=== PATIENT | female | born 1985 | race African-American/Black ===

== ENCOUNTER 2017-07-14 07:16 | Emergency (ER) | payer MEDICAID ==
--- NOTE | 2017-07-14 08:46 | ER ---
Nurse's Notes [facility] Name: Mary Drake Age: 31 yrs Sex: Female : 1985 Arrival Date: 07/14/2017 Time: 07:21 Bed 15 Private MD: Aubrey Bolton E Diagnosis: Acute pharyngitis Presentation: 07/14 07:27 Presenting complaint: Patient states: sore throat that began yesterday. Transition of ss care: patient was not received from another setting of care. Onset of symptoms was July 13, 2017. Care prior to arrival: None. 07:27 Method Of Arrival: Ambulatory ss 07:27 Acuity: CED 4 ss Historical: - Allergies: : NKA; ss - PMHx: : Anxiety; Arthritis; Asthma; COPD; Schizophrenia; seasonal allergies; ss - PSHx: :28 Appendectomy; Tubal ligation; ss - Immunization history:: Adult Immunizations up to date. - Social history:: Smoking status: Patient/guardian denies using tobacco. Screenin:40 Abuse screen: Denies threats or abuse. Denies injuries from another. Nutritional ph screening: No deficits noted. Tuberculosis screening: No symptoms or risk factors identified. Fall Risk None identified. Assessment: 07:38 General: Appears in no apparent distress. comfortable, slender, Behavior is calm, ph cooperative, appropriate for age, Reports fever for 12-24 hours. Pain: Complains of pain in throat. Neuro: Level of Consciousness is awake, alert, obeys commands, Oriented to person, place, time, situation. Cardiovascular: Capillary refill < 3 seconds Patient's skin is warm and dry. Respiratory: Reports cough that is productive, Airway is patent Respiratory effort is even, unlabored, Respiratory pattern is regular, symmetrical, Breath sounds are clear bilaterally. GI: No signs and/or symptoms were reported involving the gastrointestinal system. EENT: Throat is reddened Reports nasal congestion nasal discharge pain when swallowing " itching in ears". Derm: Skin is intact, is healthy with good turgor, Skin is pink, warm \\T\\ dry. Musculoskeletal: Circulation, motion, and sensation intact. Range of motion: intact in all extremities. 08:31 Reassessment: Patient appears in no apparent distress at this time. Patient and/or ph family updated on plan of care and expected duration. Pain level reassessed. Patient is alert, oriented x 3, equal unlabored respirations, skin warm/dry/pink. Pt resting quietly, awaiting strep results, SO at bedside. 09:15 Reassessment: Patient appears in no apparent distress at this time. Patient and/or hb family updated on plan of care and expected duration. Pain level reassessed. Patient is alert, oriented x 3, equal unlabored respirations, skin warm/dry/pink. Vital Signs: 07:28 BP 98 / 73; Pulse 70; Resp 15; Temp 97.9(O); Pulse Ox 100% on R/A; Weight 57.15 kg; Height 5 ft. 4 in. (162.56 cm); Pain 8/10; 07:28 Body Mass Index 21.63 (57.15 kg, 162.56 cm) ED Course: 07:21 Patient arrived in ED. as 07:21 Aubrey Bolton MD is Private Physician. as 07:27 Triage completed. 07:28 Arm band placed on right wrist. 07:29 Teddy Nye PA is PHCP. 8 07:29 Adria Lala MD is Attending Physician. jr8 07:38 Valerie Gomez, RN is Primary Nurse. ph 07:41 Patient has correct armband on for positive identification. Bed in low position. Call ph light in reach. 07:41 No provider procedures requiring assistance completed. Patient did not have IV access ph during this emergency room visit. 08:46 Aubrey Bolton MD is Referral Physician. jr8 Administered Medications: No medications were administered Outcome: 08:46 Discharge ordered by . jr8 09:28 Discharged to home ambulatory, with significant other. hb 09:28 Condition: stable 09:28 Discharge instructions given to patient, Instructed on discharge instructions, follow up and referral plans. medication usage, Demonstrated understanding of instructions, follow-up care, medications, Prescriptions given X 2. 09:29 Patient left the ED. hb Signatures: Nakita Penn Shelby, RN RN Teddy Nye PA PA jr8 Valerie Gomez RN RN Malini Goddard RN RN
--- NOTE | 2017-07-14 08:47 | EDPHYS ---
Physician Documentation [facility] Name: Mary Drake Age: 31 yrs Sex: Female : 1985 Arrival Date: 07/14/2017 Time: 07:21 Bed 15 Private MD: Aubrey Bolton E ED Physician Adria Lala HPI: 07/14 07:36 This 31 yrs old Black Female presents to ER via Ambulatory with complaints of Sore jr8 Throat. 07:36 The patient presents with sore throat. The patient describes throat pain as constant. jr8 Onset: The symptoms/episode began/occurred acutely, yesterday. Severity of symptoms: At their worst the symptoms were mild, in the emergency department the symptoms are unchanged. Modifying factors: The symptoms are alleviated by nothing, the symptoms are aggravated by swallowing. Associated signs and symptoms: Pertinent positives: cough. It is unknown whether or not the patient has had similar symptoms in the past. The patient has not recently seen a physician. Historical: - Allergies: 07:28 NKA; ss - PMHx: 07:28 Anxiety; Arthritis; Asthma; COPD; Schizophrenia; seasonal allergies; ss - PSHx: 07:28 Appendectomy; Tubal ligation; ss - Immunization history:: Adult Immunizations up to date. - Social history:: Smoking status: Patient/guardian denies using tobacco. ROS: 07:36 Eyes: Negative for injury, pain, redness, and discharge, Neck: Negative for injury, jr8 pain, and swelling, Cardiovascular: Negative for chest pain, palpitations, and edema, Abdomen/GI: Negative for abdominal pain, nausea, vomiting, diarrhea, and constipation, Back: Negative for injury and pain, MS/Extremity: Negative for injury and deformity, Skin: Negative for injury, rash, and discoloration, Neuro: Negative for headache, weakness, numbness, tingling, and seizure. 07:36 ENT: Positive for sore throat, Negative for drainage from ear(s), ear pain, nasal discharge, rhinorrhea, difficulty swallowing, difficulty handling secretions, hoarseness. 07:36 Respiratory: Positive for cough, shortness of breath, wheezing, Negative for Exam: 07:36 Head/Face: Normocephalic, atraumatic. Eyes: Pupils equal round and reactive to light, jr8 extra-ocular motions intact. Lids and lashes normal. Conjunctiva and sclera are non-icteric and not injected. Cornea within normal limits. Periorbital areas with no swelling, redness, or edema. Neck: Trachea midline, no thyromegaly or masses palpated, and no cervical lymphadenopathy. Supple, full range of motion without nuchal rigidity, or vertebral point tenderness. No Meningismus. Cardiovascular: Regular rate and rhythm with a normal S1 and S2. No gallops, murmurs, or rubs. Normal PMI, no JVD. No pulse deficits. Respiratory: Lungs have equal breath sounds bilaterally, clear to auscultation and percussion. No rales, rhonchi or wheezes noted. No increased work of breathing, no retractions or nasal flaring. Abdomen/GI: Soft, non-tender, with normal bowel sounds. No distension or tympany. No guarding or rebound. No evidence of tenderness throughout. Back: No spinal tenderness. No costovertebral tenderness. Full range of motion. Skin: Warm, dry with normal turgor. Normal color with no rashes, no lesions, and no evidence of cellulitis. MS/ Extremity: Pulses equal, no cyanosis. Neurovascular intact. Full, normal range of motion. Neuro: Awake and alert, GCS 15, oriented to person, place, time, and situation. Cranial nerves II-XII grossly intact. Motor strength 5/5 in all extremities. Sensory grossly intact. Cerebellar exam normal. Normal gait. 07:36 ENT: Exam is negative for earache, ear discharge, TM abnormalities, nasal discharge, sinus tenderness, Mouth: Lips: moist, Oral mucosa: pink and intact, moist, Gums: pink, Tongue: is moist, Posterior pharynx: Airway: patent, Tonsils: are normal in appearance, no enlargement, no erythema, no exudate, no ulcerations, Uvula: midline, non-edematous, no erythema, swelling, is not appreciated, erythema, that is mild. Vital Signs: 07:28 BP 98 / 73; Pulse 70; Resp 15; Temp 97.9(O); Pulse Ox 100% on R/A; Weight 57.15 kg; ss Height 5 ft. 4 in. (162.56 cm); Pain 8/10; 07:28 Body Mass Index 21.63 (57.15 kg, 162.56 cm) MDM: 07:30 Patient medically screened. jr8 08:45 Data reviewed: vital signs, nurses notes, lab test result(s), and as a result, I will jr8 discharge patient. Data interpreted: Pulse oximetry: on room air is 100 %. Interpretation: normal. Counseling: I had a detailed discussion with the patient and/or guardian regarding: the historical points, exam findings, and any diagnostic results supporting the discharge/admit diagnosis, lab results, the need for outpatient follow up, a family practitioner, to return to the emergency department if symptoms worsen or persist or if there are any questions or concerns that arise at home. 07/14 07:35 Order name: Strep jr8 07/14 08:40 Order name: Group A Streptococcus Rapid Sc; Complete Time: 08:45 EDMS Administered Medications: No medications were administered Disposition: 12:23 Co-signature as Attending Physician, Adria Lala MD I agree with the assessment and tawana plan of care. Disposition: 07/14/17 08:46 Discharged to Home. Impression: Acute pharyngitis. - Condition is Stable. - Discharge Instructions: Pharyngitis, Salt Water Gargle. - Prescriptions for Tessalon Perles 100 mg Oral Capsule - take 1 capsule by ORAL route every 8 hours As needed; 15 capsule. Medrol (Harrison) 4 mg Oral Tablets, Dose Pack - take 1 tablet by ORAL route as directed - follow package instructions; 1 packet. - Medication Reconciliation Form, Thank You Letter, Antibiotic Education, Prescription Opioid Use form. - Follow up: Aubrey Bolton MD; When: 1 - 2 days; Reason: Recheck today's complaints, Continuance of care, Re-evaluation by your physician. - Problem is new. - Symptoms have improved. Signatures: Dispatcher [employer] Adria Coles MD MD cha Smirch, Shelby, Teddy Reyes RN, PA PA jr8 Malini Goddard RN RN hb
[2017-07-14 09:38] VITALS: BP 98/73; TEMP 97.9; O2SAT 100
== END 2017-07-14 09:29 | disposition home or self-care (01) ==
LOC: ER 07:16
DX: J02.9 Acute pharyngitis, unspecified (principal)
CPT/HCPCS: 87070; 87081; 99282

== ENCOUNTER 2017-10-03 13:37 | Emergency (ER) | payer MEDICAID ==
--- NOTE | 2017-10-03 14:34 | EDPHYS ---
Physician Documentation [facility] Name: Mary Drake Age: 31 yrs Sex: Female : 1985 Arrival Date: 10/03/2017 Time: 13:41 Bed 19 Private MD: Aubrey Bolton E; None, None ED Physician Chriss Matamoros HPI: 10/03 14:25 This 31 yrs old Black Female presents to ER via Ambulatory with complaints of Neck gs Pain, <24hrs Old. 14:25 The patient or guardian complains of pain, that is acute. The symptoms are located on gs the left trapezius. Onset: The symptoms/episode began/occurred acutely, 3 day(s) ago. Associated signs and symptoms: Pertinent negatives: chills, bladder incontinence, bowel incontinence. The pain does not radiate. Modifying factors: the symptoms are aggravated by movement. Severity of symptoms: At their worst the symptoms were moderate, in the emergency department the symptoms are unchanged. 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 - Social history:: Smoking status: Patient/guardian denies using tobacco. - Ebola Screening: : Patient denies exposure to infectious person Patient denies travel to an Ebola-affected area in the 21 days before illness onset. ROS: 14:25 All other systems are negative. gs Exam: 14:25 Head/Face: Normocephalic, atraumatic. Eyes: Pupils equal round and reactive to light, gs extra-ocular motions intact. Lids and lashes normal. Conjunctiva and sclera are non-icteric and not injected. Cornea within normal limits. Periorbital areas with no swelling, redness, or edema. ENT: Nares patent. No nasal discharge, no septal abnormalities noted. Tympanic membranes are normal and external auditory canals are clear. Oropharynx with no redness, swelling, or masses, exudates, or evidence of obstruction, uvula midline. Mucous membranes moist. Chest/axilla: Normal chest wall appearance and motion. Nontender with no deformity. No lesions are appreciated. Cardiovascular: Regular rate and rhythm with a normal S1 and S2. No gallops, murmurs, or rubs. Normal PMI, no JVD. No pulse deficits. Respiratory: Lungs have equal breath sounds bilaterally, clear to auscultation and percussion. No rales, rhonchi or wheezes noted. No increased work of breathing, no retractions or nasal flaring. Abdomen/GI: Soft, non-tender, with normal bowel sounds. No distension or tympany. No guarding or rebound. No evidence of tenderness throughout. Back: No spinal tenderness. No costovertebral tenderness. Full range of motion. Skin: Warm, dry with normal turgor. Normal color with no rashes, no lesions, and no evidence of cellulitis. MS/ Extremity: Pulses equal, no cyanosis. Neurovascular intact. Full, normal range of motion. Neuro: Awake and alert, GCS 15, oriented to person, place, time, and situation. Cranial nerves II-XII grossly intact. Motor strength 5/5 in all extremities. Sensory grossly intact. Cerebellar exam normal. Normal gait. 14:25 Constitutional: The patient appears alert, awake. 14:25 Neck: External neck: tenderness, that is mild, of the left trapezius, C-spine: vertebral tenderness, is not appreciated, ROM/movement: pain, that is mild, with rotation to the left. Vital Signs: 13:56 BP 125 / 77; Pulse 72; Resp 16; Temp 97.7(TE); Pulse Ox 100% on R/A; Weight 54.43 kg; ss Height 5 ft. 4 in. (162.56 cm); Pain 9/10; 13:56 Body Mass Index 20.60 (54.43 kg, 162.56 cm) ss MDM: 14:15 Patient medically screened. gs 14:25 Differential diagnosis: arthritis, Cervical Disc Herniation Cervical Discogenic Pain. gs Data reviewed: vital signs, nurses notes. Response to treatment: the patient's symptoms have mildly improved after treatment, and as a result, I will discharge patient. Administered Medications: No medications were administered Disposition: 10/03/17 14:34 Discharged to Home. Impression: Radiculopathy, cervical region. - Condition is Stable. - Discharge Instructions: Cervical Radiculopathy. - Prescriptions for Prednisone 20 mg Oral Tablet - take 1 tablet by ORAL route once daily for 5 days; 5 tablet. Tylenol- Codeine #4 300-60 mg Oral Tablet - take 1 tablet by ORAL route every 6 hours As needed; 10 tablet. - Medication Reconciliation Form, Thank You Letter, Antibiotic Education, Prescription Opioid Use form. - Follow up: Jose Spencer DO; When: 2 - 3 days; Reason: Re-evaluation by your physician. Signatures: Autumn Carson RN RN ss Chriss Matamoros MD MD Corrections: (The following items were deleted from the chart) 14:44 14:34 10/03/2017 14:34 Discharged to Home. Impression: Radiculopathy, cervical region. ss Condition is Stable. Forms are Medication Reconciliation Form, Thank You Letter, Antibiotic Education, Prescription Opioid Use. Follow up: Jose Spencer; When: 2 - 3 days; Reason: Re-evaluation by your physician. gs
--- NOTE | 2017-10-03 14:34 | ER ---
Nurse's Notes [facility] Name: Mary Drake Age: 31 yrs Sex: Female : 1985 Arrival Date: 10/03/2017 Time: 13:41 Bed 19 Private MD: Aubrey Bolton E; None, None Diagnosis: Radiculopathy, cervical region Presentation: 10/03 13:54 Presenting complaint: Patient states: woke up this morning with pain to L side of neck ss and stiffness, that is worse when turning head side to side. Denies fever, injury. Transition of care: patient was not received from another setting of care. Acute neurological deficit: none identified. Onset of symptoms was October 03, 2017. Risk Assessment: Do you want to hurt yourself or someone else? Patient reports no desire to harm self or others. Initial Sepsis Screen: Does the patient meet any 2 criteria? No. Patient's initial sepsis screen is negative. Does the patient have a suspected source of infection? No. Patient's initial sepsis screen is negative. Care prior to arrival: None. 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 - Social history:: Smoking status: Patient/guardian denies using tobacco. - Ebola Screening: : Patient denies exposure to infectious person Patient denies travel to an Ebola-affected area in the 21 days before illness onset. Screenin:56 Abuse screen: Denies threats or abuse. Denies injuries from another. Nutritional ss screening: No deficits noted. Tuberculosis screening: Never had TB. Fall Risk None identified. Assessment: 13:56 General: Appears in no apparent distress. Behavior is Denies fever, feeling ill, ss fatigue, chills. Pain: Complains of pain in left trapezius Pain currently is 9 out of 10 on a pain scale. Quality of pain is described as aching, tender, pulling Pain began this am Is continuous. Neuro: Level of Consciousness is awake, alert, obeys commands, Oriented to person, place, time, situation. Cardiovascular: Capillary refill < 3 seconds is brisk in bilateral fingers. Respiratory: Airway is patent Trachea midline Respiratory effort is even, unlabored, Respiratory pattern is regular, symmetrical. GI: Patient currently denies abdominal pain, diarrhea, nausea, vomiting. : No signs and/or symptoms were reported regarding the genitourinary system. EENT: Nares are clear Oral mucosa is moist. Derm: Skin is pink, warm \T\ dry. Musculoskeletal: Capillary refill < 3 seconds, is brisk, in bilateral fingers. Range of motion: intact in all extremities, Swelling absent. Vital Signs: 13:56 BP 125 / 77; Pulse 72; Resp 16; Temp 97.7(TE); Pulse Ox 100% on R/A; Weight 54.43 kg; ss Height 5 ft. 4 in. (162.56 cm); Pain 9/10; 13:56 Body Mass Index 20.60 (54.43 kg, 162.56 cm) ED Course: 13:41 Patient arrived in ED. sb2 13:41 None, None is Private Physician. sb2 13:41 Aubrey Bolton MD is Private Physician. sb2 13:55 Triage completed. ss 13:56 Chriss Matamoros MD is Attending Physician. gs 13:56 Arm band placed on right wrist. ss 13:56 Patient has correct armband on for positive identification. Bed in low position. Call ss light in reach. 13:57 Fela Stevenson RN is Primary Nurse. kr2 14:33 Jose Spencer DO is Referral Physician. gs 14:43 No provider procedures requiring assistance completed. Patient did not have IV access ss during this emergency room visit. Administered Medications: No medications were administered Outcome: 14:34 Discharge ordered by . 14:43 Discharged to home ambulatory. ss 14:43 Condition: good 14:43 Discharge instructions given to patient, family, Instructed on discharge instructions, follow up and referral plans. medication usage, Demonstrated understanding of instructions, follow-up care, medications, Prescriptions given X 2. 14:44 Patient left the ED. Signatures: Autumn Carson RN RN Chriss Matamoros MD MD Fela Stevenson RN RN kr2 Mari Bonilla sb2
[2017-10-03 14:56] VITALS: BP 125/77; TEMP 97.7; O2SAT 100
== END 2017-10-03 14:44 | disposition home or self-care (01) ==
LOC: ER 13:37
DX: M54.12 Radiculopathy, cervical region (principal)
CPT/HCPCS: 99282

== ENCOUNTER 2017-10-13 16:06 | Emergency (ER) | payer MEDICAID ==
[2017-10-13 16:56] LABS: Urine Blood NEGATIVE (NEG); Urine Glucose NEGATIVE (NEG); Urine Protein 1+ (NEG); Urine Specific Gravity 1.025 (1.005-1.030)
[2017-10-13 17:05] LABS: Absolute Lymphocytes (CBC) 2.7 K/uL (0.7-4.9); Absolute Monocytes 0.3 K/uL (0.1-1.3); Absolute Neutrophil 2.6 K/uL (1.8-8.0); Basophils % 1.3 % (0-1.3); Eosinophils % 2.3 % (0-4.4); Hematocrit 34.1 % (36.0-45.0); Lymphocytes % 46.5 % (15.3-44.8); MCH 26.6 pg (27.0-35.0); MCV 82.8 fL (80-100); MPV 10.2 fL (7.6-11.3); Monocytes % 5.6 % (3.3-12.3); RBC Red Blood Cell Count 4.12 M/uL (3.86-4.86)
[2017-10-13 17:06] LABS: Urine Bacteria <20 /HPF (<20); Urine RBC <5 /HPF (NONE SEEN)
[2017-10-13 17:07] LABS: Urine Amorphous Sediment 1+ /HPF (NONE SEEN); Urine Culture Reflex Order NOT NEEDED; Urine Mucus 1+ /HPF (NONE SEEN)
[2017-10-13 17:22] LABS: Albumin 3.6 g/dL (3.4-5.0); Bilirubin Direct 0.1 mg/dL (0-0.2); Bilirubin Total 0.3 mg/dL (0.2-1.0); Potassium 3.6 mmol/L (3.5-5.1); Protein, Total 7.5 g/dL (6.4-8.2)
--- NOTE | 2017-10-13 17:26 | ER ---
Nurse's Notes [facility] Name: Mary Drake Age: 31 yrs Sex: Female : 1985 Arrival Date: 10/13/2017 Time: 16:09 Bed 23 Private MD: Aubrey Bolton E Diagnosis: Candidiasis of vulva and vagina;Urinary tract infection, site not specified Presentation: 10/13 16:18 Presenting complaint: Patient states: Reports urinary urgency for 4 days with thick aj white vaginal discharge. Transition of care: patient was not received from another setting of care. Onset of symptoms was October 09, 2017. Risk Assessment: Do you want to hurt yourself or someone else? Patient reports no desire to harm self or others. Initial Sepsis Screen: Does the patient meet any 2 criteria? No. Patient's initial sepsis screen is negative. Does the patient have a suspected source of infection? No. Patient's initial sepsis screen is negative. Care prior to arrival: None. 16:18 Method Of Arrival: Ambulatory aj 16:18 Acuity: CED 3 aj Triage Assessment: 16:20 General: Appears in no apparent distress. comfortable, Behavior is calm, cooperative, aj appropriate for age. Pain: Complains of pain in pelvis. Neuro: Level of Consciousness is awake, alert, obeys commands, Oriented to person, place, time, situation, Appropriate for age. Respiratory: Airway is patent Respiratory effort is even, unlabored, Respiratory pattern is regular, symmetrical. GI: Abdomen is flat, non-distended. : Reports discharge, white, urinary frequency, vaginal itching. Derm: Skin is intact, is healthy with good turgor, Skin is pink, warm \T\ dry. normal. 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 - Social history:: Smoking status: Patient uses tobacco products, denies chronic smoking, but will smoke occasionally. - Ebola Screening: : Patient negative for fever greater than or equal to 101.5 degrees Fahrenheit, and additional compatible Ebola Virus Disease symptoms Patient denies exposure to infectious person Patient denies travel to an Ebola-affected area in the 21 days before illness onset No symptoms or risks identified at this time. - Family history:: not pertinent. - Hospitalizations: : No recent hospitalization is reported. - History obtained from: significant other. Screenin:53 Abuse screen: Denies threats or abuse. Nutritional screening: No deficits noted. tl3 Tuberculosis screening: No symptoms or risk factors identified. Fall Risk None identified. Assessment: 16:53 General: Appears uncomfortable, slender, well groomed, well developed, well nourished, tl3 Behavior is calm, cooperative, appropriate for age. Pain: Complains of pain in pelvis. Neuro: Level of Consciousness is awake, alert, obeys commands, Oriented to person, place, time, situation, Appropriate for age. Cardiovascular: Patient's skin is warm and dry. Respiratory: Airway is patent Respiratory effort is even, unlabored, Respiratory pattern is regular, symmetrical. GI: Bowel sounds present X 4 quads. Abd is soft X 4 quads. : Urine is cloudy. EENT: No signs and/or symptoms were reported regarding the EENT system. Derm: No signs and/or symptoms reported regarding the dermatologic system. Musculoskeletal: No signs and/or symptoms reported regarding the musculoskeletal system. 17:23 Reassessment: Patient appears in no apparent distress at this time. No changes from tl3 previously documented assessment. Patient and/or family updated on plan of care and expected duration. Pain level reassessed. Patient is alert, oriented x 3, equal unlabored respirations, skin warm/dry/pink. c/o abdominal pain, no other needs at this time. Vital Signs: 16:20 BP 120 / 68; Pulse 81; Resp 19; Temp 98.6; Pulse Ox 99% on R/A; Weight 54.43 kg; Height aj 5 ft. 4 in. (162.56 cm); 16:38 BP 118 / 84; Pulse 74; Resp 18; Pulse Ox 99% on R/A; mt 17:23 BP 98 / 78; Pulse 68; Resp 18; Pulse Ox 100% ; tl3 16:20 Body Mass Index 20.60 (54.43 kg, 162.56 cm) ED Course: 16:09 Patient arrived in ED. mr 16:10 Aubrey Bolton MD is Private Physician. mr 16:11 [facility] kav 16:11 Adria Lala MD is Attending Physician. ka 16:19 Triage completed. 16:20 Arm band placed on right wrist. Patient placed in an exam room. 16:53 Mei Mays, RN is Primary Nurse. tl3 16:53 Patient has correct armband on for positive identification. Bed in low position. Call tl3 light in reach. Side rails up X 1. Adult w/ patient. Pulse ox on. NIBP on. 16:53 No provider procedures requiring assistance completed. Inserted saline lock: 22 gauge tl3 in right antecubital area, using aseptic technique. Blood collected. 17:25 Aubrey Bolton MD is Referral Physician. kav 17:45 IV discontinued, intact, bleeding controlled, No redness/swelling at site. Pressure tl3 dressing applied. Administered Medications: 17:46 Drug: Ibuprofen 800 mg Route: PO; tl3 17:46 Follow up: Response: Medication administered at discharge. tl3 Outcome: 17:25 Discharge ordered by . kav 17:44 Discharged to home ambulatory. tl3 17:44 Condition: stable 17:44 Discharge instructions given to patient, family, Instructed on discharge instructions, follow up and referral plans. medication usage, Demonstrated understanding of instructions, follow-up care, medications, Prescriptions given X 2, stressed no alcohol while taking Flagyl 17:45 Patient left the ED. tl3 Signatures: Юлия Fernandes, RN DAYDAY Jahaira Adams FNP [facility] Gwendolyn Magana Sunshine Blackman hi Mei Mays, RN RN tl3
--- NOTE | 2017-10-13 17:26 | EDPHYS ---
Physician Documentation [facility] Name: Mary Drake Age: 31 yrs Sex: Female : 1985 Arrival Date: 10/13/2017 Time: 16:09 Bed 23 Private MD: Aubrey Bolton E ED Physician Adria Lala HPI: 10/13 16:12 This 31 yrs old Black Female presents to ER via Unassigned with complaints of Abdominal kav Pain, Vaginal Discharge. 16:46 The patient presents with abdominal pain in the left lower quadrant. Onset: The kav symptoms/episode began/occurred 6 year(s) ago. The symptoms radiate to right back. Associated signs and symptoms: Pertinent positives: vaginal discharge, Pertinent negatives: nausea, vomiting, and diarrhea, anorexia, diarrhea, dysuria, hematuria. The symptoms are described as achy. Modifying factors: The symptoms are alleviated by nothing, the symptoms are aggravated by nothing. Severity of pain: At its worst the pain was mild just prior to arrival, in the emergency department the pain is unchanged. The patient has experienced a previous episode, approximately 6 years ago, but today's symptoms are worse. The patient has not recently seen a physician. Patient presents with c/o of LLQ abdominal pain since 2011 that radiates to her right back. She also c/o vaginal discharge for the past 3 weeks "...that is white in color and looks like cottage cheese". 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 - Social history:: Smoking status: Patient uses tobacco products, denies chronic smoking, but will smoke occasionally. - Ebola Screening: : Patient negative for fever greater than or equal to 101.5 degrees Fahrenheit, and additional compatible Ebola Virus Disease symptoms Patient denies exposure to infectious person Patient denies travel to an Ebola-affected area in the 21 days before illness onset No symptoms or risks identified at this time. - Family history:: not pertinent. - Hospitalizations: : No recent hospitalization is reported. - History obtained from: significant other. ROS: 16:50 Constitutional: Negative for fever, chills, and weight loss, Eyes: Negative for injury, kav pain, redness, and discharge, ENT: Negative for injury, pain, and discharge, Neck: Negative for injury, pain, and swelling, Cardiovascular: Negative for chest pain, palpitations, and edema, Respiratory: Negative for shortness of breath, cough, wheezing, and pleuritic chest pain, Back: Negative for injury and pain, MS/Extremity: Negative for injury and deformity, Skin: Negative for injury, rash, and discoloration, Neuro: Negative for headache, weakness, numbness, tingling, and seizure, Psych: Negative for depression, anxiety, suicide ideation, homicidal ideation, and hallucinations, Allergy/Immunology: Negative for hives, rash, and allergies, Endocrine: Negative for neck swelling, polydipsia, polyuria, polyphagia, and marked weight changes, Hematologic/Lymphatic: Negative for swollen nodes, abnormal bleeding, and unusual bruising. 16:50 Abdomen/GI: Positive for abdominal pain, Negative for nausea, vomiting, and diarrhea, abdominal distension, rectal pain, rectal bleeding. Exam: 16:50 Constitutional: This is a well developed, well nourished patient who is awake, alert, kav and in no acute distress. Head/Face: Normocephalic, atraumatic. Eyes: Pupils equal round and reactive to light, extra-ocular motions intact. Lids and lashes normal. Conjunctiva and sclera are non-icteric and not injected. Cornea within normal limits. Periorbital areas with no swelling, redness, or edema. ENT: Nares patent. No nasal discharge, no septal abnormalities noted. Tympanic membranes are normal and external auditory canals are clear. Oropharynx with no redness, swelling, or masses, exudates, or evidence of obstruction, uvula midline. Mucous membranes moist. Neck: Trachea midline, no thyromegaly or masses palpated, and no cervical lymphadenopathy. Supple, full range of motion without nuchal rigidity, or vertebral point tenderness. No Meningismus. Chest/axilla: Normal chest wall appearance and motion. Nontender with no deformity. No lesions are appreciated. Cardiovascular: Regular rate and rhythm with a normal S1 and S2. No gallops, murmurs, or rubs. Normal PMI, no JVD. No pulse deficits. Respiratory: Lungs have equal breath sounds bilaterally, clear to auscultation and percussion. No rales, rhonchi or wheezes noted. No increased work of breathing, no retractions or nasal flaring. Back: No spinal tenderness. No costovertebral tenderness. Full range of motion. Skin: Warm, dry with normal turgor. Normal color with no rashes, no lesions, and no evidence of cellulitis. MS/ Extremity: Pulses equal, no cyanosis. Neurovascular intact. Full, normal range of motion. Neuro: Awake and alert, GCS 15, oriented to person, place, time, and situation. Cranial nerves II-XII grossly intact. Motor strength 5/5 in all extremities. Sensory grossly intact. Cerebellar exam normal. Normal gait. Psych: Awake, alert, with orientation to person, place and time. Behavior, mood, and affect are within normal limits. 16:50 Abdomen/GI: Inspection: abdomen appears normal, Bowel sounds: normal, Palpation: abdomen is soft and non-tender, in all quadrants. 16:50 : Exam negative for Vital Signs: 16:20 BP 120 / 68; Pulse 81; Resp 19; Temp 98.6; Pulse Ox 99% on R/A; Weight 54.43 kg; Height aj 5 ft. 4 in. (162.56 cm); 16:38 BP 118 / 84; Pulse 74; Resp 18; Pulse Ox 99% on R/A; mt 17:23 BP 98 / 78; Pulse 68; Resp 18; Pulse Ox 100% ; tl3 16:20 Body Mass Index 20.60 (54.43 kg, 162.56 cm) MDM: 16:38 Medical screening is not applicable. [facility] 16:50 Data reviewed: vital signs, nurses notes. 10/13 16:15 Order name: Amylase, Serum; Complete Time: 17:23 [facility] 10/13 17:23 Interpretation: Within normal limits. 10/13 16:15 Order name: Basic Metabolic Panel; Complete Time: 17:23 [facility] 10/13 17:25 Interpretation: Normal except: CL 108; GLUC 124; GFR 64; CA 8.4. [facility] 10/13 16:15 Order name: CBC with Diff; Complete Time: 17:13 10/13 17:13 Interpretation: Normal except: HGB 10.9; HCT 34.1; MCH 26.6; RDW 17.5; LYM% 46.5. 10/13 16:15 Order name: Creatinine for Radiology; Complete Time: 17:28 10/13 16:15 Order name: Hepatic Function; Complete Time: 17:23 10/13 17:23 Interpretation: Normal except: AST 12; ALK 43; GLOB 3.9; A/G 0.9. 10/13 16:15 Order name: Lipase; Complete Time: 17:23 10/13 16:15 Order name: Urine Test (obtain specimen); Complete Time: 16:37 10/13 16:15 Order name: Urine Microscopic Only; Complete Time: 17:13 10/13 17:14 Interpretation: UWBC 5-10; SQEPI >50. 10/13 16:15 Order name: IV Saline Lock; Complete Time: 16:38 10/13 16:15 Order name: Labs collected and sent; Complete Time: 16:38 10/13 16:15 Order name: Urine Dipstick-Ancillary (obtain specimen); Complete Time: 16:38 10/13 16:39 Order name: Urine Dipstick--Ancillary (enter results); Complete Time: 17:15 10/13 17:15 Interpretation: UKET 1+; UPROT 1+; UESTR TRACE. 10/13 16:39 Order name: Urine --Ancillary (enter results); Complete Time: 17:13 10/13 17:13 Interpretation: Within normal limits. [facility] Administered Medications: 17:46 Drug: Ibuprofen 800 mg Route: PO; tl3 17:46 Follow up: Response: Medication administered at discharge. tl3 Disposition: 10/14 06:41 Co-signature as Attending Physician, Adria Lala MD I agree with the assessment and tawana plan of care. Disposition: 10/13/17 17:25 Discharged to Home. Impression: Candidiasis of vulva and vagina, Urinary tract infection, site not specified. - Condition is Stable. - Discharge Instructions: Vaginitis, Monilial, Urinary Tract Infection, [id number], Antibiotic Use, [id number]. - Prescriptions for Fluconazole 150 mg Oral Tablet - take 1 tablet by ORAL route once daily; 2 tablet. Cipro 500 mg Oral Tablet - take 1 tablet by ORAL route every 12 hours for 7 days; 14 tablet. - Medication Reconciliation Form, Thank You Letter, Antibiotic Education, Prescription Opioid Use form. - Follow up: Aubrey Bolton; When: 5 - 6 days; Reason: Recheck today's complaints, Continuance of care, Re-evaluation by your physician. - Problem is new. Signatures: Dispatcher [employer] EDЮлия Jane, RN RN Adria Awad MD MD cha Vern, Katherine, METAL FABRICATOR WELDER METAL FABRICATOR WELDER Mei Richter, RN RN tl3 Corrections: (The following items were deleted from the chart) 10/13 17:24 17:23 Within normal limits. [facility] 17:25 17:23 CL 108; GLUC 124; GFR 64. [facility] 17:45 17:25 10/13/2017 17:25 Discharged to Home. Impression: Candidiasis of vulva and vagina; tl3 Urinary tract infection, site not specified. Condition is Stable. Discharge Instructions: Vaginitis, Monilial, Urinary Tract Infection, [id number]-[id number], Antibiotic Use, [id number]. Prescriptions for Fluconazole 150 mg Oral Tablet - take 1 tablet by ORAL route once daily; 2 tablet, Cipro 500 mg Oral Tablet - take 1 tablet by ORAL route every 12 hours for 7 days; 14 tablet. and Forms are Medication Reconciliation Form, Thank You Letter, Antibiotic Education, Prescription Opioid Use. Follow up: Aubrey Bolton; When: 5 - 6 days; Reason: Recheck today's complaints, Continuance of care, Re-evaluation by your physician. Problem is new. ka
[2017-10-13] MEDS ORDERED: IBUPROFEN 400 MG TAB ONE (17:29)
[2017-10-13 17:49] VITALS: TEMP 98.6
[2017-10-13 17:51] VITALS: BP 98/78; O2SAT 100
== END 2017-10-13 17:45 | disposition home or self-care (01) ==
LOC: ER 16:06
DX: B37.3 Candidiasis of vulva and vagina (principal); N39.0 Urinary tract infection, site not specified; J44.9 Chronic obstructive pulmonary disease, unspecified; Z72.0 Tobacco use; F20.9 Schizophrenia, unspecified
CPT/HCPCS: 36415; 80048; 80076; 81003; 81015; 81025; 82150; 83690; 85025; 99284

== ENCOUNTER 2017-10-31 13:01 | Emergency (ER) | payer MEDICAID ==
--- NOTE | 2017-10-31 13:48 | EDPHYS ---
Physician Documentation [facility] Name: Mary Drake Age: 31 yrs Sex: Female : 1985 Arrival Date: 10/31/2017 Time: 13:01 Bed 28 Private MD: Aubrey Bolton E ED Physician Leidy Armijo HPI: 10/31 13:45 This 31 yrs old Black Female presents to ER via Ambulatory with complaints of Sore ma2 Throat. 13:45 The patient presents with sore throat. The patient describes throat pain as constant. ma2 Onset: The symptoms/episode began/occurred gradually, 2 day(s) ago. Severity of symptoms: At their worst the symptoms were moderate, in the emergency department the symptoms are unchanged. Associated signs and symptoms: Pertinent negatives cough, diarrhea. The patient has experienced similar episodes in the past, several times. 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 - Social history:: Smoking status: Patient/guardian denies using tobacco, Patient/guardian denies using alcohol, street drugs, The patient lives with family. - Ebola Screening: : Patient denies travel to an Ebola-affected area in the 21 days before illness onset. - Family history:: not pertinent. ROS: 13:45 ENT: Positive for sore throat. ma2 13:45 All other systems are negative. Exam: 13:45 Constitutional: This is a well developed, well nourished patient who is awake, alert, ma2 and in no acute distress. Head/Face: Normocephalic, atraumatic. Eyes: Pupils equal round and reactive to light, extra-ocular motions intact. Lids and lashes normal. Conjunctiva and sclera are non-icteric and not injected. Cornea within normal limits. Periorbital areas with no swelling, redness, or edema. Neck: Trachea midline, no thyromegaly or masses palpated, and no cervical lymphadenopathy. Supple, full range of motion without nuchal rigidity, or vertebral point tenderness. No Meningismus. Chest/axilla: Normal chest wall appearance and motion. Nontender with no deformity. No lesions are appreciated. Cardiovascular: Regular rate and rhythm with a normal S1 and S2. No gallops, murmurs, or rubs. Normal PMI, no JVD. No pulse deficits. Respiratory: Lungs have equal breath sounds bilaterally, clear to auscultation and percussion. No rales, rhonchi or wheezes noted. No increased work of breathing, no retractions or nasal flaring. 13:45 ENT: TM's: are normal, Nose: is normal, Posterior pharynx: Airway: normal, Tonsils: are normal in appearance, erythema, that is mild, exudate, is not appreciated, peritonsillar mass, is not appreciated, Voice: is normal. Vital Signs: 13:14 BP 109 / 88; Pulse 95; Resp 18; Temp 97.6; Pulse Ox 97% on R/A; Weight 56.7 kg; Height aj1 5 ft. 4 in. (162.56 cm); 13:14 Body Mass Index 21.46 (56.70 kg, 162.56 cm) aj1 MDM: 13:23 Patient medically screened. ma2 13:45 Differential diagnosis: tonsillitis, tracheobronchitis, upper respiratory infection, ma2 viral syndrome. Data reviewed: vital signs, nurses notes. Test interpretation: by ED physician or midlevel provider: ECG. Counseling: I had a detailed discussion with the patient and/or guardian regarding: the historical points, exam findings, and any diagnostic results supporting the discharge/admit diagnosis, the presence of at least one elevated blood pressure reading (>120/80) during this emergency department visit, the need for outpatient follow up. Response to treatment: the patient's symptoms have markedly improved after treatment. Administered Medications: No medications were administered Disposition: 10/31/17 13:48 Discharged to Home. Impression: Acute upper respiratory infection, unspecified. - Condition is Stable. - Discharge Instructions: Upper Respiratory Infection, Adult, Viral Infections. - Prescriptions for Lidocaine Viscous - take 5 milliliter by ORAL route 3-4 times daily; 1000 milliliter. Augmentin 875- 125 mg Oral Tablet - take 1 tablet by ORAL route every 12 hours for 10 days; 20 tablet. - Medication Reconciliation Form, Thank You Letter, Antibiotic Education, Prescription Opioid Use form. - Follow up: Private Physician; When: Tomorrow; Reason: Continuance of care. - Problem is new. - Symptoms are unchanged. Signatures: Ysabel uLke RN RN aj1 Leidy Armijo MD MD ma2 Cesar Lynn RN RN mb3 Corrections: (The following items were deleted from the chart) 14:02 13:48 10/31/2017 13:48 Discharged to Home. Impression: Acute upper respiratory mb3 infection, unspecified. Condition is Stable. Forms are Medication Reconciliation Form, Thank You Letter, Antibiotic Education, Prescription Opioid Use. Follow up: Private Physician; When: Tomorrow; Reason: Continuance of care. Problem is new. Symptoms are unchanged. ma2
--- NOTE | 2017-10-31 13:48 | ER ---
Nurse's Notes [facility] Name: Mary Drake Age: 31 yrs Sex: Female : 1985 Arrival Date: 10/31/2017 Time: 13:01 Bed 28 Private MD: Aubrey Bolton E Diagnosis: Acute upper respiratory infection, unspecified Presentation: 10/31 13:12 Presenting complaint: Patient states: Sore throat, productive cough, congestion for the aj1 past 5 days. Denies fever. Transition of care: patient was not received from another setting of care. Onset of symptoms was October 26, 2017. Risk Assessment: Do you want to hurt yourself or someone else? Patient reports no desire to harm self or others. Initial Sepsis Screen: Does the patient meet any 2 criteria? No. Patient's initial sepsis screen is negative. Does the patient have a suspected source of infection? No. Patient's initial sepsis screen is negative. Care prior to arrival: None. 13:12 Method Of Arrival: Ambulatory aj1 13:12 Acuity: CED 4 aj1 Triage Assessment: 13:14 General: Appears in no apparent distress. uncomfortable, Behavior is calm, cooperative, aj1 appropriate for age. Pain: Complains of pain in left aspect of posterior pharynx and right aspect of posterior pharynx Pain currently is 8 out of 10 on a pain scale. EENT: Throat is reddened bilaterally Reports sore throat. Neuro: Level of Consciousness is awake, alert, obeys commands. Cardiovascular: Patient's skin is warm and dry. Respiratory: Airway is patent Respiratory effort is even, unlabored, Respiratory pattern is regular, symmetrical. 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 - Social history:: Smoking status: Patient/guardian denies using tobacco, Patient/guardian denies using alcohol, street drugs, The patient lives with family. - Ebola Screening: : Patient denies travel to an Ebola-affected area in the 21 days before illness onset. - Family history:: not pertinent. Screenin:02 Abuse screen: Denies threats or abuse. Nutritional screening: No deficits noted. mb3 Tuberculosis screening: No symptoms or risk factors identified. Fall Risk None identified. Assessment: 14:00 General: Appears uncomfortable, ill, slender, Behavior is calm, cooperative, mb3 appropriate for age. Pain: Complains of pain in throat. Neuro: No deficits noted. Cardiovascular: No deficits noted. Respiratory: No deficits noted. Airway is patent Respiratory effort is even, unlabored, Respiratory pattern is regular, symmetrical, Breath sounds are clear bilaterally. GI: No deficits noted. No signs and/or symptoms were reported involving the gastrointestinal system. : No deficits noted. No signs and/or symptoms were reported regarding the genitourinary system. EENT: No deficits noted. Reports pain when swallowing. Vital Signs: 13:14 BP 109 / 88; Pulse 95; Resp 18; Temp 97.6; Pulse Ox 97% on R/A; Weight 56.7 kg; Height aj1 5 ft. 4 in. (162.56 cm); 13:14 Body Mass Index 21.46 (56.70 kg, 162.56 cm) aj1 ED Course: 13:01 Patient arrived in ED. sb2 13:02 Aubrey Bolton MD is Private Physician. sb2 13:13 Triage completed. aj1 13:14 Arm band placed on Patient placed in an exam room. aj1 13:17 Cesar Lynn RN is Primary Nurse. mb3 13:22 Leidy Armijo MD is Attending Physician. ma2 14:02 Patient has correct armband on for positive identification. mb3 14:02 No provider procedures requiring assistance completed. Patient did not have IV access mb3 during this emergency room visit. Administered Medications: No medications were administered Outcome: 13:48 Discharge ordered by . ma2 14:02 Discharged to home ambulatory. mb3 14:02 Condition: stable 14:02 Discharge instructions given to patient, Instructed on discharge instructions, follow up and referral plans. medication usage, Demonstrated understanding of instructions, follow-up care, medications, Prescriptions given X 2. 14:02 Patient left the ED. mb3 Signatures: Ysabel Luke RN RN aj1 Leidy Armijo MD MD ma2 Mari Bonilla sb2 Cesar Lynn, RN RN mb3
[2017-10-31 14:08] VITALS: BP 109/88; TEMP 97.6; O2SAT 97
== END 2017-10-31 14:02 | disposition home or self-care (01) ==
LOC: ER 13:01
DX: J06.9 Acute upper respiratory infection, unspecified (principal)
CPT/HCPCS: 99282

== ENCOUNTER 2017-11-10 15:10 | Emergency (ER) | payer MEDICAID ==
--- NOTE | 2017-11-10 16:00 | ER ---
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 Reports lower abd pain and vaginal pain. Pt reports she has been eating dirt, chalk and ice. Transition of care: patient was not received from another setting of care. Onset of symptoms was September 2017. Care prior to arrival: None. 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 - Social history:: Smoking status: Patient/guardian denies using tobacco, Patient/guardian denies using alcohol, street drugs, IV drugs. Vital Signs: 15:21 BP 116 / 84; Pulse 76; Resp 18; Temp 98; Pulse Ox 99% ; Weight 55.79 kg; Height 5 ft. 4 sv in. (162.56 cm); Pain 9/10; 15:21 Body Mass Index 21.11 (55.79 kg, 162.56 cm) sv ED Course: 15:12 Patient arrived in ED. mr 15:12 Aubrey Bolton MD is Private Physician. mr 15:21 Triage completed. sv 15:22 Arm band placed on left wrist. sv Administered Medications: No medications were administered Outcome: 16:00 Patient left the ED. sv Signatures: Sofi Lopez RN RN sv Gwendolyn Burrell Corrections: (The following items were deleted from the chart) 15:23 15:19 Presenting complaint: Patient states: was seen here about a month ago and dx with sv abd pain and sent home with antibiotics and f/u with PCP and was supposed to f/u with SURFACER OPERATOR but hasn't. Reports lower abd pain and vaginal pain. Pt reports she has been eating dirt, chalk and ice. sv
[2017-11-10 16:11] VITALS: BP 116/84; TEMP 98; O2SAT 99
== END 2017-11-10 16:00 | disposition left against medical advice (07) ==
LOC: ER 15:10
DX: Z53.21 Procedure and treatment not carried out due to patient leaving prior to being seen by health care provider (principal)
CPT/HCPCS: 99281

== ENCOUNTER 2017-11-17 12:31 | Emergency (ER) | payer MEDICAID ==
--- NOTE | 2017-11-17 14:01 | ER ---
Nurse's Notes [facility] Name: Mary Drake Age: 31 yrs Sex: Female : 1985 Arrival Date: 11/17/2017 Time: 12:35 Bed 11 Private MD: Aubrey Bolton E Diagnosis: Pain in right knee Presentation: 11/17 12:57 Presenting complaint: Patient states: Since Danii started working my new job, a lot of sg time spent on my feet like 12 hrs at a time, now my right knee is just hurting, have tried OTC treatments but not working, worsened by activity and weight bearing. Transition of care: patient was not received from another setting of care. Onset of symptoms was November 17, 2017. Risk Assessment: Do you want to hurt yourself or someone else? Patient reports no desire to harm self or others. Initial Sepsis Screen: Does the patient meet any 2 criteria? No. Patient's initial sepsis screen is negative. Does the patient have a suspected source of infection? No. Patient's initial sepsis screen is negative. Care prior to arrival: None. 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 - Social history:: Smoking status: Patient uses tobacco products. - Ebola Screening: : Patient negative for fever greater than or equal to 101.5 degrees Fahrenheit, and additional compatible Ebola Virus Disease symptoms Patient denies exposure to infectious person Patient denies travel to an Ebola-affected area in the 21 days before illness onset No symptoms or risks identified at this time. Screenin:20 Abuse screen: Denies threats or abuse. Denies injuries from another. Nutritional sg screening: No deficits noted. Tuberculosis screening: No symptoms or risk factors identified. Never had TB. Fall Risk None identified. Assessment: 13:18 General: Appears in no apparent distress. comfortable, well groomed, well developed, sg well nourished, Behavior is calm, cooperative, appropriate for age. Pain: Complains of pain in right knee Quality of pain is described as aching, tender, throbbing. Neuro: Level of Consciousness is awake, alert, obeys commands, Oriented to person, place, time, situation, Mule Developer are equal bilaterally Moves all extremities. Full function Speech is normal, Facial symmetry appears normal. Cardiovascular: Denies chest pain, diaphoresis, fatigue, lightheadedness, nausea, palpitations, shortness of breath. Respiratory: No deficits noted. Airway is patent Respiratory effort is even, unlabored, Respiratory pattern is regular, symmetrical. GI: No signs and/or symptoms were reported involving the gastrointestinal system. : No signs and/or symptoms were reported regarding the genitourinary system. EENT: No signs and/or symptoms were reported regarding the EENT system. Derm: Skin is intact, is healthy with good turgor, Skin is dry, Skin is normal, Skin temperature is warm. Musculoskeletal: Circulation, motion, and sensation intact. Range of motion: intact in all extremities, Swelling absent Reports pain in right knee worsens with weightbearing and increased activity, not alleviated by OTC measures at home per pt. 14:00 Reassessment: Patient appears in no apparent distress at this time. Patient and/or sg family updated on plan of care and expected duration. Pain level reassessed. Patient is alert, oriented x 3, equal unlabored respirations, skin warm/dry/pink. pt reports " i dont want the big knee immobilizer because i need to be able to work. I will go to the pharmacy or sports store and shrimp picker the knee brace i can wear.". Vital Signs: 12:58 BP 147 / 92; Pulse 85; Resp 14; Temp 97.9; Pulse Ox 100% on R/A; Pain 10/10; sg ED Course: 12:35 Patient arrived in ED. sb2 12:36 Aubrey Bolton MD is Private Physician. sb2 12:46 Arm band placed on. sg 12:58 Triage completed. sg 13:18 Linus Cornejo RN is Primary Nurse. sg 13:37 Alexandria De Santaigo FNP-C is [facility]. snw 13:37 Adria Lala MD is Attending Physician. snw 13:58 Mazin Milligan MD is Referral Physician. snw 14:00 Patient has correct armband on for positive identification. Bed in low position. Call sg light in reach. Pulse ox on. NIBP on. 14:10 No provider procedures requiring assistance completed. Patient did not have IV access sg during this emergency room visit. Administered Medications: 14:10 Drug: [place] 5 mg-325 mg 1 tabs Route: PO; sg Outcome: 14:01 Discharge ordered by . carmela 14:10 Discharged to home ambulatory, with family. sg 14:10 Condition: good 14:10 Discharge instructions given to patient, family, Instructed on discharge instructions, follow up and referral plans. medication usage, safety practices, Demonstrated understanding of instructions, follow-up care, medications, Prescriptions given X 2. 14:12 Patient left the ED. sg Signatures: Linus Cornejo, RN RN Alexandria Jorge, FRONT EDGER-C FRONT EDGER-Csnw Mari Bonilla sb2
--- NOTE | 2017-11-17 14:01 | EDPHYS ---
Physician Documentation [facility] Name: Mary Drake Age: 31 yrs Sex: Female : 1985 Arrival Date: 11/17/2017 Time: 12:35 Bed 11 Private MD: Aubrey Bolton E ED Physician Adria Lala HPI: 11/17 14:06 This 31 yrs old Black Female presents to ER via Ambulatory with complaints of Knee Pain.snw 14:06 The patient presents with pain, swelling. The complaints affect the right knee. snw Context: The problem was sustained at home, resulted from an unknown cause, the patient can fully bear weight, the patient is able to ambulate, Problem is a result from a previous injury: in high school. Onset: The symptoms/episode began/occurred suddenly, 4 day(s) ago, and became persistent. Treatment prior to arrival includes: over the counter medications, NSAIDS. It is unknown whether or not the patient has had similar symptoms in the past. The patient has not recently seen a physician, has seen Dr. Milligan in the past. 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 - Social history:: Smoking status: Patient uses tobacco products. - Ebola Screening: : Patient negative for fever greater than or equal to 101.5 degrees Fahrenheit, and additional compatible Ebola Virus Disease symptoms Patient denies exposure to infectious person Patient denies travel to an Ebola-affected area in the 21 days before illness onset No symptoms or risks identified at this time. ROS: 14:02 Constitutional: Negative for fever, chills, and weight loss, Eyes: Negative for injury, snw pain, redness, and discharge, ENT: Negative for injury, pain, and discharge, Neck: Negative for injury, pain, and swelling, Cardiovascular: Negative for chest pain, palpitations, and edema, Respiratory: Negative for shortness of breath, cough, wheezing, and pleuritic chest pain, Abdomen/GI: Negative for abdominal pain, nausea, vomiting, diarrhea, and constipation, Back: Negative for injury and pain, : Negative for injury, bleeding, discharge, and swelling, Skin: Negative for injury, rash, and discoloration, Neuro: Negative for headache, weakness, numbness, tingling, and seizure. 14:02 MS/extremity: Positive for decreased range of motion, pain, swelling, of the right knee, feels like "it is going to give out". Exam: 14:02 Head/Face: Normocephalic, atraumatic. Eyes: Pupils equal round and reactive to light, snw extra-ocular motions intact. Lids and lashes normal. Conjunctiva and sclera are non-icteric and not injected. Cornea within normal limits. Periorbital areas with no swelling, redness, or edema. ENT: Nares patent. No nasal discharge, no septal abnormalities noted. Tympanic membranes are normal and external auditory canals are clear. Oropharynx with no redness, swelling, or masses, exudates, or evidence of obstruction, uvula midline. Mucous membranes moist. Neck: Trachea midline, no thyromegaly or masses palpated, and no cervical lymphadenopathy. Supple, full range of motion without nuchal rigidity, or vertebral point tenderness. No Meningismus. Chest/axilla: Normal chest wall appearance and motion. Nontender with no deformity. No lesions are appreciated. Cardiovascular: Regular rate and rhythm with a normal S1 and S2. No gallops, murmurs, or rubs. Normal PMI, no JVD. No pulse deficits. Respiratory: Lungs have equal breath sounds bilaterally, clear to auscultation and percussion. No rales, rhonchi or wheezes noted. No increased work of breathing, no retractions or nasal flaring. Abdomen/GI: Soft, non-tender, with normal bowel sounds. No distension or tympany. No guarding or rebound. No evidence of tenderness throughout. Back: No spinal tenderness. No costovertebral tenderness. Full range of motion. Skin: Warm, dry with normal turgor. Normal color with no rashes, no lesions, and no evidence of cellulitis. Neuro: Awake and alert, GCS 15, oriented to person, place, time, and situation. Cranial nerves II-XII grossly intact. Motor strength 5/5 in all extremities. Sensory grossly intact. Cerebellar exam normal. Normal gait. Psych: Awake, alert, with orientation to person, place and time. Behavior, mood, and affect are within normal limits. 14:02 Constitutional: The patient appears alert, awake, thin 14:02 Musculoskeletal/extremity: Extremities: grossly normal except: noted in the right knee: tenderness, to low anterior knee. Vital Signs: 12:58 BP 147 / 92; Pulse 85; Resp 14; Temp 97.9; Pulse Ox 100% on R/A; Pain 10/10; sg MDM: 13:37 Patient medically screened. snw 14:04 Data reviewed: vital signs, nurses notes. Data interpreted: Pulse oximetry: on room air snw is 100 %. Interpretation: acceptable. Counseling: I had a detailed discussion with the patient and/or guardian regarding: the historical points, exam findings, and any diagnostic results supporting the discharge/admit diagnosis, the presence of at least one elevated blood pressure reading (>120/80) during this emergency department visit, the need for outpatient follow up, to return to the emergency department if symptoms worsen or persist or if there are any questions or concerns that arise at home. Special discussion: I have referred the patient to see his PCP for further evaluation of high blood pressure. Based on the history and exam findings, there is no indication for further emergent testing or inpatient evaluation. I discussed with the patient/guardian the need to see the orthopedic surgeon for further evaluation of the symptoms. 11/17 13:57 Order name: Knee Immobilizer snw Administered Medications: 14:10 Drug: [place] 5 mg-325 mg 1 tabs Route: PO; sg Disposition: 15:18 Co-signature as Attending Physician, Adria Lala MD I agree with the assessment and tawana plan of care. Disposition: 11/17/17 14:01 Discharged to Home. Impression: Pain in right knee. - Condition is Stable. - Discharge Instructions: Joint Pain, How to Use a Knee Brace, Knee Pain. - Prescriptions for Diclofenac Sodium 75 mg Oral Tablet Sustained Release - take 1 tablet by ORAL route 2 times per day; 30 tablet. orphenadrine citrate 100 mg Oral Tablet Sustained Release - take 1 tablet by ORAL route 2 times per day As needed; 20 tablet. - Work release form, Medication Reconciliation Form, Thank You Letter, Antibiotic Education, Prescription Opioid Use form. - Follow up: Mazin Milligan MD; When: 1 week; Reason: Recheck today's complaints, Continuance of care, Re-evaluation by your physician. Signatures: Linus Cornejo RN Adria Horvath MD MD cha Therrien, Shelly, REROLLING MACHINE OPERATOR-C REROLLING MACHINE OPERATOR-Csnw Corrections: (The following items were deleted from the chart) 14:12 14:01 11/17/2017 14:01 Discharged to Home. Impression: Pain in right knee. Condition is sg Stable. Forms are Medication Reconciliation Form, Thank You Letter, Antibiotic Education, Prescription Opioid Use. Follow up: Mazin Milligan; When: 1 week; Reason: Recheck today's complaints, Continuance of care, Re-evaluation by your physician. snw
[2017-11-17] MEDS ORDERED: HYDROCODONE/APAP 5/325 MG TAB ONE (14:10)
[2017-11-17 14:22] VITALS: BP 147/92; TEMP 97.9; O2SAT 100
== END 2017-11-17 14:12 | disposition home or self-care (01) ==
LOC: ER 12:31
DX: M25.561 Pain in right knee (principal); Z72.0 Tobacco use
CPT/HCPCS: 99283

== ENCOUNTER 2017-11-19 17:18 | Emergency (ER) | payer MEDICAID ==
[2017-11-19] MEDS ORDERED: IBUPROFEN 200 MG TAB PO ONE (18:49)
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
--- NOTE | 2017-11-19 19:20 | ER ---
Nurse's Notes [facility] Name: Mary Drake Age: 31 yrs Sex: Female : 1985 Arrival Date: 11/19/2017 Time: 17:21 Bed 23 Private MD: Aubrey Bolton E Diagnosis: Pain in right knee Presentation: 11/19 17:50 Presenting complaint: Patient states: has had right knee pain X 4 days, is on her feet iw a lot, walks a lot, was seen here the other day and gove prescription for pain medicine, unable to fill, unable to see Dr. Srini lindquist next week. Transition of care: patient was not received from another setting of care. Onset of symptoms was November 16, 2017. Risk Assessment: Do you want to hurt yourself or someone else? Patient reports no desire to harm self or others. Initial Sepsis Screen: Does the patient meet any 2 criteria? No. Patient's initial sepsis screen is negative. Does the patient have a suspected source of infection? No. Patient's initial sepsis screen is negative. Care prior to arrival: None. 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 - Social history:: Smoking status: Patient/guardian denies using tobacco. - Ebola Screening: : No symptoms or risks identified at this time. Screenin:00 Abuse screen: Denies threats or abuse. Denies injuries from another. Nutritional kr2 screening: No deficits noted. Tuberculosis screening: No symptoms or risk factors identified. Fall Risk None identified. Assessment: 18:00 General: Appears in no apparent distress. uncomfortable, slender, well groomed, well kr2 developed, well nourished, Behavior is calm, cooperative, appropriate for age. Pain: Complains of pain in right knee Pain currently is 8 out of 10 on a pain scale. Quality of pain is described as aching, tender, Is continuous, Alleviated by rest, Aggravated by increased activity, weight bearing. Neuro: Level of Consciousness is awake, alert, obeys commands, Oriented to person, place, time, situation. Cardiovascular: Capillary refill < 3 seconds in bilateral fingers Patient's skin is warm and dry. Respiratory: Airway is patent Respiratory effort is even, unlabored, Respiratory pattern is regular, symmetrical. Derm: Skin is intact, is healthy with good turgor, Skin is pink, warm \\T\\ dry. Musculoskeletal: Circulation, motion, and sensation intact. Range of motion: limited in right knee. 19:34 Reassessment: Patient refused crutches, states "I don't want those, they will just slow kr2 me down, I have my knee brace, I am not using crutches". Vital Signs: 17:52 BP 117 / 89; Pulse 64; Resp 16; Temp 98.2; Pulse Ox 100% on R/A; Pain 8/10; iw 19:46 BP 122 / 88; Pulse 66; Resp 17; Pulse Ox 100% on R/A; kr2 ED Course: 17:21 Patient arrived in ED. mr 17:21 Aubrey Bolton MD is Private Physician. mr 17:43 Fela Stevenson, RN is Primary Nurse. kr2 17:50 Fela Stevenson, RN is Primary Nurse. kr2 17:52 Triage completed. iw 17:52 Arm band placed on. iw 17:53 Walker Carlos MD is Attending Physician. kdr 18:00 Patient has correct armband on for positive identification. Bed in low position. Call kr2 light in reach. Side rails up X 1. Pulse ox on. NIBP on. 18:53 X-ray completed. Portable x-ray completed in exam room. Patient tolerated procedure bb2 well. 18:53 Knee Right 3 View XRAY In Process Unspecified. EDMS 18:59 Adria Contreras PA is PHCP. cp 19:19 Mazin Milligan MD is Referral Physician. cp 19:45 No provider procedures requiring assistance completed. Patient did not have IV access kr2 during this emergency room visit. Administered Medications: 18:47 Drug: Ibuprofen 600 mg Route: PO; kr2 19:32 Follow up: Response: No adverse reaction; Pain is decreased kr2 Outcome: 19:20 Discharge ordered by MD. cp 19:45 Discharged to home ambulatory, with family. kr2 19:45 Condition: good 19:45 Discharge instructions given to patient, Instructed on discharge instructions, follow up and referral plans. medication usage, Demonstrated understanding of instructions, follow-up care, medications, Prescriptions given X 1. 19:46 Patient left the ED. kr2 Signatures: Dispatcher [employer] EDMS Walker Carlos MD MD kdr Rivera, Maria mr Elaina Brown RN RN Adria Payton PA PA cp Reaves, Karey, RN RN kr2 Sierra Page2
[2017-11-19 19:58] VITALS: TEMP 98.2; O2SAT 100
[2017-11-19 20:00] VITALS: BP 122/88
--- NOTE | 2017-11-19 20:12 | RAD REPORT ---
EXAM DESCRIPTION: RAD - Knee Right 3 View - 11/19/2017 6:56 pm CLINICAL HISTORY: Nontraumatic knee pain COMPARISON: None. FINDINGS: No fracture, dislocation or periosteal reaction.No joint effusion seen. No joint space doris rowing. No foreign body or other soft tissue abnormality. Clinical concerns for internal derangement or occult bony injury could be further assessed with MR im aging. IMPRESSION: Negative right knee.
== END 2017-11-19 19:46 | disposition home or self-care (01) ==
LOC: ER 17:18
DX: M25.561 Pain in right knee (principal)
CPT/HCPCS: 99284

== ENCOUNTER 2017-12-08 14:12 | Emergency (ER) | payer MEDICAID ==
--- OUTSIDE RECORDS SUMMARY | 2017-12-08 14:15 | XMS REPORT ---
:1985 Author Organization [employer] Care Team Providers Name Role Phone Lucio Kyle Provider Role Unavailable Allergies No Known Allergies Problems Problem Type Condition Code Onset Dates Condition Status Problem Locking of right knee M23.91 Active Problem Acute pain of right knee M25.561 Active Medications No Known Medications Results No Known Results Summary Purpose [employer]Clinical[employer] Submission
--- OUTSIDE RECORDS SUMMARY | 2017-12-08 14:15 | XMS REPORT ---
:1985 Author Organization [employer] Care Team Providers Name Role Phone Mazin Milligan Provider Role Unavailable Allergies, Adverse Reactions, Alerts Substance Reaction Event Type N.K.D.A. Info Not Available Non Drug Allergy Problems Problem Type Condition Code Onset Dates Condition Status Problem Locking of right knee M23.91 Active Problem Acute pain of right knee M25.561 Active Assessment Acute pain of right knee M25.561 Active Assessment Locking of right knee M23.91 Active Medications Medication Code Code Instructions Start End Status Dosage System Date Date Alp[facility]olam [facility] 46999311153 1 MG Oral Active (Schedule IV Drug) TAKE 1 TABLET BY MOUTH 3 TIMES A DAY PredniSONE [facility] 69575315184 10 MG Oral Active TAKE 1 TABLET BY MOUTH TWICE A DAY FOR 7 DAYS Lidocaine [facility] 2001 24630543776 2 % Mouth/Throat Active TAKE 5ML Viscous BY MOUTH THREE TO FOUR TIMES DAILY Montelukast [facility] 2001 31624691587 10 MG Oral Active TAKE 1 Sodium TABLET BY MOUTH EVERY EVENING All Day Allergy [facility] 70331292130 10 MG Oral Active TAKE 1 TABLET BY MOUTH EVERY DAY Results No Known Results Summary Purpose eClinicalWorks Submission
--- OUTSIDE RECORDS SUMMARY | 2017-12-08 14:15 | XMS REPORT ---
:1985 Author Organization [employer] Care Team Providers Name Role Phone Kyle Valdes Provider Role Unavailable Allergies No Known Allergies Problems Problem Type Condition Code Onset Dates Condition Status Problem Locking of right knee M23.91 Active Problem Acute pain of right knee M25.561 Active Medications Medication Code Code Instructions Start End Date Status Dosage System Date Tramadol HCl [facility] 89951381376 50 MG Orally Nov 29, Active 1 tablet every 6 hrs 2018 as needed Results No Known Results Summary Purpose eClinicalWorks Submission
--- OUTSIDE RECORDS SUMMARY | 2017-12-08 14:15 | XMS REPORT ---
:1985 Author Organization [employer] Care Team Providers Name Role Phone Kyle Valdes Provider Role Unavailable Allergies, Adverse Reactions, Alerts Substance Reaction Event Type N.K.D.A. Info Not Available Non Drug Allergy Problems Problem Type Condition Code Onset Dates Condition Status Problem Locking of right knee M23.91 Active Problem Acute pain of right knee M25.561 Active Assessment Sprain of other ligament of right S83.8X1A Active knee, initial encounter Assessment Acute pain of right knee M25.561 Active Medications Medication Code Code Instructions Start End Status Dosage System Date Date All Day Allergy [facility] 75106664330 10 MG Oral Active TAKE 1 TABLET BY MOUTH EVERY DAY Montelukast [facility] 70999429302 10 MG Oral Active TAKE 1 Sodium TABLET BY MOUTH EVERY EVENING Alprazolam [facility] 95472345946 1 MG Oral Active (Schedule IV Drug) TAKE 1 TABLET BY MOUTH 3 TIMES A DAY PredniSONE ND 99905245319 10 MG Oral Active TAKE 1 TABLET BY MOUTH TWICE A DAY FOR 7 DAYS Lidocaine ND 02842210102 2 % Mouth/Throat Active TAKE 5ML Viscous BY MOUTH THREE TO FOUR TIMES DAILY Results No Known Results Summary Purpose eClinicalWorks Submission
[2017-12-08 15:07] LABS: Urine Blood NEGATIVE (NEG); Urine Glucose NEGATIVE (NEG); Urine Protein NEGATIVE (NEG); Urine Specific Gravity >1.030 (1.005-1.030); Urine pH 5.5 (5.0-7.0)
[2017-12-08 15:18] LABS: Urine Bacteria <20 /HPF (<20); Urine RBC NONE SEEN /HPF (NONE SEEN)
[2017-12-08 15:19] LABS: Urine Culture Reflex Order NOT NEEDED; Urine Mucus LIGHT /HPF (NONE SEEN)
[2017-12-08] MEDS ORDERED: CEFTRIAXONE 1000 MG/VIAL ONE (15:21)
[2017-12-08] MEDS ORDERED: AZITHROMYCIN 250 MG TAB ONE (15:21)
[2017-12-08] MEDS ORDERED: metroNIDAZOLE 500 MG TABLET ONE (15:33)
[2017-12-08 15:47] LABS: Absolute Lymphocytes (CBC) 2.7 K/uL (0.7-4.9); Absolute Monocytes 0.3 K/uL (0.1-1.3); Absolute Neutrophil 1.5 K/uL (1.8-8.0); Basophils % 1.2 % (0-1.3); Eosinophils % 2.1 % (0-4.4); Hematocrit 34.3 % (36.0-45.0); Lymphocytes % 58.1 % (15.3-44.8); MCH 27.4 pg (27.0-35.0); MCV 82.6 fL (80-100); MPV 10.2 fL (7.6-11.3); Monocytes % 6.2 % (3.3-12.3); RBC Red Blood Cell Count 4.16 M/uL (3.86-4.86)
--- NOTE | 2017-12-08 15:53 | ER ---
Nurse's Notes [facility] Name: Mary Drake Age: 32 yrs Sex: Female : 1985 Arrival Date: 12/08/2017 Time: 14:15 Bed 8 Private MD: Aubrey Bolton E Diagnosis: Dysuria;STD prophylaxis Presentation: 12/08 14:23 Presenting complaint: Patient states: Pelvic and back pain with white "fishy smelling" aj discharge for 1 week. Denies burning with urination. Transition of care: patient was not received from another setting of care. Onset of symptoms was December 01, 2017. Risk Assessment: Do you want to hurt yourself or someone else? Patient reports no desire to harm self or others. Initial Sepsis Screen: Does the patient meet any 2 criteria? No. Patient's initial sepsis screen is negative. Does the patient have a suspected source of infection? No. Patient's initial sepsis screen is negative. Care prior to arrival: None. 14:23 Method Of Arrival: Ambulatory aj 14:23 Acuity: CED 3 aj Triage Assessment: 14:25 General: Appears in no apparent distress. comfortable, Behavior is calm, cooperative, aj appropriate for age. Pain: Complains of pain in left lower back, right lower back and pelvis. Neuro: Level of Consciousness is awake, alert, obeys commands, Oriented to person, place, time, situation, Appropriate for age. Respiratory: Airway is patent Respiratory effort is even, unlabored, Respiratory pattern is regular, symmetrical. GI: Abdomen is flat, non-distended. : Reports discharge, from vagina that is malodorous, watery, pain in suprapubic area. Derm: Skin is intact, is healthy with good turgor, Skin is pink, warm \\T\\ dry. normal. 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 - Social history:: Smoking status: Patient/guardian denies using tobacco. - Ebola Screening: : Patient negative for fever greater than or equal to 101.5 degrees Fahrenheit, and additional compatible Ebola Virus Disease symptoms Patient denies exposure to infectious person Patient denies travel to an Ebola-affected area in the 21 days before illness onset No symptoms or risks identified at this time. Screenin:35 Abuse screen: Denies threats or abuse. Denies injuries from another. Nutritional jl7 screening: No deficits noted. Tuberculosis screening: No symptoms or risk factors identified. Fall Risk None identified. Assessment: 14:35 General: Appears in no apparent distress. uncomfortable, Behavior is cooperative, jl7 anxious. Pain: Complains of pain in right lower back, right lower quadrant and left lower quadrant Pain does not radiate. Pain currently is 8 out of 10 on a pain scale. Pain began 1 week ago Is continuous. Neuro: Level of Consciousness is awake, alert, obeys commands, Oriented to person, place, time, situation. Cardiovascular: Patient's skin is warm and dry. Respiratory: Airway is patent Respiratory effort is even, unlabored, Respiratory pattern is regular, symmetrical. GI: Bowel sounds present X 4 quads. Abd is soft X 4 quads Abd is non tender in right upper quadrant and left upper quadrant Abdomen is tender to palpation in right lower quadrant and left lower quadrant Reports "I've been eating dirt, chalk and ice for about a year now." Patient currently denies diarrhea, nausea, vomiting. : Reports burning with urination. EENT: No signs and/or symptoms were reported regarding the EENT system. Derm: Skin is dry, Skin is normal, Skin temperature is warm. Musculoskeletal: No signs and/or symptoms reported regarding the musculoskeletal system. brace noted to right knee. Vital Signs: 14:25 BP 134 / 90; Pulse 77; Resp 16; Temp 97.0; Pulse Ox 99% on R/A; Weight 58.06 kg; Height aj 5 ft. 4 in. (162.56 cm); 15:30 BP 138 / 89; Pulse 75; Resp 16; Pulse Ox 99% on R/A; jl7 14:25 Body Mass Index 21.97 (58.06 kg, 162.56 cm) ED Course: 14:15 Patient arrived in ED. mr 14:15 Aubrey Bolton MD is Private Physician. mr 14:18 Lacy Rutledge is Primary Nurse. cc3 14:18 [facility] Nye [facility] is [facility]. jr8 14:18 Dillan Rodriguez MD is Attending Physician. jr8 14:24 Triage completed. aj 14:25 Arm band placed on right wrist. Patient placed in an exam room, on a stretcher. aj 14:35 Patient has correct armband on for positive identification. Bed in low position. Call jl7 light in reach. Side rails up X 1. Pulse ox on. NIBP on. 14:41 Primary Nurse role handed off by Lacy Rutledge jl7 14:41 Nannette Bah, DAYDAY is Primary Nurse. jl7 14:44 Initial lab(s) drawn, by hi, sent to lab. Urine collected: clean catch specimen, cloudy.jl7 15:50 Aubrey Bolton MD is Referral Physician. jr8 16:01 No provider procedures requiring assistance completed. Patient did not have IV access jl7 during this emergency room visit. Administered Medications: 15:26 Not Given (Patient Refused): Rocephin (cefTRIAXone) 250 mg IM once jr8 15:34 Drug: Zithromax 1 grams Route: PO; jl7 15:49 Follow up: Response: No adverse reaction jl7 15:34 Drug: Flagyl 2 grams Route: PO; jl7 15:49 Follow up: Response: No adverse reaction jl7 16:00 Drug: Zofran 4 mg Route: PO; jl7 Outcome: 15:52 Discharge ordered by . jr8 16:01 Discharged to home ambulatory. jl7 16:01 Condition: stable 16:01 Discharge instructions given to patient, family, Instructed on discharge instructions, follow up and referral plans. medication usage, Demonstrated understanding of instructions, follow-up care, medications, Prescriptions given X 2. 16:04 Patient left the ED. jl7 Signatures: Юлия Fernandes RN RN aj Rivera, Maria mr Teddy Nye PA PA jr8 Nannette Bah RN RN jl7 Cordel, Charlene cc3
--- NOTE | 2017-12-08 15:53 | EDPHYS ---
Physician Documentation [facility] Name: Mary Drake Age: 32 yrs Sex: Female : 1985 Arrival Date: 12/08/2017 Time: 14:15 Bed 8 Private MD: Aubrey Bolton E ED Physician Dillan Rodriguez HPI: 12/08 15:08 This 32 yrs old Black Female presents to ER via Ambulatory with complaints of Abdominal jr8 Pain, Vaginal Discharge. 15:08 The patient presents with abdominal pain suprapubic. Onset: The symptoms/episode jr8 began/occurred gradually, 2 day(s) ago. The symptoms do not radiate. Associated signs and symptoms: Pertinent positives: dysuria, vaginal discharge. The symptoms are described as dull. Modifying factors: The symptoms are alleviated by nothing, the symptoms are aggravated by nothing. Severity of pain: At its worst the pain was mild in the emergency department the pain is unchanged. The patient has experienced similar episodes in the past, a few times. The patient has not recently seen a physician. stated that she is prone to PID. Stated that she has had dysuria and white discharge. Now having lower abdominal discomfort . 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 - Social history:: Smoking status: Patient/guardian denies using tobacco. - Ebola Screening: : Patient negative for fever greater than or equal to 101.5 degrees Fahrenheit, and additional compatible Ebola Virus Disease symptoms Patient denies exposure to infectious person Patient denies travel to an Ebola-affected area in the 21 days before illness onset No symptoms or risks identified at this time. ROS: 15:08 Eyes: Negative for injury, pain, redness, and discharge, ENT: Negative for injury, jr8 pain, and discharge, Neck: Negative for injury, pain, and swelling, Cardiovascular: Negative for chest pain, palpitations, and edema, Respiratory: Negative for shortness of breath, cough, wheezing, and pleuritic chest pain, Back: Negative for injury and pain, MS/Extremity: Negative for injury and deformity, Skin: Negative for injury, rash, and discoloration, Neuro: Negative for headache, weakness, numbness, tingling, and seizure. 15:08 Abdomen/GI: Positive for abdominal pain, Negative for nausea, vomiting, and diarrhea, constipation, abdominal cramps, abdominal distension, anorexia, dysphagia, hematemesis, black/tarry stool, rectal pain, rectal bleeding, bowel incontinence, flatulence. 15:08 : Positive for urinary symptoms, burning with urination, vaginal discharge, Negative for pelvic pain, flank pain. Exam: 15:08 Eyes: Pupils equal round and reactive to light, extra-ocular motions intact. Lids and jr8 lashes normal. Conjunctiva and sclera are non-icteric and not injected. Cornea within normal limits. Periorbital areas with no swelling, redness, or edema. ENT: Nares patent. No nasal discharge, no septal abnormalities noted. Tympanic membranes are normal and external auditory canals are clear. Oropharynx with no redness, swelling, or masses, exudates, or evidence of obstruction, uvula midline. Mucous membranes moist. Neck: Trachea midline, no thyromegaly or masses palpated, and no cervical lymphadenopathy. Supple, full range of motion without nuchal rigidity, or vertebral point tenderness. No Meningismus. Cardiovascular: Regular rate and rhythm with a normal S1 and S2. No gallops, murmurs, or rubs. Normal PMI, no JVD. No pulse deficits. Respiratory: Lungs have equal breath sounds bilaterally, clear to auscultation and percussion. No rales, rhonchi or wheezes noted. No increased work of breathing, no retractions or nasal flaring. Back: No spinal tenderness. No costovertebral tenderness. Full range of motion. Skin: Warm, dry with normal turgor. Normal color with no rashes, no lesions, and no evidence of cellulitis. MS/ Extremity: Pulses equal, no cyanosis. Neurovascular intact. Full, normal range of motion. Neuro: Awake and alert, GCS 15, oriented to person, place, time, and situation. Cranial nerves II-XII grossly intact. Motor strength 5/5 in all extremities. Sensory grossly intact. Cerebellar exam normal. Normal gait. 15:08 Abdomen/GI: Inspection: abdomen appears normal, Bowel sounds: active, all quadrants, Palpation: soft, in all quadrants, mild abdominal tenderness, in the suprapubic area, mass, is not appreciated, rebound tenderness, is not appreciated, voluntary guarding, is not appreciated, involuntary guarding, is not appreciated, no appreciated organomegaly, Indicators: McBurney's point is not tender, Mitchell's sign is negative, Rovsing's sign is negative, Liver: no appreciated palpable abnormalities, tenderness, is not appreciated. Vital Signs: 14:25 BP 134 / 90; Pulse 77; Resp 16; Temp 97.0; Pulse Ox 99% on R/A; Weight 58.06 kg; Height aj 5 ft. 4 in. (162.56 cm); 15:30 BP 138 / 89; Pulse 75; Resp 16; Pulse Ox 99% on R/A; jl7 14:25 Body Mass Index 21.97 (58.06 kg, 162.56 cm) aj MDM: 14:18 Patient medically screened. 8 15:50 Data reviewed: vital signs, nurses notes, lab test result(s), and as a result, I will jr8 discharge patient. Data interpreted: Pulse oximetry: on room air is 99 %. Interpretation: normal. Counseling: I had a detailed discussion with the patient and/or guardian regarding: the historical points, exam findings, and any diagnostic results supporting the discharge/admit diagnosis, lab results, the need for outpatient follow up, a family practitioner, to return to the emergency department if symptoms worsen or persist or if there are any questions or concerns that arise at home. 12/08 14:36 Order name: Urine Microscopic Only; Complete Time: 15:25 8 12/08 14:36 Order name: CBC with Diff; Complete Time: 15:50 8 12/08 14:53 Order name: Urine Dipstick--Ancillary (enter results); Complete Time: 15:12 ag 12/08 14:53 Order name: Urine --Ancillary (enter results); Complete Time: 15:12 ag 12/08 14:36 Order name: Urine Test (obtain specimen); Complete Time: 14:57 8 12/08 14:36 Order name: Urine Dipstick-Ancillary (obtain specimen); Complete Time: 14:57 [facility] Administered Medications: 15:26 Not Given (Patient Refused): Rocephin (cefTRIAXone) 250 mg IM once jr8 15:34 Drug: Zithromax 1 grams Route: PO; jl7 15:49 Follow up: Response: No adverse reaction jl7 15:34 Drug: Flagyl 2 grams Route: PO; jl7 15:49 Follow up: Response: No adverse reaction jl7 16:00 Drug: Zofran 4 mg Route: PO; jl7 Disposition: 16:18 Co-signature as Attending Physician, Dillan Rodriguez MD. rn Disposition: 12/08/17 15:52 Discharged to Home. Impression: Dysuria, STD prophylaxis . - Condition is Stable. - Discharge Instructions: Bacterial Vaginosis, Dysuria, Sexually Transmitted Disease. - Prescriptions for Doxycycline Monohydrate 100 mg Oral Tablet - take 1 tablet by ORAL route every 12 hours for 10 days; 20 tablet. Ibuprofen 800 mg Oral Tablet - take 1 tablet by ORAL route every 12 hours As needed take with food; 20 tablet. - Medication Reconciliation Form, Thank You Letter, Antibiotic Education, Prescription Opioid Use form. - Follow up: Aubrey Bolton MD; When: 5 - 6 days; Reason: Recheck today's complaints, Continuance of care, Re-evaluation by your physician. - Problem is new. - Symptoms have improved. Signatures: Dispatcher [employer] Юлия Arita RN Dillan Moore MD MD rn Roszak, Josh, PA PA jr8 Nannette Bah RN RN jl7 Corrections: (The following items were deleted from the chart) 16:04 15:52 12/08/2017 15:52 Discharged to Home. Impression: Dysuria; STD prophylaxis . jl7 Condition is Stable. Forms are Medication Reconciliation Form, Thank You Letter, Antibiotic Education, Prescription Opioid Use. Follow up: Aubrey Bolton; When: 5 - 6 days; Reason: Recheck today's complaints, Continuance of care, Re-evaluation by your physician. Problem is new. Symptoms have improved. jr8
[2017-12-08] MEDS ORDERED: ONDANSETRON 4 MG (ODT) TAB ONE (16:02)
[2017-12-08 16:15] VITALS: TEMP 97; O2SAT 99
[2017-12-08 16:16] VITALS: BP 138/89
== END 2017-12-08 16:04 | disposition home or self-care (01) ==
LOC: ER 14:12
DX: R30.0 Dysuria (principal); J44.9 Chronic obstructive pulmonary disease, unspecified; Z29.8 Encounter for other specified prophylactic measures
CPT/HCPCS: 36415; 81003; 81015; 81025; 85025; 99284

== ENCOUNTER 2017-12-09 15:33 | Emergency (ER) | payer MEDICAID ==
--- OUTSIDE RECORDS SUMMARY | 2017-12-09 15:35 | XMS REPORT ---
[...] Date Status Dosage System Date Tramadol HCl [facility] 53324625819 50 MG Orally Nov 29, Active 1 tablet every 6 hrs 2018 as needed Results No Known Results Summary Purpose eClinicalWorks Submission
--- OUTSIDE RECORDS SUMMARY | 2017-12-09 15:35 | XMS REPORT ---
[...] Dosage System Date Date All Day Allergy [facility] 96135276527 10 MG Oral Active TAKE 1 TABLET BY MOUTH EVERY DAY Montelukast [facility] [id number] 10 MG Oral Active TAKE 1 Sodium TABLET BY MOUTH EVERY EVENING Alprazolam [facility] [id number] 1 MG Oral Active (Schedule IV Drug) TAKE 1 TABLET BY MOUTH 3 TIMES A DAY PredniSONE ND 87369596421 10 MG Oral Active TAKE 1 TABLET BY MOUTH TWICE A DAY FOR 7 DAYS Lidocaine ND 55131627490 2 % Mouth/Throat Active TAKE 5ML Viscous BY MOUTH THREE TO FOUR TIMES DAILY Results No Known Results Summary Purpose eClinicalWorks Submission
--- OUTSIDE RECORDS SUMMARY | 2017-12-09 15:36 | XMS REPORT ---
[...] End Status Dosage System Date Date Alprazolam [facility] [id number] 1 MG Oral Active (Schedule IV Drug) TAKE 1 TABLET BY MOUTH 3 TIMES A DAY PredniSONE [facility] 19541697922 10 MG Oral Active TAKE 1 TABLET BY MOUTH TWICE A DAY FOR 7 DAYS Lidocaine [facility] 58487594835 2 % Mouth/Throat Active TAKE 5ML Viscous BY MOUTH THREE TO FOUR TIMES DAILY Montelukast [facility] 31681987591 10 MG Oral Active TAKE 1 Sodium TABLET BY MOUTH EVERY EVENING All Day Allergy [facility] 03990403444 10 MG Oral Active TAKE 1 TABLET BY MOUTH EVERY DAY Results No Known Results Summary Purpose eClinicalWorks Submission
[2017-12-09 16:12] LABS: Absolute Monocytes 0.3 K/uL (0.1-1.3); Absolute Neutrophil 1.2 K/uL (1.8-8.0); Basophils % 1.4 % (0-1.3); Eosinophils % 1.7 % (0-4.4); Hematocrit 33.7 % (36.0-45.0); Lymphocytes % 65.6 % (15.3-44.8); MCH 26.9 pg (27.0-35.0); MCV 82.2 fL (80-100); MPV 10.1 fL (7.6-11.3); Monocytes % 6.5 % (3.3-12.3); RBC Red Blood Cell Count 4.09 M/uL (3.86-4.86)
[2017-12-09 16:21] LABS: Urine Blood NEGATIVE (NEG); Urine Glucose NEGATIVE (NEG); Urine Protein NEGATIVE (NEG); Urine pH 5.5 (5.0-7.0)
[2017-12-09 16:28] LABS: Albumin 3.6 g/dL (3.4-5.0); Bilirubin Direct 0.2 mg/dL (0-0.2); Bilirubin Total 0.5 mg/dL (0.2-1.0); Potassium 3.6 mmol/L (3.5-5.1); Protein, Total 7.5 g/dL (6.4-8.2)
[2017-12-09 16:40] LABS: Urine Bacteria >50 /HPF (<20); Urine Culture Reflex Order NOT NEEDED; Urine RBC NONE SEEN /HPF (NONE SEEN)
--- NOTE | 2017-12-09 16:42 | RAD REPORT ---
EXAM DESCRIPTION: CTAbdomen Pelvis W Contrast - 12/09/2017 4:20 pm CLINICAL HISTORY: Abdominal pain. iv only;Abd pain COMPARISON: Abdomen Pelvis W Contrast dated 09/28/2016; Abdomen Pelvis W Contrast dated 07/28/2015 ; CT ABD PELVIS W CONTRAST dated 01/18/2015; CT ABD PELVIS W CONTRAST dated 10/19/2014 TECHNIQUE: Biphasic CT imaging of the abdomen and pelvis was performed with 100 ml non-ionic IV cont rast. All CT scans are performed using dose optimization technique as appropriate and may include automated exposure control or mA/KV adjustment according to patient size. FINDINGS: The lung bases are clear. The liver, spleen, pancreas, adrenal glands and kidneys are within normal limits. No bowel obstruction, free air, free fluid or abscess. The appendix is normal. No evidence of signi ficant lymphadenopathy. Gynecologic structures appear edematous with mild free fluid in the pelvis. IMPRESSION: The gynecologic structures and floor of the pelvis appear edematous with mild pelvic paige e fluid. Consider clinical correlation for possible pelvic inflammatory disease or inflammation. Normal appendix.
--- NOTE | 2017-12-09 16:54 | ER ---
Nurse's Notes [facility] Name: Mary Drake Age: 32 yrs Sex: Female : 1985 Arrival Date: 12/09/2017 Time: 15:36 Bed 28 Private MD: Aubrey Bolton E Diagnosis: Female pelvic inflammatory disease, unspecified Presentation: 12/09 15:45 Presenting complaint: Patient states: RLQ pain that radiates to the R Flank, started sg three days ago, reports nausea, trying home remedies with no relief, regular BM, denies N/V/D/Fever. Transition of care: patient was not received from another setting of care. Onset of symptoms was December 09, 2017. Risk Assessment: Do you want to hurt yourself or someone else? Patient reports no desire to harm self or others. Initial Sepsis Screen: Does the patient meet any 2 criteria? No. Patient's initial sepsis screen is negative. Does the patient have a suspected source of infection? No. Patient's initial sepsis screen is negative. Care prior to arrival: None. 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 - Social history:: Smoking status: Patient/guardian denies using tobacco. - Ebola Screening: : Patient negative for fever greater than or equal to 101.5 degrees Fahrenheit, and additional compatible Ebola Virus Disease symptoms Patient denies exposure to infectious person Patient denies travel to an Ebola-affected area in the 21 days before illness onset No symptoms or risks identified at this time. Screenin:16 Abuse screen: Denies threats or abuse. Denies injuries from another. Nutritional mg2 screening: No deficits noted. Tuberculosis screening: No symptoms or risk factors identified. Fall Risk IV access (20 points). Assessment: 16:16 General: Appears in no apparent distress. comfortable, Behavior is calm, cooperative. mg2 Pain: Complains of pain in LLQ Pain radiates to left flank Pain currently is 5 out of 10 on a pain scale. Quality of pain is described as aching, Pain began gradually, Is intermittent. Neuro: Level of Consciousness is awake, alert, obeys commands, Oriented to person, place, time, situation. Cardiovascular: Capillary refill < 3 seconds Patient's skin is warm and dry. Respiratory: Airway is patent Respiratory effort is even, unlabored, Respiratory pattern is regular, symmetrical. GI: Reports lower abdominal pain. : Urine is tea colored. EENT: No signs and/or symptoms were reported regarding the EENT system. Derm: Skin is intact, Skin is pink, warm \T\ dry. normal. Musculoskeletal: Circulation, motion, and sensation intact. 17:30 Reassessment: Patient appears in no apparent distress at this time. Patient and/or mg2 family updated on plan of care and expected duration. Pain level reassessed. Patient is alert, oriented x 3, equal unlabored respirations, skin warm/dry/pink. Vital Signs: 15:46 BP 133 / 87; Pulse 77; Resp 18; Temp 98.0; Pulse Ox 100% on R/A; Pain 7/10; sg 16:49 BP 136 / 80; Pulse 78; Resp 18; Pulse Ox 100% ; Pain 6/10; mg2 17:49 BP 122 / 78; Pulse 78; Resp 18; Pulse Ox 100% ; Pain 0/10; mg2 ED Course: 15:36 Patient arrived in ED. rg4 15:36 Aubrey Bolton MD is Private Physician. rg4 15:43 Corey Aguilar, DAYDAY is Primary Nurse. mg2 15:46 Triage completed. sg 15:46 Arm band placed on. sg 15:49 Teddy Nye PA is PHCP. iw 16:05 Initial lab(s) drawn, by me, sent to lab. Inserted saline lock: 22 gauge in left vd2 antecubital area, using aseptic technique. Blood collected. 16:[address] via wheelchair. vr 16:18 Patient has correct armband on for positive identification. Bed in low position. Call mg2 light in reach. Side rails up X 1. Pulse ox on. NIBP on. 16:21 CT Abd/Pelvis - W/Contrast In Process Unspecified. EDMS 16:54 Aubrey Faustin MD is Attending Physician. jr8 17:48 No provider procedures requiring assistance completed. IV discontinued, intact, mg2 bleeding controlled, No redness/swelling at site. Pressure dressing applied. Administered Medications: 17:05 Drug: fentaNYL (PF) 50 mcg Route: IVP; Site: left antecubital; mg2 17:05 Follow up: Response: No adverse reaction; Medication administered at discharge. mg2 17:30 Follow up: Response: Adverse reaction, Physician notified mg2 17:05 Drug: Zofran 4 mg Route: IVP; Site: left antecubital; mg2 17:05 Follow up: Response: No adverse reaction; Medication administered at discharge. mg2 17:32 Drug: Benadryl 12.5 mg Route: IVP; Site: left antecubital; mg2 17:48 Follow up: Response: No adverse reaction; Marked relief of symptoms mg2 Outcome: 16:53 Discharge ordered by MD. jr8 17:49 Discharged to home ambulatory, with family. mg2 17:49 Condition: stable 17:49 Discharge instructions given to patient, family, Instructed on discharge instructions, follow up and referral plans. medication usage, Demonstrated understanding of instructions, follow-up care, medications, Prescriptions given X 1. 17:50 Patient left the ED. mg2 Signatures: Dispatcher [employer] EDKS Linus Cornejo RN RN sg Williams, Irene RN DAYDAY Elizabeth Morales 2 Irma Dee Josh, PA PA jr8 Garcia, Rubi 4 Corey Aguilar RN RN mg2 Corrections: (The following items were deleted from the chart) 17:48 15:47 Allergies: NKA; sg mg2
--- NOTE | 2017-12-09 16:54 | EDPHYS ---
Physician Documentation [facility] Name: Mary Drake Age: 32 yrs Sex: Female : 1985 Arrival Date: 12/09/2017 Time: 15:36 Bed 28 Private MD: Aubrey Bolton E ED Physician Aubrey Faustin HPI: 12/09 16:50 This 32 yrs old Black Female presents to ER via Ambulatory with complaints of Back jr8 Pain, Flank Pain. 16:50 Onset: The symptoms/episode began/occurred acutely, 2 day(s) ago. The pain radiates to jr8 the abdomen. Associated signs and symptoms: The patient has no apparent associated signs or symptoms. Severity of symptoms: At their worst the symptoms were mild. The patient has experienced similar episodes in the past, a few times. The patient has been recently seen by a physician:. Patient was seen yesterday for urinary complaints and vaginal discharge. History of PID. Was covered with flagyl, rocephin, zithromax. Given doxycycline to go home on. Came back today for similar complaints . 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 - Social history:: Smoking status: Patient/guardian denies using tobacco. - Ebola Screening: : Patient negative for fever greater than or equal to 101.5 degrees Fahrenheit, and additional compatible Ebola Virus Disease symptoms Patient denies exposure to infectious person Patient denies travel to an Ebola-affected area in the 21 days before illness onset No symptoms or risks identified at this time. ROS: 16:50 Eyes: Negative for injury, pain, redness, and discharge, ENT: Negative for injury, jr8 pain, and discharge, Neck: Negative for injury, pain, and swelling, Cardiovascular: Negative for chest pain, palpitations, and edema, Respiratory: Negative for shortness of breath, cough, wheezing, and pleuritic chest pain, MS/Extremity: Negative for injury and deformity, Skin: Negative for injury, rash, and discoloration, Neuro: Negative for headache, weakness, numbness, tingling, and seizure. 16:50 Abdomen/GI: Positive for abdominal pain, Negative for nausea, vomiting, and diarrhea, abdominal distension, anorexia, dysphagia, hematemesis, black/tarry stool, rectal pain, rectal bleeding, bowel incontinence, flatulence. 16:50 Back: Positive for pain at rest, of the low back area, Negative for decreased range of motion, pain with movement, radiated pain. Exam: 16:50 Eyes: Pupils equal round and reactive to light, extra-ocular motions intact. Lids and jr8 lashes normal. Conjunctiva and sclera are non-icteric and not injected. Cornea within normal limits. Periorbital areas with no swelling, redness, or edema. ENT: Nares patent. No nasal discharge, no septal abnormalities noted. Tympanic membranes are normal and external auditory canals are clear. Oropharynx with no redness, swelling, or masses, exudates, or evidence of obstruction, uvula midline. Mucous membranes moist. Neck: Trachea midline, no thyromegaly or masses palpated, and no cervical lymphadenopathy. Supple, full range of motion without nuchal rigidity, or vertebral point tenderness. No Meningismus. Cardiovascular: Regular rate and rhythm with a normal S1 and S2. No gallops, murmurs, or rubs. Normal PMI, no JVD. No pulse deficits. Respiratory: Lungs have equal breath sounds bilaterally, clear to auscultation and percussion. No rales, rhonchi or wheezes noted. No increased work of breathing, no retractions or nasal flaring. Back: No spinal tenderness. No costovertebral tenderness. Full range of motion. Skin: Warm, dry with normal turgor. Normal color with no rashes, no lesions, and no evidence of cellulitis. MS/ Extremity: Pulses equal, no cyanosis. Neurovascular intact. Full, normal range of motion. Neuro: Awake and alert, GCS 15, oriented to person, place, time, and situation. Cranial nerves II-XII grossly intact. Motor strength 5/5 in all extremities. Sensory grossly intact. Cerebellar exam normal. Normal gait. 16:50 Abdomen/GI: Inspection: abdomen appears normal, Bowel sounds: active, all quadrants, Palpation: soft, in all quadrants, mild abdominal tenderness, in the suprapubic area, right lower quadrant and left lower quadrant, mass, is not appreciated, rebound tenderness, is not appreciated, voluntary guarding, is not appreciated, involuntary guarding, is not appreciated, no appreciated organomegaly, Indicators: McBurney's point is not tender, Mitchell's sign is negative, Rovsing's sign is negative, Liver: tenderness, is not appreciated. Vital Signs: 15:46 BP 133 / 87; Pulse 77; Resp 18; Temp 98.0; Pulse Ox 100% on R/A; Pain 7/10; sg 16:49 BP 136 / 80; Pulse 78; Resp 18; Pulse Ox 100% ; Pain 6/10; mg2 17:49 BP 122 / 78; Pulse 78; Resp 18; Pulse Ox 100% ; Pain 0/10; mg2 MDM: 15:50 Patient medically screened. [facility] 16:50 Data reviewed: vital signs, nurses notes, lab test result(s), radiologic studies, CT jr8 scan. Data interpreted: Pulse oximetry: on room air is 100 %. Interpretation: normal. Counseling: I had a detailed discussion with the patient and/or guardian regarding: the historical points, exam findings, and any diagnostic results supporting the discharge/admit diagnosis, lab results, the need for outpatient follow up, an OB/Gyne specialist, to return to the emergency department if symptoms worsen or persist or if there are any questions or concerns that arise at home. ED course: Patient has not filled her doxycycline yet. Told her not to fill it and that I am extending dose by for days. To fill the one that I am giving her today . 12/09 15:50 Order name: Basic Metabolic Panel; Complete Time: 16:44 12/09 15:50 Order name: CBC with Diff 12/09 15:50 Order name: Creatinine for Radiology; Complete Time: 16:44 12/09 15:50 Order name: Hepatic Function; Complete Time: 16:44 12/09 15:50 Order name: Lipase; Complete Time: 16:44 12/09 16:06 Order name: Urine Microscopic Only; Complete Time: 16:44 12/09 15:50 Order name: CT Abd/Pelvis - W/Contrast; Complete Time: 16:44 /23 16:12 Order name: Urine Dipstick--Ancillary (enter results); Complete Time: 16:44 4 12/09 16:12 Order name: Urine --Ancillary (enter results); Complete Time: 16:44 mb4 12/09 16:20 Order name: CBC Smear Scan EDCT 12/09 17:21 Order name: Manual Differential EDMS 12/09 15:50 Order name: IV Saline Lock; Complete Time: 16:06 jr8 12/09 15:50 Order name: Labs collected and sent; Complete Time: 16:06 jr8 Administered Medications: 17:05 Drug: fentaNYL (PF) 50 mcg Route: IVP; Site: left antecubital; mg2 17:05 Follow up: Response: No adverse reaction; Medication administered at discharge. mg2 17:30 Follow up: Response: Adverse reaction, Physician notified mg2 17:05 Drug: Zofran 4 mg Route: IVP; Site: left antecubital; mg2 17:05 Follow up: Response: No adverse reaction; Medication administered at discharge. mg2 17:32 Drug: Benadryl 12.5 mg Route: IVP; Site: left antecubital; mg2 17:48 Follow up: Response: No adverse reaction; Marked relief of symptoms mg2 Disposition: 12/09/17 16:53 Discharged to Home. Impression: Female pelvic inflammatory disease, unspecified. - Condition is Stable. - Discharge Instructions: Pelvic Inflammatory Disease, Sexually Transmitted Disease. - Prescriptions for Doxycycline Monohydrate 100 mg Oral Tablet - take 1 tablet by ORAL route every 12 hours for 14 days; 28 tablet. - Medication Reconciliation Form, Thank You Letter, Antibiotic Education, Prescription Opioid Use form. - Follow up: Private Physician; When: 2 - 3 days; Reason: Recheck today's complaints, Continuance of care, Re-evaluation by your physician. - Problem is new. - Symptoms have improved. Addendum: 12/11/2017 08:10 Co-signature as Attending Physician, Aubrey Faustin MD I agree with the assessment and w a plan of care. Signatures: Dispatcher [employer] EDLinus Copeland RN RN Teddy Nye, TOMER PA 8 Aubrey Faustin MD MD mt Corey Aguilar RN RN mg2 Corrections: (The following items were deleted from the chart) 12/09 17:48 15:47 Allergies: NKA; sg mg2 17:50 16:54 12/09/2017 16:53 Discharged to Home. Impression: Female pelvic inflammatory mg2 disease, unspecified. Condition is Stable. Forms are Medication Reconciliation Form, Thank You Letter, Antibiotic Education, Prescription Opioid Use. Follow up: Private Physician; When: 2 - 3 days; Reason: Recheck today's complaints, Continuance of care, Re-evaluation by your physician. Problem is new. Symptoms have improved. jr8
[2017-12-09] MEDS ORDERED: ONDANSETRON 4 MG/2 ML VIAL ONE (17:05)
[2017-12-09] MEDS ORDERED: FENTANYL CITR 100 MCG/2 ML ONE (17:05)
[2017-12-09] MEDS ORDERED: DIPHENHYDRAMINE 25 MG TAB/CAP ONE (17:16)
[2017-12-09] MEDS ORDERED: DIPHENHYDRAMINE 50 MG/ML VIAL ONE (17:16)
[2017-12-09 17:22] LABS: Blood Morphology Comment NOT SEEN (NOT SEEN); Platelet Estimate ADEQ; Urine White Blood Cell Casts OK
[2017-12-09 18:08] VITALS: TEMP 98; O2SAT 100
[2017-12-09 18:11] VITALS: BP 122/78
== END 2017-12-09 17:50 | disposition home or self-care (01) ==
LOC: ER 15:33
DX: N73.9 Female pelvic inflammatory disease, unspecified (principal); F41.9 Anxiety disorder, unspecified; J44.9 Chronic obstructive pulmonary disease, unspecified; Z88.8 Allergy status to other drugs, medicaments and biological substances
CPT/HCPCS: 36415; 74177; 80048; 80076; 81003; 81015; 81025; 83690; 85025; 96374; 96375; 99284; J2405; J3010; Q9967

== ENCOUNTER 2017-12-16 14:51 | Emergency (ER) | payer MEDICAID ==
--- OUTSIDE RECORDS SUMMARY | 2017-12-16 14:53 | XMS REPORT ---
[...] Dosage System Date Date All Day Allergy [facility] 82524037220 10 MG Oral Active TAKE 1 TABLET BY MOUTH EVERY DAY Montelukast [facility] 40156437075 10 MG Oral Active TAKE 1 Sodium TABLET BY MOUTH EVERY EVENING Alprazolam [facility] 77577180571 1 MG Oral Active (Schedule IV Drug) TAKE 1 TABLET BY MOUTH 3 TIMES A DAY PredniSONE ND 69551690086 10 MG Oral Active TAKE 1 TABLET BY MOUTH TWICE A DAY FOR 7 DAYS Lidocaine ND 45006649843 2 % Mouth/Throat Active TAKE 5ML Viscous BY MOUTH THREE TO FOUR TIMES DAILY Results No Known Results Summary Purpose eClinicalWorks Submission
--- OUTSIDE RECORDS SUMMARY | 2017-12-16 14:53 | XMS REPORT ---
[...] Date Status Dosage System Date Tramadol HCl [facility] 18879498220 50 MG Orally Nov 29, Active 1 tablet every 6 hrs 2018 as needed Results No Known Results Summary Purpose eClinicalWorks Submission
--- OUTSIDE RECORDS SUMMARY | 2017-12-16 14:54 | XMS REPORT ---
[...] End Status Dosage System Date Date Alprazolam [facility] 56794869507 1 MG Oral Active (Schedule IV Drug) TAKE 1 TABLET BY MOUTH 3 TIMES A DAY PredniSONE [facility] 43200827764 10 MG Oral Active TAKE 1 TABLET BY MOUTH TWICE A DAY FOR 7 DAYS Lidocaine [facility] 91426508130 2 % Mouth/Throat Active TAKE 5ML Viscous BY MOUTH THREE TO FOUR TIMES DAILY Montelukast [facility] 80075284921 10 MG Oral Active TAKE 1 Sodium TABLET BY MOUTH EVERY EVENING All Day Allergy [facility] 93151905392 10 MG Oral Active TAKE 1 TABLET BY MOUTH EVERY DAY Results No Known Results Summary Purpose eClinicalWorks Submission
[2017-12-16] MEDS ORDERED: CEFTRIAXONE 1000 MG/VIAL ONE (16:05)
[2017-12-16] MEDS ORDERED: NS 0.9% VIAL 10 ML ONE (16:05)
[2017-12-16] MEDS ORDERED: SMZ./TMP. 800/160 MG TABLET ONE (16:05)
--- NOTE | 2017-12-16 16:41 | ER ---
Nurse's Notes [facility] Name: Mary Drake Age: 32 yrs Sex: Female : 1985 Arrival Date: 12/16/2017 Time: 14:55 Bed 27 Private MD: Aubrey Bolton E Diagnosis: Periorbital and facial cellulitis Presentation: 12/16 15:31 Presenting complaint: Patient states: She had an orbital fracture in her right eye 2 aj1 years ago, and they put in an implant ot the right cheek. Now she has had swelling to the right cheek since last night. Reports pain to the right cheek that radiates to the hinduism. Transition of care: patient was not received from another setting of care. Onset of symptoms was December 15, 2017. Risk Assessment: Do you want to hurt yourself or someone else? Patient reports no desire to harm self or others. Initial Sepsis Screen: Does the patient meet any 2 criteria? No. Patient's initial sepsis screen is negative. Does the patient have a suspected source of infection? No. Patient's initial sepsis screen is negative. Care prior to arrival: None. 15:31 Method Of Arrival: Ambulatory aj1 15:31 Acuity: CED 3 aj1 Triage Assessment: 15:34 General: Appears in no apparent distress. uncomfortable, Behavior is calm, cooperative, aj1 appropriate for age. Pain: Complains of pain in right cheek Pain currently is 9 out of 10 on a pain scale. Neuro: Level of Consciousness is awake, alert, obeys commands. Cardiovascular: Patient's skin is warm and dry. Respiratory: Airway is patent Respiratory effort is even, unlabored, Respiratory pattern is regular, symmetrical. 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 - Social history:: Smoking status: Patient/guardian denies using tobacco. - Ebola Screening: : Patient denies travel to an Ebola-affected area in the 21 days before illness onset. - Family history:: not pertinent. - Hospitalizations: : No recent hospitalization is reported. Screenin:26 Abuse screen: Denies threats or abuse. Denies injuries from another. Nutritional rv screening: No deficits noted. Tuberculosis screening: No symptoms or risk factors identified. Fall Risk None identified. Assessment: 16:24 General: Appears in no apparent distress. comfortable, Behavior is calm, cooperative. rv Pain: Complains of pain in right side of the face. Neuro: Level of Consciousness is awake, alert, obeys commands, Oriented to person, place, time, situation. Cardiovascular: Capillary refill < 3 seconds. Respiratory: Airway is patent. GI: No signs and/or symptoms were reported involving the gastrointestinal system. : No signs and/or symptoms were reported regarding the genitourinary system. EENT: No signs and/or symptoms were reported regarding the EENT system. Derm: Skin is intact. Vital Signs: 15:34 BP 123 / 91; Pulse 86; Resp 18; Temp 98.2(TE); Pulse Ox 100% on R/A; Weight 54.43 kg aj1 (R); Height 5 ft. 4 in. (162.56 cm) (R); 16:25 BP 116 / 80; Pulse 105; Pulse Ox 100% on R/A; rv 16:49 BP 137 / 93; Pulse 64; Pulse Ox 100% on R/A; rv 15:34 Body Mass Index 20.60 (54.43 kg, 162.56 cm) aj1 ED Course: 14:55 Patient arrived in ED. sb2 14:55 Aubrey Bolton MD is Private Physician. sb2 15:17 Patient's name was called from [facility]. No response. aj1 15:32 Triage completed. aj1 15:34 Arm band placed on Patient placed in an exam room. aj1 15:37 Dillan Rodriguez MD is Attending Physician. rn 16:26 Patient has correct armband on for positive identification. Bed in low position. Call rv light in reach. Side rails up X 1. Adult w/ patient. Pulse ox on. NIBP on. 16:40 Aubrey Bolton MD is Referral Physician. rn 16:51 No provider procedures requiring assistance completed. Patient did not have IV access rv during this emergency room visit. Administered Medications: 16:00 Drug: Bactrim (160 mg-800 mg (DS) 1 tablet Route: PO; rv 16:49 Follow up: Response: No adverse reaction rv 16:23 Drug: Rocephin (cefTRIAXone) 1 grams Route: IM; Site: right deltoid; rv 16:49 Follow up: Response: No adverse reaction rv Outcome: 16:41 Discharge ordered by . rn 16:51 Discharged to home ambulatory. rv 16:51 Condition: good 16:51 Discharge instructions given to patient, Instructed on discharge instructions, follow up and referral plans. medication usage, Prescriptions given X 2. 16:51 Patient left the ED. rv Signatures: Ysabel Luke RN RN aj1 Dillan Rodriguez MD MD rn Billeau, Sheri sb2 Thai Castellanos RN RN rv
--- NOTE | 2017-12-16 16:41 | EDPHYS ---
Physician Documentation [facility] Name: Mary Drake Age: 32 yrs Sex: Female : 1985 Arrival Date: 12/16/2017 Time: 14:55 Bed 27 Private MD: Aubrey Bolton E ED Physician Dillan Rodriguez HPI: 12/16 16:33 This 32 yrs old Black Female presents to ER via Ambulatory with complaints of Facial rn Swelling. 16:33 The patient presents with cellulitis of the right cheek. Description: erythematous, rn swollen, warm. Onset: The symptoms/episode began/occurred yesterday. Possible cause(s): unknown. Severity of symptoms: At their worst the symptoms were mild, in the emergency department the symptoms are unchanged. The patient has not experienced similar symptoms in the past. Reports right periorbital swelling, mainly under right eye, painful to touch, no trauma, no vision changes, no fever. . 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 - Social history:: Smoking status: Patient/guardian denies using tobacco. - Ebola Screening: : Patient denies travel to an Ebola-affected area in the 21 days before illness onset. - Family history:: not pertinent. - Hospitalizations: : No recent hospitalization is reported. ROS: 16:33 Constitutional: Negative for fever, chills, and weight loss, Eyes: + right periorbital rn swelling and pain Neuro: Negative for headache, weakness, numbness, tingling, and seizure. Exam: 16:33 Constitutional: This is a well developed, well nourished patient who is awake, alert, rn and in no acute distress. Head/Face: Normocephalic, atraumatic. Eyes: + right periorbital and infraorbital mild swelling, no fluctuance, no crepitus, + warmth, no ocular drainage or color change. ENT: + poor dentition, no oral abscess Neck: Trachea midline, no thyromegaly or masses palpated, and no cervical lymphadenopathy. Supple, full range of motion without nuchal rigidity, or vertebral point tenderness. No Meningismus. Neuro: Awake and alert, GCS 15, oriented to person, place, time, and situation. Cranial nerves II-XII grossly intact. Motor strength 5/5 in all extremities. Sensory grossly intact. Cerebellar exam normal. Normal gait. Vital Signs: 15:34 BP 123 / 91; Pulse 86; Resp 18; Temp 98.2(TE); Pulse Ox 100% on R/A; Weight 54.43 kg aj1 (R); Height 5 ft. 4 in. (162.56 cm) (R); 16:25 BP 116 / 80; Pulse 105; Pulse Ox 100% on R/A; rv 16:49 BP 137 / 93; Pulse 64; Pulse Ox 100% on R/A; rv 15:34 Body Mass Index 20.60 (54.43 kg, 162.56 cm) aj1 MDM: 15:37 Patient medically screened. rn 16:40 Differential diagnosis: cellulitis, periorbital cellulitis. Data reviewed: vital signs, rn nurses notes, and as a result, I will discharge patient. Counseling: I had a detailed discussion with the patient and/or guardian regarding: the historical points, exam findings, and any diagnostic results supporting the discharge/admit diagnosis, the need for outpatient follow up, to return to the emergency department if symptoms worsen or persist or if there are any questions or concerns that arise at home. Special discussion: I discussed with the patient/guardian in detail that at this point there is no indication for admission to the hospital. It is understood, however, that if the symptoms persist or worsen the patient needs to return immediately for re-evaluation. Based on the history and exam findings, there is no indication for further emergent testing or inpatient evaluation. I discussed with the patient/guardian the need to see the primary care provider for further evaluation of the symptoms. Administered Medications: 16:00 Drug: Bactrim (160 mg-800 mg (DS) 1 tablet Route: PO; rv 16:49 Follow up: Response: No adverse reaction rv 16:23 Drug: Rocephin (cefTRIAXone) 1 grams Route: IM; Site: right deltoid; rv 16:49 Follow up: Response: No adverse reaction rv Disposition: 12/16/17 16:41 Discharged to Home. Impression: Periorbital and facial cellulitis. - Condition is Stable. - Discharge Instructions: Cellulitis, Adult, Preseptal Cellulitis, Adult. - Prescriptions for Keflex 500 mg Oral Capsule - take 1 capsule by ORAL route every 12 hours for 10 days; 20 capsule. Bactrim DS 800- 160 mg Oral Tablet - take 1 tablet by ORAL route every 12 hours for 10 days; 20 tablet. - Medication Reconciliation Form, Thank You Letter, Antibiotic Education, Prescription Opioid Use form. - Follow up: Aubrey Bolton MD; When: As needed; Reason: Recheck today's complaints, Re-evaluation by your physician. - Problem is new. - Symptoms have improved. Signatures: Ysabel Luke RN RN aj1 Dillan Rodriguez MD MD rn Vicente, Ronaldo, RN RN rv Corrections: (The following items were deleted from the chart) 16:51 16:41 12/16/2017 16:41 Discharged to Home. Impression: Periorbital and facial rv cellulitis. Condition is Stable. Forms are Medication Reconciliation Form, Thank You Letter, Antibiotic Education, Prescription Opioid Use. Follow up: Aubrey Bolton; When: As needed; Reason: Recheck today's complaints, Re-evaluation by your physician. Problem is new. Symptoms have improved. rn
[2017-12-16 17:10] VITALS: TEMP 98.2; O2SAT 100
[2017-12-16 17:12] VITALS: BP 137/93
== END 2017-12-16 16:51 | disposition home or self-care (01) ==
LOC: ER 14:51
DX: L03.213 Periorbital cellulitis (principal); J45.909 Unspecified asthma, uncomplicated; F41.9 Anxiety disorder, unspecified; F20.9 Schizophrenia, unspecified; Z88.8 Allergy status to other drugs, medicaments and biological substances
CPT/HCPCS: 96372; 99283

== ENCOUNTER 2018-01-23 16:16 | Emergency (ER) | payer OTHER ==
--- OUTSIDE RECORDS SUMMARY | 2018-01-23 16:18 | XMS REPORT ---
[...] Status Dosage System Date Date Alprazolam [facility] 86345900049 1 MG Oral Active (Schedule IV Drug) TAKE 1 TABLET BY MOUTH 3 TIMES A DAY PredniSONE [facility] 13491781510 10 MG Oral Active TAKE 1 TABLET BY MOUTH TWICE A DAY FOR 7 DAYS Lidocaine [facility] 05368038174 2 % Mouth/Throat Active TAKE 5ML Viscous BY MOUTH THREE TO FOUR TIMES DAILY Montelukast [facility] 93854074695 10 MG Oral Active TAKE 1 Sodium TABLET BY MOUTH EVERY EVENING All Day Allergy [facility] 72832822957 10 MG Oral Active TAKE 1 TABLET BY MOUTH EVERY DAY Results No Known Results Summary Purpose eClinicalWorks Submission
--- OUTSIDE RECORDS SUMMARY | 2018-01-23 16:18 | XMS REPORT ---
[...] Dosage System Date Date All Day Allergy [facility] 77910088240 10 MG Oral Active TAKE 1 TABLET BY MOUTH EVERY DAY Montelukast [facility] 48223533595 10 MG Oral Active TAKE 1 Sodium TABLET BY MOUTH EVERY EVENING Alprazolam [facility] 31148934184 1 MG Oral Active (Schedule IV Drug) TAKE 1 TABLET BY MOUTH 3 TIMES A DAY PredniSONE ND 42086009707 10 MG Oral Active TAKE 1 TABLET BY MOUTH TWICE A DAY FOR 7 DAYS Lidocaine ND 14623084701 2 % Mouth/Throat Active TAKE 5ML Viscous BY MOUTH THREE TO FOUR TIMES DAILY Results No Known Results Summary Purpose eClinicalWorks Submission
--- OUTSIDE RECORDS SUMMARY | 2018-01-23 16:18 | XMS REPORT ---
[...] Date Status Dosage System Date Tramadol HCl [facility] 14535753170 50 MG Orally Nov 29, Active 1 tablet every 6 hrs 2018 as needed Results No Known Results Summary Purpose eClinicalWorks Submission
--- OUTSIDE RECORDS SUMMARY | 2018-01-23 16:18 | XMS REPORT ---
:1985 Author Organization eClinicalWorks Care Team Providers Name Role Phone Kyle Valdes Provider Role Unavailable Allergies, Adverse Reactions, Alerts Substance Reaction Event Type N.K.D.A. 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 Medications Medication Code Code Instructions Start End Status Dosage System Date Date Montelukast [facility] 20231998843 10 MG Oral Active TAKE 1 Sodium TABLET BY MOUTH EVERY EVENING Lidocaine [facility] 88033293353 2 % Mouth/Throat Active TAKE 5ML Viscous BY MOUTH THREE TO FOUR TIMES DAILY Tramadol HCl [facility] 67674812030 50 MG Orally Nov 29, Active 1 tablet every 6 hrs 2017 as needed Alprazolam [facility] 67153062450 1 MG Oral Active (Schedule IV Drug) TAKE 1 TABLET BY MOUTH 3 TIMES A DAY PredniSONE [facility] 93559775324 10 MG Oral Active TAKE 1 TABLET BY MOUTH TWICE A DAY FOR 7 DAYS All Day Allergy [facility] 78321083790 10 MG Oral Active TAKE 1 TABLET BY MOUTH EVERY DAY Results No Known Results Summary Purpose eClinicalWorks Submission
[2018-01-23] MEDS ORDERED: MORPHINE 4 MG/ML SYR ONE (17:05)
[2018-01-23] MEDS ORDERED: ONDANSETRON 4 MG/2 ML VIAL ONE (17:05)
[2018-01-23 17:30] LABS: Urine Blood NEGATIVE (NEG); Urine Glucose NEGATIVE (NEG); Urine Protein NEGATIVE (NEG); Urine pH 5.5 (5.0-7.0)
[2018-01-23 17:39] LABS: Urine Bacteria NONE SEEN /HPF (<20); Urine RBC NONE SEEN /HPF (NONE SEEN)
[2018-01-23 17:40] LABS: Urine Culture Reflex Order NOT NEEDED; Urine Yeast FEW (NONE SEEN)
[2018-01-23 17:41] LABS: Absolute Lymphocytes (CBC) 3.5 K/uL (0.7-4.9); Absolute Monocytes 0.3 K/uL (0.1-1.3); Absolute Neutrophil 2.1 K/uL (1.8-8.0); Basophils % 1.1 % (0-1.3); Eosinophils % 2.5 % (0-4.4); Hematocrit 31.8 % (36.0-45.0); Lymphocytes % 56.9 % (15.3-44.8); MCH 27.6 pg (27.0-35.0); MCV 83.1 fL (80-100); MPV 9.6 fL (7.6-11.3); Monocytes % 5.3 % (3.3-12.3); RBC Red Blood Cell Count 3.83 M/uL (3.86-4.86)
[2018-01-23 17:46] LABS: ALT/SGPT 13 U/L (12-78); AST/SGOT 9 U/L (15-37); Albumin 3.5 g/dL (3.4-5.0); Alkaline Phosphatase 45 U/L (45-117); BUN Blood Urea Nitrogen 18 mg/dL (7-18); Bicarbonate 30 mmol/L (21-32); Bilirubin Direct < 0.1 mg/dL (0-0.2); Bilirubin Total 0.2 mg/dL (0.2-1.0); Glucose Level 99 mg/dL (74-106); Lipase 89 U/L (73-393); Potassium 3.9 mmol/L (3.5-5.1); Protein, Total 7.2 g/dL (6.4-8.2); Sodium Level 141 mmol/L (136-145)
--- NOTE | 2018-01-23 18:21 | RAD REPORT ---
EXAM DESCRIPTION: US - Pelvis Complete - 01/23/2018 6:08 pm CLINICAL HISTORY: pelvic pain Pelvic pain. COMPARISON: Transvaginal Study Probe dated 01/11/2017 FINDINGS: The uterus is normal in size, shape and echotexture. 8 x 8 mm intramural anterior uterine fibroid. The uterus measures 8.0 x 6.7 x 5.6 cm. The endometrial stripe measures 12 mm, normal. Both ovaries are normal in size, shape and echotexture. The right ovary measures 4.1 x 3.0 x 2.9 cm. The left ovary measures 3.9 x 1.9 x 1.9 cm. No ovarian or parovarian lesions. No adnexal masses. Normal Doppler blood flow was demonstrated to both ovaries. No significant pelvic ascites. IMPRESSION: No acute or worrisome abnormality is seen.Small intramural fibroid is present.
[2018-01-23 18:56] LABS: Anisocytosis 1+; Blood Morphology Comment NOTED (NOT SEEN); Platelet Estimate ADEQ; Urine White Blood Cell Casts OK
[2018-01-23] MEDS ORDERED: KETOROLAC 30 MG/ML INJ ONE (18:59)
--- NOTE | 2018-01-23 19:09 | ER ---
Nurse's Notes [facility] Name: Mary Drake Age: 32 yrs Sex: Female : 1985 Arrival Date: 01/23/2018 Time: 16:19 Bed 18 Private MD: Aubrey Bolton E Diagnosis: Abdominal and pelvic pain Presentation: 01/23 16:47 Presenting complaint: Patient states: lower abdominal pain that started 4-5 days ago em with nausea with white discharge, denies D/V fever. Transition of care: patient was not received from another setting of care. Onset of symptoms was January 18, 2018. Risk Assessment: Do you want to hurt yourself or someone else? Patient reports no desire to harm self or others. Initial Sepsis Screen: Does the patient meet any 2 criteria? No. Patient's initial sepsis screen is negative. Does the patient have a suspected source of infection? No. Patient's initial sepsis screen is negative. Care prior to arrival: None. 16:47 Method Of Arrival: Ambulatory em 17:05 Acuity: CED 3 la1 Triage Assessment: 16:50 General: Appears in no apparent distress. comfortable, Behavior is calm, cooperative. em Pain: Complains of pain in right lower quadrant and left lower quadrant. GI: Abdomen is flat, Bowel sounds present X 4 quads. Abd is soft X 4 quads Abdomen is tender to palpation in right lower quadrant and left lower quadrant Reports nausea, Patient currently denies diarrhea, vomiting. 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 - Social history:: Smoking status: Patient uses tobacco products, denies chronic smoking, but will smoke occasionally. - Ebola Screening: : Patient negative for fever greater than or equal to 101.5 degrees Fahrenheit, and additional compatible Ebola Virus Disease symptoms Patient denies exposure to infectious person Patient denies travel to an Ebola-affected area in the 21 days before illness onset No symptoms or risks identified at this time. Screenin:00 Abuse screen: Denies threats or abuse. Nutritional screening: No deficits noted. em Tuberculosis screening: No symptoms or risk factors identified. Fall Risk None identified. Assessment: 16:50 General: Appears in no apparent distress. comfortable, Behavior is calm, cooperative, em appropriate for age, Denies fever. Pain: Complains of pain in left lower quadrant and right lower quadrant. Neuro: Level of Consciousness is awake, alert, obeys commands, Oriented to person, place, time, situation. Cardiovascular: Capillary refill < 3 seconds Patient's skin is warm and dry. Respiratory: Airway is patent Respiratory effort is even, unlabored, Respiratory pattern is regular, symmetrical. GI: Abdomen is flat, Bowel sounds present X 4 quads. Abd is soft X 4 quads Abdomen is tender to palpation in right lower quadrant and left lower quadrant Reports nausea, Patient currently denies diarrhea, vomiting. : Urine is clear. EENT: No signs and/or symptoms were reported regarding the EENT system. Derm: Skin is intact, Skin is pink, warm \T\ dry. Musculoskeletal: Range of motion: intact in all extremities. 17:00 Reassessment: I agree with previous assessment. hb 17:35 Reassessment: Patient appears in no apparent distress at this time. Patient and/or em family updated on plan of care and expected duration. Pain level reassessed. Patient is alert, oriented x 3, equal unlabored respirations, skin warm/dry/pink. ultrasound at bedside. 18:30 Reassessment: Patient appears in no apparent distress at this time. Patient and/or em family updated on plan of care and expected duration. Pain level reassessed. Patient is alert, oriented x 3, equal unlabored respirations, skin warm/dry/pink. Patient states feeling better. Vital Signs: 16:50 BP 117 / 74; Pulse 73; Resp 16; Temp 98.7(O); Pulse Ox 100% on R/A; Weight 54.88 kg; em Height 5 ft. 4 in. (162.56 cm); Pain 7/10; 18:30 BP 118 / 76; Pulse 76; Resp 16; Pulse Ox 99% on R/A; Pain 5/10; em 16:50 Body Mass Index 20.77 (54.88 kg, 162.56 cm) em ED Course: 16:19 Patient arrived in ED. sb2 16:20 Aubrey Bolton MD is Private Physician. sb2 16:23 Bob Handley PA is PHCP. tessy 16:23 Demarcus Guzman MD is Attending Physician. [facility] 16:36 Sukhwinder Raman LVN is Primary Nurse. em 16:50 Arm band placed on. em 17:00 Patient has correct armband on for positive identification. Placed in gown. Bed in low em position. Adult w/ patient. 17:05 Triage completed. la1 17:07 Initial lab(s) drawn, by me, sent to lab. Inserted saline lock: 20 gauge in right dh3 antecubital area, using aseptic technique. Blood collected. 17:54 Ultrasound completed. Patient tolerated well. Notified NUCLEAR OFFICER/PA richard. sg3 18:08 US Pelvis Complete In Process Unspecified. EDMS 19:08 Lindsey Marie MD is Referral Physician. jmm 19:08 Michel Dillard MD is Referral Physician. jm 19:08 Marques George MD is Referral Physician. [facility] 19:21 No provider procedures requiring assistance completed. IV discontinued, intact, em bleeding controlled, No redness/swelling at site. Pressure dressing applied. Administered Medications: 17:18 Drug: morphine 4 mg Route: IVP; Site: right antecubital; hb 18:30 Follow up: Response: No adverse reaction; Pain is decreased em 17:18 Drug: Zofran 4 mg Route: IVP; Site: right antecubital; hb 18:30 Follow up: Response: No adverse reaction em 19:15 Drug: Ketorolac 30 mg Route: IVP; Site: right antecubital; ak1 19:19 Follow up: Response: Medication administered at discharge. em Outcome: 19:08 Discharge ordered by . m 19:21 Discharged to home ambulatory. em 19:21 Condition: good 19:21 Discharge instructions given to patient, Instructed on discharge instructions, follow up and referral plans. medication usage, Demonstrated understanding of instructions, follow-up care, medications, Prescriptions given X 1. 19:22 Patient left the ED. em Signatures: Dispatcher [employer] EDMS Bob Handley PA PA [facility] Sukhwinder Raman LVN SALES CORRESPONDENT em Shiva Mathur RN RN la1 Kayla Mason RN RN ak1 Malini Goddard RN RN Pallavi Alcantar [facility] Chey Livingston sg3 Mari Bonilla sb2
--- NOTE | 2018-01-23 19:09 | EDPHYS ---
Physician Documentation [facility] Name: Mary Drake Age: 32 yrs Sex: Female : 1985 Arrival Date: 01/23/2018 Time: 16:19 Bed 18 Private MD: Aubrey Bolton E ED Physician Demarcus Guzman HPI: 01/23 17:03 This 32 yrs old Black Female presents to ER via Ambulatory with complaints of Abdominal jmm Pain. 17:03 The patient presents with abdominal pain. Onset: The symptoms/episode began/occurred jmm gradually, 5 day(s) ago. The symptoms radiate to back. The symptoms are described as burning, crampy. Modifying factors: The symptoms are alleviated by nothing, the symptoms are aggravated by walking. This is a 32 year old female with a history of asthma, COPD, schizophrenia that presents to the ED with pelvic pain radiating to the back beginning 5 days ago. Patient has had similar episodes when diagnosed with PID or ovarian cysts in the past. Patient states finishing a course of antibiotics 1 month earlier. Denies vomiting or diarrhea. . 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 - Social history:: Smoking status: Patient uses tobacco products, denies chronic smoking, but will smoke occasionally. - Ebola Screening: : Patient negative for fever greater than or equal to 101.5 degrees Fahrenheit, and additional compatible Ebola Virus Disease symptoms Patient denies exposure to infectious person Patient denies travel to an Ebola-affected area in the 21 days before illness onset No symptoms or risks identified at this time. ROS: 17:03 Constitutional: Negative for fever, chills, and weight loss, Eyes: Negative for injury, jmm pain, redness, and discharge, Cardiovascular: Negative for chest pain, palpitations, and edema, Respiratory: Negative for shortness of breath, cough, wheezing, and pleuritic chest pain. 17:03 MS/Extremity: Negative for injury and deformity, Skin: Negative for injury, rash, and discoloration. 17:03 Abdomen/GI: Positive for abdominal pain. 17:03 Back: Positive for radiated pain. 17:03 : Positive for pelvic pain. 17:03 All other systems are negative. Exam: 17:03 Head/Face: atraumatic. Chest/axilla: Normal chest wall appearance and motion. [facility] Cardiovascular: Regular rate and rhythm. No edema appreciated Respiratory: Normal respirations, no respiratory distress appreciated 17:03 Constitutional: The patient appears in no acute distress, alert, awake. 17:03 Abdomen/GI: Inspection: abdomen appears normal, Bowel sounds: normal, Palpation: soft, mild abdominal tenderness, in the suprapubic area. 17:03 Back: ROM is normal, CVA tenderness, is absent. 17:03 Skin: Appearance: Color: normal in color. 17:03 Neuro: Orientation: is normal, Mentation: is normal, Memory: is normal. 17:03 Psych: Behavior/mood is pleasant, cooperative. Vital Signs: 16:50 BP 117 / 74; Pulse 73; Resp 16; Temp 98.7(O); Pulse Ox 100% on R/A; Weight 54.88 kg; em Height 5 ft. 4 in. (162.56 cm); Pain 7/10; 18:30 BP 118 / 76; Pulse 76; Resp 16; Pulse Ox 99% on R/A; Pain 5/10; em 16:50 Body Mass Index 20.77 (54.88 kg, 162.56 cm) em MDM: 16:42 Patient medically screened. [facility] 18:50 Data reviewed: vital signs, nurses notes. Counseling: I had a detailed discussion with [facility] the patient and/or guardian regarding: the historical points, exam findings, and any diagnostic results supporting the discharge/admit diagnosis, the need for outpatient follow up, to return to the emergency department if symptoms worsen or persist or if there are any questions or concerns that arise at home. 19:06 Counseling: I had a detailed discussion with the patient and/or guardian regarding: [facility] radiology results. Response to treatment: the patient's symptoms have markedly improved after treatment. 19:06 ED course: Patient stated that over the past month her cycles have been longer than [facility] normal. US reveal intrauterine fibroids. Patient is hemodynamically stable. Pain is well localized to the pelvis. I do not currently suspect an acute intrabdominal process. Patient will follow up with OB for further evaluation and is advised to return to the ED if symptoms worsen. Patient understood and agree with the plan of care. . 01/23 16:42 Order name: Basic Metabolic Panel; Complete Time: 18:16 [facility] 01/23 16:42 Order name: CBC with Diff; Complete Time: 19:00 [facility] 01/23 16:42 Order name: Creatinine for Radiology; Complete Time: 18:16 [facility] 01/23 16:42 Order name: Hepatic Function; Complete Time: 18:16 [facility] 01/23 16:42 Order name: Lipase; Complete Time: 18:16 [facility] 01/23 17:06 Order name: Urine Microscopic Only la1 01/23 16:44 Order name: US Pelvis Complete; Complete Time: 18:23 [facility] 01/23 17:06 Order name: Urine Microscopic Only; Complete Time: 18:16 [facility] 01/23 17:07 Order name: Urine Dipstick--Ancillary (enter results); Complete Time: 18:16 01/23 17:07 Order name: Urine --Ancillary (enter results); Complete Time: 18:16 01/23 17:51 Order name: CBC Smear Scan; Complete Time: 19:00 [facility] 01/23 16:42 Order name: IV Saline Lock; Complete Time: 17:08 [facility] 01/23 16:42 Order name: Labs collected and sent; Complete Time: 17:08 [facility] Administered Medications: 17:18 Drug: morphine 4 mg Route: IVP; Site: right antecubital; hb 18:30 Follow up: Response: No adverse reaction; Pain is decreased em 17:18 Drug: Zofran 4 mg Route: IVP; Site: right antecubital; hb 18:30 Follow up: Response: No adverse reaction em 19:15 Drug: Ketorolac 30 mg Route: IVP; Site: right antecubital; ak1 19:19 Follow up: Response: Medication administered at discharge. em Disposition: 01/23/18 19:08 Discharged to Home. Impression: Abdominal and pelvic pain. - Condition is Stable. - Discharge Instructions: Pelvic Pain, Female. - Prescriptions for Ibuprofen 600 mg Oral Tablet - take 1 tablet by ORAL route every 6 hours As needed take with food; 30 tablet. - Medication Reconciliation Form, Thank You Letter, Antibiotic Education, Prescription Opioid Use form. - Follow up: Lindsey Marie MD; When: 2 - 3 days; Reason: Recheck today's complaints, Continuance of care, Re-evaluation by your physician. Follow up: Michel Dillard MD; When: As needed; Reason: Recheck today's complaints, Continuance of care, Re-evaluation by your physician. Follow up: Marques George MD; When: As needed; Reason: Recheck today's complaints, Continuance of care, Re-evaluation by your physician. Addendum: 01/29/2018 21:25 Co-signature as Attending Physician, Demarcus Guzman MD Available for consultation at p s1 all times. . Signatures: Dispatcher [employer] EDMS Bob Handley PA PA jmm Munoz, Edgar, LOG POND WORKER LOG POND WORKER em Kayla Mason, RN RN ak1 Malini Goddard, RN RN Demarcus Guzman MD MD ps1 Corrections: (The following items were deleted from the chart) 01/23 19:22 19:08 01/23/2018 19:08 Discharged to Home. Impression: Abdominal and pelvic pain. em Condition is Stable. Forms are Medication Reconciliation Form, Thank You Letter, Antibiotic Education, Prescription Opioid Use. Follow up: Lindsey Marie; When: 2 - 3 days; Reason: Recheck today's complaints, Continuance of care, Re-evaluation by your physician. Follow up: Michel Dillard; When: As needed; Reason: Recheck today's complaints, Continuance of care, Re-evaluation by your physician. Follow up: Marques George; When: As needed; Reason: Recheck today's complaints, Continuance of care, Re-evaluation by your physician. tessy
[2018-01-23 19:27] VITALS: TEMP 98.7
[2018-01-23 19:28] VITALS: BP 118/76; O2SAT 99
== END 2018-01-23 19:22 | disposition home or self-care (01) ==
LOC: ER 16:16
DX: R10.9 Unspecified abdominal pain (principal); R10.2 Pelvic and perineal pain; Z88.6 Allergy status to analgesic agent
CPT/HCPCS: 36415; 76856; 80048; 80076; 81003; 81015; 81025; 83690; 85025; 96374; 96375; 99284; J2405

== ENCOUNTER 2018-02-28 11:01 | Emergency (ER) | payer OTHER ==
--- OUTSIDE RECORDS SUMMARY | 2018-02-28 11:04 | XMS REPORT ---
[...] Dosage System Date Date All Day Allergy [facility] 54808808099 10 MG Oral Active TAKE 1 TABLET BY MOUTH EVERY DAY Montelukast [facility] 64661010075 10 MG Oral Active TAKE 1 Sodium TABLET BY MOUTH EVERY EVENING Alprazolam [facility] 83802472735 1 MG Oral Active (Schedule IV Drug) TAKE 1 TABLET BY MOUTH 3 TIMES A DAY PredniSONE ND 53725547340 10 MG Oral Active TAKE 1 TABLET BY MOUTH TWICE A DAY FOR 7 DAYS Lidocaine ND 89948555877 2 % Mouth/Throat Active TAKE 5ML Viscous BY MOUTH THREE TO FOUR TIMES DAILY Results No Known Results Summary Purpose eClinicalWorks Submission
--- OUTSIDE RECORDS SUMMARY | 2018-02-28 11:04 | XMS REPORT ---
[...] End Status Dosage System Date Date Montelukast [facility] 45682319955 10 MG Oral Active TAKE 1 Sodium TABLET BY MOUTH EVERY EVENING Lidocaine [facility] 66637091721 2 % Mouth/Throat Active TAKE 5ML Viscous BY MOUTH THREE TO FOUR TIMES DAILY Tramadol HCl [facility] 55968028375 50 MG Orally Nov 29, Active 1 tablet every 6 hrs 2017 as needed Alprazolam [facility] 78732264189 1 MG Oral Active (Schedule IV Drug) TAKE 1 TABLET BY MOUTH 3 TIMES A DAY PredniSONE [facility] 96400098408 10 MG Oral Active TAKE 1 TABLET BY MOUTH TWICE A DAY FOR 7 DAYS All Day Allergy [facility] 10534589783 10 MG Oral Active TAKE 1 TABLET BY MOUTH EVERY DAY Results No Known Results Summary Purpose eClinicalWorks Submission
--- OUTSIDE RECORDS SUMMARY | 2018-02-28 11:04 | XMS REPORT ---
[...] Date Status Dosage System Date Tramadol HCl [facility] [id number] 50 MG Orally Nov 29, Active 1 tablet every 6 hrs 2018 as needed Results No Known Results Summary Purpose eClinicalWorks Submission
--- OUTSIDE RECORDS SUMMARY | 2018-02-28 11:04 | XMS REPORT ---
[...] End Status Dosage System Date Date Alprazolam [facility] 70288399980 1 MG Oral Active (Schedule IV Drug) TAKE 1 TABLET BY MOUTH 3 TIMES A DAY PredniSONE [facility] 60164320305 10 MG Oral Active TAKE 1 TABLET BY MOUTH TWICE A DAY FOR 7 DAYS Lidocaine [facility] 85931944921 2 % Mouth/Throat Active TAKE 5ML Viscous BY MOUTH THREE TO FOUR TIMES DAILY Montelukast [facility] 28752603148 10 MG Oral Active TAKE 1 Sodium TABLET BY MOUTH EVERY EVENING All Day Allergy [facility] 90920813474 10 MG Oral Active TAKE 1 TABLET BY MOUTH EVERY DAY Results No Known Results Summary Purpose eClinicalWorks Submission
[2018-02-28 11:48] LABS: Urine Blood NEGATIVE (NEG); Urine Glucose NEGATIVE (NEG); Urine Protein NEGATIVE (NEG); Urine Specific Gravity >1.030 (1.005-1.030); Urine pH 5.5 (5.0-7.0)
--- NOTE | 2018-02-28 12:17 | ER ---
Nurse's Notes [facility] Name: Mary Drake Age: 32 yrs Sex: Female : 1985 Arrival Date: 02/28/2018 Time: 11:05 Bed 14 Private MD: None, None Diagnosis: Dysuria;Pelvic and perineal pain Presentation: 02/28 11:11 Presenting complaint: Patient states: lower abd pain, and urinary incontinence last sv night and increased thick white discharge. 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 Transition of care: patient was not received from another setting of care. Onset of symptoms was February 27, 2018. Risk Assessment: Do you want to hurt yourself or someone else? Patient reports no desire to harm self or others. Care prior to arrival: None. 11:11 Method Of Arrival: Ambulatory sv 11:11 Acuity: CED 3 sv Triage Assessment: 11:18 General: Appears in no apparent distress. uncomfortable, slender, Behavior is calm, sv cooperative, appropriate for age. Pain: Complains of pain in right lower quadrant and left lower quadrant Pain currently is 6 out of 10 on a pain scale. Neuro: Level of Consciousness is awake, alert, obeys commands, Oriented to person, place, time, situation, Moves all extremities. Full function Gait is steady. Respiratory: Respiratory effort is even, unlabored, Respiratory pattern is regular, symmetrical. GI: Reports lower abdominal pain. : Reports incontinence. 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 - Social history:: Smoking status: Patient/guardian denies using tobacco, Patient/guardian denies using alcohol. - Ebola Screening: : No symptoms or risks identified at this time. - Family history:: not pertinent. Screenin:30 Abuse screen: Denies threats or abuse. Denies injuries from another. Nutritional sg screening: No deficits noted. Tuberculosis screening: No symptoms or risk factors identified. Never had TB. Fall Risk None identified. Assessment: 11:30 General: Appears in no apparent distress. comfortable, well groomed, well developed, sg well nourished, Behavior is calm, cooperative, appropriate for age. Pain: Denies pain. Neuro: No deficits noted. Cardiovascular: Patient's skin is warm and dry. Chest pain is denied. Respiratory: Airway is patent Respiratory effort is even, unlabored, Respiratory pattern is regular, symmetrical. GI: No signs and/or symptoms were reported involving the gastrointestinal system. : Urine is clear, Last void was February 28, 2018. Reports incontinence. EENT: No signs and/or symptoms were reported regarding the EENT system. Derm: Skin is pink, warm \T\ dry. Musculoskeletal: No signs and/or symptoms reported regarding the musculoskeletal system. Vital Signs: 11:18 BP 116 / 83; Pulse 94; Resp 16; Temp 98; Pulse Ox 10% ; Height 5 ft. 4 in. (162.56 cm); sv Pain 6/10; 11:19 Pulse Ox 100% ; sg ED Course: 11:05 Patient arrived in ED. dl4 11:06 None, None is Private Physician. dl4 11:11 Arm band placed on Patient placed in an exam room, on a stretcher, on pulse oximetry. sv 11:13 Adria Lala MD is Attending Physician. [facility] 11:17 Triage completed. sv 11:23 Linus Cornejo, RN is Primary Nurse. sg 11:30 Patient has correct armband on for positive identification. Bed in low position. Call sg light in reach. Side rails up X2. Pulse ox on. NIBP on. Head of bed elevated. 11:30 No provider procedures requiring assistance completed. Urine collected: clean catch sg specimen, clear. Patient did not have IV access during this emergency room visit. Administered Medications: No medications were administered Outcome: 12:16 Discharge ordered by . [facility] 12:17 Discharged to home ambulatory, with family. 12:17 Condition: stable 12:17 Discharge instructions given to patient, Instructed on discharge instructions, follow up and referral plans. medication usage, safety practices, Demonstrated understanding of instructions, follow-up care, medications, Prescriptions given X 2. 12:26 Patient left the ED. Signatures: Sofi Lopez RN RN Cornejo, Linus, RN RN sg Spike, Adria, MD MD tawana Smirch, Autumn, RN RN ss Malu, Ross dl4
--- NOTE | 2018-02-28 12:17 | EDPHYS ---
Physician Documentation [facility] Name: Mary Drake Age: 32 yrs Sex: Female : 1985 Arrival Date: 02/28/2018 Time: 11:05 Bed 14 Private MD: None, None ED Physician Adria Lala HPI: 02/28 11:24 This 32 yrs old Black Female presents to ER via Ambulatory with complaints of Urinary tawana Incontinence. 11:24 The patient presents with urinary symptoms, incontinence. Onset: The symptoms/episode tawana began/occurred last night. Modifying factors: The symptoms are alleviated by nothing, the symptoms are aggravated by nothing. Associated signs and symptoms: The patient has no apparent associated signs or symptoms. Severity of symptoms: At their worst the symptoms were mild, in the emergency department the symptoms are unchanged. The patient has experienced similar episodes in the past, a few times. 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 - Social history:: Smoking status: Patient/guardian denies using tobacco, Patient/guardian denies using alcohol. - Ebola Screening: : No symptoms or risks identified at this time. - Family history:: not pertinent. ROS: 11:24 Constitutional: Negative for fever, chills, and weight loss, Eyes: Negative for injury, tawana pain, redness, and discharge, ENT: Negative for injury, pain, and discharge, Neck: Negative for injury, pain, and swelling, Cardiovascular: Negative for chest pain, palpitations, and edema, Respiratory: Negative for shortness of breath, cough, wheezing, and pleuritic chest pain, Back: Negative for injury and pain, MS/Extremity: Negative for injury and deformity, Skin: Negative for injury, rash, and discoloration, Neuro: Negative for headache, weakness, numbness, tingling, and seizure, Psych: Negative for depression, anxiety, suicide ideation, homicidal ideation, and hallucinations, Allergy/Immunology: Negative for hives, rash, and allergies, Endocrine: Negative for neck swelling, polydipsia, polyuria, polyphagia, and marked weight changes, Hematologic/Lymphatic: Negative for swollen nodes, abnormal bleeding, and unusual bruising. 11:24 Abdomen/GI: Positive for abdominal pain. 11:24 : Positive for urinary frequency, bladder incontinence Exam: 11:24 Constitutional: This is a well developed, well nourished patient who is awake, alert, tawana and in no acute distress. Head/Face: Normocephalic, atraumatic. Eyes: Pupils equal round and reactive to light, extra-ocular motions intact. Lids and lashes normal. Conjunctiva and sclera are non-icteric and not injected. Cornea within normal limits. Periorbital areas with no swelling, redness, or edema. ENT: Nares patent. No nasal discharge, no septal abnormalities noted. Tympanic membranes are normal and external auditory canals are clear. Oropharynx with no redness, swelling, or masses, exudates, or evidence of obstruction, uvula midline. Mucous membranes moist. Neck: Trachea midline, no thyromegaly or masses palpated, and no cervical lymphadenopathy. Supple, full range of motion without nuchal rigidity, or vertebral point tenderness. No Meningismus. Chest/axilla: Normal chest wall appearance and motion. Nontender with no deformity. No lesions are appreciated. Cardiovascular: Regular rate and rhythm with a normal S1 and S2. No gallops, murmurs, or rubs. Normal PMI, no JVD. No pulse deficits. Respiratory: Lungs have equal breath sounds bilaterally, clear to auscultation and percussion. No rales, rhonchi or wheezes noted. No increased work of breathing, no retractions or nasal flaring. Abdomen/GI: Soft, non-tender, with normal bowel sounds. No distension or tympany. No guarding or rebound. No evidence of tenderness throughout. Back: No spinal tenderness. No costovertebral tenderness. Full range of motion. Skin: Warm, dry with normal turgor. Normal color with no rashes, no lesions, and no evidence of cellulitis. MS/ Extremity: Pulses equal, no cyanosis. Neurovascular intact. Full, normal range of motion. Neuro: Awake and alert, GCS 15, oriented to person, place, time, and situation. Cranial nerves II-XII grossly intact. Motor strength 5/5 in all extremities. Sensory grossly intact. Cerebellar exam normal. Normal gait. Psych: Awake, alert, with orientation to person, place and time. Behavior, mood, and affect are within normal limits. Vital Signs: 11:18 BP 116 / 83; Pulse 94; Resp 16; Temp 98; Pulse Ox 10% ; Height 5 ft. 4 in. (162.56 cm); sv Pain 6/10; 11:19 Pulse Ox 100% ; sg MDM: 11:13 Patient medically screened. [facility] 11:27 Data reviewed: vital signs, nurses notes, lab test result(s), urinalysis, radiologic tawana studies. 02/28 11:24 Order name: Urine Culture [facility] 02/28 11:45 Order name: Urine Dipstick--Ancillary (enter results); Complete Time: 12:16 bd 02/28 11:24 Order name: Urine Dipstick-Ancillary (obtain specimen); Complete Time: 11:24 [facility] 02/28 11:24 Order name: Urine Test (obtain specimen); Complete Time: 11:24 [facility] 02/28 11:45 Order name: Urine --Ancillary (enter results); Complete Time: 12:16 bd Administered Medications: No medications were administered Disposition: 02/28/18 12:16 Discharged to Home. Impression: Dysuria, Pelvic and perineal pain. - Condition is Stable. - Discharge Instructions: Dysuria, Pelvic Pain, Female, Pelvic Pain, Female, [id number]. - Prescriptions for Bentyl 20 mg Oral Tablet - take 1 tablet by ORAL route every 6 hours As needed; 20 tablet. Cipro 250 mg Oral Tablet - take 1 tablet by ORAL route every 12 hours; 14 tablet. - Work release form, Medication Reconciliation Form, Thank You Letter, Antibiotic Education, Prescription Opioid Use form. - Follow up: Private Physician; When: 2 - 3 days; Reason: Recheck today's complaints, Continuance of care, Re-evaluation by your physician. - Problem is new. - Symptoms have improved. Signatures: Dispatcher [employer] Sofi Stevens, RN RN Adria Carvajal MD MD cha Smirch, Shelby, RN RN ss Corrections: (The following items were deleted from the chart) 12:26 12:16 02/28/2018 12:16 Discharged to Home. Impression: Dysuria; Pelvic and perineal ss pain. Condition is Stable. Discharge Instructions: Dysuria, Pelvic Pain, Female, Pelvic Pain, Female, [id number]. Prescriptions for Bentyl 20 mg Oral Tablet - take 1 tablet by ORAL route every 6 hours As needed; 20 tablet, Cipro 250 mg Oral Tablet - take 1 tablet by ORAL route every 12 hours; 14 tablet. and Forms are Medication Reconciliation Form, Thank You Letter, Antibiotic Education, Prescription Opioid Use. Follow up: Private Physician; When: 2 - 3 days; Reason: Recheck today's complaints, Continuance of care, Re-evaluation by your physician. Problem is new. Symptoms have improved. tawana
[2018-02-28] MEDS ORDERED: ONDANSETRON 4 MG (ODT) TAB ONE (12:30)
[2018-02-28 12:37] VITALS: BP 116/83; TEMP 98
[2018-02-28 12:38] VITALS: O2SAT 100
== END 2018-02-28 12:26 | disposition home or self-care (01) ==
LOC: ER 11:01
DX: R30.0 Dysuria (principal); R10.2 Pelvic and perineal pain
CPT/HCPCS: 81003; 81025; 87086; 87088; 99283

== ENCOUNTER 2018-05-12 11:58 | Emergency (ER) | payer OTHER ==
--- OUTSIDE RECORDS SUMMARY | 2018-05-12 12:00 | XMS REPORT ---
[...] Dosage System Date Date All Day Allergy [facility] [id number] 10 MG Oral Active TAKE 1 TABLET BY MOUTH EVERY DAY Montelukast [facility] 75035203711 10 MG Oral Active TAKE 1 Sodium TABLET BY MOUTH EVERY EVENING Alprazolam [facility] 44843501163 1 MG Oral Active (Schedule IV Drug) TAKE 1 TABLET BY MOUTH 3 TIMES A DAY PredniSONE ND 57149503269 10 MG Oral Active TAKE 1 TABLET BY MOUTH TWICE A DAY FOR 7 DAYS Lidocaine ND 14901231929 2 % Mouth/Throat Active TAKE 5ML Viscous BY MOUTH THREE TO FOUR TIMES DAILY Results No Known Results Summary Purpose eClinicalWorks Submission
--- OUTSIDE RECORDS SUMMARY | 2018-05-12 12:00 | XMS REPORT ---
[...] Date Status Dosage System Date Tramadol HCl [facility] [id number] 50 MG Orally Nov 29, Active 1 tablet every 6 hrs 2018 as needed Results No Known Results Summary Purpose eClinicalWorks Submission
--- OUTSIDE RECORDS SUMMARY | 2018-05-12 12:00 | XMS REPORT ---
:1985 Author Organization eClinicalWorks Care Team Providers Name Role Phone Mazni Milligan Provider Role Unavailable Allergies, Adverse Reactions, [...] End Status Dosage System Date Date Alprazolam [facility] 20523232547 1 MG Oral Active (Schedule IV Drug) TAKE 1 TABLET BY MOUTH 3 TIMES A DAY PredniSONE [facility] 62211669731 10 MG Oral Active TAKE 1 TABLET BY MOUTH TWICE A DAY FOR 7 DAYS Lidocaine [facility] 60585384470 2 % Mouth/Throat Active TAKE 5ML Viscous BY MOUTH THREE TO FOUR TIMES DAILY Montelukast [facility] 76152354591 10 MG Oral Active TAKE 1 Sodium TABLET BY MOUTH EVERY EVENING All Day Allergy [facility] 57903538932 10 MG Oral Active TAKE 1 TABLET BY MOUTH EVERY DAY Results No Known Results Summary Purpose eClinicalWorks Submission
--- OUTSIDE RECORDS SUMMARY | 2018-05-12 12:00 | XMS REPORT ---
[...] End Status Dosage System Date Date Montelukast [facility] 32275001726 10 MG Oral Active TAKE 1 Sodium TABLET BY MOUTH EVERY EVENING Lidocaine [facility] 46882432789 2 % Mouth/Throat Active TAKE 5ML Viscous BY MOUTH THREE TO FOUR TIMES DAILY Tramadol HCl [facility] 84747011906 50 MG Orally Nov 29, Active 1 tablet every 6 hrs 2017 as needed Alprazolam [facility] 48851150561 1 MG Oral Active (Schedule IV Drug) TAKE 1 TABLET BY MOUTH 3 TIMES A DAY PredniSONE [facility] 35646255027 10 MG Oral Active TAKE 1 TABLET BY MOUTH TWICE A DAY FOR 7 DAYS All Day Allergy [facility] 97007041595 10 MG Oral Active TAKE 1 TABLET BY MOUTH EVERY DAY Results No Known Results Summary Purpose eClinicalWorks Submission
--- NOTE | 2018-05-12 14:50 | ER ---
Nurse's Notes [facility] Name: Mary Drake Age: 32 yrs Sex: Female : 1985 Arrival Date: 05/12/2018 Time: 12:03 Bed 9 Private MD: Diagnosis: Acute pharyngitis;Acute sinusitis Presentation: 05/12 12:44 Presenting complaint: Patient states: about a week ago, when the weather changed i tw2 started having cough, congestion, i ache chest hurts, my cough keeps me up and it hurts when i swallow stuff. Transition of care: patient was not received from another setting of care. Onset of symptoms was May 12, 2018. Risk Assessment: Do you want to hurt yourself or someone else? Patient reports no desire to harm self or others. Initial Sepsis Screen: Does the patient meet any 2 criteria? No. Patient's initial sepsis screen is negative. Does the patient have a suspected source of infection? No. Patient's initial sepsis screen is negative. Care prior to arrival: None. 12:44 Method Of Arrival: Ambulatory tw2 12:44 Acuity: CED 4 tw2 Triage Assessment: 12:47 Headache History: The patient has had previous headaches and this one is similar to tw2 previous episodes. General: Appears in no apparent distress. Behavior is calm, cooperative, appropriate for age. Pain: Complains of pain in left aspect of posterior pharynx and right aspect of posterior pharynx Pain currently is 8 out of 10 on a pain scale. Pain began 2-3 days ago. Also complains of no other associated symptoms. Neuro: Level of Consciousness is awake, alert, obeys commands, Oriented to person, place, time, situation. 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 - Social history:: Smoking status: Patient/guardian denies using tobacco. - Ebola Screening: : Patient denies travel to an Ebola-affected area in the 21 days before illness onset. Screenin:04 Abuse screen: Denies threats or abuse. Nutritional screening: No deficits noted. tw2 Tuberculosis screening: No symptoms or risk factors identified. Fall Risk None identified. Assessment: 13:23 General: Appears in no apparent distress. Behavior is calm, cooperative, appropriate tw2 for age. Pain: Complains of pain in right aspect of posterior pharynx and left aspect of posterior pharynx. Neuro: Level of Consciousness is awake, alert, obeys commands, Oriented to person, place, time, situation. Cardiovascular: Patient's skin is warm and dry. 13:23 Respiratory: Reports cough that is. GI: No signs and/or symptoms were reported tw2 involving the gastrointestinal system. : No signs and/or symptoms were reported regarding the genitourinary system. EENT: Reports nasal congestion nasal discharge pain when swallowing. Derm: No signs and/or symptoms reported regarding the dermatologic system. 14:59 Reassessment: Patient appears in no apparent distress at this time. No changes from tw2 previously documented assessment. Patient and/or family updated on plan of care and expected duration. Pain level reassessed. Patient is alert, oriented x 3, equal unlabored respirations, skin warm/dry/pink. Vital Signs: 12:45 BP 118 / 76; Pulse 98; Resp 19; Temp 99.4(O); Pulse Ox 100% on R/A; Weight 54.43 kg tw2 (R); Height 5 ft. 4 in. (162.56 cm); Pain 8/10; 12:45 Body Mass Index 20.60 (54.43 kg, 162.56 cm) tw2 ED Course: 12:03 Patient arrived in ED. mr 12:45 Triage completed. tw2 12:46 Arm band placed on. tw2 13:23 Elaina Brown RN is Primary Nurse. iw 13:23 Bed in low position. Call light in reach. Adult w/ patient. tw2 14:04 Teddy Nye PA is PHCP. jr8 14:04 Walker Carlos MD is Attending Physician. jr8 14:59 No provider procedures requiring assistance completed. Patient did not have IV access tw2 during this emergency room visit. Administered Medications: No medications were administered Outcome: 14:49 Discharge ordered by MD. gonsales 14:59 Patient left the ED. tw2 14:59 Discharged to home ambulatory, with friend. tw2 14:59 Condition: stable 14:59 Discharge instructions given to patient, friend, Instructed on discharge instructions, follow up and referral plans. medication usage, Demonstrated understanding of instructions, follow-up care, medications, Prescriptions given X 2. Signatures: Bernadine Burrell mr Elaina Brown RN RN Teddy Nye PA PA jr8 Ester Moreno RN RN tw2
--- NOTE | 2018-05-12 14:50 | EDPHYS ---
Physician Documentation [facility] Name: Mary Drake Age: 32 yrs Sex: Female : 1985 Arrival Date: 05/12/2018 Time: 12:03 Bed 9 Private MD: ED Physician Walker Carlos HPI: 05/12 15:29 This 32 yrs old Black Female presents to ER via Ambulatory with complaints of Cough, jr8 Headache. 15:29 The patient or guardian reports cough, that is intermittent, described as mild, with no jr8 sputum. Onset: The symptoms/episode began/occurred gradually, 1 week(s) ago. Severity of symptoms: At their worst the symptoms were mild, in the emergency department the symptoms are unchanged. Modifying factors: The symptoms are alleviated by nothing, the symptoms are aggravated by nothing. Associated signs and symptoms: Pertinent positives: rhinorrhea, sore throat, sinus congestion and pain. It is unknown whether or not the patient has had similar symptoms in the past. The patient has not recently seen a physician. 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 - Social history:: Smoking status: Patient/guardian denies using tobacco. - Ebola Screening: : Patient denies travel to an Ebola-affected area in the 21 days before illness onset. ROS: 15:29 Eyes: Negative for injury, pain, redness, and discharge, Neck: Negative for injury, jr8 pain, and swelling, Cardiovascular: Negative for chest pain, palpitations, and edema, Abdomen/GI: Negative for abdominal pain, nausea, vomiting, diarrhea, and constipation, Back: Negative for injury and pain, MS/Extremity: Negative for injury and deformity, Skin: Negative for injury, rash, and discoloration, Neuro: Negative for headache, weakness, numbness, tingling, and seizure. 15:29 ENT: Positive for rhinorrhea, sinus congestion, sinus pain, sore throat. 15:29 Respiratory: Positive for cough, Negative for shortness of breath, sputum production, wheezing. Exam: 15:29 Eyes: Pupils equal round and reactive to light, extra-ocular motions intact. Lids and jr8 lashes normal. Conjunctiva and sclera are non-icteric and not injected. Cornea within normal limits. Periorbital areas with no swelling, redness, or edema. ENT: Nares patent. No nasal discharge, no septal abnormalities noted. Tympanic membranes are normal and external auditory canals are clear. Oropharynx with no redness, swelling, or masses, exudates, or evidence of obstruction, uvula midline. Mucous membranes moist. Neck: Trachea midline, no thyromegaly or masses palpated, and no cervical lymphadenopathy. Supple, full range of motion without nuchal rigidity, or vertebral point tenderness. No Meningismus. Cardiovascular: Regular rate and rhythm with a normal S1 and S2. No gallops, murmurs, or rubs. Normal PMI, no JVD. No pulse deficits. Respiratory: Lungs have equal breath sounds bilaterally, clear to auscultation and percussion. No rales, rhonchi or wheezes noted. No increased work of breathing, no retractions or nasal flaring. Abdomen/GI: Soft, non-tender, with normal bowel sounds. No distension or tympany. No guarding or rebound. No evidence of tenderness throughout. Back: No spinal tenderness. No costovertebral tenderness. Full range of motion. Skin: Warm, dry with normal turgor. Normal color with no rashes, no lesions, and no evidence of cellulitis. MS/ Extremity: Pulses equal, no cyanosis. Neurovascular intact. Full, normal range of motion. Neuro: Awake and alert, GCS 15, oriented to person, place, time, and situation. Cranial nerves II-XII grossly intact. Motor strength 5/5 in all extremities. Sensory grossly intact. Cerebellar exam normal. Normal gait. 15:29 Head/face: Sinus tenderness, that is moderate, is located over the right frontal sinus, left frontal sinus, right ethmoid sinus, left ethmoid sinus, right maxillary sinus and left maxillary sinus. Vital Signs: 12:45 BP 118 / 76; Pulse 98; Resp 19; Temp 99.4(O); Pulse Ox 100% on R/A; Weight 54.43 kg tw2 (R); Height 5 ft. 4 in. (162.56 cm); Pain 8/10; 12:45 Body Mass Index 20.60 (54.43 kg, 162.56 cm) tw2 MDM: 14:04 Patient medically screened. [facility] 14:48 Data reviewed: vital signs, nurses notes, lab test result(s), and as a result, I will jr8 discharge patient. Data interpreted: Pulse oximetry: on room air is 100 %. Interpretation: normal. Counseling: I had a detailed discussion with the patient and/or guardian regarding: the historical points, exam findings, and any diagnostic results supporting the discharge/admit diagnosis, lab results, the need for outpatient follow up, a family practitioner, to return to the emergency department if symptoms worsen or persist or if there are any questions or concerns that arise at home. 05/12 12:48 Order name: Flu; Complete Time: 14:05 tw2 05/12 12:48 Order name: Strep; Complete Time: 14:05 tw2 05/12 13:36 Order name: Throat Culture EDMS Administered Medications: No medications were administered Disposition: 05/12/18 14:49 Discharged to Home. Impression: Acute pharyngitis, Acute sinusitis. - Condition is Stable. - Discharge Instructions: Pharyngitis, Sinusitis, Adult. - Prescriptions for Augmentin 875- 125 mg Oral Tablet - take 1 tablet by ORAL route every 12 hours for 10 days; 20 tablet. Prednisone 20 mg Oral Tablet - take 1 tablet by ORAL route once daily for 5 days; 5 tablet. - Medication Reconciliation Form, Thank You Letter, Antibiotic Education, Prescription Opioid Use form. - Follow up: Private Physician; When: 2 - 3 days; Reason: Recheck today's complaints, Continuance of care, Re-evaluation by your physician. - Problem is new. - Symptoms have improved. Addendum: 05/19/2018 08:58 Co-signature as Attending Physician, Walker Carlos MD I agree with the assessment and k dr plan of care. Signatures: Dispatcher [employer] EDMS Walker Carlos MD MD [email or web address] Teddy Nye PA PA jr8 Ester Moreno RN RN tw2 Corrections: (The following items were deleted from the chart) 05/12 14:59 14:49 05/12/2018 14:49 Discharged to Home. Impression: Acute pharyngitis; Acute tw2 sinusitis. Condition is Stable. Forms are Medication Reconciliation Form, Thank You Letter, Antibiotic Education, Prescription Opioid Use. Follow up: Private Physician; When: 2 - 3 days; Reason: Recheck today's complaints, Continuance of care, Re-evaluation by your physician. Problem is new. Symptoms have improved. jr8
[2018-05-12 15:12] VITALS: BP 118/76; TEMP 99.4; O2SAT 100
== END 2018-05-12 14:59 | disposition home or self-care (01) ==
LOC: ER 11:58
DX: J01.90 Acute sinusitis, unspecified (principal); J02.9 Acute pharyngitis, unspecified; F41.9 Anxiety disorder, unspecified; J44.9 Chronic obstructive pulmonary disease, unspecified; F20.9 Schizophrenia, unspecified; Z88.5 Allergy status to narcotic agent; Z79.51 Long term (current) use of inhaled steroids
CPT/HCPCS: 87070; 87081; 87804; 99282

== ENCOUNTER 2018-05-24 13:34 | Emergency (ER) | payer OTHER ==
--- OUTSIDE RECORDS SUMMARY | 2018-05-24 13:43 | XMS REPORT ---
[...] Dosage System Date Date All Day Allergy [facility] 24709365181 10 MG Oral Active TAKE 1 TABLET BY MOUTH EVERY DAY Montelukast [facility] 13110051879 10 MG Oral Active TAKE 1 Sodium TABLET BY MOUTH EVERY EVENING Alprazolam [facility] 39031424445 1 MG Oral Active (Schedule IV Drug) TAKE 1 TABLET BY MOUTH 3 TIMES A DAY PredniSONE ND 79129952618 10 MG Oral Active TAKE 1 TABLET BY MOUTH TWICE A DAY FOR 7 DAYS Lidocaine ND 84049259630 2 % Mouth/Throat Active TAKE 5ML Viscous BY MOUTH THREE TO FOUR TIMES DAILY Results No Known Results Summary Purpose eClinicalWorks Submission
--- OUTSIDE RECORDS SUMMARY | 2018-05-24 13:43 | XMS REPORT ---
[...] Date Status Dosage System Date Tramadol HCl [facility] 34696964744 50 MG Orally Nov 29, Active 1 tablet every 6 hrs 2018 as needed Results No Known Results Summary Purpose eClinicalWorks Submission
--- OUTSIDE RECORDS SUMMARY | 2018-05-24 13:43 | XMS REPORT ---
[...] End Status Dosage System Date Date Alprazolam [facility] 69329955742 1 MG Oral Active (Schedule IV Drug) TAKE 1 TABLET BY MOUTH 3 TIMES A DAY PredniSONE [facility] 79054824109 10 MG Oral Active TAKE 1 TABLET BY MOUTH TWICE A DAY FOR 7 DAYS Lidocaine [facility] 50001880950 2 % Mouth/Throat Active TAKE 5ML Viscous BY MOUTH THREE TO FOUR TIMES DAILY Montelukast [facility] 19432092855 10 MG Oral Active TAKE 1 Sodium TABLET BY MOUTH EVERY EVENING All Day Allergy [facility] 03734891460 10 MG Oral Active TAKE 1 TABLET BY MOUTH EVERY DAY Results No Known Results Summary Purpose eClinicalWorks Submission
--- OUTSIDE RECORDS SUMMARY | 2018-05-24 13:44 | XMS REPORT ---
:1985 Author Organization eClinicalWorks Care Team Providers Name Role Phone Kyle Valdse Provider Role Unavailable Allergies, Adverse Reactions, Alerts [...] End Status Dosage System Date Date Montelukast [facility] 93959823146 10 MG Oral Active TAKE 1 Sodium TABLET BY MOUTH EVERY EVENING Lidocaine [facility] 83911314809 2 % Mouth/Throat Active TAKE 5ML Viscous BY MOUTH THREE TO FOUR TIMES DAILY Tramadol HCl [facility] 18971115245 50 MG Orally Nov 29, Active 1 tablet every 6 hrs 2017 as needed Alprazolam [facility] 65105165670 1 MG Oral Active (Schedule IV Drug) TAKE 1 TABLET BY MOUTH 3 TIMES A DAY PredniSONE [facility] 14778323124 10 MG Oral Active TAKE 1 TABLET BY MOUTH TWICE A DAY FOR 7 DAYS All Day Allergy [facility] 72484797115 10 MG Oral Active TAKE 1 TABLET BY MOUTH EVERY DAY Results No Known Results Summary Purpose eClinicalWorks Submission
[2018-05-24 15:52] LABS: Absolute Lymphocytes (CBC) 3.2 K/uL (0.7-4.9); Absolute Monocytes 0.3 K/uL (0.1-1.3); Absolute Neutrophil 2.3 K/uL (1.8-8.0); Basophils % 1.4 % (0-1.3); Hematocrit 35.4 % (36.0-45.0); Lymphocytes % 50.6 % (15.3-44.8); MPV 9.9 fL (7.6-11.3); Monocytes % 5.1 % (3.3-12.3); RBC Red Blood Cell Count 4.31 M/uL (3.86-4.86)
[2018-05-24 16:08] LABS: Potassium 3.8 mmol/L (3.5-5.1)
--- NOTE | 2018-05-24 16:44 | RAD REPORT ---
EXAM DESCRIPTION: CT - CTFBWCON CLINICAL HISTORY: right sided facial swelling COMPARISON: Facial Bones W/ Mpr dated 03/14/2016; HEAD BRAIN W O CONTRAST dated 04/13/2014 TECHNIQUE: Axial 2 mm thick images of the face were obtained with sagittal and coronal reconstructio n images. All CT scans are performed using dose optimization technique as appropriate and may include automated exposure control or mA/KV adjustment according to patient size. FINDINGS: No acute facial bone fracture is seen.The mandible is intact. The globes and orbital contents are grossly unremarkable.Mild mucoperiosteal thickening is seen affec ting the right maxillary antrum. The paranasal sinuses and mastoids are otherwise clear. No pathologic post-contrast enhancement seen to indicate tumor or infection. IMPRESSION: No acute abnormality is discerned.
[2018-05-24 16:48] LABS: Urine Blood 3+ (NEG); Urine Glucose NEGATIVE (NEG); Urine Protein NEGATIVE (NEG); Urine Specific Gravity 1.025 (1.005-1.030); Urine pH 6.5 (5.0-7.0)
--- NOTE | 2018-05-24 16:55 | ER ---
Nurse's Notes [facility] Name: Mary Drake Age: 32 yrs Sex: Female : 1985 Arrival Date: 05/24/2018 Time: 13:35 Bed 11 Private MD: Diagnosis: Facial Pain Presentation: 05/24 13:58 Presenting complaint: Patient states: Right cheek and eye pain for 3 days. Patient aj reports she has had pain at that location before after her implant was placed. No redness or swelling noted at this time. Transition of care: patient was not received from another setting of care. Mechanism of Injury: No Mechanism of Injury. The patient denies any loss of vision. Onset of symptoms was May 21, 2018. Risk Assessment: Do you want to hurt yourself or someone else? Patient reports no desire to harm self or others. Initial Sepsis Screen: Does the patient meet any 2 criteria? No. Patient's initial sepsis screen is negative. Does the patient have a suspected source of infection? No. Patient's initial sepsis screen is negative. Care prior to arrival: None. 13:58 Method Of Arrival: Ambulatory 13:58 Acuity: CED 4 aj Triage Assessment: 14:00 General: Appears in no apparent distress. comfortable, Behavior is calm, cooperative, aj appropriate for age. Pain: Complains of pain in right eye and right zygomatic area. EENT: Sclera/Cornea are clear in iris of right eye, inner aspect of conjuctiva of right eye, iris of left eye and inner aspect of conjunctiva of left eye. Respiratory: Airway is patent Trachea midline Respiratory effort is even, unlabored, Respiratory pattern is regular, symmetrical. Derm: Skin is intact, is healthy with good turgor, Skin is pink, warm \T\ dry. normal. 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 - Social history:: Smoking status: Patient/guardian denies using tobacco. - Ebola Screening: : Patient negative for fever greater than or equal to 101.5 degrees Fahrenheit, and additional compatible Ebola Virus Disease symptoms Patient denies exposure to infectious person Patient denies travel to an Ebola-affected area in the 21 days before illness onset No symptoms or risks identified at this time. Screenin:52 Abuse screen: Denies threats or abuse. Denies injuries from another. Nutritional bp screening: No deficits noted. Tuberculosis screening: No symptoms or risk factors identified. Fall Risk None identified. Assessment: 14:50 General: Appears in no apparent distress. uncomfortable, Behavior is cooperative, bp appropriate for age, anxious. Pain: Complains of pain in right eye. Neuro: Level of Consciousness is awake, alert, obeys commands, Oriented to person, place, time, situation, Appropriate for age. Cardiovascular: No deficits noted. Respiratory: Airway is patent Respiratory effort is even, unlabored, Respiratory pattern is regular, symmetrical. GI: No signs and/or symptoms were reported involving the gastrointestinal system. : No signs and/or symptoms were reported regarding the genitourinary system. EENT: Eyes REDDENED. Derm: No deficits noted. Musculoskeletal: Circulation, motion, and sensation intact. Range of motion: intact in all extremities. 16:15 Reassessment: PT TO CT, ALL OTHER ORDERS COMPLETED. bp 17:05 Neuro: Level of Consciousness is awake, alert, obeys commands, Oriented to person, aa5 place, time, situation. Respiratory: Airway is patent Respiratory effort is even, unlabored, Respiratory pattern is regular, symmetrical. Derm: Skin is dry, Skin is normal, Skin temperature is warm. Vital Signs: 14:00 BP 108 / 73; Pulse 77; Resp 20; Temp 98.1; Pulse Ox 100% on R/A; Weight 55.79 kg; aj Height 5 ft. 4 in. (162.56 cm); 14:00 Body Mass Index 21.11 (55.79 kg, 162.56 cm) aj ED Course: 13:35 Patient arrived in ED. rg4 14:00 Triage completed. aj 14:00 Arm band placed on left wrist. Patient placed in waiting room, Patient notified of wait aj time. 14:47 Bob Handley PA is PHCP. jmm 14:47 Demarcus Guzman MD is Attending Physician. [facility] 14:50 Tapan Navarro, RN is Primary Nurse. bp 14:52 Patient has correct armband on for positive identification. Bed in low position. Call bp light in reach. Adult w/ patient. 15:41 Radiology exam delayed due to lab results not completed at this time. (BUN/Creatinine). vr 15:47 Inserted saline lock: 22 gauge in right antecubital area, using aseptic technique. bp Blood collected. 16:09 Radiology exam delayed due to lab results not completed at this time. (BUN/Creatinine). vr 16:28 CT Facial Bones W/ Con \T\ Mpr In Process Unspecified. EDMS 16:55 Adalberto Tripathi MD is Referral Physician. [facility] 17:05 No provider procedures requiring assistance completed. IV discontinued, intact, aa5 bleeding controlled, No redness/swelling at site. Pressure dressing applied. Administered Medications: No medications were administered Outcome: 16:55 Discharge ordered by MD. [facility] 17:05 Discharged to home ambulatory, with significant other. aa5 17:05 Condition: stable 17:05 Discharge instructions given to patient, Instructed on discharge instructions, follow up and referral plans. Demonstrated understanding of instructions, follow-up care. 17:06 Patient left the ED. aa5 Signatures: Dispatcher [employer] EDND Юлия Fernandes, RN Bob Ye PA PA [facility] Shanika Jaramillo, RN RN aa5 Irma Dee Rubi 4 Tapan Navarro, RN RN bp
--- NOTE | 2018-05-24 16:55 | EDPHYS ---
Physician Documentation [facility] Name: Mary Drake Age: 32 yrs Sex: Female : 1985 Arrival Date: 05/24/2018 Time: 13:35 Bed 11 Private MD: ED Physician Demarcus Guzman HPI: 05/24 15:12 This 32 yrs old Black Female presents to ER via Ambulatory with complaints of Eye Pain. jmm 15:12 The patient is experiencing pain. Onset: The symptoms/episode began/occurred gradually, jmm 2 day(s) ago. Duration: the symptoms are continuous. Aggravated by. Associated signs and symptoms: Pertinent negatives: fever. This is a 32 year old female with a history of asthma, copd, seasonal allergies, sinusitis that presents to the ED with complaints of right sided facial pain worsening when she looks to the right or left. Patient states she has had a fracture of her orbit in the past. . 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 - Social history:: Smoking status: Patient/guardian denies using tobacco. - Ebola Screening: : Patient negative for fever greater than or equal to 101.5 degrees Fahrenheit, and additional compatible Ebola Virus Disease symptoms Patient denies exposure to infectious person Patient denies travel to an Ebola-affected area in the 21 days before illness onset No symptoms or risks identified at this time. ROS: 15:12 Constitutional: Negative for fever, chills, and weight loss. jmm 15:12 ENT: Negative for injury, pain, and discharge, Neck: Negative for injury, pain, and swelling, Cardiovascular: Negative for chest pain, palpitations, and edema, Respiratory: Negative for shortness of breath, cough, wheezing, and pleuritic chest pain. 15:12 Eyes: Positive for pain. 15:12 All other systems are negative. Exam: 15:12 Constitutional: This is a well developed, well nourished patient who is awake, alert, jmm and in no acute distress. 15:12 Chest/axilla: Normal chest wall appearance and motion. Cardiovascular: Regular rate and rhythm. No edema appreciated Respiratory: Normal respirations, no respiratory distress appreciated Abdomen/GI: Non distended, soft Back: Normal ROM Skin: General appearance color normal MS/ Extremity: Moves all extremities, no obvious deformities appreciated, no edema noted to the lower extremities Neuro: Awake and alert, normal gait Psych: Behavior is normal, Mood is normal, Patient is cooperative and pleasant 15:12 Head/face: right supraorbital tenderness, pain on EOM, no induration is appreciated. 15:12 Eyes: Extraocular movements: intact throughout, Conjunctiva: normal. Vital Signs: 14:00 BP 108 / 73; Pulse 77; Resp 20; Temp 98.1; Pulse Ox 100% on R/A; Weight 55.79 kg; aj Height 5 ft. 4 in. (162.56 cm); 14:00 Body Mass Index 21.11 (55.79 kg, 162.56 cm) aj MDM: 15:12 Patient medically screened. [facility] 15:12 Data reviewed: vital signs, nurses notes. [facility] 16:53 Counseling: I had a detailed discussion with the patient and/or guardian regarding: the [facility] historical points, exam findings, and any diagnostic results supporting the discharge/admit diagnosis, lab results, radiology results, the need for outpatient follow up, to return to the emergency department if symptoms worsen or persist or if there are any questions or concerns that arise at home. ED course: No signs of cellulitis or fracture. Patient is advised to follow up with Dr. Tripathi. Patient given return precautions for fever, increased swelling, changes in vision, ect. Patient understood and agrees with the plan of care. . 05/24 15:13 Order name: CBC with Diff [facility] 05/24 15:13 Order name: BMP; Complete Time: 16:14 [facility] 05/24 15:13 Order name: Urine Dipstick-Ancillary (obtain specimen); Complete Time: 15:47 [facility] 05/24 15:13 Order name: CT Facial Bones W/ Con \T\ Mpr; Complete Time: 16:47 [facility] 05/24 15:58 Order name: Urine Dipstick--Ancillary (enter results); Complete Time: 16:56 bd 05/24 15:58 Order name: Urine --Ancillary (enter results); Complete Time: 16:56 bd 05/24 15:13 Order name: Saline Lock; Complete Time: 15:47 [facility] 05/24 15:47 Order name: Urine Test (obtain specimen); Complete Time: 15:47 bp Administered Medications: No medications were administered Disposition: 20:34 Co-signature as Attending Physician, Demarcus Guzman MD Available for consultation at ps1 all times . Disposition: 05/24/18 16:55 Discharged to Home. Impression: Facial Pain. - Condition is Stable. - Discharge Instructions: Sinusitis, Adult. - Medication Reconciliation Form, Thank You Letter, Antibiotic Education, Prescription Opioid Use form. - Follow up: Adalberto Tripathi MD; When: 2 - 3 days; Reason: Recheck today's complaints, Continuance of care, Re-evaluation by your physician. Signatures: Dispatcher [employer] EDЮлия Jane, RN RN Bob Flores PA PA Shanika Melendez, RN RN aa5 Tapan Navarro, RN Demarcus Pham MD MD ps1 Corrections: (The following items were deleted from the chart) 17:06 16:55 05/24/2018 16:55 Discharged to Home. Impression: Facial Pain. Condition is aa5 Stable. Forms are Medication Reconciliation Form, Thank You Letter, Antibiotic Education, Prescription Opioid Use. Follow up: Adalberto Tripathi; When: 2 - 3 days; Reason: Recheck today's complaints, Continuance of care, Re-evaluation by your physician. [facility]
[2018-05-24 17:55] LABS: Anisocytosis 1+; Blood Morphology Comment NOTED (NOT SEEN); Ovalocytes 1+; Platelet Estimate ADEQ; Platelets, Giant PRESENT
[2018-05-24 20:47] VITALS: BP 108/73; TEMP 98.1; O2SAT 100
== END 2018-05-24 17:06 | disposition home or self-care (01) ==
LOC: ER 13:34
DX: H57.10 Ocular pain, unspecified eye (principal); R51 Headache; F41.9 Anxiety disorder, unspecified; J44.9 Chronic obstructive pulmonary disease, unspecified; F20.9 Schizophrenia, unspecified; Z79.51 Long term (current) use of inhaled steroids
CPT/HCPCS: 36415; 70487; 76377; 80048; 81003; 81025; 85025; 99283; Q9967

== ENCOUNTER 2018-08-08 12:12 | Emergency (ER) | payer OTHER ==
--- OUTSIDE RECORDS SUMMARY | 2018-08-08 12:14 | XMS REPORT ---
[...] End Status Dosage System Date Date Alprazolam [facility] 64515161625 1 MG Oral Active (Schedule IV Drug) TAKE 1 TABLET BY MOUTH 3 TIMES A DAY PredniSONE [facility] 08838550481 10 MG Oral Active TAKE 1 TABLET BY MOUTH TWICE A DAY FOR 7 DAYS Lidocaine [facility] 12144835709 2 % Mouth/Throat Active TAKE 5ML Viscous BY MOUTH THREE TO FOUR TIMES DAILY Montelukast [facility] 58847823241 10 MG Oral Active TAKE 1 Sodium TABLET BY MOUTH EVERY EVENING All Day Allergy [facility] 01546849886 10 MG Oral Active TAKE 1 TABLET BY MOUTH EVERY DAY Results No Known Results Summary Purpose eClinicalWorks Submission
--- OUTSIDE RECORDS SUMMARY | 2018-08-08 12:14 | XMS REPORT ---
[...] System Date Date All Day Allergy [facility] 54006153212 10 MG Oral Active TAKE 1 TABLET BY MOUTH EVERY DAY Montelukast [facility] 67540583780 10 MG Oral Active TAKE 1 Sodium TABLET BY MOUTH EVERY EVENING Alprazolam [facility] 67864180592 1 MG Oral Active (Schedule IV Drug) TAKE 1 TABLET BY MOUTH 3 TIMES A DAY PredniSONE [place] 24586257591 10 MG Oral Active TAKE 1 TABLET BY MOUTH TWICE A DAY FOR 7 DAYS Lidocaine ND 00300355395 2 % Mouth/Throat Active TAKE 5ML Viscous BY MOUTH THREE TO FOUR TIMES DAILY Results No Known Results Summary Purpose eClinicalWorks Submission
--- OUTSIDE RECORDS SUMMARY | 2018-08-08 12:14 | XMS REPORT ---
[...] Date Status Dosage System Date Tramadol HCl [facility] 04248682945 50 MG Orally Nov 29, Active 1 tablet every 6 hrs 2018 as needed Results No Known Results Summary Purpose eClinicalWorks Submission
--- OUTSIDE RECORDS SUMMARY | 2018-08-08 12:15 | XMS REPORT ---
[...] End Status Dosage System Date Date Montelukast [facility] 82255759480 10 MG Oral Active TAKE 1 Sodium TABLET BY MOUTH EVERY EVENING Lidocaine [facility] 72578841432 2 % Mouth/Throat Active TAKE 5ML Viscous BY MOUTH THREE TO FOUR TIMES DAILY Tramadol HCl [facility] 69823071995 50 MG Orally Nov 29, Active 1 tablet every 6 hrs 2017 as needed Alprazolam [facility] 70895655398 1 MG Oral Active (Schedule IV Drug) TAKE 1 TABLET BY MOUTH 3 TIMES A DAY PredniSONE [facility] 31591505423 10 MG Oral Active TAKE 1 TABLET BY MOUTH TWICE A DAY FOR 7 DAYS All Day Allergy [facility] 48756302461 10 MG Oral Active TAKE 1 TABLET BY MOUTH EVERY DAY Results No Known Results Summary Purpose eClinicalWorks Submission
[2018-08-08 13:07] LABS: Urine Blood NEGATIVE (NEG); Urine Glucose NEGATIVE (NEG); Urine Protein NEGATIVE (NEG); Urine Specific Gravity 1.025 (1.005-1.030)
[2018-08-08 13:45] LABS: Urine Bacteria <20 /HPF (<20); Urine Culture Reflex Order NOT NEEDED; Urine RBC <5 /HPF (NONE SEEN)
--- NOTE | 2018-08-08 14:11 | RAD REPORT ---
EXAM DESCRIPTION: US - Transvaginal Study Probe - 08/08/2018 1:54 pm CLINICAL HISTORY: Abdominal pain, pelvic pain COMPARISON: Pelvic ultrasound January 2018 TECHNIQUE: Endovaginal sonography was performed. FINDINGS: Small amount of free fluid is present in the cul de sac. An 11 millimeter oval fibroid is present anterior lower uterine segment. No other definitive myometrial masses. Endometrium is 12 mm i n thickness. No discrete endometrial mass or polyp. Uterus is 8.6 x 4.9 x 5.3 cm. Right ovary shows small cysts and follicles. No dominant solid or cystic ovarian or adnexal finding. Doppler evaluation shows normal blood flow in the right ovarian stroma. Left ovary contains a 11-13 millimeter hypoechoic mass that is probably a hemorrhagic cyst. Doppler e valuation shows blood flow within the left ovarian stroma. No other significant left ovarian or left adnexal finding. IMPRESSION: Probable small 11-13 mm hemorrhagic cyst left ovary. This can be re-evaluated in 2-3 mon ths to insure involution. Additional nonemergent findings detailed in the body of the report.
--- NOTE | 2018-08-08 14:25 | ER ---
Nurse's Notes [facility] Name: Mary Drake Age: 32 yrs Sex: Female : 1985 Arrival Date: 08/08/2018 Time: 12:14 Bed 12 Private MD: Lakeisha Mancini Diagnosis: Lower abdominal pain, unspecified;Other ovarian cysts Presentation: 08/08 12:36 Presenting complaint: Patient states: lower abd pain and urinary urgency that began 1 aa5 week ago. Pt denies burning with urination but reports cloudy urine. Transition of care: patient was not received from another setting of care. Onset of symptoms was July 2018. Risk Assessment: Do you want to hurt yourself or someone else? Patient reports no desire to harm self or others. Initial Sepsis Screen: Does the patient meet any 2 criteria? No. Patient's initial sepsis screen is negative. Does the patient have a suspected source of infection? No. Patient's initial sepsis screen is negative. Care prior to arrival: None. 12:36 Method Of Arrival: Ambulatory aa5 12:36 Acuity: CED 3 aa5 Triage Assessment: 14:00 General: Appears in no apparent distress. Behavior is calm, cooperative. 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 - Social history:: Smoking status: Patient/guardian denies using tobacco. - Ebola Screening: : No symptoms or risks identified at this time. Screenin:00 Abuse screen: Denies threats or abuse. Denies injuries from another. Nutritional iw screening: No deficits noted. Tuberculosis screening: No symptoms or risk factors identified. Fall Risk None identified. Assessment: 13:30 General: Appears in no apparent distress. comfortable, Behavior is calm, cooperative. iw Pain: Complains of pain in right lower quadrant Pain does not radiate. Neuro: Level of Consciousness is awake, alert, obeys commands, Moves all extremities. Cardiovascular: Patient's skin is warm and dry. Respiratory: Respiratory effort is even, unlabored. GI: Abdomen is flat, non-distended, Bowel sounds present X 4 quads. Abd is soft and non tender X 4 quads. Abd is soft. : Reports urgency, urinary frequency. Derm: Skin is intact, is healthy with good turgor. Musculoskeletal: Range of motion: intact in all extremities. Vital Signs: 12:38 BP 107 / 72; Pulse 78; Resp 18 S; Temp 97.4(TE); Pulse Ox 100% on R/A; Weight 55.34 kg aa5 (R); Height 5 ft. 4 in. (162.56 cm) (R); Pain 8/10; 12:38 Body Mass Index 20.94 (55.34 kg, 162.56 cm) aa5 ED Course: 12:14 Patient arrived in ED. rg4 12:15 Lakeisha Mancini MD is Private Physician. rg4 12:36 Arm band placed on. aa5 12:37 Triage completed. aa5 12:45 Yolis Herrera FNP-C is [facility]. kb 12:45 Walker Carlos MD is Attending Physician. kb 12:45 Elaina Brown, RN is Primary Nurse. iw 12:57 Urine collected: clean catch specimen, cloudy. mh5 12:58 Patient has correct armband on for positive identification. Call light in reach. Adult mh5 w/ patient. 13:54 US Transvaginal Study (Probe) In Process Unspecified. EDMS 15:00 No provider procedures requiring assistance completed. Patient did not have IV access iw during this emergency room visit. Administered Medications: 14:42 Drug: TORadol 60 mg Route: IM; Site: right vastus lateralis; iw Outcome: 14:25 Discharge ordered by . kb 15:00 Discharged to home ambulatory, with family. iw 15:00 Condition: good 15:00 Discharge instructions given to patient, family, Instructed on discharge instructions, follow up and referral plans. Demonstrated understanding of instructions, follow-up care. 15:03 Patient left the ED. iw 15:03 Instructed on medication usage, Prescriptions given X 1. iw Signatures: Dispatcher [employer] EDAZ Yolis Herrera FNP-C FNP-Ckb Williams, Irene, RN RN Shanika Jaramillo RN RN 5 Rose Shaffer 4 Gwendolyn Penn [facility]
--- NOTE | 2018-08-08 14:26 | EDPHYS ---
Physician Documentation [facility] Name: Mary Drake Age: 32 yrs Sex: Female : 1985 Arrival Date: 08/08/2018 Time: 12:14 Bed 12 Private MD: Lakeisha Mancini ED Physician Walker Carlos HPI: 08/08 14:02 This 32 yrs old Black Female presents to ER via Ambulatory with complaints of Abdominal kb Pain, Urinary Problem. 14:02 The patient presents with abdominal pain right lower quadrant. Onset: The kb symptoms/episode began/occurred 1 week(s) ago. The symptoms do not radiate. Associated signs and symptoms: Pertinent positives: urinary urgency. The symptoms are described as constant. Modifying factors: The symptoms are alleviated by nothing, the symptoms are aggravated by nothing. Severity of pain: At its worst the pain was moderate in the emergency department the pain is unchanged. The patient has not experienced similar symptoms in the past. The patient has not recently seen a physician. 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 - Social history:: Smoking status: Patient/guardian denies using tobacco. - Ebola Screening: : No symptoms or risks identified at this time. ROS: 14:00 Constitutional: Negative for fever, chills, and weight loss, Cardiovascular: Negative kb for chest pain, palpitations, and edema, Respiratory: Negative for shortness of breath, cough, wheezing, and pleuritic chest pain, Back: Negative for injury and pain, MS/Extremity: Negative for injury and deformity, Skin: Negative for injury, rash, and discoloration, Neuro: Negative for headache, weakness, numbness, tingling, and seizure. 14:00 Abdomen/GI: Positive for abdominal pain, Negative for nausea, vomiting, and diarrhea, constipation, abdominal cramps, abdominal distension, anorexia. 14:00 : Positive for urinary urgency. Exam: 14:00 Constitutional: This is a well developed, well nourished patient who is awake, alert, kb and in no acute distress. Head/Face: Normocephalic, atraumatic. Chest/axilla: Normal chest wall appearance and motion. Nontender with no deformity. No lesions are appreciated. Cardiovascular: Regular rate and rhythm with a normal S1 and S2. No gallops, murmurs, or rubs. Normal PMI, no JVD. No pulse deficits. Respiratory: Lungs have equal breath sounds bilaterally, clear to auscultation and percussion. No rales, rhonchi or wheezes noted. No increased work of breathing, no retractions or nasal flaring. Skin: Warm, dry with normal turgor. Normal color with no rashes, no lesions, and no evidence of cellulitis. MS/ Extremity: Pulses equal, no cyanosis. Neurovascular intact. Full, normal range of motion. Neuro: Awake and alert, GCS 15, oriented to person, place, time, and situation. Cranial nerves II-XII grossly intact. Motor strength 5/5 in all extremities. Sensory grossly intact. Cerebellar exam normal. Normal gait. 14:00 Abdomen/GI: Inspection: abdomen appears normal, Bowel sounds: normal, in all quadrants, Palpation: soft, in all quadrants, moderate abdominal tenderness, in the right lower quadrant. Vital Signs: 12:38 BP 107 / 72; Pulse 78; Resp 18 S; Temp 97.4(TE); Pulse Ox 100% on R/A; Weight 55.34 kg aa5 (R); Height 5 ft. 4 in. (162.56 cm) (R); Pain 8/10; 12:38 Body Mass Index 20.94 (55.34 kg, 162.56 cm) aa5 MDM: 12:46 Patient medically screened. kb 14:01 Data reviewed: vital signs, nurses notes. Data interpreted: Pulse oximetry: on room air kb is 100 %. Interpretation: normal. 14:15 Counseling: I had a detailed discussion with the patient and/or guardian regarding: the kb historical points, exam findings, and any diagnostic results supporting the discharge/admit diagnosis, lab results, radiology results, the need for outpatient follow up, an OB/Gyne specialist, to return to the emergency department if symptoms worsen or persist or if there are any questions or concerns that arise at home. 08/08 12:57 Order name: Urine Microscopic Only; Complete Time: 13:53 kb 08/08 12:59 Order name: Urine Dipstick--Ancillary (enter results); Complete Time: 13:10 bd 08/08 12:48 Order name: Urine Dipstick-Ancillary (obtain specimen); Complete Time: 12:56 kb 08/08 12:59 Order name: Urine --Ancillary (enter results); Complete Time: 13:10 bd 08/08 13:14 Order name: US Transvaginal Study (Probe); Complete Time: 14:12 kb Administered Medications: 14:42 Drug: TORadol 60 mg Route: IM; Site: right vastus lateralis; iw Disposition: 15:50 Co-signature as Attending Physician, Walker Carlos MD I agree with the assessment and kdr plan of care. Disposition: 08/08/18 14:25 Discharged to Home. Impression: Lower abdominal pain, unspecified, Other ovarian cysts. - Condition is Stable. - Discharge Instructions: Ovarian Cyst, [id number], Uterine Fibroids, Dstg-ij-Vetr. - Prescriptions for Diclofenac Sodium 75 mg Oral Tablet, Delayed Release (E.C.) - take 1 tablet by ORAL route 2 times per day As needed; 30 tablet. - Medication Reconciliation Form, Thank You Letter, Antibiotic Education, Prescription Opioid Use form. - Follow up: Emergency Department; When: As needed; Reason: Worsening of condition. Follow up: Private Physician; When: 2 - 3 days; Reason: Recheck today's complaints, Continuance of care, Re-evaluation by your physician. Signatures: Dispatcher [employer] EDWI Yolis Herrera, TARIQ-C NET DEVELOPMENT MANAGER-Walker Guadalupe MD MD kdr Elaina Brown, DAYDAY RN iw Shanika Jaramillo RN RN aa5 Corrections: (The following items were deleted from the chart) 15:03 14:25 08/08/2018 14:25 Discharged to Home. Impression: Lower abdominal pain, iw unspecified; Other ovarian cysts. Condition is Stable. Discharge Instructions: Ovarian Cyst, [id number], Uterine Fibroids, Gyxw-gx-Qums. Prescriptions for Diclofenac Sodium 75 mg Oral Tablet, Delayed Release (E.C.) - take 1 tablet by ORAL route 2 times per day As needed; 30 tablet. and Forms are Medication Reconciliation Form, Thank You Letter, Antibiotic Education, Prescription Opioid Use. Follow up: Emergency Department; When: As needed; Reason: Worsening of condition. Follow up: Private Physician; When: 2 - 3 days; Reason: Recheck today's complaints, Continuance of care, Re-evaluation by your physician. kb
[2018-08-08] MEDS ORDERED: KETOROLAC 30 MG/ML INJ ONE (14:45)
[2018-08-08 15:36] VITALS: BP 107/72; TEMP 97.4; O2SAT 100
== END 2018-08-08 15:03 | disposition home or self-care (01) ==
LOC: ER 12:12
DX: N83.202 Unspecified ovarian cyst, left side (principal); R10.31 Right lower quadrant pain; F41.9 Anxiety disorder, unspecified; J45.909 Unspecified asthma, uncomplicated; J44.9 Chronic obstructive pulmonary disease, unspecified; F20.9 Schizophrenia, unspecified
CPT/HCPCS: 76830; 81003; 81015; 81025; 96372; 99284

== ENCOUNTER 2018-08-30 13:02 | Emergency (ER) | payer OTHER ==
--- OUTSIDE RECORDS SUMMARY | 2018-08-30 13:06 | XMS REPORT ---
[...] Status Dosage System Date Date Alprazolam [facility] 89692952733 1 MG Oral Active (Schedule IV Drug) TAKE 1 TABLET BY MOUTH 3 TIMES A DAY PredniSONE [facility] 20290723999 10 MG Oral Active TAKE 1 TABLET BY MOUTH TWICE A DAY FOR 7 DAYS Lidocaine [facility] 92466399049 2 % Mouth/Throat Active TAKE 5ML Viscous BY MOUTH THREE TO FOUR TIMES DAILY Montelukast [facility] 45859095563 10 MG Oral Active TAKE 1 Sodium TABLET BY MOUTH EVERY EVENING All Day Allergy [facility] 67132745731 10 MG Oral Active TAKE 1 TABLET BY MOUTH EVERY DAY Results No Known Results Summary Purpose eClinicalWorks Submission
--- OUTSIDE RECORDS SUMMARY | 2018-08-30 13:06 | XMS REPORT ---
[...] Dosage System Date Date All Day Allergy [facility] 44722262740 10 MG Oral Active TAKE 1 TABLET BY MOUTH EVERY DAY Montelukast [facility] 57150037390 10 MG Oral Active TAKE 1 Sodium TABLET BY MOUTH EVERY EVENING Alprazolam [facility] 01869762676 1 MG Oral Active (Schedule IV Drug) TAKE 1 TABLET BY MOUTH 3 TIMES A DAY PredniSONE ND 90506882621 10 MG Oral Active TAKE 1 TABLET BY MOUTH TWICE A DAY FOR 7 DAYS Lidocaine ND 58551276152 2 % Mouth/Throat Active TAKE 5ML Viscous BY MOUTH THREE TO FOUR TIMES DAILY Results No Known Results Summary Purpose eClinicalWorks Submission
--- OUTSIDE RECORDS SUMMARY | 2018-08-30 13:06 | XMS REPORT ---
[...] End Status Dosage System Date Date Montelukast [facility] 49385522170 10 MG Oral Active TAKE 1 Sodium TABLET BY MOUTH EVERY EVENING Lidocaine [facility] 22849893398 2 % Mouth/Throat Active TAKE 5ML Viscous BY MOUTH THREE TO FOUR TIMES DAILY Tramadol HCl [facility] 15075222445 50 MG Orally Nov 29, Active 1 tablet every 6 hrs 2017 as needed Alprazolam [facility] 78110400840 1 MG Oral Active (Schedule IV Drug) TAKE 1 TABLET BY MOUTH 3 TIMES A DAY PredniSONE [facility] 32155343786 10 MG Oral Active TAKE 1 TABLET BY MOUTH TWICE A DAY FOR 7 DAYS All Day Allergy [facility] 83073050805 10 MG Oral Active TAKE 1 TABLET BY MOUTH EVERY DAY Results No Known Results Summary Purpose eClinicalWorks Submission
--- OUTSIDE RECORDS SUMMARY | 2018-08-30 13:06 | XMS REPORT ---
[...] Date Status Dosage System Date Tramadol HCl [facility] 66141387324 50 MG Orally Nov 29, Active 1 tablet every 6 hrs 2018 as needed Results No Known Results Summary Purpose eClinicalWorks Submission
[2018-08-30] MEDS ORDERED: FLUORESCEIN SODIUM 1 MG/WRAP ONE (13:55)
[2018-08-30] MEDS ORDERED: TETRACAINE HCL 0.5% 4ML OPTH ONE (13:55)
--- NOTE | 2018-08-30 14:27 | EDPHYS ---
Physician Documentation [facility] Name: Mary Drake Age: 32 yrs Sex: Female : 1985 Arrival Date: 08/30/2018 Time: 13:04 Bed 15 Private MD: Lakeisha Mancini ED Physician Demarcus Guzman HPI: 08/30 14:15 This 32 yrs old Black Female presents to ER via Ambulatory with complaints of Redness ps1 of Eye. 14:15 patient is s/p surgery from Dr. 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 She now states ps1 that she has right eye pain and redness. She was using "drops" but her pain and redness got worse. States that she could not see Dr. Tripathi again because he does not take her insurance. Pain is rated as severe and worse with bright lights. Onset was 2 days ago. Does not wear contacts. . 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 - Social history:: Smoking status: Patient/guardian denies using tobacco. - Ebola Screening: : Patient denies travel to an Ebola-affected area in the 21 days before illness onset. ROS: 14:16 Constitutional: Negative for fever, chills, and weight loss, ENT: Negative for injury, ps1 pain, and discharge, Neck: Negative for injury, pain, and swelling, Cardiovascular: Negative for chest pain, palpitations, and edema, Respiratory: Negative for shortness of breath, cough, wheezing, and pleuritic chest pain, Back: Negative for injury and pain, MS/Extremity: Negative for injury and deformity, Skin: Negative for injury, rash, and discoloration. 14:16 Eyes: Positive for blurry vision, pain, redness, of the right eye. Exam: 14:24 Constitutional: This is a well developed, well nourished patient who is awake, alert, ps1 and in no acute distress. Head/Face: Normocephalic, atraumatic. ENT: Nares patent. No nasal discharge, no septal abnormalities noted. Tympanic membranes are normal and external auditory canals are clear. Oropharynx with no redness, swelling, or masses, exudates, or evidence of obstruction, uvula midline. Mucous membranes moist. Neck: Trachea midline, no thyromegaly or masses palpated, and no cervical lymphadenopathy. Supple, full range of motion without nuchal rigidity, or vertebral point tenderness. No Meningismus. Chest/axilla: Normal chest wall appearance and motion. Nontender with no deformity. No lesions are appreciated. Cardiovascular: Regular rate and rhythm. No gallops, murmurs, or rubs. Normal PMI, no JVD. No pulse deficits. Respiratory: Lungs have equal breath sounds bilaterally, clear to auscultation and percussion. No rales, rhonchi or wheezes noted. No increased work of breathing, no retractions or nasal flaring. Abdomen/GI: Soft, non-tender, with normal bowel sounds. No distension or tympany. No guarding or rebound. No evidence of tenderness throughout. Skin: Warm, dry with normal turgor. Normal color with no rashes, no lesions, and no evidence of cellulitis. MS/ Extremity: Pulses equal, no cyanosis. Neurovascular intact. Full, normal range of motion. Neuro: Awake and alert, GCS 15, oriented to person, place, time, and situation. Cranial nerves II-XII grossly intact. Sensory grossly intact. 14:24 Eyes: Conjunctiva: injected, in the right eye, Corneas: abrasion, that is moderate sized, approximately 5 mm(s), on the right, at 6 o'clock, a fluorescein strip employed to appreciate the findings. Vital Signs: 13:23 BP 124 / 81; Pulse 85; Resp 18; Temp 97.3; Pulse Ox 100% on R/A; Height 5 ft. 4 in. aj1 (162.56 cm) (R); Pain 8/10; 14:20 BP 121 / 77; Pulse 79; Resp 17; Temp 98.0(O); Pulse Ox 100% on R/A; Pain 6/10; rb1 MDM: 13:53 Patient medically screened. ps1 Administered Medications: No medications were administered Disposition: 08/30/18 14:26 Discharged to Home. Impression: Corneal ulcer. - Condition is Stable. - Discharge Instructions: Corneal Ulcer. - Prescriptions for ketorolac 0.5 % Ophthalmic drops - instill 1 drop by OPHTHALMIC route 4 times per day; 1 bottle. Gentamicin 0.3 % Ophthalmic Drops - instill 1 drop by OPHTHALMIC route every 4 hours for 7 days; 1 bottle. - Medication Reconciliation Form, Thank You Letter, Antibiotic Education, Prescription Opioid Use form. - Follow up: Janice Romano MD; When: Today; Reason: Further diagnostic work-up, Recheck today's complaints, Continuance of care, Re-evaluation by your physician. - Problem is an acute exacerbation. - Symptoms are unchanged. Signatures: Ysabel Luke RN RN aj1 Cierra Phillips RN RN rb1 Demarcus Guzman MD MD ps1 Corrections: (The following items were deleted from the chart) 14:18 14:15 patient is s/p surgery from Dr. Tripathi for infraorbital fx. She now states that ps1 she has right eye pain and redness. . ps1 14:42 14:26 08/30/2018 14:26 Discharged to Home. Impression: Corneal ulcer. Condition is rb1 Stable. Forms are Medication Reconciliation Form, Thank You Letter, Antibiotic Education, Prescription Opioid Use. Follow up: Janice Romano; When: Today; Reason: Further diagnostic work-up, Recheck today's complaints, Continuance of care, Re-evaluation by your physician. Problem is an acute exacerbation. Symptoms are unchanged. ps1
--- NOTE | 2018-08-30 14:27 | ER ---
Nurse's Notes [facility] Name: Mary Drake Age: 32 yrs Sex: Female : 1985 Arrival Date: 08/30/2018 Time: 13:04 Bed 15 Private MD: Lakeisha Mancini Diagnosis: Corneal ulcer Presentation: 08/30 13:21 Presenting complaint: Patient states: "I have an implant in my eye, I got in 2014, but aj1 my eye started feeling irritated, I googled it and they it said that I have a corneal ulcer. I've been taking my mom's tramadol, it helps but my eye still hurts bad." Redness noted to right eye. Reports blurred vision from right eye. Reports these symptoms have been going on for the past week. Transition of care: patient was not received from another setting of care. Onset of symptoms was August 23, 2018. Risk Assessment: Do you want to hurt yourself or someone else? Patient reports no desire to harm self or others. Initial Sepsis Screen: Does the patient meet any 2 criteria? No. Patient's initial sepsis screen is negative. Does the patient have a suspected source of infection? No. Patient's initial sepsis screen is negative. Care prior to arrival: None. 13:21 Method Of Arrival: Ambulatory aj 13:21 Acuity: CED 3 aj1 Triage Assessment: 13:23 General: Appears in no apparent distress. uncomfortable, Behavior is calm, cooperative, aj1 appropriate for age. Pain: Complains of pain in right eye. Pain: Pain currently is 8 out of 10 on a pain scale. Neuro: Level of Consciousness is awake, alert, obeys commands. Cardiovascular: Patient's skin is warm and dry. Respiratory: Airway is patent Respiratory effort is even, unlabored, Respiratory pattern is regular, agonal. 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 - Social history:: Smoking status: Patient/guardian denies using tobacco. - Ebola Screening: : Patient denies travel to an Ebola-affected area in the 21 days before illness onset. Screenin:30 Abuse screen: Denies threats or abuse. Nutritional screening: No deficits noted. rb1 Tuberculosis screening: No symptoms or risk factors identified. Fall Risk None identified. Assessment: 13:30 General: Appears uncomfortable, slender, Behavior is calm, cooperative. Pain: Complains rb1 of pain in right eye Pain currently is 10 out of 10 on a pain scale. Pain began x 1 week. Neuro: Level of Consciousness is awake, alert, obeys commands, Oriented to person, place, time, situation. Cardiovascular: Capillary refill < 3 seconds is brisk in bilateral fingers. Respiratory: Airway is patent Respiratory effort is even, unlabored, Respiratory pattern is regular, symmetrical. GI: No signs and/or symptoms were reported involving the gastrointestinal system. : No signs and/or symptoms were reported regarding the genitourinary system. EENT: Reports blurred vision in right eye has an implant in the right eye. Redness noted to the right eye. Derm: Skin is dry, Skin is normal, Skin temperature is warm. 14:30 Reassessment: Patient appears in no apparent distress at this time. No changes from rb1 previously documented assessment. Vital Signs: 13:23 BP 124 / 81; Pulse 85; Resp 18; Temp 97.3; Pulse Ox 100% on R/A; Height 5 ft. 4 in. aj1 (162.56 cm) (R); Pain 8/10; 14:20 BP 121 / 77; Pulse 79; Resp 17; Temp 98.0(O); Pulse Ox 100% on R/A; Pain 6/10; rb1 ED Course: 13:04 Patient arrived in ED. mr 13:05 Lakeisha Mancini MD is Private Physician. mr 13:22 Triage completed. aj1 13:23 Arm band placed on Patient placed in an exam room. aj1 13:30 Patient has correct armband on for positive identification. Bed in low position. Call rb1 light in reach. Side rails up X 1. Pulse ox on. NIBP on. 13:44 Demarcus Guzman MD is Attending Physician. ps1 14:21 Cierra Phillips, RN is Primary Nurse. rb1 14:25 Janice Romano MD is Referral Physician. ps1 14:39 No provider procedures requiring assistance completed. Patient did not have IV access rb1 during this emergency room visit. Administered Medications: No medications were administered Outcome: 14:26 Discharge ordered by MD. ps1 14:39 Discharged to home ambulatory. rb1 14:39 Condition: stable 14:39 Discharge instructions given to patient, Instructed on discharge instructions, follow up and referral plans. medication usage, Demonstrated understanding of instructions, follow-up care, medications, Prescriptions given X 2. 14:42 Patient left the ED. rb1 Signatures: Ysabel Luke RN RN aj1 Bernadine Burrell mr Cierra Phillips, RN RN rb1 Demarcus Guzman MD MD ps1
[2018-08-30 21:16] VITALS: O2SAT 100
[2018-08-30 21:17] VITALS: BP 121/77; TEMP 98
== END 2018-08-30 14:42 | disposition home or self-care (01) ==
LOC: ER 13:02
DX: H16.001 Unspecified corneal ulcer, right eye (principal); F41.9 Anxiety disorder, unspecified; J45.909 Unspecified asthma, uncomplicated; J44.9 Chronic obstructive pulmonary disease, unspecified; F20.9 Schizophrenia, unspecified; Z88.5 Allergy status to narcotic agent; Z79.51 Long term (current) use of inhaled steroids
CPT/HCPCS: 99283

== ENCOUNTER 2018-09-29 14:56 | Emergency (ER) | payer MEDICAID, OTHER ==
--- OUTSIDE RECORDS SUMMARY | 2018-09-29 15:07 | XMS REPORT ---
[...] Date Status Dosage System Date Tramadol HCl [facility] 89881921463 50 MG Orally Nov 29, Active 1 tablet every 6 hrs 2018 as needed Results No Known Results Summary Purpose eClinicalWorks Submission
--- OUTSIDE RECORDS SUMMARY | 2018-09-29 15:07 | XMS REPORT ---
[...] Status Dosage System Date Date Alprazolam [facility] 75542812889 1 MG Oral Active (Schedule IV Drug) TAKE 1 TABLET BY MOUTH 3 TIMES A DAY PredniSONE [facility] 67220561886 10 MG Oral Active TAKE 1 TABLET BY MOUTH TWICE A DAY FOR 7 DAYS Lidocaine [facility] 44858512016 2 % Mouth/Throat Active TAKE 5ML Viscous BY MOUTH THREE TO FOUR TIMES DAILY Montelukast [facility] 07443606552 10 MG Oral Active TAKE 1 Sodium TABLET BY MOUTH EVERY EVENING All Day Allergy [facility] 56844562983 10 MG Oral Active TAKE 1 TABLET BY MOUTH EVERY DAY Results No Known Results Summary Purpose eClinicalWorks Submission
--- OUTSIDE RECORDS SUMMARY | 2018-09-29 15:07 | XMS REPORT ---
[...] End Status Dosage System Date Date Montelukast [facility] 96722554339 10 MG Oral Active TAKE 1 Sodium TABLET BY MOUTH EVERY EVENING Lidocaine [facility] 47944132796 2 % Mouth/Throat Active TAKE 5ML Viscous BY MOUTH THREE TO FOUR TIMES DAILY Tramadol HCl [facility] 53472222459 50 MG Orally Nov 29, Active 1 tablet every 6 hrs 2017 as needed Alprazolam [facility] 31885096985 1 MG Oral Active (Schedule IV Drug) TAKE 1 TABLET BY MOUTH 3 TIMES A DAY PredniSONE [facility] 04773168938 10 MG Oral Active TAKE 1 TABLET BY MOUTH TWICE A DAY FOR 7 DAYS All Day Allergy [facility] 94500410890 10 MG Oral Active TAKE 1 TABLET BY MOUTH EVERY DAY Results No Known Results Summary Purpose eClinicalWorks Submission
--- OUTSIDE RECORDS SUMMARY | 2018-09-29 15:07 | XMS REPORT ---
[...] System Date Date All Day Allergy [facility] 79440019393 10 MG Oral Active TAKE 1 TABLET BY MOUTH EVERY DAY Montelukast [facility] 05441979909 10 MG Oral Active TAKE 1 Sodium TABLET BY MOUTH EVERY EVENING Alprazolam [facility] 13779160764 1 MG Oral Active (Schedule IV Drug) TAKE 1 TABLET BY MOUTH 3 TIMES A DAY PredniSONE ND 43557003513 10 MG Oral Active TAKE 1 TABLET BY MOUTH TWICE A DAY FOR 7 DAYS Lidocaine ND 26120198918 2 % Mouth/Throat Active TAKE 5ML Viscous BY MOUTH THREE TO FOUR TIMES DAILY Results No Known Results Summary Purpose eClinicalWorks Submission
[2018-09-29 16:05] LABS: Urine Blood NEGATIVE (NEG); Urine Glucose NEGATIVE (NEG); Urine Protein NEGATIVE (NEG)
[2018-09-29 16:19] LABS: Urine Bacteria <20 /HPF (<20); Urine Culture Reflex Order NOT NEEDED; Urine RBC NONE SEEN /HPF (NONE SEEN)
--- NOTE | 2018-09-29 16:40 | RAD REPORT ---
EXAM DESCRIPTION: RAD - Abdomen Acute Series - 09/29/2018 4:19 pm CLINICAL HISTORY: ABD PAIN COMPARISON: Abdomen 1 View (KUB) dated 03/30/2017; Chest Single View dated 08/21/2016; Chest Single Vi ew dated 03/14/2016; Chest Single View dated 12/26/2015 FINDINGS: The lung bases are clear. No bowel obstruction is seen. No pathologic calcification identi fied. No evidence of pneumoperitoneum. Mild lumbar dextroscoliosis. IMPRESSION: No acute process seen.
--- NOTE | 2018-09-29 16:46 | EDPHYS ---
Physician Documentation [facility] Name: Mary Drake Age: 32 yrs Sex: Female : 1985 Arrival Date: 09/29/2018 Time: 15:00 Bed 23 Private MD: Lakeisha Mancini ED Physician Adria Lala HPI: 09/29 15:44 This 32 yrs old Black Female presents to ER via Ambulatory with complaints of Abdominal snw Pain. 15:44 The patient presents with abdominal pain in the left lower quadrant. Onset: The snw symptoms/episode began/occurred suddenly, 3 day(s) ago. The symptoms do not radiate. Associated signs and symptoms: Pertinent positives: "when walking, I feel motion sick", vomited x 1 today at work. Pt states she had a large BM recently after not going for a while. Denies fever. The symptoms are described as crampy. Severity of pain: At its worst the pain was moderate. It is unknown whether or not the patient has had similar symptoms in the past. The patient has not recently seen a physician. pt states she had LMP last week. . 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 - Social history:: Smoking status: Patient uses tobacco products, denies chronic smoking, but will smoke occasionally. - Ebola Screening: : Patient negative for fever greater than or equal to 101.5 degrees Fahrenheit, and additional compatible Ebola Virus Disease symptoms Patient denies exposure to infectious person Patient denies travel to an Ebola-affected area in the 21 days before illness onset. ROS: 15:44 Constitutional: Negative for fever, chills, and weight loss, Eyes: Negative for injury, snw pain, redness, and discharge, ENT: Negative for injury, pain, and discharge, Neck: Negative for injury, pain, and swelling, Cardiovascular: Negative for chest pain, palpitations, and edema, Respiratory: Negative for shortness of breath, cough, wheezing, and pleuritic chest pain, Back: Negative for injury and pain, : Negative for injury, bleeding, discharge, and swelling, MS/Extremity: Negative for injury and deformity, Skin: Negative for injury, rash, and discoloration, Neuro: Negative for headache, weakness, numbness, tingling, and seizure. 15:44 Abdomen/GI: Positive for abdominal pain, nausea, vomiting, constipation, Negative for diarrhea, fever. Exam: 15:43 Constitutional: This is a well developed, well nourished patient who is awake, alert, snw and in no acute distress. Head/Face: Normocephalic, atraumatic. Eyes: Pupils equal round and reactive to light, extra-ocular motions intact. Lids and lashes normal. Conjunctiva and sclera are non-icteric and not injected. Cornea within normal limits. Periorbital areas with no swelling, redness, or edema. ENT: Nares patent. No nasal discharge, no septal abnormalities noted. Tympanic membranes are normal and external auditory canals are clear. Oropharynx with no redness, swelling, or masses, exudates, or evidence of obstruction, uvula midline. Mucous membranes moist. Neck: Trachea midline, no thyromegaly or masses palpated, and no cervical lymphadenopathy. Supple, full range of motion without nuchal rigidity, or vertebral point tenderness. No Meningismus. Chest/axilla: Normal chest wall appearance and motion. Nontender with no deformity. No lesions are appreciated. Cardiovascular: Regular rate and rhythm with a normal S1 and S2. No gallops, murmurs, or rubs. Normal PMI, no JVD. No pulse deficits. Respiratory: Lungs have equal breath sounds bilaterally, clear to auscultation and percussion. No rales, rhonchi or wheezes noted. No increased work of breathing, no retractions or nasal flaring. Back: No spinal tenderness. No costovertebral tenderness. Full range of motion. Skin: Warm, dry with normal turgor. Normal color with no rashes, no lesions, and no evidence of cellulitis. MS/ Extremity: Pulses equal, no cyanosis. Neurovascular intact. Full, normal range of motion. Neuro: Awake and alert, GCS 15, oriented to person, place, time, and situation. Cranial nerves II-XII grossly intact. Motor strength 5/5 in all extremities. Sensory grossly intact. Cerebellar exam normal. Normal gait. Psych: Awake, alert, with orientation to person, place and time. Behavior, mood, and affect are within normal limits. 15:43 Abdomen/GI: Inspection: abdomen appears normal, Bowel sounds: normal, Palpation: soft, mild abdominal tenderness, in the left lower quadrant. Vital Signs: 15:46 BP 115 / 80; Pulse 58; Resp 18 S; Temp 98.6(O); Pulse Ox 100% on R/A; Weight 57.15 kg ca1 (M); Height 5 ft. 4 in. (162.56 cm); Pain 9/10; 16:59 BP 121 / 94; Pulse 59; Resp 17 S; Pulse Ox 100% on R/A; ca1 15:46 Body Mass Index 21.63 (57.15 kg, 162.56 cm) ca1 MDM: 15:39 Patient medically screened. tawana 16:48 Data reviewed: vital signs, nurses notes. Data interpreted: Pulse oximetry: on room air snw is 100 %. Interpretation: normal. Counseling: I had a detailed discussion with the patient and/or guardian regarding: the historical points, exam findings, and any diagnostic results supporting the discharge/admit diagnosis, the presence of at least one elevated blood pressure reading (>120/80) during this emergency department visit, radiology results, the need for outpatient follow up, to return to the emergency department if symptoms worsen or persist or if there are any questions or concerns that arise at home. Special discussion: Based on the patient's Hx, exam, and Dx evaluation, there is no indication for emergent surgery or inpatient Tx. It is understood by the patient/guardian that if the Sx's persist or worsen they need to return immediately for re-evaluation. Based on the history and exam findings, there is no indication for further emergent testing or inpatient evaluation. 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 I discussed with the patient/guardian the need to see the primary care provider for further evaluation of the symptoms. 09/29 15:42 Order name: Urine Culture snw 09/29 15:42 Order name: Urine Microscopic Only; Complete Time: 16:29 snw 09/29 15:56 Order name: Urine Dipstick--Ancillary (enter results); Complete Time: 16:15 ms 09/29 15:56 Order name: Urine --Ancillary (enter results); Complete Time: 16:15 ms 09/29 16:01 Order name: Abdomen Acute Series XRAY; Complete Time: 16:45 snw 09/29 15:42 Order name: Urine Test (obtain specimen); Complete Time: 16:03 snw 09/29 15:42 Order name: Urine Dipstick-Ancillary (obtain specimen); Complete Time: 16:03 snw Administered Medications: 16:40 Drug: Magnesium Citrate Liquid 300 ml Route: PO; ca1 17:03 Follow up: Response: Medication administered at discharge. ca1 16:44 Drug: Bisacodyl Suppository 10 mg Route: WI; ca1 17:03 Follow up: Response: Medication administered at discharge. ca1 17:09 Drug: Phenergan 25 mg Route: PO; ca1 17:09 Follow up: Response: Medication administered at discharge. ca1 Disposition: 09/29/18 16:45 Discharged to Home. Impression: Gas pain, Constipation. - Condition is Stable. - Discharge Instructions: Abdominal Pain, Adult, Constipation, Adult, High-Fiber Diet, Intestinal Gas and Gas Pains, Pediatric. - Prescriptions for Gas- X Ultra-Strength - take 1 capsule by ORAL route 1-3 times daily; 1 Container. Miralax 17 gram/dose Oral - take 1 packet by ORAL route once daily dilute powder in 8 ounces of water or juice; 1 box. - Work release form, Medication Reconciliation Form, Thank You Letter, Antibiotic Education, Prescription Opioid Use form. - Follow up: Lakeisha Mancini MD; When: 1 - 2 days; Reason: Recheck today's complaints, Continuance of care, Re-evaluation by your physician. Follow up: Emergency Department; When: As needed; Reason: Worsening of condition. Addendum: 10/03/2018 09:17 Co-signature as Attending Physician, Adria Lala MD I agree with the assessment and c haines plan of care. Signatures: Dispatcher [employer] Adria Coles MD MD cha Therrien, Shelly, RESEARCH ENVIRONMENTAL ENGINEER-C RESEARCH ENVIRONMENTAL ENGINEER-Csnw Acarnold, Jerica, RN RN ca1 Corrections: (The following items were deleted from the chart) 09/29 17:10 16:45 09/29/2018 16:45 Discharged to Home. Impression: Gas pain; Constipation. ca1 Condition is Stable. Forms are Medication Reconciliation Form, Thank You Letter, Antibiotic Education, Prescription Opioid Use. Follow up: Lakeisha Mancini; When: 1 - 2 days; Reason: Recheck today's complaints, Continuance of care, Re-evaluation by your physician. Follow up: Emergency Department; When: As needed; Reason: Worsening of condition. snw
--- NOTE | 2018-09-29 16:46 | ER ---
Nurse's Notes [facility] Name: Mary Drake Age: 32 yrs Sex: Female : 1985 Arrival Date: 09/29/2018 Time: 15:00 Bed 23 Private MD: Lakeisha Mancini Diagnosis: Gas pain;Constipation Presentation: 09/29 15:41 Presenting complaint: EMS states: I have belly pain which has been chronic. They told ca1 me I have a cyst (L) and Fibroid tumor(R) on my belly. But 2 days ago, the pain has gotten worse and I have been throwing up at work today. Denies diarrhea. Transition of care: patient was not received from another setting of care. Onset of symptoms was September 28, 2018. Risk Assessment: Do you want to hurt yourself or someone else? Patient reports no desire to harm self or others. Initial Sepsis Screen: Does the patient meet any 2 criteria? No. Patient's initial sepsis screen is negative. Does the patient have a suspected source of infection? No. Patient's initial sepsis screen is negative. Care prior to arrival: None. 15:41 Method Of Arrival: Ambulatory ca1 15:41 Acuity: CED 3 ca1 Triage Assessment: 15:46 General: Appears in no apparent distress. comfortable, Behavior is calm, cooperative, ca1 appropriate for age. Pain: Complains of pain in abdomen Pain does not radiate. Pain currently is 9 out of 10 on a pain scale. Pain began 1 day ago. GI: Abdomen is flat, non-distended, Bowel sounds present X 4 quads. Abd is soft and non tender Reports nausea, vomiting. 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 - Social history:: Smoking status: Patient uses tobacco products, denies chronic smoking, but will smoke occasionally. - Ebola Screening: : Patient negative for fever greater than or equal to 101.5 degrees Fahrenheit, and additional compatible Ebola Virus Disease symptoms Patient denies exposure to infectious person Patient denies travel to an Ebola-affected area in the 21 days before illness onset. Screenin:48 Abuse screen: Denies threats or abuse. Denies injuries from another. Nutritional ca1 screening: No deficits noted. Tuberculosis screening: No symptoms or risk factors identified. Fall Risk None identified. Assessment: 15:48 General: Appears in no apparent distress. comfortable, Behavior is calm, cooperative, ca1 appropriate for age. Pain: Complains of pain in abdomen Pain does not radiate. Pain currently is 9 out of 10 on a pain scale. Pain began 1 day ago. Neuro: Level of Consciousness is awake, alert, confused, Oriented to person, place, time, situation. Cardiovascular: Heart tones S1 S2 present Capillary refill < 3 seconds Patient's skin is warm and dry. Respiratory: Airway is patent Respiratory effort is even, unlabored, Respiratory pattern is regular, symmetrical, Breath sounds are clear bilaterally. GI: Abdomen is flat, non-distended, Bowel sounds present X 4 quads. Abd is soft and non tender X 4 quads. Reports nausea, vomiting, since this morning. : Urine is clear. EENT: No deficits noted. No signs and/or symptoms were reported regarding the EENT system. Derm: Skin is intact, is healthy with good turgor, Skin is pink, warm \T\ dry. Musculoskeletal: Circulation, motion, and sensation intact. Capillary refill < 3 seconds, Range of motion: intact in all extremities. 16:59 Reassessment: Patient appears in no apparent distress at this time. Patient is alert, ca1 oriented x 3, equal unlabored respirations, skin warm/dry/pink. 17:00 Reassessment: pt Co Nausea. Informed provider. Meds ordered and given. ca1 Vital Signs: 15:46 BP 115 / 80; Pulse 58; Resp 18 S; Temp 98.6(O); Pulse Ox 100% on R/A; Weight 57.15 kg ca1 (M); Height 5 ft. 4 in. (162.56 cm); Pain 9/10; 16:59 BP 121 / 94; Pulse 59; Resp 17 S; Pulse Ox 100% on R/A; ca1 15:46 Body Mass Index 21.63 (57.15 kg, 162.56 cm) ca1 ED Course: 15:00 Patient arrived in ED. rg4 15:00 Lakeisha Mancini MD is Private Physician. rg4 15:24 Alexandria De Santiago FNP-C is [facility]. snw 15:24 Adria Lala MD is Attending Physician. snw 15:31 Jerica Brown RN is Primary Nurse. ca1 15:44 Triage completed. ca1 15:46 Arm band placed on right wrist. Urine obtained. ca1 15:48 Patient has correct armband on for positive identification. Placed in gown. Bed in low ca1 position. Call light in reach. Side rails up X 1. Pulse ox on. NIBP on. Warm blanket given. 15:48 No provider procedures requiring assistance completed. ca1 16:19 Abdomen Acute Series XRAY In Process Unspecified. EDMS 16:22 X-ray completed. Portable x-ray completed in exam room. Patient tolerated procedure sw well. 16:45 Lakeisha Mancini MD is Referral Physician. snw 17:00 Patient did not have IV access during this emergency room visit. ca1 Administered Medications: 16:40 Drug: Magnesium Citrate Liquid 300 ml Route: PO; ca1 17:03 Follow up: Response: Medication administered at discharge. ca1 16:44 Drug: Bisacodyl Suppository 10 mg Route: IN; ca1 17:03 Follow up: Response: Medication administered at discharge. ca1 17:09 Drug: Phenergan 25 mg Route: PO; ca1 17:09 Follow up: Response: Medication administered at discharge. ca1 Outcome: 16:45 Discharge ordered by . snw 17:00 Discharged to home ambulatory. ca1 17:00 Condition: stable 17:00 Discharge instructions given to patient, Instructed on discharge instructions, follow up and referral plans. Demonstrated understanding of instructions, follow-up care, medications, Prescriptions given X 2. 17:10 Patient left the ED. ca1 Signatures: Dispatcher [employer] EDMS Alexandria De Santiago FNP-C FNP-Sarina Ace Rubi rg4 Jerica Brown RN RN ca1
[2018-09-29] MEDS ORDERED: BISACODYL 10 MG RECTAL SUPP ONE (16:57)
[2018-09-29] MEDS ORDERED: MAGNESIUM CITRATE 300 ML BOT ONE (16:58)
[2018-09-29] MEDS ORDERED: PROMETHAZINE 25 MG TABLET ONE (17:21)
[2018-09-29 18:10] VITALS: TEMP 98.6; O2SAT 100
[2018-09-29 18:11] VITALS: BP 121/94
== END 2018-09-29 17:10 | disposition home or self-care (01) ==
LOC: ER 14:56
DX: K59.00 Constipation, unspecified (principal); R14.1 Gas pain; J45.909 Unspecified asthma, uncomplicated; J44.9 Chronic obstructive pulmonary disease, unspecified; F20.9 Schizophrenia, unspecified; F41.9 Anxiety disorder, unspecified; F32.9 Major depressive disorder, single episode, unspecified; Z72.0 Tobacco use
CPT/HCPCS: 74022; 81003; 81015; 81025; 87086; 87088; 99284

== ENCOUNTER 2018-10-01 13:19 | Emergency (ER) | payer MEDICAID ==
--- OUTSIDE RECORDS SUMMARY | 2018-10-01 13:23 | XMS REPORT ---
[...] Dosage System Date Date All Day Allergy [facility] 93047063455 10 MG Oral Active TAKE 1 TABLET BY MOUTH EVERY DAY Montelukast [facility] [id number] 10 MG Oral Active TAKE 1 Sodium TABLET BY MOUTH EVERY EVENING Alprazolam [facility] [id number] 1 MG Oral Active (Schedule IV Drug) TAKE 1 TABLET BY MOUTH 3 TIMES A DAY PredniSONE ND [id number] 10 MG Oral Active TAKE 1 TABLET BY MOUTH TWICE A DAY FOR 7 DAYS Lidocaine ND 98011506671 2 % Mouth/Throat Active TAKE 5ML Viscous BY MOUTH THREE TO FOUR TIMES DAILY Results No Known Results Summary Purpose eClinicalWorks Submission
--- OUTSIDE RECORDS SUMMARY | 2018-10-01 13:23 | XMS REPORT ---
[...] Status Dosage System Date Date Montelukast [facility] [id number] 10 MG Oral Active TAKE 1 Sodium TABLET BY MOUTH EVERY EVENING Lidocaine [facility] 95330755929 2 % Mouth/Throat Active TAKE 5ML Viscous BY MOUTH THREE TO FOUR TIMES DAILY Tramadol HCl [facility] [id number] 50 MG Orally Nov 29, Active 1 tablet every 6 hrs 2017 as needed Alprazolam [facility] 43618960121 1 MG Oral Active (Schedule IV Drug) TAKE 1 TABLET BY MOUTH 3 TIMES A DAY PredniSONE [facility] 03192464089 10 MG Oral Active TAKE 1 TABLET BY MOUTH TWICE A DAY FOR 7 DAYS All Day Allergy [facility] 10590382419 10 MG Oral Active TAKE 1 TABLET BY MOUTH EVERY DAY Results No Known Results Summary Purpose eClinicalWorks Submission
--- OUTSIDE RECORDS SUMMARY | 2018-10-01 13:23 | XMS REPORT ---
[...] Status Dosage System Date Tramadol HCl [facility] [id number] 50 MG Orally Nov 29, Active 1 tablet every 6 hrs 2018 as needed Results No Known Results Summary Purpose eClinicalWorks Submission
--- OUTSIDE RECORDS SUMMARY | 2018-10-01 13:23 | XMS REPORT ---
[...] End Status Dosage System Date Date Alprazolam [facility] [id number] 1 MG Oral Active (Schedule IV Drug) TAKE 1 TABLET BY MOUTH 3 TIMES A DAY PredniSONE [facility] [id number] 10 MG Oral Active TAKE 1 TABLET BY MOUTH TWICE A DAY FOR 7 DAYS Lidocaine [facility] 18124428007 2 % Mouth/Throat Active TAKE 5ML Viscous BY MOUTH THREE TO FOUR TIMES DAILY Montelukast [facility] [id number] 10 MG Oral Active TAKE 1 Sodium TABLET BY MOUTH EVERY EVENING All Day Allergy [facility] 25748109155 10 MG Oral Active TAKE 1 TABLET BY MOUTH EVERY DAY Results No Known Results Summary Purpose eClinicalWorks Submission
[2018-10-01 15:23] LABS: Absolute Lymphocytes (CBC) 2.8 K/uL (0.7-4.9); Absolute Monocytes 0.4 K/uL (0.1-1.3); Absolute Neutrophil 1.9 K/uL (1.8-8.0); Basophils % 1.1 % (0-1.3); Eosinophils % 4.9 % (0-4.4); Hematocrit 36.8 % (36.0-45.0); Lymphocytes % 51.6 % (15.3-44.8); MPV 10.2 fL (7.6-11.3); Monocytes % 7.4 % (3.3-12.3); RBC Red Blood Cell Count 4.38 M/uL (3.86-4.86)
[2018-10-01 15:41] LABS: Albumin 3.9 g/dL (3.4-5.0); Bilirubin Direct 0.2 mg/dL (0-0.2); Bilirubin Total 0.5 mg/dL (0.2-1.0); Potassium 3.5 mmol/L (3.5-5.1); Protein, Total 8.2 g/dL (6.4-8.2)
[2018-10-01] MEDS ORDERED: KETOROLAC 30 MG/ML INJ ONE (15:42)
[2018-10-01] MEDS ORDERED: ONDANSETRON 4 MG/2 ML VIAL ONE (15:42)
[2018-10-01] MEDS ORDERED: FAMOTIDINE 20 MG/2 ML VIAL IV ONE (15:43)
[2018-10-01] MEDS ORDERED: NA CHLORIDE 0.9% 1,000 ML ONE (15:43)
--- NOTE | 2018-10-01 16:12 | EDPHYS ---
Physician Documentation [facility] Name: Mary Drake Age: 32 yrs Sex: Female : 1985 Arrival Date: 10/01/2018 Time: 13:24 Bed 15 Private MD: Unknown, Unknown ED Physician Chriss Matamoros HPI: 10/01 14:15 This 32 yrs old Black Female presents to ER via Ambulatory with complaints of cp Constipation, Abdominal Pain, Back Pain, Nausea. 14:15 The patient presents with abdominal pain in the epigastric area, in the right upper cp quadrant. Onset: The symptoms/episode began/occurred today, while at work. 14:15 The symptoms radiate to Associated signs and symptoms: Pertinent positives: nausea, cp cough, Pertinent negatives: blood in stools, chest pain, constipation, dysuria, fever, shortness of breath, vomiting. Severity of pain: in the emergency department the pain is unchanged. 14:15 Patient seen in ED 2 days ago for constipation and reports having several bowel cp movements today. 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 - Social history:: Smoking status: . - Ebola Screening: : No symptoms or risks identified at this time. ROS: 14:20 Constitutional: Negative for body aches, chills, fever, poor PO intake. cp 14:20 Eyes: Negative for injury, pain, redness, and discharge. cp 14:20 ENT: Negative for drainage from ear(s), ear pain, sore throat, difficulty swallowing, difficulty handling secretions. 14:20 Neck: Negative for stiffness. 14:20 Cardiovascular: Negative for chest pain, palpitations. 14:20 Respiratory: Positive for cough, Negative for shortness of breath, wheezing. 14:20 Abdomen/GI: Positive for abdominal pain, nausea, Negative for anorexia, black/tarry stool, rectal bleeding. 14:20 Back: Positive for radiated pain. 14:20 : Negative for urinary symptoms. 14:20 All other systems are negative. Exam: 14:30 Constitutional: The patient appears in no acute distress, alert, awake, non-toxic, well cp developed, well nourished. 14:30 Head/Face: Normocephalic, atraumatic. cp 14:30 Eyes: Periorbital structures: appear normal, Conjunctiva: normal, no exudate, no injection, Sclera: no appreciated abnormality, Lids and lashes: appear normal, bilaterally. 14:30 ENT: External ear(s): are unremarkable, Nose: is normal, Mouth: Lips: moist, Oral mucosa: pink and intact, moist, Posterior pharynx: is normal, airway is patent, no erythema, no exudate. 14:30 Chest/axilla: Inspection: normal, Palpation: is normal, no crepitus, no tenderness. 14:30 Cardiovascular: Rate: normal, Rhythm: regular. 14:30 Respiratory: the patient does not display signs of respiratory distress, Respirations: normal, no use of accessory muscles, no retractions, no splinting, no tachypnea, labored breathing, is not present, Breath sounds: are clear throughout, no decreased breath sounds, no stridor, no wheezing. 14:30 Abdomen/GI: Inspection: abdomen appears normal, Bowel sounds: active, all quadrants, Palpation: soft, in all quadrants, mild abdominal tenderness, in the epigastric area and right upper quadrant, rebound tenderness, is not appreciated, involuntary guarding, is not appreciated. 14:30 Back: ROM is normal. Vital Signs: 13:37 BP 118 / 76; Pulse 82; Resp 16; Temp 97.5; Pulse Ox 98% on R/A; Weight 56.7 kg; Height la1 5 ft. 4 in. (162.56 cm); 14:30 BP 116 / 82; Pulse 66; Resp 16; Temp 98.0(TE); Pulse Ox 100% ; Pain 0/10; rb1 15:46 BP 113 / 90; Pulse 63; Resp 16; Temp 97.7(TE); Pulse Ox 100% ; mh5 16:15 BP 116 / 81; Pulse 64; Resp 17; Temp 98.0(TE); Pulse Ox 100% on R/A; Pain 0/10; rb1 13:37 Body Mass Index 21.46 (56.70 kg, 162.56 cm) la1 MDM: 13:57 Patient medically screened. cp 16:00 Refusal of service: The patient/guardian displays adequate decision making capability cp and despite a detailed discussion of alternatives, benefits, risks, and consequences refuses: all X-rays. 16:10 Data reviewed: vital signs, nurses notes, lab test result(s), radiologic studies, cp ultrasound. 16:10 Differential diagnosis: cholecystitis, Cholelithiasis, gastritis, pancreatitis, Peptic cp Ulcer Disease, Perf. Duodenal Ulcer, Perf. Gastric Ulcer, Pyelonephritis, Ureterolithiasis, urinary tract infection. Counseling: I had a detailed discussion with the patient and/or guardian regarding: the historical points, exam findings, and any diagnostic results supporting the discharge/admit diagnosis, lab results, radiology results, to return to the emergency department if symptoms worsen or persist or if there are any questions or concerns that arise at home. Response to treatment: the patient's symptoms have markedly improved after treatment, and as a result, I will discharge patient. Special discussion: Based on the patient's Hx, exam, and Dx evaluation, there is no indication for emergent surgery or inpatient Tx. It is understood by the patient/guardian that if the Sx's persist or worsen they need to return immediately for re-evaluation. ED course: VSS. Pain improved. Will discharge to home for continued monitoring. Patient refuses xrays today. 10/01 14:11 Order name: Basic Metabolic Panel; Complete Time: 16:05 10/01 14:11 Order name: CBC with Diff; Complete Time: 15:29 10/01 15:29 Interpretation: Normal except: RDW 17.5; DEYVI% 35.0; LYM% 51.6; EOSINOPHIL % 4.9. 10/01 14:11 Order name: Creatinine for Radiology; Complete Time: 16:05 10/01 14:11 Order name: Hepatic Function; Complete Time: 16:05 10/01 14:11 Order name: Lipase; Complete Time: 16:05 10/01 15:32 Order name: Urine Dipstick--Ancillary (enter results) ms 10/01 14:11 Order name: IV Saline Lock; Complete Time: 15:20 10/01 14:11 Order name: US Abdomen Limited; Complete Time: 16:26 10/01 16:26 Interpretation: Report reviewed. 10/01 15:32 Order name: Urine --Ancillary (enter results) ms 10/01 14:11 Order name: Labs collected and sent; Complete Time: 15:20 cp 10/01 14:11 Order name: Urine Dipstick-Ancillary (obtain specimen); Complete Time: 15:17 cp 10/01 14:11 Order name: Urine Test (obtain specimen); Complete Time: 15:34 cp 10/01 14:11 Order name: NPO; Complete Time: 15:17 cp 10/01 16:03 Order name: PO challenge; Complete Time: 16:24 cp Administered Medications: 15:33 Drug: TORadol 30 mg Route: IVP; Site: right antecubital; iw 15:47 Follow up: Response: No adverse reaction; Pain is decreased rb1 15:34 Drug: NS 0.9% 1000 ml Route: IV; Rate: 1 bolus; Site: right antecubital; iw 16:28 Follow up: IV Status: Completed infusion rb1 15:34 Drug: Zofran 4 mg Route: IVP; Site: right antecubital; iw 15:47 Follow up: Response: No adverse reaction rb1 15:34 Drug: Pepcid 20 mg Route: IVP; Site: right antecubital; iw 15:47 Follow up: Response: No adverse reaction rb1 Disposition: 10/02 15:22 Co-signature as Attending Physician, Chriss Matamoros MD. Disposition: 10/01/18 16:11 Discharged to Home. Impression: Epigastric abdominal tenderness. - Condition is Stable. - Discharge Instructions: Gastritis, Adult. - Prescriptions for Protonix 40 mg Oral Tablet - take 1 tablet by ORAL route once daily; 30 tablet. Zofran 4 mg Oral Tablet - take 1 tablet by ORAL route every 12 hours As needed; 20 tablet. - Medication Reconciliation Form, Thank You Letter, Antibiotic Education, Prescription Opioid Use, Work release form form. - Follow up: Private Physician; When: 2 - 3 days; Reason: Worsening of condition. - Problem is new. - Symptoms have improved. Signatures: Dispatcher [employer] Elaina Teixeira RN RN iw Attema, Lee RN RN la1 Adria Contreras PA PA cp Barber, Rebecca, RN RN rb1 Chriss Matamoros MD MD Corrections: (The following items were deleted from the chart) 10/01 15:54 15:33 Abdomen Acute Series+RAD.RAD.BRZ ordered. [facility] EDMS 16:37 16:11 10/01/2018 16:11 Discharged to Home. Impression: Epigastric abdominal tenderness. rb1 Condition is Stable. Forms are Medication Reconciliation Form, Thank You Letter, Antibiotic Education, Prescription Opioid Use. Follow up: Private Physician; When: 2 - 3 days; Reason: Worsening of condition. Problem is new. Symptoms have improved. cp 10/02 15:24 10/01 16:05 Refusal of service: The patient/guardian displays adequate decision making cp capability and despite a detailed discussion of alternatives, benefits, risks, and consequences refuses: all X-rays, cp
--- NOTE | 2018-10-01 16:12 | ER ---
Nurse's Notes [facility] Name: Mary Drake Age: 32 yrs Sex: Female : 1985 Arrival Date: 10/01/2018 Time: 13:24 Bed 15 Private MD: Unknown, Unknown Diagnosis: Epigastric abdominal tenderness Presentation: 10/01 13:36 Presenting complaint: Patient states: I have been constipated but now the pain is in my la1 RUQ that is worse when I breathe and cough and pain radiates to back. Pt reports hx of asthma and has been coughing for the last two days. Transition of care: patient was not received from another setting of care. Onset of symptoms was October 01, 2018. Risk Assessment: Do you want to hurt yourself or someone else? Patient reports no desire to harm self or others. Initial Sepsis Screen: Does the patient meet any 2 criteria? No. Patient's initial sepsis screen is negative. Does the patient have a suspected source of infection? No. Patient's initial sepsis screen is negative. Care prior to arrival: None. 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 - Social history:: Smoking status: . - Ebola Screening: : No symptoms or risks identified at this time. Screenin:50 Abuse screen: Denies threats or abuse. Nutritional screening: No deficits noted. rb1 Tuberculosis screening: No symptoms or risk factors identified. Fall Risk None identified. Assessment: 13:50 General: Appears in no apparent distress. comfortable, Behavior is calm, cooperative. rb1 Pain: Complains of pain in abdomen. Neuro: Level of Consciousness is awake, alert, obeys commands, Oriented to person, place, time, situation. Cardiovascular: Capillary refill < 3 seconds is brisk in bilateral fingers. Respiratory: Airway is patent Respiratory effort is even, unlabored, Respiratory pattern is regular, symmetrical. GI: Bowel sounds present X 4 quads. Reports diarrhea. Derm: Skin is dry, Skin is normal, Skin temperature is warm. 13:50 GI: Abd is soft X 4 quads. rb1 14:50 Reassessment: Patient appears in no apparent distress at this time. No changes from rb1 previously documented assessment. 14:57 Reassessment: US at bedside. rb1 15:16 Reassessment: Patient appears in no apparent distress at this time. Patient and/or iw family updated on plan of care and expected duration. Pain level reassessed. Patient is alert, oriented x 3, equal unlabored respirations, skin warm/dry/pink. 16:10 Reassessment: Pt. tolerated PO challenge well. rb1 16:15 Reassessment: Patient appears in no apparent distress at this time. No changes from rb1 previously documented assessment. Vital Signs: 13:37 BP 118 / 76; Pulse 82; Resp 16; Temp 97.5; Pulse Ox 98% on R/A; Weight 56.7 kg; Height la1 5 ft. 4 in. (162.56 cm); 14:30 BP 116 / 82; Pulse 66; Resp 16; Temp 98.0(TE); Pulse Ox 100% ; Pain 0/10; rb1 15:46 BP 113 / 90; Pulse 63; Resp 16; Temp 97.7(TE); Pulse Ox 100% ; mh5 16:15 BP 116 / 81; Pulse 64; Resp 17; Temp 98.0(TE); Pulse Ox 100% on R/A; Pain 0/10; rb1 13:37 Body Mass Index 21.46 (56.70 kg, 162.56 cm) la1 ED Course: 13:24 Patient arrived in ED. ag5 13:26 Unknown, Unknown is Private Physician. ag5 13:37 Triage completed. la1 13:38 Arm band placed on left wrist. la1 13:48 Adria Contreras PA is PHCP. cp 13:48 Chriss Matamoros MD is Attending Physician. cp 13:50 Patient has correct armband on for positive identification. Placed in gown. Bed in low rb1 position. Call light in reach. Side rails up X 1. Pulse ox on. NIBP on. Warm blanket given. 13:51 Cierra Phillips, RN is Primary Nurse. rb1 15:09 US Abdomen Limited In Process Unspecified. EDMS 15:13 Ultrasound completed. Patient tolerated well. sg3 15:15 Initial lab(s) drawn, by me, sent to lab. Inserted saline lock: 22 gauge in right iw antecubital area, using aseptic technique. Blood collected. 15:33 Urine --Ancillary (enter results) Sent. mh5 15:33 Urine Dipstick--Ancillary (enter results) Sent. 5 15:33 Urine collected: clean catch specimen, clear. 5 16:35 No provider procedures requiring assistance completed. IV discontinued, intact, rb1 bleeding controlled, No redness/swelling at site. Pressure dressing applied. Administered Medications: 15:33 Drug: TORadol 30 mg Route: IVP; Site: right antecubital; iw 15:47 Follow up: Response: No adverse reaction; Pain is decreased rb1 15:34 Drug: NS 0.9% 1000 ml Route: IV; Rate: 1 bolus; Site: right antecubital; iw 16:28 Follow up: IV Status: Completed infusion rb1 15:34 Drug: Zofran 4 mg Route: IVP; Site: right antecubital; iw 15:47 Follow up: Response: No adverse reaction rb1 15:34 Drug: Pepcid 20 mg Route: IVP; Site: right antecubital; iw 15:47 Follow up: Response: No adverse reaction rb1 Output: 14:00 Stool: 1 (Loose Stool) ; Total: 0ml. rb1 Outcome: 16:11 Discharge ordered by MD. cp 16:35 Discharged to home ambulatory, with family. rb1 16:35 Condition: stable 16:35 Discharge instructions given to patient, Instructed on discharge instructions, follow up and referral plans. medication usage, Demonstrated understanding of instructions, follow-up care, medications, Prescriptions given X 2. 16:37 Patient left the ED. rb1 Signatures: Dispatcher [employer] EDMS Elaina Brown RN DAYDAY iw Shiva Mathur RN RN la1 Adria Contreras PA PA cp Cierra Phillips RN RN rb1 Gwendolyn Penn 5 Chey Livingston 3 Najma Aguirre [facility]
--- NOTE | 2018-10-01 16:14 | RAD REPORT ---
EXAM DESCRIPTION: US - Abdomen Exam Limited - 10/01/2018 3:09 pm CLINICAL HISTORY: epigastric/RUQ pain COMPARISON: <Comparisons> FINDINGS: The gallbladder demonstrates no gallstones. No pericholecystic fluid or gallbladder wall t hickening. The common bile duct is normal measuring 2 mm. The liver demonstrates no findings of intrahepatic biliary dilatation. IMPRESSION: Unremarkable examination.
[2018-10-01 16:34] LABS: Urine Blood TRACE (NEG); Urine Glucose NEGATIVE (NEG); Urine Protein 1+ (NEG); Urine Specific Gravity >1.030 (1.005-1.030); Urine pH 5.5 (5.0-7.0)
[2018-10-01 17:14] VITALS: O2SAT 100
[2018-10-01 17:17] VITALS: BP 116/81; TEMP 98
== END 2018-10-01 16:37 | disposition home or self-care (01) ==
LOC: ER 13:19
DX: R10.13 Epigastric pain (principal); F41.9 Anxiety disorder, unspecified; J45.909 Unspecified asthma, uncomplicated; J44.9 Chronic obstructive pulmonary disease, unspecified; F20.9 Schizophrenia, unspecified
CPT/HCPCS: 36415; 76705; 80048; 80076; 81003; 81025; 83690; 85025; 96361; 96374; 96375; 99284; J2405; J7030

== ENCOUNTER 2018-11-14 18:08 | Emergency (ER) | payer MEDICAID ==
--- OUTSIDE RECORDS SUMMARY | 2018-11-14 18:10 | XMS REPORT ---
[...] End Status Dosage System Date Date Montelukast [facility] 25395608576 10 MG Oral Active TAKE 1 Sodium TABLET BY MOUTH EVERY EVENING Lidocaine [facility] 47003571667 2 % Mouth/Throat Active TAKE 5ML Viscous BY MOUTH THREE TO FOUR TIMES DAILY Tramadol HCl [facility] 37571780743 50 MG Orally Nov 29, Active 1 tablet every 6 hrs 2017 as needed Alprazolam [facility] 20153124057 1 MG Oral Active (Schedule IV Drug) TAKE 1 TABLET BY MOUTH 3 TIMES A DAY PredniSONE [facility] 92459134469 10 MG Oral Active TAKE 1 TABLET BY MOUTH TWICE A DAY FOR 7 DAYS All Day Allergy [facility] 11230998560 10 MG Oral Active TAKE 1 TABLET BY MOUTH EVERY DAY Results No Known Results Summary Purpose eClinicalWorks Submission
--- OUTSIDE RECORDS SUMMARY | 2018-11-14 18:10 | XMS REPORT ---
[...] Dosage System Date Date All Day Allergy [facility] 98721781679 10 MG Oral Active TAKE 1 TABLET BY MOUTH EVERY DAY Montelukast [facility] 34840926165 10 MG Oral Active TAKE 1 Sodium TABLET BY MOUTH EVERY EVENING Alprazolam [facility] 07694589210 1 MG Oral Active (Schedule IV Drug) TAKE 1 TABLET BY MOUTH 3 TIMES A DAY PredniSONE ND 97693220053 10 MG Oral Active TAKE 1 TABLET BY MOUTH TWICE A DAY FOR 7 DAYS Lidocaine ND 49628909403 2 % Mouth/Throat Active TAKE 5ML Viscous BY MOUTH THREE TO FOUR TIMES DAILY Results No Known Results Summary Purpose eClinicalWorks Submission
--- OUTSIDE RECORDS SUMMARY | 2018-11-14 18:10 | XMS REPORT ---
[...] End Status Dosage System Date Date Alprazolam [facility] 00348404971 1 MG Oral Active (Schedule IV Drug) TAKE 1 TABLET BY MOUTH 3 TIMES A DAY PredniSONE [facility] 89621462682 10 MG Oral Active TAKE 1 TABLET BY MOUTH TWICE A DAY FOR 7 DAYS Lidocaine [facility] 97673891652 2 % Mouth/Throat Active TAKE 5ML Viscous BY MOUTH THREE TO FOUR TIMES DAILY Montelukast [facility] 50576911906 10 MG Oral Active TAKE 1 Sodium TABLET BY MOUTH EVERY EVENING All Day Allergy [facility] 38921479269 10 MG Oral Active TAKE 1 TABLET BY MOUTH EVERY DAY Results No Known Results Summary Purpose eClinicalWorks Submission
--- OUTSIDE RECORDS SUMMARY | 2018-11-14 18:10 | XMS REPORT ---
[...] Date Status Dosage System Date Tramadol HCl [facility] 17685336366 50 MG Orally Nov 29, Active 1 tablet every 6 hrs 2018 as needed Results No Known Results Summary Purpose eClinicalWorks Submission
--- NOTE | 2018-11-14 18:29 | ER ---
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 Transition of care: patient was not received from another setting of care. Onset of symptoms was November 14, 2018. Risk Assessment: Do you want to hurt yourself or someone else? Patient reports no desire to harm self or others. Initial Sepsis Screen: Does the patient meet any 2 criteria? No. Patient's initial sepsis screen is negative. Does the patient have a suspected source of infection? No. Patient's initial sepsis screen is negative. Care prior to arrival: None. 18:21 Method Of Arrival: Ambulatory iw 18:21 Acuity: CED 4 iw Historical: - Allergies: 18:23 Fentanyl; iw 18:26 Fentanyl; sg - PMHx: 18:23 Anxiety; Arthritis; Asthma; COPD; Depression; Schizophrenia; seasonal allergies; iw - PSHx: 18:23 Tubal ligation; Appendectomy; iw - Immunization history:: Adult Immunizations up to date. - Social history:: Smoking status: Patient uses tobacco products, smokes one-half pack cigarettes per day. - Ebola Screening: : Patient negative for fever greater than or equal to 101.5 degrees Fahrenheit, and additional compatible Ebola Virus Disease symptoms Patient denies exposure to infectious person Patient denies travel to an Ebola-affected area in the 21 days before illness onset No symptoms or risks identified at this time. Screenin:28 Abuse screen: Denies threats or abuse. Denies injuries from another. Nutritional sg screening: No deficits noted. Tuberculosis screening: No symptoms or risk factors identified. Never had TB. Fall Risk None identified. Assessment: 18:28 General: Appears in no apparent distress. well groomed, well developed, well nourished, sg Behavior is calm, cooperative, appropriate for age. Pain: Complains of pain in right wrist Quality of pain is described as aching. Neuro: Level of Consciousness is awake, alert, obeys commands, Oriented to person, place, time, Moves all extremities. Speech is normal. Cardiovascular: Capillary refill is brisk in bilateral fingers Patient's skin is warm and dry. Chest pain is denied. Respiratory: Airway is patent Respiratory effort is even, unlabored, Respiratory pattern is regular, symmetrical. GI: Abdomen is flat, non-distended, Reports normal bowel habits, tolerance of fluids, tolerance of food. : No signs and/or symptoms were reported regarding the genitourinary system. EENT: No signs and/or symptoms were reported regarding the EENT system. Derm: Skin is intact, is healthy with good turgor, Skin is dry, Skin is normal, Skin temperature is warm. Musculoskeletal: Circulation, motion, and sensation intact. Range of motion: intact in all extremities. Vital Signs: 18:24 Pulse 89; Resp 16 S; Temp 98.2; Pulse Ox 100% on R/A; Weight 56.7 kg; Height 5 ft. 4 iw in. (162.56 cm); Pain 9/10; 18:31 BP 109 / 73; sg 18:24 Body Mass Index 21.46 (56.70 kg, 162.56 cm) iw ED Course: 18:11 Patient arrived in ED. as 18:14 Walker Carlos MD is Attending Physician. kdr 18:22 Triage completed. iw 18:24 Arm band placed on. iw 18:28 Linus Cornejo, RN is Primary Nurse. sg 18:28 Patient has correct armband on for positive identification. Bed in low position. Call sg light in reach. Side rails up X2. Pulse ox on. NIBP on. Warm blanket given. Head of bed elevated. 18:28 No provider procedures requiring assistance completed. Patient did not have IV access sg during this emergency room visit. Ice pack applied to the area. Administered Medications: 18:25 Drug: traMADol 50 mg Route: PO; sg 18:25 Drug: predniSONE 40 mg Route: PO; sg Outcome: 18:28 Discharge ordered by . kdr 18:50 Patient left the ED. sg Signatures: Linus Cornejo RN RN sg Walker Carlos MD MD kdr Nakita Penn Irene, RN RN iw
--- NOTE | 2018-11-14 18:30 | EDPHYS ---
Physician Documentation [facility] Name: Mary Drake Age: 32 yrs Sex: Female : 1985 Arrival Date: 11/14/2018 Time: 18:11 Bed 20 Private MD: ED Physician Walker Carlos HPI: 11/14 18:19 This 32 yrs old Black Female presents to ER via Unassigned with complaints of Wrist kdr Pain. 18:19 The patient or guardian reports decreased range of motion, injury, pain, tenderness. kdr The complaints affect the left wrist diffusely. Context: The problem was sustained at work, resulted from lifting or pulling, a repetitive motion. Onset: The symptoms/episode began/occurred 2 week(s) ago. Modifying factors: The symptoms are alleviated by nothing, the symptoms are aggravated by movement. Associated signs and symptoms: The patient has no apparent associated signs or symptoms. Compartment Syndrome negative for tingling, positive for. The patient has experienced similar episodes in the past, multiple times. The patient has not recently seen a physician. The patient states that she has been doing a lot of repetitive motion and lifting at work lately and that it may have aggravated her carpal tunnel syndrome. She has had this pain in these circumstances many times before but this time seems to worse than most other experiences. Historical: - Allergies: 18:23 Fentanyl; iw 18:26 Fentanyl; sg - PMHx: 18:23 Anxiety; Arthritis; Asthma; COPD; Depression; Schizophrenia; seasonal allergies; iw - PSHx: 18:23 Tubal ligation; Appendectomy; iw - Immunization history:: Adult Immunizations up to date. - Social history:: Smoking status: Patient uses tobacco products, smokes one-half pack cigarettes per day. - Ebola Screening: : Patient negative for fever greater than or equal to 101.5 degrees Fahrenheit, and additional compatible Ebola Virus Disease symptoms Patient denies exposure to infectious person Patient denies travel to an Ebola-affected area in the 21 days before illness onset No symptoms or risks identified at this time. ROS: 18:19 Constitutional: Negative for fever, chills, and weight loss, Eyes: Negative for injury, kdr pain, redness, and discharge, Neck: Negative for injury, pain, and swelling, Cardiovascular: Negative for chest pain, palpitations, and edema, Respiratory: Negative for shortness of breath, cough, wheezing, and pleuritic chest pain, Abdomen/GI: Negative for abdominal pain, nausea, vomiting, diarrhea, and constipation, Back: Negative for injury and pain, : Negative for injury, bleeding, discharge, and swelling, Skin: Negative for injury, rash, and discoloration, Neuro: Negative for headache, weakness, numbness, tingling, and seizure activity. Psych: Negative for depression, anxiety, suicide ideation, homicidal ideation, and hallucinations, Allergy/Immunology: Negative for hives, rash, and allergies, Endocrine: Negative for neck swelling, polydipsia, polyuria, polyphagia, and marked weight changes, Hematologic/Lymphatic: Negative for swollen nodes, abnormal bleeding, and unusual bruising. 18:19 MS/extremity: Positive for decreased range of motion, pain, tenderness, of the left wrist. Exam: 18:19 Hand exam: ROM: limited active range of motion, limited passive range of motion, in the kdr left arm, limited active range of motion due to pain, limited passive range of motion due to pain. 18:19 Constitutional: This is a well developed, well nourished patient who is awake, alert, and in no acute distress. Vital Signs: 18:24 Pulse 89; Resp 16 S; Temp 98.2; Pulse Ox 100% on R/A; Weight 56.7 kg; Height 5 ft. 4 iw in. (162.56 cm); Pain 9/10; 18:31 BP 109 / 73; sg 18:24 Body Mass Index 21.46 (56.70 kg, 162.56 cm) iw Procedures: 18:19 Splinting: The patient had her own wrist splint. kdr MDM: 18:19 Data reviewed: vital signs. kdr 18:19 Special discussion: I discussed with the patient/guardian in detail that at this point kdr there is no indication for admission to the hospital. It is understood, however, that if the symptoms persist or worsen the patient needs to return immediately for re-evaluation. 18:28 Patient medically screened. kdr Administered Medications: 18:25 Drug: traMADol 50 mg Route: PO; sg 18:25 Drug: predniSONE 40 mg Route: PO; sg Disposition: 11/14/18 18:28 Discharged to Home. Impression: Pain in left wrist. - Condition is Stable. - Discharge Instructions: Wrist Pain, Gwre-am-Qboz, Joint Pain, [id number]-yz-[id number]. - Prescriptions for Prednisone 20 mg Oral Tablet - take 1 tablet by ORAL route once daily for 10 days Follow with 10 mg PO QD x 10 days. Dispense qunatity sufficient; 20 tablet. Tramadol 50 mg Oral Tablet - take 1 tablet by ORAL route every 8 hours as needed; 12 tablet. - Medication Reconciliation Form, Thank You Letter, Prescription Opioid Use form. - Follow up: Private Physician; When: 2 - 3 days; Reason: If symptoms return, Further diagnostic work-up, Recheck today's complaints, Continuance of care, Re-evaluation by your physician. - Problem is an acute exacerbation. - Symptoms have improved. Signatures: Linus Cornejo RN RN sg Walker Carlos MD MD kdr Elaina Brown RN RN iw Corrections: (The following items were deleted from the chart) 18:50 18:28 11/14/2018 18:28 Discharged to Home. Impression: Pain in left wrist. Condition is sg Stable. Forms are Medication Reconciliation Form, Thank You Letter, Antibiotic Education, Prescription Opioid Use. Follow up: Private Physician; When: 2 - 3 days; Reason: If symptoms return, Further diagnostic work-up, Recheck today's complaints, Continuance of care, Re-evaluation by your physician. Problem is an acute exacerbation. Symptoms have improved. kdr
[2018-11-14] MEDS ORDERED: TRAMADOL HCL 50 MG TAB ONE (18:41)
[2018-11-14] MEDS ORDERED: predniSONE 20 MG TAB ONE (18:41)
[2018-11-14 19:32] VITALS: TEMP 98.2; O2SAT 100
[2018-11-14 19:33] VITALS: BP 109/73
== END 2018-11-14 18:50 | disposition home or self-care (01) ==
LOC: ER 18:08
DX: M25.532 Pain in left wrist (principal); F17.210 Nicotine dependence, cigarettes, uncomplicated; Z88.8 Allergy status to other drugs, medicaments and biological substances
CPT/HCPCS: 99283; J7512

== ENCOUNTER 2018-12-09 10:28 | Emergency (ER) | payer MEDICAID ==
--- OUTSIDE RECORDS SUMMARY | 2018-12-09 10:31 | XMS REPORT ---
[...] End Status Dosage System Date Date Alprazolam [facility] 17806552614 1 MG Oral Active (Schedule IV Drug) TAKE 1 TABLET BY MOUTH 3 TIMES A DAY PredniSONE [facility] 16481268911 10 MG Oral Active TAKE 1 TABLET BY MOUTH TWICE A DAY FOR 7 DAYS Lidocaine [facility] 44271071955 2 % Mouth/Throat Active TAKE 5ML Viscous BY MOUTH THREE TO FOUR TIMES DAILY Montelukast [facility] 25798371646 10 MG Oral Active TAKE 1 Sodium TABLET BY MOUTH EVERY EVENING All Day Allergy [facility] 56858773296 10 MG Oral Active TAKE 1 TABLET BY MOUTH EVERY DAY Results No Known Results Summary Purpose eClinicalWorks Submission
--- OUTSIDE RECORDS SUMMARY | 2018-12-09 10:31 | XMS REPORT ---
[...] End Status Dosage System Date Date Montelukast [facility] 79171886016 10 MG Oral Active TAKE 1 Sodium TABLET BY MOUTH EVERY EVENING Lidocaine [facility] 39752571389 2 % Mouth/Throat Active TAKE 5ML Viscous BY MOUTH THREE TO FOUR TIMES DAILY Tramadol HCl [facility] 00173079581 50 MG Orally Nov 29, Active 1 tablet every 6 hrs 2017 as needed Alprazolam [facility] 39780270662 1 MG Oral Active (Schedule IV Drug) TAKE 1 TABLET BY MOUTH 3 TIMES A DAY PredniSONE [facility] 66098818623 10 MG Oral Active TAKE 1 TABLET BY MOUTH TWICE A DAY FOR 7 DAYS All Day Allergy [facility] 55273249052 10 MG Oral Active TAKE 1 TABLET BY MOUTH EVERY DAY Results No Known Results Summary Purpose eClinicalWorks Submission
--- OUTSIDE RECORDS SUMMARY | 2018-12-09 10:31 | XMS REPORT ---
:1985 Author Organization eClinicalWorks Care Team Providers Name Role Phone Kyel Valdes Provider Role Unavailable Allergies, Adverse Reactions, [...] Day Allergy [facility] 46841301459 10 MG Oral Active TAKE 1 TABLET BY MOUTH EVERY DAY Montelukast [facility] 73843040699 10 MG Oral Active TAKE 1 Sodium TABLET BY MOUTH EVERY EVENING Alprazolam [facility] 13015029676 1 MG Oral Active (Schedule IV Drug) TAKE 1 TABLET BY MOUTH 3 TIMES A DAY PredniSONE ND 96537461839 10 MG Oral Active TAKE 1 TABLET BY MOUTH TWICE A DAY FOR 7 DAYS Lidocaine ND 02244898950 2 % Mouth/Throat Active TAKE 5ML Viscous BY MOUTH THREE TO FOUR TIMES DAILY Results No Known Results Summary Purpose eClinicalWorks Submission
--- OUTSIDE RECORDS SUMMARY | 2018-12-09 10:31 | XMS REPORT ---
[...] Date Status Dosage System Date Tramadol HCl [facility] 38941731554 50 MG Orally Nov 29, Active 1 tablet every 6 hrs 2018 as needed Results No Known Results Summary Purpose eClinicalWorks Submission
--- NOTE | 2018-12-09 11:39 | EDPHYS ---
Physician Documentation [facility] Name: Mary Drake Age: 33 yrs Sex: Female : 1985 Arrival Date: 12/09/2018 Time: 10:30 Bed 14 Private MD: ED Physician Adria Lala HPI: 12/09 11:37 This 33 yrs old Black Female presents to ER via Ambulatory with complaints of Headache, pm1 Congestion, Anxiety. 11:37 The patient complains of pain to the forehead, right cheek and left cheek. The patient pm1 describes the headache as constant. Onset: The symptoms/episode began/occurred 2 month(s) ago. Associated signs and symptoms: Pertinent negatives: fever, nausea, neck stiffness, paresthesias, Photophobia rash, vomiting, weakness. Severity of symptoms: in the emergency department the pain is actually worse. Headache History: The patient has had previous headaches and this one is similar to previous episodes. The symptoms are alleviated by hot shower the symptoms are aggravated by nothing. The patient has experienced similar episodes in the past, and the symptoms today are exactly the same, to previous sinusitis. Usually gets them around this time of year. The patient has not recently seen a physician. 11:37 Patient's sinus congestion causes difficulty breathing through nose at night and then pm1 she has anxiety attack from it as a result. 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 - Social history:: Smoking status: Patient/guardian denies using tobacco. - Ebola Screening: : Patient denies exposure to infectious person Patient denies travel to an Ebola-affected area in the 21 days before illness onset. ROS: 11:37 Constitutional: Negative for fever, chills, and weight loss, Eyes: Negative for injury, pm1 pain, redness, and discharge, Neck: Negative for injury, pain, and swelling. 11:37 Cardiovascular: Negative for chest pain, palpitations, and edema, Respiratory: Negative for shortness of breath, cough, wheezing, and pleuritic chest pain, Abdomen/GI: Negative for abdominal pain, nausea, vomiting, diarrhea, and constipation, Back: Negative for injury and pain, : Negative for injury, bleeding, discharge, and swelling, MS/Extremity: Negative for injury and deformity, Skin: Negative for injury, rash, and discoloration. 11:37 ENT: Positive for ear pain, sinus congestion, sinus pain, Negative for difficulty swallowing, difficulty handling secretions, hoarseness. 11:37 Neuro: Positive for headache, Negative for dizziness, numbness, tingling, weakness. 11:37 Psych: Positive for anxiety, Negative for depression. Exam: 11:37 Constitutional: This is a well developed, well nourished patient who is awake, alert, pm1 and in no acute distress. Eyes: Pupils equal round and reactive to light, extra-ocular motions intact. Lids and lashes normal. Conjunctiva and sclera are non-icteric and not injected. Cornea within normal limits. Periorbital areas with no swelling, redness, or edema. 11:37 ENT: Nares patent. No nasal discharge, no septal abnormalities noted. Tympanic membranes are normal and external auditory canals are clear. Oropharynx with no redness, swelling, or masses, exudates, or evidence of obstruction, uvula midline. Mucous membranes moist. Neck: Trachea midline, no thyromegaly or masses palpated, and no cervical lymphadenopathy. Supple, full range of motion without nuchal rigidity, or vertebral point tenderness. No Meningismus. Chest/axilla: Normal chest wall appearance and motion. Nontender with no deformity. No lesions are appreciated. Cardiovascular: Regular rate and rhythm with a normal S1 and S2. No gallops, murmurs, or rubs. Normal PMI, no JVD. No pulse deficits. Respiratory: Lungs have equal breath sounds bilaterally, clear to auscultation and percussion. No rales, rhonchi or wheezes noted. No increased work of breathing, no retractions or nasal flaring. Abdomen/GI: Soft, non-tender, with normal bowel sounds. No distension or tympany. No guarding or rebound. No evidence of tenderness throughout. Back: No spinal tenderness. No costovertebral tenderness. Full range of motion. Skin: Warm, dry with normal turgor. Normal color with no rashes, no lesions, and no evidence of cellulitis. MS/ Extremity: Pulses equal, no cyanosis. Neurovascular intact. Full, normal range of motion. 11:37 Head/face: Sinus tenderness, that is moderate, is located over the right frontal sinus, left frontal sinus, right maxillary sinus and left maxillary sinus. 11:37 Neuro: Orientation: is normal, Mentation: is normal, Cranial nerves: CN II- XII are normal as tested, Cerebellar function: normal finger to nose testing, Motor: moves all fours, Sensation: is normal, no obvious gross deficits, Gait: is steady, at a normal pace, without difficulty. Vital Signs: 10:53 BP 105 / 73; Pulse 98; Resp 16; Temp 98.4(TE); Pulse Ox 99% on R/A; Weight 56.7 kg; ss Height 5 ft. 4 in. (162.56 cm); Pain 8/10; 10:53 Body Mass Index 21.46 (56.70 kg, 162.56 cm) ss MDM: 11:27 Patient medically screened. pm1 11:37 Data reviewed: vital signs. Data interpreted: Pulse oximetry: on room air is 99 %. pm1 Interpretation: normal. Counseling: I had a detailed discussion with the patient and/or guardian regarding: the historical points, exam findings, and any diagnostic results supporting the discharge/admit diagnosis, the need for outpatient follow up, to return to the emergency department if symptoms worsen or persist or if there are any questions or concerns that arise at home. 11:37 ED course: Patient with sinusitis symptoms greater than 10 days, will treat with pm1 antibiotics. Administered Medications: 11:55 Drug: SOLU-Medrol 125 mg Route: IM; Site: left ventrogluteal; jl7 12:12 Follow up: Response: No adverse reaction jl7 Disposition: 15:31 Co-signature as Attending Physician, Adria Lala MD I agree with the assessment and tawana plan of care. Disposition: 12/09/18 11:38 Discharged to Home. Impression: Acute sinusitis, unspecified. - Condition is Stable. - Discharge Instructions: Sinusitis, Adult. - Prescriptions for Augmentin 875- 125 mg Oral Tablet - take 1 tablet by ORAL route every 12 hours for 10 days; 20 tablet. Prednisone 20 mg Oral Tablet - take 2 tablet by ORAL route once daily for 5 days; 10 tablet. - Medication Reconciliation Form, Thank You Letter, Antibiotic Education, Prescription Opioid Use form. - Follow up: Emergency Department; When: As needed; Reason: Worsening of condition. Follow up: Private Physician; When: 2 - 3 days; Reason: Recheck today's complaints, Continuance of care, Re-evaluation by your physician. - Problem is new. - Symptoms have improved. Signatures: Adria Lala MD MD cha Smirch, Shelby, RN RN ss Alistair Moralez NP LOKIE ENGINEER pm1 Nannette Bah RN RN jl7 Corrections: (The following items were deleted from the chart) 12:13 11:38 12/09/2018 11:38 Discharged to Home. Impression: Acute sinusitis, unspecified. jl7 Condition is Stable. Forms are Medication Reconciliation Form, Thank You Letter, Antibiotic Education, Prescription Opioid Use. Follow up: Emergency Department; When: As needed; Reason: Worsening of condition. Follow up: Private Physician; When: 2 - 3 days; Reason: Recheck today's complaints, Continuance of care, Re-evaluation by your physician. Problem is new. Symptoms have improved. pm1
--- NOTE | 2018-12-09 11:39 | ER ---
Nurse's Notes [facility] Name: Mary Drake Age: 33 yrs Sex: Female : 1985 Arrival Date: 12/09/2018 Time: 10:30 Bed 14 Private MD: Diagnosis: Acute sinusitis, unspecified Presentation: 12/09 10:51 Presenting complaint: Patient states: nasal congestion/ drainage that began 2 months ss ago and is affecting her breathing at night which is making her anxious. Patient also c/o sore throat began yesterday as well as a cough. Transition of care: patient was not received from another setting of care. Onset of symptoms is unknown. Risk Assessment: Do you want to hurt yourself or someone else? Patient reports no desire to harm self or others. Initial Sepsis Screen: Does the patient have a suspected source of infection? No. Patient's initial sepsis screen is negative. Initial Sepsis Screen: Does the patient meet any 2 criteria? No. Patient's initial sepsis screen is negative. Care prior to arrival: None. 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 - Social history:: Smoking status: Patient/guardian denies using tobacco. - Ebola Screening: : Patient denies exposure to infectious person Patient denies travel to an Ebola-affected area in the 21 days before illness onset. Screenin:30 Abuse screen: Denies threats or abuse. Denies injuries from another. Nutritional jl7 screening: No deficits noted. Tuberculosis screening: No symptoms or risk factors identified. Fall Risk None identified. Assessment: 11:30 General: Appears in no apparent distress. uncomfortable, Behavior is calm, cooperative, jl7 appropriate for age. Pain: Complains of pain in DUNLAP, Sinuses. Neuro: Level of Consciousness is awake, alert, obeys commands, Oriented to person, place, time, situation. Cardiovascular: Patient's skin is warm and dry. Respiratory: Airway is patent Respiratory effort is even, unlabored, Respiratory pattern is regular, symmetrical. Derm: Skin is pink, warm \T\ dry. 11:55 Reassessment: Pt will be discharged once shot time is up. jl7 Vital Signs: 10:53 BP 105 / 73; Pulse 98; Resp 16; Temp 98.4(TE); Pulse Ox 99% on R/A; Weight 56.7 kg; Height 5 ft. 4 in. (162.56 cm); Pain 8/10; 10:53 Body Mass Index 21.46 (56.70 kg, 162.56 cm) ED Course: 10:30 Patient arrived in ED. cf2 10:52 Triage completed. ss 10:53 Arm band placed on left wrist. ss 11:26 Nannette Bah RN is Primary Nurse. jl7 11:26 Alistair Moralez NP is PHCP. pm1 11:26 Adria Lala MD is Attending Physician. pm1 11:30 Patient has correct armband on for positive identification. Bed in low position. Call jl7 light in reach. Side rails up X 1. 12:02 No provider procedures requiring assistance completed. Patient did not have IV access jl7 during this emergency room visit. Administered Medications: 11:55 Drug: SOLU-Medrol 125 mg Route: IM; Site: left ventrogluteal; jl7 12:12 Follow up: Response: No adverse reaction jl7 Outcome: 11:38 Discharge ordered by . pm1 12:12 Discharged to home ambulatory. jl7 12:12 Condition: stable 12:12 Discharge instructions given to patient, Instructed on discharge instructions, follow up and referral plans. medication usage, Demonstrated understanding of instructions, follow-up care, medications, Prescriptions given X 2. 12:13 Patient left the ED. jl7 Signatures: Autumn Carson RN RN Alistair Moralez, TUBE HANDLER TUBE HANDLER pm1 Nannette Bah RN RN jl7 Tiff Viera cf2
[2018-12-09] MEDS ORDERED: METHYLPREDNISOLONE 125 MG INJ ONE (11:44)
[2018-12-09 12:35] VITALS: BP 105/73; TEMP 98.4; O2SAT 99
== END 2018-12-09 12:13 | disposition home or self-care (01) ==
LOC: ER 10:28
DX: J01.90 Acute sinusitis, unspecified (principal)
CPT/HCPCS: 96372; 99283; J2930

== ENCOUNTER 2019-04-13 09:16 | Emergency (ER) | payer MEDICAID ==
--- OUTSIDE RECORDS SUMMARY | 2019-04-13 09:18 | XMS REPORT ---
[...] End Status Dosage System Date Date Alprazolam [facility] 09348681151 1 MG Oral Active (Schedule IV Drug) TAKE 1 TABLET BY MOUTH 3 TIMES A DAY PredniSONE [facility] 74743019225 10 MG Oral Active TAKE 1 TABLET BY MOUTH TWICE A DAY FOR 7 DAYS Lidocaine [facility] 22740225887 2 % Mouth/Throat Active TAKE 5ML Viscous BY MOUTH THREE TO FOUR TIMES DAILY Montelukast [facility] 57293074367 10 MG Oral Active TAKE 1 Sodium TABLET BY MOUTH EVERY EVENING All Day Allergy [facility] 59778239096 10 MG Oral Active TAKE 1 TABLET BY MOUTH EVERY DAY Results No Known Results Summary Purpose eClinicalWorks Submission
--- OUTSIDE RECORDS SUMMARY | 2019-04-13 09:18 | XMS REPORT ---
[...] Dosage System Date Date All Day Allergy [facility] 10805610457 10 MG Oral Active TAKE 1 TABLET BY MOUTH EVERY DAY Montelukast [facility] 50363597542 10 MG Oral Active TAKE 1 Sodium TABLET BY MOUTH EVERY EVENING Alprazolam [facility] 76138256879 1 MG Oral Active (Schedule IV Drug) TAKE 1 TABLET BY MOUTH 3 TIMES A DAY PredniSONE ND 44066383282 10 MG Oral Active TAKE 1 TABLET BY MOUTH TWICE A DAY FOR 7 DAYS Lidocaine ND 47271157452 2 % Mouth/Throat Active TAKE 5ML Viscous BY MOUTH THREE TO FOUR TIMES DAILY Results No Known Results Summary Purpose eClinicalWorks Submission
--- OUTSIDE RECORDS SUMMARY | 2019-04-13 09:18 | XMS REPORT ---
[...] Date Status Dosage System Date Tramadol HCl [facility] 59576821791 50 MG Orally Nov 29, Active 1 tablet every 6 hrs 2018 as needed Results No Known Results Summary Purpose eClinicalWorks Submission
--- OUTSIDE RECORDS SUMMARY | 2019-04-13 09:19 | XMS REPORT ---
[...] Status Dosage System Date Date Montelukast [facility] 49896644431 10 MG Oral Active TAKE 1 Sodium TABLET BY MOUTH EVERY EVENING Lidocaine [facility] 82039781042 2 % Mouth/Throat Active TAKE 5ML Viscous BY MOUTH THREE TO FOUR TIMES DAILY Tramadol HCl [facility] 81008646222 50 MG Orally Nov 29, Active 1 tablet every 6 hrs 2017 as needed Alprazolam [facility] 86345163387 1 MG Oral Active (Schedule IV Drug) TAKE 1 TABLET BY MOUTH 3 TIMES A DAY PredniSONE [facility] 27192231248 10 MG Oral Active TAKE 1 TABLET BY MOUTH TWICE A DAY FOR 7 DAYS All Day Allergy [facility] 85780579260 10 MG Oral Active TAKE 1 TABLET BY MOUTH EVERY DAY Results No Known Results Summary Purpose eClinicalWorks Submission
[2019-04-13] MEDS ORDERED: BISACODYL E.C. 5 MG TAB PO ONE (10:05)
[2019-04-13 10:28] LABS: Urine Blood NEGATIVE (NEG); Urine Glucose NEGATIVE (NEG); Urine Protein NEGATIVE (NEG); Urine Specific Gravity 1.025 (1.005-1.030)
--- NOTE | 2019-04-13 10:48 | EDPHYS ---
Physician Documentation [facility] Name: Mary Drake Age: 33 yrs Sex: Female : 1985 Arrival Date: 04/13/2019 Time: 09:17 Bed 16 Private MD: Lakeisha Mancini ED Physician Dillan Rodriguez HPI: 04/13 10:14 This 33 yrs old Black Female presents to ER via Ambulatory with complaints of la1 Constipation, Anxiety, Decreased Appetite. 10:14 Onset: The symptoms/episode began/occurred 1 week(s) ago. Associated signs and la1 symptoms: Pertinent positives: constipation, Pertinent negatives: abdominal pain, chest pain, cough, dysuria, headache, nasal discharge, seizure, sore throat, vomiting, wheezing. Modifying factors: The patient symptoms are alleviated by nothing, the patient symptoms are aggravated by nothing. The patient has not experienced similar symptoms in the past. The patient has not recently seen a physician. pt reports she has been constipated and feeling like "belly is full" which is making her anxiety worse. At home pt took a suppository and had some small stool pass that was small and hard. Also reports some pain with urination.. 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 - Social history:: Smoking status: Patient/guardian denies using tobacco. - Ebola Screening: : Patient negative for fever greater than or equal to 101.5 degrees Fahrenheit, and additional compatible Ebola Virus Disease symptoms Patient denies exposure to infectious person Patient denies travel to an Ebola-affected area in the 21 days before illness onset No symptoms or risks identified at this time. ROS: 10:15 Constitutional: Negative for fever, chills, and weight loss, Eyes: Negative for injury, la1 pain, redness, and discharge, ENT: Negative for injury, pain, and discharge, Cardiovascular: Negative for chest pain, palpitations, and edema, Respiratory: Negative for shortness of breath, cough, wheezing, and pleuritic chest pain. 10:15 Back: Negative for injury and pain, MS/Extremity: Negative for injury and deformity, Neuro: Negative for headache, weakness, numbness, tingling, and seizure, Psych: Negative for depression, anxiety, suicide ideation, homicidal ideation, and hallucinations. 10:15 Abdomen/GI: Positive for constipation, Negative for abdominal pain, nausea and vomiting. Exam: 10:17 Constitutional: This is a well developed, well nourished patient who is awake, alert, la1 and in no acute distress. Head/Face: Normocephalic, atraumatic. Eyes: Pupils equal round and reactive to light, extra-ocular motions intact. Periorbital areas with no swelling, redness, or edema. ENT: Mucous membranes moist. Neck: . No Meningismus. Chest/axilla: Normal chest wall appearance and motion. Nontender with no deformity. No lesions are appreciated. Cardiovascular: Regular rate and rhythm with a normal S1 and S2. No gallops, murmurs, or rubs. Normal PMI, no JVD. No pulse deficits. Respiratory: Lungs have equal breath sounds bilaterally, clear to auscultation No rales, rhonchi or wheezes noted. No increased work of breathing, no retractions or nasal flaring. Abdomen/GI: Soft, non-tender, with normal bowel sounds. No distension No guarding or rebound. No evidence of tenderness throughout. Back: No spinal tenderness. No costovertebral tenderness. Full range of motion. MS/ Extremity: Pulses equal, no cyanosis. Neurovascular intact. Full, normal range of motion. Vital Signs: 09:30 BP 112 / 74; Pulse 99; Resp 16 S; Temp 98.4; Pulse Ox 100% on R/A; Weight 47.63 kg; iw Height 5 ft. 4 in. (162.56 cm); 11:17 BP 115 / 69; Pulse 85; Resp 16; Temp 98.5; Pulse Ox 100% ; bp 09:30 Body Mass Index 18.02 (47.63 kg, 162.56 cm) iw MDM: 09:43 Patient medically screened. la1 10:44 Data reviewed: vital signs, nurses notes, lab test result(s), I have discussed the la1 patient's presentation/case with the attending Emergency Department Physician; and as a result, I will discharge patient. Data interpreted: Pulse oximetry: on room air is 100 %. Interpretation: normal. Counseling: I had a detailed discussion with the patient and/or guardian regarding: the historical points, exam findings, and any diagnostic results supporting the discharge/admit diagnosis, lab results, the need for outpatient follow up, a family practitioner. ED course: pt tolerating PO, had BM last night. Abd is soft and non-tender. 04/13 10:08 Order name: Urine Dipstick--Ancillary (enter results) eb 04/13 10:08 Order name: Urine --Ancillary (enter results) eb 04/13 09:57 Order name: Urine Dipstick-Ancillary (obtain specimen); Complete Time: 10:05 la1 04/13 09:57 Order name: PO challenge; Complete Time: 10:05 la1 Administered Medications: 09:57 CANCELLED (Other Intervention Used): Dulcolax Delayed Release Tablet 5 mg PO once la1 10:05 Drug: Dulcolax Delayed Release Tablet 10 mg Route: PO; bp 11:20 Follow up: Response: No adverse reaction bp Disposition: 17:35 Co-signature as Attending Physician, Dilaln oRdriguez MD. rn Disposition: 04/13/19 10:47 Discharged to Home. Impression: Constipation. - Condition is Stable. - Discharge Instructions: Constipation, Adult, Generalized Anxiety Disorder. - Prescriptions for magnesium citrate - take 1 bottle by ORAL route one time; 1 bottle. - Medication Reconciliation Form, Thank You Letter form. - Follow up: Private Physician; When: 2 - 3 days; Reason: Recheck today's complaints, Re-evaluation by your physician. - Problem is new. - Symptoms have improved. Signatures: Dispatcher [employer] EDMS Elaina Brown RN RN iw Nieto, Roman, MD MD rn Shiva Mathur, USER EXPERIENCE RESEARCHER-C USER EXPERIENCE RESEARCHER-Cla1 Tapan Navarro RN RN bp Corrections: (The following items were deleted from the chart) 09:57 09:57 Dulcolax Delayed Release Tablet 5 mg PO once ordered. la1 la1 11:21 10:47 04/13/2019 10:47 Discharged to Home. Impression: Constipation. Condition is bp Stable. Forms are Medication Reconciliation Form, Thank You Letter, Antibiotic Education, Prescription Opioid Use. Follow up: Private Physician; When: 2 - 3 days; Reason: Recheck today's complaints, Re-evaluation by your physician. Problem is new. Symptoms have improved. la1
--- NOTE | 2019-04-13 10:48 | ER ---
Nurse's Notes [facility] Name: Mary Drake Age: 33 yrs Sex: Female : 1985 Arrival Date: 04/13/2019 Time: 09:17 Bed 16 Private MD: Lakeisha Mancini Diagnosis: Constipation Presentation: 04/13 09:28 Presenting complaint: Patient states: has been constipated and taking laxative and iw suppositories, hasn't been able to sleep, also has been very anxious and is out of her anxiety medicine. Presenting complaint: Patient states: last BM was last night and was only a small amount. Transition of care: patient was not received from another setting of care. Onset of symptoms was April 11, 2019. Risk Assessment: Do you want to hurt yourself or someone else? Patient reports no desire to harm self or others. Initial Sepsis Screen: Does the patient meet any 2 criteria? No. Patient's initial sepsis screen is negative. Does the patient have a suspected source of infection? No. Patient's initial sepsis screen is negative. Care prior to arrival: None. 09:28 Method Of Arrival: Ambulatory iw 09:28 Acuity: CED 3 iw Triage Assessment: 09:30 General: Appears in no apparent distress. comfortable, Behavior is cooperative, bp appropriate for age, anxious. Pain: Denies pain. EENT: No deficits noted. Neuro: No deficits noted. Cardiovascular: No deficits noted. Respiratory: No deficits noted. GI: Reports constipation. : No signs and/or symptoms were reported regarding the genitourinary system. Derm: No deficits noted. Musculoskeletal: No deficits noted. 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 - Social history:: Smoking status: Patient/guardian denies using tobacco. - Ebola Screening: : Patient negative for fever greater than or equal to 101.5 degrees Fahrenheit, and additional compatible Ebola Virus Disease symptoms Patient denies exposure to infectious person Patient denies travel to an Ebola-affected area in the 21 days before illness onset No symptoms or risks identified at this time. Screenin:30 Abuse screen: Denies threats or abuse. Denies injuries from another. Nutritional bp screening: No deficits noted. Tuberculosis screening: No symptoms or risk factors identified. Fall Risk None identified. Assessment: 09:30 General: SEE TRIAGE NOTE. bp 11:17 Reassessment: PT D/C HOME AMBULATORY, DX WITH CONSTIPATION. bp Vital Signs: 09:30 BP 112 / 74; Pulse 99; Resp 16 S; Temp 98.4; Pulse Ox 100% on R/A; Weight 47.63 kg; iw Height 5 ft. 4 in. (162.56 cm); 11:17 BP 115 / 69; Pulse 85; Resp 16; Temp 98.5; Pulse Ox 100% ; bp 09:30 Body Mass Index 18.02 (47.63 kg, 162.56 cm) iw ED Course: 09:17 Patient arrived in ED. rg4 09:17 Lakeisha Mancini MD is Private Physician. rg4 09:30 Triage completed. iw 09:30 Arm band placed on. iw 09:30 Patient has correct armband on for positive identification. Bed in low position. Call bp light in reach. Side rails up X2. 09:39 Tapan Navarro, DAYDAY is Primary Nurse. bp 09:43 Shiva Mathur FNP-C is PHCP. la1 09:43 Dillan Rodriguez MD is Attending Physician. la1 11:17 No provider procedures requiring assistance completed. Patient did not have IV access bp during this emergency room visit. Administered Medications: 09:57 CANCELLED (Other Intervention Used): Dulcolax Delayed Release Tablet 5 mg PO once la1 10:05 Drug: Dulcolax Delayed Release Tablet 10 mg Route: PO; bp 11:20 Follow up: Response: No adverse reaction bp Outcome: 10:47 Discharge ordered by . la1 11:17 Discharged to home ambulatory, with family. bp 11:17 Condition: stable 11:17 Discharge instructions given to patient, Instructed on discharge instructions, follow up and referral plans. medication usage, Demonstrated understanding of instructions, follow-up care, medications, Prescriptions given X 1. 11:21 Patient left the ED. bp Signatures: Elaina Brown, RN RN iw Shiva Mathur, ICE CREAM FREEZER HELPER-C ICE CREAM FREEZER HELPER-Cla1 Rose Shaffer rg4 Tapan Navarro RN RN bp
[2019-04-13 11:34] VITALS: O2SAT 100
[2019-04-13 11:36] VITALS: BP 115/69; TEMP 98.5
== END 2019-04-13 11:21 | disposition home or self-care (01) ==
LOC: ER 09:16
DX: K59.00 Constipation, unspecified (principal); F41.9 Anxiety disorder, unspecified; F32.9 Major depressive disorder, single episode, unspecified; J44.9 Chronic obstructive pulmonary disease, unspecified; J30.2 Other seasonal allergic rhinitis
CPT/HCPCS: 81003; 81025; 99283

== ENCOUNTER 2019-07-01 11:10 | Emergency (ER) | payer MEDICAID ==
--- OUTSIDE RECORDS SUMMARY | 2019-07-01 11:13 | XMS REPORT ---
[...] End Status Dosage System Date Date Alprazolam [facility] 54581854025 1 MG Oral Active (Schedule IV Drug) TAKE 1 TABLET BY MOUTH 3 TIMES A DAY PredniSONE [facility] 25270871808 10 MG Oral Active TAKE 1 TABLET BY MOUTH TWICE A DAY FOR 7 DAYS Lidocaine [facility] 20683928552 2 % Mouth/Throat Active TAKE 5ML Viscous BY MOUTH THREE TO FOUR TIMES DAILY Montelukast [facility] 74477753274 10 MG Oral Active TAKE 1 Sodium TABLET BY MOUTH EVERY EVENING All Day Allergy [facility] 63576588474 10 MG Oral Active TAKE 1 TABLET BY MOUTH EVERY DAY Results No Known Results Summary Purpose eClinicalWorks Submission
--- OUTSIDE RECORDS SUMMARY | 2019-07-01 11:13 | XMS REPORT ---
[...] Date All Day Allergy [facility] 53142549201 10 MG Oral Active TAKE 1 TABLET BY MOUTH EVERY DAY Montelukast [facility] 02429841298 10 MG Oral Active TAKE 1 Sodium TABLET BY MOUTH EVERY EVENING Alprazolam [facility] 07752335788 1 MG Oral Active (Schedule IV Drug) TAKE 1 TABLET BY MOUTH 3 TIMES A DAY PredniSONE ND 05993149483 10 MG Oral Active TAKE 1 TABLET BY MOUTH TWICE A DAY FOR 7 DAYS Lidocaine ND 34618792668 2 % Mouth/Throat Active TAKE 5ML Viscous BY MOUTH THREE TO FOUR TIMES DAILY Results No Known Results Summary Purpose eClinicalWorks Submission
--- OUTSIDE RECORDS SUMMARY | 2019-07-01 11:13 | XMS REPORT ---
[...] End Status Dosage System Date Date Montelukast [facility] 31603978793 10 MG Oral Active TAKE 1 Sodium TABLET BY MOUTH EVERY EVENING Lidocaine [facility] 52956752773 2 % Mouth/Throat Active TAKE 5ML Viscous BY MOUTH THREE TO FOUR TIMES DAILY Tramadol HCl [facility] 27661733239 50 MG Orally Nov 29, Active 1 tablet every 6 hrs 2017 as needed Alprazolam [facility] 45613334578 1 MG Oral Active (Schedule IV Drug) TAKE 1 TABLET BY MOUTH 3 TIMES A DAY PredniSONE [facility] 22751321057 10 MG Oral Active TAKE 1 TABLET BY MOUTH TWICE A DAY FOR 7 DAYS All Day Allergy [facility] 78401837002 10 MG Oral Active TAKE 1 TABLET BY MOUTH EVERY DAY Results No Known Results Summary Purpose eClinicalWorks Submission
--- OUTSIDE RECORDS SUMMARY | 2019-07-01 11:13 | XMS REPORT ---
[...] Date Status Dosage System Date Tramadol HCl [facility] 22995427121 50 MG Orally Nov 29, Active 1 tablet every 6 hrs 2018 as needed Results No Known Results Summary Purpose eClinicalWorks Submission
--- NOTE | 2019-07-01 13:52 | ER ---
Nurse's Notes [facility] Name: Mary Drake Age: 33 yrs Sex: Female : 1985 Arrival Date: 07/01/2019 Time: 11:15 Bed 26 Private MD: Diagnosis: Ocular pain, right eye Presentation: 06/30 11:58 Chief complaint: Patient states: pain in both eyes. left eye is flared up, right eye is dm5 the one with an implant. Dr. Tripathi says I need another surgery. Coronavirus screen: The patient has NOT traveled to a country currently being monitored by the [facility] within the last 14 days. Proceed with normal triage procedures. The patient has NOT had contact with any known and/or suspected case of coronavirus. Proceed with normal triage procedures. Ebola Screen: Patient negative for fever greater than or equal to 101.5 degrees Fahrenheit, and additional compatible Ebola Virus Disease symptoms Patient denies exposure to infectious person. Patient denies travel to an Ebola-affected area in the 21 days before illness onset. No symptoms or risks identified at this time. Initial Sepsis Screen: Does the patient meet any 2 criteria? No. Patient's initial sepsis screen is negative. Does the patient have a suspected source of infection? No. Patient's initial sepsis screen is negative. Risk Assessment: Do you want to hurt yourself or someone else? Patient reports no desire to harm self or others. 11:58 Method Of Arrival: Ambulatory dm5 11:58 Acuity: CED 4 dm5 14:29 Onset of symptoms was June 27, 2019. ll1 Triage Assessment: 13:44 General: Appears in no apparent distress. Behavior is calm, cooperative. ll1 14:29 Pain: Denies pain. 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 - Social history:: Smoking status: Patient/guardian denies using alcohol, street drugs, tobacco products. - Family history:: not pertinent. Screenin:44 Abuse screen: Denies threats or abuse. Nutritional screening: No deficits noted. ll1 Tuberculosis screening: No symptoms or risk factors identified. Fall Risk None identified. Total Justice Fall Scale indicates No Risk (0-24 pts). Assessment: 13:45 General: Appears in no apparent distress. Behavior is calm, cooperative. Pain: ll1 Complains of pain in right eye and left eye Pain currently is 6 out of 10 on a pain scale. Quality of pain is described as burning, Is continuous. 13:45 Neuro: No deficits noted. Cardiovascular: No deficits noted. Respiratory: No deficits ll1 noted. EENT: Eyes are tearing on left eye and right eye Reports eye irritation. Derm: Reports burning, dryness to skin surrounding both eyes. Worse to right lower eyelid. Vital Signs: 11:58 BP 115 / 78; Pulse 105; Resp 18; Temp 98.5; Pulse Ox 100% on R/A; Weight 52.16 kg (R); dm5 Height 5 ft. 4 in. (162.56 cm); Pain 10/10; 14:00 Pulse 90; Resp 16; Pain 0/10; ll1 11:58 Body Mass Index 19.74 (52.16 kg, 162.56 cm) dm5 ED Course: 11:15 Patient arrived in ED. mr 12:00 Triage completed. dm5 12:20 Adria Lala MD is Attending Physician. [facility] 13:40 Kerri Contreras, DAYDAY is Primary Nurse. ll1 13:44 Arm band placed on. ll1 13:46 Patient has correct armband on for positive identification. Bed in low position. Call ll1 light in reach. 13:51 Cheo Tripathi MD is Referral Physician. tawana 14:28 No provider procedures requiring assistance completed. Patient did not have IV access ll1 during this emergency room visit. Administered Medications: 14:01 Drug: Tobramycin Ointment (0.3 %) 1 application Route: Ophthalmic; Site: both eyes; ll1 14:02 Follow up: Response: No adverse reaction ll1 14:29 Follow up: Response: No adverse reaction ls4 Outcome: 13:51 Discharge ordered by . tawana 14:28 Discharged to home ambulatory. ll1 14:28 Condition: good 14:28 Discharge instructions given to patient, Instructed on discharge instructions, follow up and referral plans. medication usage, Demonstrated understanding of instructions, follow-up care, medications, Prescriptions given X 1. 14:30 Patient left the ED. ll1 Signatures: Chichi Bo RN RN [id number] Adria Lala MD MD cha Rivera, Bernadine mr Cielo Gutierrez RN RN ls4 Kerri Contreras RN RN ll1 Corrections: (The following items were deleted from the chart) 14: 13:45 PMHx: Anxiety; ll1 ll1
--- NOTE | 2019-07-01 13:52 | EDPHYS ---
Physician Documentation [facility] Name: Mary Drake Age: 33 yrs Sex: Female : 1985 Arrival Date: 07/01/2019 Time: 11:15 Bed 26 Private MD: MARK Physician Adria Lala HPI: 06/30 13:47 This 33 yrs old Black Female presents to ER via Ambulatory with complaints of Eye tawana Problem. 13:47 The patient sustained old trauma. Onset: The symptoms/episode began/occurred 2 week(s) tawana ago. Duration: the symptoms are intermittent. Aggravated by blinking, closing eye, Alleviated by covering eye. Associated signs and symptoms: Pertinent positives: None. Pertinent negatives: None. Patient does not utilize any form of vision correction. The patient has not experienced similar symptoms in the past. 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 - Social history:: Smoking status: Patient/guardian denies using alcohol, street drugs, tobacco products. - Family history:: not pertinent. ROS: 13:47 Constitutional: Negative for fever, chills, and weight loss, ENT: Negative for injury, tawana pain, and discharge, Neck: Negative for injury, pain, and swelling, Cardiovascular: Negative for chest pain, palpitations, and edema, Respiratory: Negative for shortness of breath, cough, wheezing, and pleuritic chest pain, Abdomen/GI: Negative for abdominal pain, nausea, vomiting, diarrhea, and constipation, Back: Negative for injury and pain, : Negative for injury, bleeding, discharge, and swelling, MS/Extremity: Negative for injury and deformity, Skin: Negative for injury, rash, and discoloration, Neuro: Negative for headache, weakness, numbness, tingling, and seizure, Psych: Negative for depression, anxiety, suicide ideation, homicidal ideation, and hallucinations, Allergy/Immunology: Negative for hives, rash, and allergies, Endocrine: Negative for neck swelling, polydipsia, polyuria, polyphagia, and marked weight changes, Hematologic/Lymphatic: Negative for swollen nodes, abnormal bleeding, and unusual bruising. 13:47 Eyes: Positive for pain, redness. Exam: 13:47 Constitutional: This is a well developed, well nourished patient who is awake, alert, tawana and in no acute distress. Head/Face: Normocephalic, atraumatic. ENT: Nares patent. No nasal discharge, no septal abnormalities noted. Tympanic membranes are normal and external auditory canals are clear. Oropharynx with no redness, swelling, or masses, exudates, or evidence of obstruction, uvula midline. Mucous membranes moist. Neck: Trachea midline, no thyromegaly or masses palpated, and no cervical lymphadenopathy. Supple, full range of motion without nuchal rigidity, or vertebral point tenderness. No Meningismus. Chest/axilla: Normal chest wall appearance and motion. Nontender with no deformity. No lesions are appreciated. Cardiovascular: Regular rate and rhythm with a normal S1 and S2. No gallops, murmurs, or rubs. Normal PMI, no JVD. No pulse deficits. Respiratory: Lungs have equal breath sounds bilaterally, clear to auscultation and percussion. No rales, rhonchi or wheezes noted. No increased work of breathing, no retractions or nasal flaring. Abdomen/GI: Soft, non-tender, with normal bowel sounds. No distension or tympany. No guarding or rebound. No evidence of tenderness throughout. Back: No spinal tenderness. No costovertebral tenderness. Full range of motion. Skin: Warm, dry with normal turgor. Normal color with no rashes, no lesions, and no evidence of cellulitis. MS/ Extremity: Pulses equal, no cyanosis. Neurovascular intact. Full, normal range of motion. Neuro: Awake and alert, GCS 15, oriented to person, place, time, and situation. Cranial nerves II-XII grossly intact. Motor strength 5/5 in all extremities. Sensory grossly intact. Cerebellar exam normal. Normal gait. Psych: Awake, alert, with orientation to person, place and time. Behavior, mood, and affect are within normal limits. 13:47 Eyes: Periorbital structures: appear normal, no acute changes, Pupils: no acute changes, equal, round, and reactive to light and accomodation, Extraocular movements: no acute changes, Conjunctiva: injected, Corneas: are normal, Sclera: no appreciated abnormality, Anterior chamber: normal, Lids and lashes: appear normal, Nystagmus: is not appreciated, no acute changes. Vital Signs: 11:58 BP 115 / 78; Pulse 105; Resp 18; Temp 98.5; Pulse Ox 100% on R/A; Weight 52.16 kg (R); dm5 Height 5 ft. 4 in. (162.56 cm); Pain 10/10; 14:00 Pulse 90; Resp 16; Pain 0/10; ll1 11:58 Body Mass Index 19.74 (52.16 kg, 162.56 cm) dm5 MDM: 13:34 Patient medically screened. [facility] 13:50 Data reviewed: vital signs, nurses notes. [facility] Administered Medications: 14:01 Drug: Tobramycin Ointment (0.3 %) 1 application Route: Ophthalmic; Site: both eyes; ll1 14:02 Follow up: Response: No adverse reaction ll1 14:29 Follow up: Response: No adverse reaction ls4 Disposition: 07/01/19 13:51 Discharged to Home. Impression: Ocular pain, right eye. - Condition is Stable. - Prescriptions for Tobrex 0.3 % Ophthalmic ointment - apply 0.5 inch ribbon by OPHTHALMIC route 2-3 times daily each eye; 3.5 gram. - Medication Reconciliation Form, Thank You Letter, Antibiotic Education, Prescription Opioid Use form. - Follow up: Private Physician; When: 2 - 3 days; Reason: Recheck today's complaints, Continuance of care, Re-evaluation by your physician. Follow up: Cheo Tripathi MD; When: 2 - 3 days; Reason: Recheck today's complaints, Re-evaluation by your physician. - Problem is new. - Symptoms have improved. Signatures: Adria Lala MD MD cha Lewis, Lynsay, RN RN ll1 Cielo Gutierrez RN ls4 Corrections: (The following items were deleted from the chart) 14:29 13:45 PMHx: Anxiety; ll1 ll1 14:30 13:51 07/01/2019 13:51 Discharged to Home. Impression: Ocular pain, right eye. ll1 Condition is Stable. Forms are Medication Reconciliation Form, Thank You Letter, Antibiotic Education, Prescription Opioid Use. Follow up: Private Physician; When: 2 - 3 days; Reason: Recheck today's complaints, Continuance of care, Re-evaluation by your physician. Follow up: Cheo Tripathi; When: 2 - 3 days; Reason: Recheck today's complaints, Re-evaluation by your physician. Problem is new. Symptoms have improved. tawana
[2019-07-01] MEDS ORDERED: TOBRAMYCIN SULF 0.3% OPTH OINT ONE (13:59)
[2019-07-01 14:37] VITALS: BP 115/78; TEMP 98.5; O2SAT 100
== END 2019-07-01 14:30 | disposition home or self-care (01) ==
LOC: ER 11:10
DX: H57.11 Ocular pain, right eye (principal); Z72.0 Tobacco use
CPT/HCPCS: 99283

== ENCOUNTER 2019-10-14 19:23 | Emergency (ER) | payer MEDICAID ==
--- OUTSIDE RECORDS SUMMARY | 2019-10-14 19:39 | XMS REPORT | Continuity of Care Document ---
:1985 Author Organization [facility] t Address [address] [place] [address] Care Team Providers Name Role Phone Unavailable Unavailable Unavailable Problems Condition Condition Condition Status Onset Resolution Last Treating Co mments Source Name Details Category Date Date Treatment Clinician Date Locking of Locking of Problem Active [facility] right knee right knee Josefina kes [facility] Acute pain Acute pain Diagnosis [facility] Quadriceps Quadriceps Diagnosis Active [facility] tendinitis tendinitis Josefina k[facility] 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 Medications Ordered Filled Start Stop Current Ordering Indication Dosage Frequency Signature Comments Components Source Medication Medication Date Date Medication? Clinician (SIG) Name Name Tramadol Tramadol Yes Kyle [address] [facility] HCl HCl 8-13 [place] as needed [facility] Alprazolam Alprazolam Yes Kyle (Schedule [facility] IV Drug) [facility] - TAKE 1 [facility] TABLET BY l MOUTH 3 Outpati TIMES A ent DAY Clinics PredniSONE PredniSONE Yes Kyle TAKE [address] [facility] [place] TABLET BY [facility] - MOUTH [facility] TWICE A l DAY FOR 7 Outpati DAYS ent Clinics Lidocaine Lidocaine Yes Kyle TAKE 5ML [facility] Viscous Viscous [place] BY MOUTH [facility] - THREE TO [facility] FOUR TIMES l DAILY [facility] Montelukast Montelukast Yes Kyle TAKE [address] [facility] Sodium Sodium [place] TABLET BY [facility] - MOUTH [facility] EVERY l EVENING Outpati ent Clinics All Day All Day Yes Kyle TAKE [address] [facility] Allergy Allergy [place] TABLET BY [facility] - MOUTH [facility] EVERY DAY l [facility] Procedures This patient has no known procedures. Encounters Start End Encounter Admission Attending Care Care Encounter Source Date/Time Date/Time Type Type Clinicians Facility Department ID 2018-01-10 2018-01-10 Outpatient Naty Conner [id number] [facility] 09[facility] 09[facility] 2017-12-13 2017-12-13 Outpatient Naty [place] [id number] [facility] 15[facility]14:00 15:14:00 [facility] 2017-12-06 2017-12-06 Outpatient Naty [place] [id number] [facility] 16:21:00 16:21:00 [facility] 2017-11-29 2017-11-29 Outpatient Naty [place] [id number] [facility] 14:07:00 14:07:00 [facility] 2017 2017 Outpatient Naty [place] [id number] [facility] 08:15:00 08:15:00 [facility] 2017-11-24 2017-11-24 Outpatient Naty [place] [id number] [facility] 13:30:00 13:30:00 [facility] Results This patient has no known results.
--- NOTE | 2019-10-14 21:06 | RAD REPORT ---
EXAM DESCRIPTION: RAD - Wrist Right 3 View - 10/14/2019 8:59 pm CLINICAL HISTORY: PAIN Pain COMPARISON: Wrist Right 3 View dated 08/04/2016; Wrist Right 3 View dated 09/10/2011 FINDINGS: No fracture or dislocation seen. No foreign body or other soft tissue abnormality. IMPRESSION: Negative examination.
[2019-10-14] MEDS ORDERED: IBUPROFEN 400 MG TAB ONE (21:14)
[2019-10-14] MEDS ORDERED: HYDROCODONE/APAP 7.5/325 MG TAB ONE (21:39)
--- NOTE | 2019-10-14 23:17 | ER ---
Nurse's Notes [facility] Name: Mary Drake Age: 33 yrs Sex: Female : 1985 Arrival Date: 10/14/2019 Time: 19:26 Bed 7 Private MD: Diagnosis: Sprain of unspecified part of right wrist and hand Presentation: 10/13 20:14 Chief complaint: Patient states: Fell off a skate board today, Landed on my R side of ca1 the body. C/O R hand, R wrist, R forearm, R elbow. Coronavirus screen: Proceed with normal triage. Patient denies a cough. Patient denies shortness of breath or difficulty breathing. Patient denies measured and/or subjective temperature greater than 100.4F prior to today's visit. Patient denies travel on a cruise ship or to a country the [facility] currently lists as an affected area. Patient denies contact with known and/or suspected case of COVID-19. Ebola Screen: Patient negative for fever greater than or equal to 101.5 degrees Fahrenheit, and additional compatible Ebola Virus Disease symptoms Patient denies exposure to infectious person. Patient denies travel to an Ebola-affected area in the 21 days before illness onset. No symptoms or risks identified at this time. Initial Sepsis Screen: Does the patient meet any 2 criteria? No. Patient's initial sepsis screen is negative. Does the patient have a suspected source of infection? No. Patient's initial sepsis screen is negative. Risk Assessment: Do you want to hurt yourself or someone else? Patient reports no desire to harm self or others. Onset of symptoms was October 14, 2019. 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 - Social history:: Smoking status: Patient denies any tobacco usage or history of. Patient uses Patient/guardian denies using alcohol, street drugs, The patient lives with family. - Family history:: not pertinent. Screenin:42 Abuse screen: Denies threats or abuse. Nutritional screening: No deficits noted. ea Tuberculosis screening: No symptoms or risk factors identified. Fall Risk Fall in past 12 months (25 points). Assessment: 20:44 General: Appears in no apparent distress. Behavior is calm, cooperative, appropriate ea for age. Pain: Complains of pain in right hand. Neuro: Level of Consciousness is awake, alert, obeys commands, Oriented to person, place, time, situation. Cardiovascular: Patient's skin is warm and dry. Respiratory: Airway is patent Respiratory effort is even, unlabored, Respiratory pattern is regular, symmetrical. Derm: Skin is pink, warm \T\ dry. Musculoskeletal: Reports pain in right hand. 21:32 Reassessment: Patient and/or family updated on plan of care and expected duration. Pain ea level reassessed. Patient is alert, oriented x 3, equal unlabored respirations, skin warm/dry/pink. Pt complaining of pain to right hand, provider notified, medication order obtained, medication administered. Pt tolerated well. Vital Signs: 20:14 BP 98 / 59; Pulse 98; Resp 16 S; Temp 97.9(TE); Pulse Ox 100% on R/A; Weight 54.43 kg ca1 (R); Height 5 ft. 4 in. (162.56 cm) (R); 22:50 BP 100 / 60; Pulse 90; Resp 18; Pulse Ox 99% ; ea 20:14 Body Mass Index 20.60 (54.43 kg, 162.56 cm) ca1 ED Course: 19:26 Patient arrived in ED. cf2 20:16 Triage completed. ca1 20:16 Arm band placed on right wrist. ca1 20:39 Corey Aguilar, DAYDAY is Primary Nurse. mg2 20:42 Patient has correct armband on for positive identification. Bed in low position. ea 20:52 Leidy Armijo MD is Attending Physician. ma2 20:59 Wrist Right 3 View XRAY In Process Unspecified. EDMS 21:45 Hand Right 3 View XRAY In Process Unspecified. EDMS 22:46 Right thumb-spica splint (pre-formed) applied to right side, PT reports relief with ds4 application of splint. REF # for splint: [id number]. 23:22 No provider procedures requiring assistance completed. Patient did not have IV access mg2 during this emergency room visit. Administered Medications: 21:18 Drug: Motrin 400 mg Route: PO; mg2 22:30 Follow up: Response: No adverse reaction; Marked relief of symptoms mg2 21:31 Drug: [place] (7.5 mg-325 mg) 1 tabs {Note: RASS 1.} Route: PO; ea 22:30 Follow up: Response: No adverse reaction mg2 Outcome: 23:16 Discharge ordered by . prasad 23:21 Discharged to home ambulatory. mg2 23:21 Condition: stable 23:21 Discharge instructions given to patient, Instructed on discharge instructions, follow up and referral plans. medication usage, Demonstrated understanding of instructions, follow-up care, medications, splint care, Prescriptions given X 1. 23:22 Patient left the ED. mg2 Signatures: Dispatcher [employer] EDMS Orlando Mckoy ds4 Rianna La RN RN ea Alzahri, Mohammad, MD MD ma2 [place]ose, Michele, RN RN mg2 Jerica Brown RN RN ca1 Tiff Viera cf2 Corrections: (The following items were deleted from the chart) 22:52 22:39 Thumb-spica splint (pre-formed) applied to right side. PT states relief with ds4 application of splint. ds4
--- NOTE | 2019-10-14 23:17 | EDPHYS ---
Physician Documentation [facility] Name: Mary Drake Age: 33 yrs Sex: Female : 1985 Arrival Date: 10/14/2019 Time: 19:26 Bed 7 Private MD: ED Physician Leidy Armijo HPI: 10/13 21:35 This 33 yrs old Black Female presents to ER via Ambulatory with complaints of Fall ma2 Injury, Wrist Pain, Leg Pain. 21:35 Details of fall: The patient fell from a supine position. Details of fall: The patient ma2 fell from a supine position. Onset: The symptoms/episode began/occurred suddenly, 1 hour(s) ago. Associated injuries: The patient sustained right hand. Severity of symptoms: At their worst the symptoms were moderate, in the emergency department the symptoms are unchanged. The patient has not experienced similar symptoms in the past. The patient has not recently seen a physician. 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 - Social history:: Smoking status: Patient denies any tobacco usage or history of. Patient uses Patient/guardian denies using alcohol, street drugs, The patient lives with family. - Family history:: not pertinent. ROS: 21:35 Constitutional: Negative for fever, chills, and weight loss. ma2 21:35 All other systems are negative. Exam: 21:35 Constitutional: This is a well developed, well nourished patient who is awake, alert, ma2 and in no acute distress. Head/Face: Normocephalic, atraumatic. Eyes: Pupils equal round and reactive to light, extra-ocular motions intact. Lids and lashes normal. Conjunctiva and sclera are non-icteric and not injected. Cornea within normal limits. Periorbital areas with no swelling, redness, or edema. ENT: Nares patent. No nasal discharge, no septal abnormalities noted. Tympanic membranes are normal and external auditory canals are clear. Oropharynx with no redness, swelling, or masses, exudates, or evidence of obstruction, uvula midline. Mucous membranes moist. Neck: Trachea midline, no thyromegaly or masses palpated, and no cervical lymphadenopathy. Supple, full range of motion without nuchal rigidity, or vertebral point tenderness. No Meningismus. Chest/axilla: Normal chest wall appearance and motion. Nontender with no deformity. No lesions are appreciated. Cardiovascular: Regular rate and rhythm with a normal S1 and S2. No gallops, murmurs, or rubs. Normal PMI, no JVD. No pulse deficits. Respiratory: Lungs have equal breath sounds bilaterally, clear to auscultation and percussion. No rales, rhonchi or wheezes noted. No increased work of breathing, no retractions or nasal flaring. Abdomen/GI: Soft, non-tender, with normal bowel sounds. No distension or tympany. No guarding or rebound. No evidence of tenderness throughout. Skin: Warm, dry with normal turgor. Normal color with no rashes, no lesions, and no evidence of cellulitis. MS/ Extremity: Pulses equal, no cyanosis. Neurovascular intact. Full, normal range of motion. Neuro: Awake and alert, GCS 15, oriented to person, place, time, and situation. Cranial nerves II-XII grossly intact. Motor strength 5/5 in all extremities. Sensory grossly intact. Cerebellar exam normal. Normal gait. 21:35 MS/ Extremity: right hand is tender, otherwise Pulses equal, no cyanosis. ma2 Neurovascular intact. Full, normal range of motion. Vital Signs: 20:14 BP 98 / 59; Pulse 98; Resp 16 S; Temp 97.9(TE); Pulse Ox 100% on R/A; Weight 54.43 kg ca1 (R); Height 5 ft. 4 in. (162.56 cm) (R); 22:50 BP 100 / 60; Pulse 90; Resp 18; Pulse Ox 99% ; ea 20:14 Body Mass Index 20.60 (54.43 kg, 162.56 cm) ca1 MDM: 20:52 Patient medically screened. ma2 21:35 Differential diagnosis: abrasion, contusion, fracture, multiple trauma, sprain, strain. [facility] 23:16 Data reviewed: vital signs, nurses notes. Counseling: I had a detailed discussion with maLayo the patient and/or guardian regarding: the historical points, exam findings, and any diagnostic results supporting the discharge/admit diagnosis, the presence of at least one elevated blood pressure reading (>120/80) during this emergency department visit, the need for outpatient follow up. Response to treatment: the patient's symptoms have markedly improved after treatment. 10/13 20:18 Order name: Wrist Right 3 View XRAY; Complete Time: 21:55 ca1 10/13 21:01 Order name: Hand Right 3 View XRAY ma2 10/13 22:21 Order name: Thumb Spica Splint; Complete Time: 22:34 [facility] Administered Medications: 21:18 Drug: Motrin 400 mg Route: PO; mg2 22:30 Follow up: Response: No adverse reaction; Marked relief of symptoms mg2 21:31 Drug: [place] (7.5 mg-325 mg) 1 tabs {Note: RASS 1.} Route: PO; ea 22:30 Follow up: Response: No adverse reaction mg2 Disposition: 10/14/19 23:16 Discharged to Home. Impression: Sprain of unspecified part of right wrist and hand. - Condition is Stable. - Discharge Instructions: Hand Contusion. - Prescriptions for Diclofenac Sodium 75 mg Oral Tablet Sustained Release - take 1 tablet by ORAL route 2 times per day; 30 tablet. - Medication Reconciliation Form, Thank You Letter, Antibiotic Education, Prescription Opioid Use form. - Follow up: Private Physician; When: Tomorrow; Reason: Continuance of care. - Notes: repeat xray of hand in 2 weeks Signatures: Dispatcher [employer] EDND Rianna La RN RN ea Alzahri, Mohammad, MD MD nm2 Corey Aguilar RN RN mg2 Jerica Brown RN RN ca1 Corrections: (The following items were deleted from the chart) 23:22 23:16 10/14/2019 23:16 Discharged to Home. Impression: Sprain of unspecified part of mg2 right wrist and hand. Condition is Stable. Discharge Instructions: Hand Contusion. Prescriptions for Diclofenac Sodium 75 mg Oral Tablet Sustained Release - take 1 tablet by ORAL route 2 times per day; 30 tablet. and Forms are Medication Reconciliation Form, Thank You Letter, Antibiotic Education, Prescription Opioid Use. Follow up: Private Physician; When: Tomorrow; Reason: Continuance of care. ma2
[2019-10-14 23:27] VITALS: TEMP 97.9
[2019-10-14 23:28] VITALS: BP 100/60; O2SAT 99
--- NOTE | 2019-10-15 11:59 | RAD REPORT ---
EXAM DESCRIPTION: RAD - Hand Right 3 View - 10/14/2019 9:44 pm CLINICAL HISTORY: Right hand pain status post injury FINDINGS: No fracture or dislocation is seen.
== END 2019-10-14 23:22 | disposition home or self-care (01) ==
LOC: ER 19:23
DX: S63.91XA Sprain of unspecified part of right wrist and hand, initial encounter (principal); W19.XXXA Unspecified fall, initial encounter; Y93.9 Activity, unspecified; Y92.9 Unspecified place or not applicable; F20.9 Schizophrenia, unspecified; J44.9 Chronic obstructive pulmonary disease, unspecified
CPT/HCPCS: 99284

== ENCOUNTER 2020-02-04 18:34 | Emergency (ER) | payer MEDICAID ==
--- OUTSIDE RECORDS SUMMARY | 2020-02-04 18:36 | XMS REPORT | Continuity of Care Document ---
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 Medications Ordered Filled Start Stop Current Ordering Indication Dosage Frequency Signature Comments Components Source Medication Medication Date Date Medication? Clinician (SIG) Name Name Tramadol Tramadol 2018 Yes Kyle [address] [facility] HCl [...] THREE TO Memoria FOUR TIMES l DAILY [facility] Yes Kyle TAKE [address] [facility] Sodium Sodium Valdes TABLET BY [facility] - MOUTH [facility] EVERY l EVENING [facility] All Day All Day Yes Kyle TAKE [address] [facility] Allergy Allergy Valdes TABLET BY [facility] - MOUTH [facility] EVERY DAY l [facility] Procedures This patient has no known procedures. Encounters Start End Encounter Admission Attending Care Care Encounter Source Date/Time Date/Time Type Type Clinicians Facility Department ID 2019-10-16 2019-10-16 [facility] [id number] [facility] [address] 15[facility]00 15[facility]00 [facility] 2018-01-10 2018-01-10 [facility] [id number] 09:00[facility]00 09:00:00 [facility] 2017-12-13 2017-12-13 [facility] [id number] [address] 15:14:00 15:14:00 [facility] 2017-12-06 2017-12-06 [facility] [id number] [address] 16:21:00 16:21:00 [facility] 2017-11-29 2017-11-29 [facility] [id number] [facility] 14:07:00 14:07:00 [facility] 2017 2017 [facility] [id number] [address] 08:15:00 08:15:00 [facility] 2017-11-24 2017-11-24 [facility] [id number] [address] 13:30:00 13:30:00 [facility] Clinics Results This patient has no known results.
[2020-02-04 20:24] LABS: Absolute Lymphocytes (CBC) 3.1 K/uL (0.7-4.9); Basophils % 0.2 % (0-1.3); Hematocrit 28.2 % (36.0-45.0); Lymphocytes % 48.6 % (15.3-44.8); MPV 8.6 fL (7.6-11.3); RBC Red Blood Cell Count 3.74 M/uL (3.86-4.86)
[2020-02-04] MEDS ORDERED: NA CHLORIDE 0.9% 1,000 ML ONE (20:27)
[2020-02-04] MEDS ORDERED: KETOROLAC 30 MG/ML INJ ONE (20:27)
[2020-02-04] MEDS ORDERED: ONDANSETRON 4 MG/2 ML VIAL ONE (20:27)
[2020-02-04 20:31] LABS: Urine Blood NEGATIVE (NEG); Urine Glucose NEGATIVE (NEG); Urine Protein TRACE (NEG); Urine Specific Gravity >1.030 (1.005-1.030); Urine pH 6.5 (5.0-7.0)
[2020-02-04 20:31] LABS: Urine Specific Gravity >1.030 (1.005-1.030)
[2020-02-04 20:39] LABS: ALT/SGPT 18 U/L (12-78); AST/SGOT 16 U/L (15-37); Albumin 3.5 g/dL (3.4-5.0); Alkaline Phosphatase 55 U/L (45-117); BUN Blood Urea Nitrogen 11 mg/dL (7-18); Bicarbonate 28 mmol/L (21-32); Bilirubin Direct < 0.1 mg/dL (0-0.2); Bilirubin Total 0.3 mg/dL (0.2-1.0); Glucose Level 106 mg/dL (74-106); Lipase 179 U/L (73-393); Potassium 3.4 mmol/L (3.5-5.1); Protein, Total 7.7 g/dL (6.4-8.2); Sodium Level 140 mmol/L (136-145)
--- NOTE | 2020-02-04 21:01 | RAD REPORT ---
EXAM DESCRIPTION: CTAbdomen Pelvis W Contrast - 02/04/2020 8:36 pm CLINICAL HISTORY: Abdominal pain. ABD PAIN COMPARISON: Abdomen Pelvis W Contrast dated 12/09/2017; Abdomen Pelvis W Contrast dated 09/28/2016 ; Abdomen Pelvis W Contrast dated 07/28/2015; CT ABD PELVIS W CONTRAST dated 01/18/2015 TECHNIQUE: Biphasic CT imaging of the abdomen and pelvis was performed with 100 ml non-ionic IV cont rast. All CT scans are performed using dose optimization technique as appropriate and may include automated exposure control or mA/KV adjustment according to patient size. FINDINGS: The lung bases are clear. The liver, spleen, pancreas, adrenal glands and kidneys are within normal limits. No bowel obstruction, free air, free fluid or abscess. The appendix is absent. A large amount of stoo l in the colon. No evidence of significant lymphadenopathy. No suspicious bony findings. IMPRESSION: Significant constipation.
[2020-02-04 21:07] LABS: Anisocytosis 1+; Blood Morphology Comment NOTED (NOT SEEN); Platelet Estimate ADEQ
--- NOTE | 2020-02-04 21:07 | EDPHYS ---
Physician Documentation [facility] Name: Mary Drake Age: 34 yrs Sex: Female : 1985 Arrival Date: 02/04/2020 Time: 18:35 Bed 15 Private MD: ED Physician Dillan Rodriguez HPI: 02/03 22:00 This 34 yrs old Black Female presents to ER via Ambulatory with complaints of Abdominal kb Pain. 22:00 The patient presents with abdominal pain. Onset: The symptoms/episode began/occurred 1 kb week(s) ago. The symptoms do not radiate. Associated signs and symptoms: Pertinent positives: nausea, Pertinent negatives: constipation, diarrhea, dysuria, fever, vomiting. The symptoms are described as constant. Modifying factors: The symptoms are alleviated by nothing, the symptoms are aggravated by nothing. Severity of pain: At its worst the pain was moderate in the emergency department the pain is unchanged. The patient has not experienced similar symptoms in the past. The patient has not recently seen a physician. 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 - Social history:: Smoking status: Patient denies any tobacco usage or history of. Patient/guardian denies using. ROS: 21:59 Constitutional: Negative for fever, chills, and weight loss, Cardiovascular: Negative kb for chest pain, palpitations, and edema, Respiratory: Negative for shortness of breath, cough, wheezing, and pleuritic chest pain, Back: Negative for injury and pain, MS/Extremity: Negative for injury and deformity, Skin: Negative for injury, rash, and discoloration, Neuro: Negative for headache, weakness, numbness, tingling, and seizure. 21:59 Abdomen/GI: Positive for abdominal pain, nausea, Negative for vomiting, diarrhea, constipation. Exam: 21:59 Constitutional: This is a well developed, well nourished patient who is awake, alert, kb and in no acute distress. Head/Face: Normocephalic, atraumatic. Chest/axilla: Normal chest wall appearance and motion. Nontender with no deformity. No lesions are appreciated. Cardiovascular: Regular rate and rhythm with a normal S1 and S2. No gallops, murmurs, or rubs. Normal PMI, no JVD. No pulse deficits. Respiratory: Lungs have equal breath sounds bilaterally, clear to auscultation and percussion. No rales, rhonchi or wheezes noted. No increased work of breathing, no retractions or nasal flaring. Abdomen/GI: Soft, non-tender, with normal bowel sounds. No distension or tympany. No guarding or rebound. No evidence of tenderness throughout. Back: No spinal tenderness. No costovertebral tenderness. Full range of motion. Skin: Warm, dry with normal turgor. Normal color with no rashes, no lesions, and no evidence of cellulitis. MS/ Extremity: Pulses equal, no cyanosis. Neurovascular intact. Full, normal range of motion. Neuro: Awake and alert, GCS 15, oriented to person, place, time, and situation. Cranial nerves II-XII grossly intact. Motor strength 5/5 in all extremities. Sensory grossly intact. Cerebellar exam normal. Normal gait. Vital Signs: 19:56 BP 126 / 84; Pulse 88; Resp 18; Temp 99.1; Pulse Ox 100% on R/A; Weight 54.43 kg; ea Height 5 ft. 4 in. (162.56 cm); 19:56 Body Mass Index 20.60 (54.43 kg, 162.56 cm) ea MDM: 19:00 Patient medically screened. kb 21:59 Data reviewed: vital signs, nurses notes. Data interpreted: Pulse oximetry: on room air kb is 100 %. Interpretation: normal. Counseling: I had a detailed discussion with the patient and/or guardian regarding: the historical points, exam findings, and any diagnostic results supporting the discharge/admit diagnosis, lab results, radiology results, the need for outpatient follow up, a family practitioner, to return to the emergency department if symptoms worsen or persist or if there are any questions or concerns that arise at home. 02/03 20:01 Order name: Lipase; Complete Time: 20:39 kb 02/03 20:01 Order name: Hepatic Function; Complete Time: 20:39 kb 02/03 20: Order name: Basic Metabolic Panel; Complete Time: 20:39 kb 02/03 20:01 Order name: CBC with Diff; Complete Time: 21:10 kb 02/03 20:20 Order name: Urine --Ancillary (enter results); Complete Time: 20:33 ds4 02/03 20:21 Order name: Urine Dipstick--Ancillary (enter results); Complete Time: 20:33 ds4 02/03 20:02 Order name: CT Abd/Pelvis - IV Contrast Only; Complete Time: 21:05 kb 02/03 20:25 Order name: Manual Differential; Complete Time: 21:10 EDMS 02/03 21:06 Order name: Urine Microscopic Only kb 02/03 20:01 Order name: IV Saline Lock; Complete Time: 20:17 kb 02/03 20:01 Order name: Labs collected and sent; Complete Time: 20:17 kb 02/03 20:02 Order name: Urine Dipstick-Ancillary (obtain specimen); Complete Time: 20:17 kb 02/03 20:02 Order name: Urine Test (obtain specimen); Complete Time: 20:17 kb Administered Medications: 20:23 Drug: NS 0.9% 1000 ml Route: IV; Rate: 1000 ml; Site: right antecubital; ll2 20:23 Drug: Zofran (Ondansetron) 4 mg Route: IVP; Site: right antecubital; ll2 21:09 Follow up: Response: No adverse reaction ll2 20:23 Drug: TORadol - Ketorolac 15 mg Route: IVP; Site: right antecubital; ll2 21:08 Follow up: Response: No adverse reaction ll2 21:21 Drug: Magnesium Citrate Liquid 300 ml Route: PO; ll2 21:22 Follow up: Response: No adverse reaction ll2 21:21 Drug: Bentyl 20 mg Route: PO; ll2 21:22 Follow up: Response: No adverse reaction ll2 Disposition: 02/04/20 21:06 Discharged to Home. Impression: Constipation, unspecified. - Condition is Stable. - Discharge Instructions: Constipation, Adult, [id number]. - Medication Reconciliation Form, Thank You Letter, Antibiotic Education, Prescription Opioid Use form. - Follow up: Emergency Department; When: As needed; Reason: Worsening of condition. Follow up: Private Physician; When: 2 - 3 days; Reason: Recheck today's complaints, Continuance of care, Re-evaluation by your physician. Addendum: 02/06/2020 21:45 Co-signature as Attending Physician, Dillan Rodriguez MD. r n Signatures: Dispatcher [employer] EDYolis Bailey, SALES ATTENDANT-C SALES ATTENDANT-Ckb Dillan Rodriguez MD MD rn Antunez, Elena, RN RN ea Diamond Galaeno RN RN ll2 Corrections: (The following items were deleted from the chart) 02/03 21:24 20:00 PMHx: Anxiety; ea ll2 : 20:00 PMHx: Arthritis; ea ll2 :24 20:00 PMHx: Asthma; ea ll2 :25 21:06 02/04/2020 21:06 Discharged to Home. Impression: Constipation, unspecified. ll2 Condition is Stable. Forms are Medication Reconciliation Form, Thank You Letter, Antibiotic Education, Prescription Opioid Use. Follow up: Emergency Department; When: As needed; Reason: Worsening of condition. Follow up: Private Physician; When: 2 - 3 days; Reason: Recheck today's complaints, Continuance of care, Re-evaluation by your physician. kb
--- NOTE | 2020-02-04 21:07 | ER ---
Nurse's Notes [facility] Name: Mary Drake Age: 34 yrs Sex: Female : 1985 Arrival Date: 02/04/2020 Time: 18:35 Bed 15 Private MD: Diagnosis: Constipation, unspecified Presentation: 02/03 19:56 Chief complaint: Patient states: Reports general abdominal pain and nausea that started ea one week ago. Denies vomiting and diarrhea. Coronavirus screen: At this time, the client does not indicate any symptoms associated with coronavirus-19. Ebola Screen: No symptoms or risks identified at this time. Initial Sepsis Screen: Does the patient meet any 2 criteria? No. Patient's initial sepsis screen is negative. Does the patient have a suspected source of infection? No. Patient's initial sepsis screen is negative. Risk Assessment: Do you want to hurt yourself or someone else? Patient reports no desire to harm self or others. Onset of symptoms is unknown. 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 - Social history:: Smoking status: Patient denies any tobacco usage or history of. Patient/guardian denies using. Screenin:23 Abuse screen: Denies threats or abuse. Nutritional screening: No deficits noted. ll2 Tuberculosis screening: No symptoms or risk factors identified. Fall Risk None identified. Assessment: 20:23 Reassessment: Patient and/or family updated on plan of care and expected duration. Pain ll2 level reassessed. Patient is alert, oriented x 3, equal unlabored respirations, skin warm/dry/pink. General: Appears in no apparent distress. Behavior is calm, cooperative, appropriate for age. Pain: Complains of pain in suprapubic area, right lower quadrant and left lower quadrant. 20:24 Neuro: Level of Consciousness is awake, alert, obeys commands, Oriented to person, ll2 place, time, situation. Cardiovascular: Capillary refill < 3 seconds Patient's skin is warm and dry. Respiratory: Airway is patent Respiratory effort is even, unlabored, Respiratory pattern is regular, symmetrical. GI: Bowel sounds present X 4 quads. Abd is soft Abdomen is tender to palpation X 4 quads. : No signs and/or symptoms were reported regarding the genitourinary system. EENT: No signs and/or symptoms were reported regarding the EENT system. Derm: Skin is intact, is healthy with good turgor, Skin is dry, Skin is pink, warm \T\ dry. Skin temperature is warm. Musculoskeletal: Circulation, motion, and sensation intact. Range of motion: intact in all extremities. Vital Signs: 19:56 BP 126 / 84; Pulse 88; Resp 18; Temp 99.1; Pulse Ox 100% on R/A; Weight 54.43 kg; ea Height 5 ft. 4 in. (162.56 cm); 19:56 Body Mass Index 20.60 (54.43 kg, 162.56 cm) ea ED Course: 18:35 Patient arrived in ED. as 18:46 [facility] Herrera [facility]-C [facility] kb 18:46 Dillan Rodriguez MD is Attending Physician. kb 19:59 Triage completed. ea 20:00 Arm band placed on right wrist. ea 20:12 Diamond Galeano, DAYDAY is Primary Nurse. ll2 20:14 Inserted saline lock: 22 gauge in right antecubital area, using aseptic technique. ds4 Blood collected. 20:36 CT Abd/Pelvis - IV Contrast Only In Process Unspecified. EDMS 21:23 Patient has correct armband on for positive identification. Placed in gown. Bed in low ll2 position. Call light in reach. Side rails up X 1. Pulse ox on. NIBP on. 21:24 No provider procedures requiring assistance completed. IV discontinued, intact, ll2 bleeding controlled, No redness/swelling at site. Pressure dressing applied. Administered Medications: 20:23 Drug: NS 0.9% 1000 ml Route: IV; Rate: 1000 ml; Site: right antecubital; ll2 20:23 Drug: Zofran (Ondansetron) 4 mg Route: IVP; Site: right antecubital; ll2 21:09 Follow up: Response: No adverse reaction ll2 20:23 Drug: TORadol - Ketorolac 15 mg Route: IVP; Site: right antecubital; ll2 21:08 Follow up: Response: No adverse reaction ll2 21:21 Drug: Magnesium Citrate Liquid 300 ml Route: PO; ll2 21:22 Follow up: Response: No adverse reaction ll2 21:21 Drug: Bentyl 20 mg Route: PO; ll2 21:22 Follow up: Response: No adverse reaction ll2 Outcome: 21:06 Discharge ordered by MD. lobo 21:24 Discharged to home ambulatory. ll2 21:24 Condition: stable 21:24 Discharge instructions given to patient, Instructed on discharge instructions, follow up and referral plans. Demonstrated understanding of instructions, follow-up care. 21:25 Patient left the ED. ll2 Signatures: Dispatcher [employer] EDMS Yolis Herrera, CHIEF PHYSICAL THERAPIST-C CHIEF PHYSICAL THERAPIST-Nakita Cox Donovan ds4 Rianna La RN RN ea Linscombe, Lacie, RN RN ll2 Corrections: (The following items were deleted from the chart) 21:24 20:00 PMHx: Anxiety; ea ll2 21:24 20:00 PMHx: Arthritis; shea ll2 21:24 20:00 PMHx: Asthma; shea ll2
[2020-02-04] MEDS ORDERED: DICYCLOMINE HCL 10 MG CAP ONE (21:25)
[2020-02-04] MEDS ORDERED: MAGNESIUM CITRATE 300 ML BOT ONE (21:26)
[2020-02-04 22:33] VITALS: BP 126/84; TEMP 99.1; O2SAT 100
== END 2020-02-04 21:25 | disposition home or self-care (01) ==
LOC: ER 18:34
DX: K59.00 Constipation, unspecified (principal)
CPT/HCPCS: 85025; 80048; 36415; 81025; 82565; 80076; 81003; 83690; 74177; 96375; 96374; 99284; Q9967; J7030; J2405

== ENCOUNTER 2020-08-02 08:53 | Emergency (ER) | payer MEDICAID ==
--- OUTSIDE RECORDS SUMMARY | 2020-08-02 08:56 | XMS REPORT | Continuity of Care Document ---
:1985 Author Organization [facility] t Address [address] [place] [address] Care Team Providers Name Role Phone Unavailable [...] Medication? Clinician (SIG) Name Name Tramadol Tramadol 2018- Yes Kyle [address] [facility] HCl [...] THREE TO Memoria FOUR TIMES l DAILY [facility] Yes Kyle TAKE [address] [facility] [address] Sodium Sodium Valdes TABLET BY [facility] M[facility]TH [facility] EVERY l EVENING [facility] All Day All Day Yes Kyle TAKE [address] [facility] Allergy Allergy [place]des TABLET BY [facility] - MOUTH [facility] EVERY DAY l [facility]ics Procedures This patient has no known procedures. Encounters Start End Encounter Admission Attending Care Care Encounter Source Date/Time Date/Time Type Type Clinicians Facility Department ID 2019-10-16 2019-10-16 [facility] [id number] [facility] 15:[facility]00 15:41:00 [facility] 2018-01-10 2018-01-10 [facility] [id number] [facility] 09:00:00 09:00:00 [facility] 2017-12-13 2017-12-13 [facility] [id number] 15:14:00 15:14:00 [facility] 2017-12-06 2017-12-06 [facility] [id number] 16:21:00 16:21:00 [facility] 2017-11-29 2017-11-29 [facility] [id number] [facility] 14:07:00 14:07:00 [facility] 2017 2017 [facility] [id number] 08:15:00 08:15:00 [facility] 2017-11-24 2017-11-24 [facility] [id number] 13:30:00 13:30:00 [facility] Clinics Results This patient has no known results.
[2020-08-02] MEDS ORDERED: IBUPROFEN 400 MG TAB ONE (09:35)
[2020-08-02] MEDS ORDERED: ACETAMINOPHEN 500 MG TAB ONE (09:35)
--- NOTE | 2020-08-02 10:04 | RAD REPORT ---
EXAM DESCRIPTION: RAD - Hand Right 3 View - 08/02/2020 9:51 am CLINICAL HISTORY: PAIN COMPARISON: Hand Right 3 View dated 10/14/2019 FINDINGS: No acute fracture or dislocation is seen.
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
[2020-08-02 11:01] VITALS: TEMP 98.1; O2SAT 100
[2020-08-02 11:04] VITALS: BP 111/80
== END 2020-08-02 10:28 | disposition home or self-care (01) ==
LOC: ER 08:53
DX: M79.644 Pain in right finger(s) (principal)
CPT/HCPCS: 99284

== ENCOUNTER 2020-11-19 16:56 | Emergency (ER) | payer OTHER ==
[2011-12-18 15:56] VITALS: BP 128/76
--- OUTSIDE RECORDS SUMMARY | 2020-11-19 16:59 | XMS REPORT | Continuity of Care Document ---
:1985 Author Organization [facility] t Address [address] [place] [address] Care Team Providers Name Role Phone Unavailable [...] THREE TO Memoria FOUR TIMES l DAILY [facility] ent Clinics [facility] Yes Kyle TAKE [address] [facility] Sodium Sodium [place] TABLET BY [facility] - [facility]TH [facility] EVERY l EVENING [facility] ent Clinics All Day All Day Yes Kyle TAKE [address] [facility] Allergy Allergy Valdes TABLET BY Luke [facility] - MOUTH Memoria EVERY DAY l [facility] ent Clinics Procedures This patient has no known procedures. Encounters Start End Encounter Admission Attending Care Care Encounter Source Date/Time Date/Time Type Type Clinicians Facility Department ID 2019-10-16 2019-10-16 [facility] [id number] [address] [facility] 15[facility] 2018-01-10 2018-01-10 [facility] [id number] [facility] 09:00[facility]00 09:00:00 [facility] 2017-12-13 2017-12-13 [facility] [id number] 15:14:00 15:14:00 [facility] 2017-12-06 2017-12-06 [facility] [id number] 16:21:00 16:21:00 [facility] 2017-11-29 2017-11-29 [facility] [id number] 14:07:00 14:07:00 [facility] 2017 2017 [facility] [id number] 08:15:00 08:15:00 [facility] 2017-11-24 2017-11-24 [facility] [id number] 13:30:00 13:30:00 [facility] ent Clinics Results This patient has no known results.
--- NOTE | 2020-11-19 18:43 | ER ---
Nurse's Notes [facility] Name: Mary Drake Age: 34 yrs Sex: Female : 1985 Arrival Date: 11/19/2020 Time: 16:57 Bed Waiting Private MD: Diagnosis: ED Course: 11/19 16:57 Patient arrived in ED. ds1 18:09 Patient's name was called from ER [employer]. No response. aa5 18:30 Patient's name was called from ER [employer]. No response. aa5 18:42 Adria Lala MD is Attending Physician. aa5 18:42 Patient's name was called from ER [employer]. No response. aa5 Administered Medications: No medications were administered Outcome: 18:42 Patient left the ED. aa5 Signatures: Yolis King ds1 Shanika Jaramillo, RN RN aa5
== END 2020-11-19 18:42 | disposition left against medical advice (07) ==
LOC: ER 16:56
DX: Z02.9 Encounter for administrative examinations, unspecified (principal)

== ENCOUNTER 2020-12-24 01:32 | Emergency (ER) | payer OTHER ==
--- OUTSIDE RECORDS SUMMARY | 2020-12-24 01:34 | XMS REPORT | Continuity of Care Document ---
:1985 Author Organization [facility] t Address [address] [place] [address] Care Team Providers Name Role Phone Unavailable [...] Medication? Clinician (SIG) Name Name Tramadol Tramadol 2018-0 Yes Kyle [address] [facility] HCl [...] THREE TO Memoria FOUR TIMES l DAILY [facility] ent Clinics [facility] Yes Kyle TAKE [address] [facility] Sodium Sodium Valdes TABLET BY [facility] EVERY l EVENING [facility] ent Clinics All Day All Day Yes Kyle TAKE [address] [facility] Allergy Allergy [place]des TABLET BY [facility] - M[facility]TH [facility] EVERY DAY l [facility] ent Clinics Procedures This patient has no known procedures. Encounters Start End Encounter Admission Attending Care Care Encounter Source Date/Time Date/Time Type Type Clinicians Facility Department ID 2019-10-16 2019-10-16 [facility] [id number] 15:41[facility]00 15:41:00 [facility] [place] [facility] 2018-01-10 2018-01-10 [facility] [id number] 09:00:00 09:00:00 [facility] [place] [facility] 2017-12-13 2017-12-13 [facility] [id number] 15:14:00 15:14:00 [facility] [place] [facility] 2017-12-06 2017-12-06 [facility] [id number] 16:21:00 16:21:00 [facility] [place] [facility] 2017-11-29 2017-11-29 [facility] [id number] 14:07:00 14:07:00 [facility] [place] [facility] 2017 2017 [facility] [id number] 08:15:00 08:15:00 [facility] [place] [facility] 2017-11-24 2017-11-24 [facility] [id number] 13:30:00 13:30:00 [facility] ent Clinics Results This patient has no known results.
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
[2020-12-24 03:41] VITALS: BP 128/75; TEMP 98.1; O2SAT 100
--- NOTE | 2020-12-24 07:28 | RAD REPORT ---
EXAM DESCRIPTION: RAD - Ankle Right 3 View - 12/24/2020 2:01 am CLINICAL HISTORY: PAIN COMPARISON: No comparisons FINDINGS: No acute fracture. No malalignment. No significant focal degenerative changes. IMPRESSION: No acute osseous abnormality involving the right ankle.
== END 2020-12-24 03:33 | disposition left against medical advice (07) ==
LOC: ER 01:32
DX: Z53.21 Procedure and treatment not carried out due to patient leaving prior to being seen by health care provider (principal)
CPT/HCPCS: 99282

== ENCOUNTER 2021-05-01 17:42 | Emergency (ER) | payer OTHER ==
--- OUTSIDE RECORDS SUMMARY | 2021-05-01 17:45 | XMS REPORT | Continuity of Care Document ---
:1985 Author Organization [facility] t Address [facility] [address] [place] [address] Care Team Providers Name Role Phone Unavailable [...] THREE TO Memoria FOUR TIMES l DAILY [facility] ent Clinics [facility] Yes Kyle TAKE [address] [facility] Sodium Sodium [place]des TABLET BY [facility] EVERY l EVENING [facility] ent Clinics All Day All Day Yes Kyle TAKE [address] [facility] Allergy Allergy [place] TABLET BY [facility] - MOUTH Memoria EVERY DAY [facility] ent [facility] Procedures This patient has no known procedures. Encounters Start End Encounter Admission Attending Care Care Encounter Source Date/Time Date/Time Type Type Clinicians Facility Department ID 2019-10-16 2019-10-16 [facility] [id number] 15:41[facility]00 15:41:00 [facility] 2018-01-10 2018-01-10 [facility] [id number] 09:00:00 09:00:00 [facility] 2017-12-13 2017-12-13 [facility] [id number] 15:14:00 15:14:00 [facility] 2017-12-06 2017-12-06 [facility] [id number] 16:21:00 16:21:00 [facility] 2017-11-29 2017-11-29 [facility] [id number] 14:07:00 14:07:00 t [facility] 2017 2017 [facility] [id number] 08:15:00 08:15:00 [facility] 2017-11-24 2017-11-24 [facility] [id number] 13[facility]30:00 13:30:00 [facility] Clinics Results This patient has no known results.
--- NOTE | 2021-05-01 21:18 | RAD REPORT ---
EXAM DESCRIPTION: RAD - Chest Single View - 05/01/2021 8:49 pm CLINICAL HISTORY: COUGH COMPARISON: Abdomen Acute Series dated 09/29/2018; Abdomen 1 View (KUB) dated 03/30/2017; Chest Singl e View dated 08/21/2016; Chest Single View dated 03/14/2016 FINDINGS: Lines: None. Lungs: No evidence of edema or pneumonia. Pleural: No significant pleural effusions or pneumothorax. Cardiac: The heart size is within normal limits. Bones: No acute fractures. Other: IMPRESSION: No acute cardiopulmonary disease.
[2021-05-01] MEDS ORDERED: NA CHLORIDE 0.9% 500 ML ONE (21:52)
[2021-05-01 22:18] LABS: Urine Blood 3+ (Negative); Urine Glucose Negative (Negative); Urine Protein Negative (Negative); Urine Specific Gravity 1.025 (1.005-1.030); Urine pH 5.5 (5.0-7.0)
[2021-05-01 22:50] LABS: Hematocrit 35.2 % (36.0-45.0); Lymphocytes % 42.7 % (15.3-44.8); MPV 8.7 fL (7.6-11.3); RBC Red Blood Cell Count 4.52 M/uL (3.86-4.86)
[2021-05-01 22:57] LABS: Urine Bacteria >50 /HPF (<20); Urine Mucus 1+ /HPF (NONE SEEN); Urine RBC >50 /HPF (NONE SEEN)
[2021-05-01 23:11] LABS: Anisocytosis 1+; Blood Morphology Comment NOTED (NOT SEEN); Hypochromasia 2+; Macrocytosis 2+; Ovalocytes 2+; Platelet Estimate ADEQ; White Blood Cell Scan OK (OK)
[2021-05-01 23:20] LABS: Urine Specific Gravity/Preg 1.025 (1.005-1.030)
[2021-05-01] MEDS ORDERED: MORPHINE 4 MG/ML SYR ONE (23:20)
[2021-05-01] MEDS ORDERED: NA CHLORIDE 0.9% 250 ML ONE (23:21)
[2021-05-01] MEDS ORDERED: CEFTRIAXONE 1000 MG/VIAL ONE (23:21)
[2021-05-01] MEDS ORDERED: ONDANSETRON 4 MG/2 ML VIAL ONE (23:21)
[2021-05-01 23:29] LABS: ALT/SGPT 23 U/L (12-78); AST/SGOT 12 U/L (15-37); Albumin 2.8 g/dL (3.4-5.0); Alkaline Phosphatase 70 U/L (45-117); BUN Blood Urea Nitrogen 14 mg/dL (7-18); Bicarbonate 27 mmol/L (21-32); Bilirubin Direct < 0.1 mg/dL (0-0.2); Bilirubin Total 0.1 mg/dL (0.2-1.0); Glucose Level 106 mg/dL (74-106); Magnesium 2.1 mg/dL (1.8-2.4); NT PRO-BNP 24 pg/mL (<125); Potassium 4.3 mmol/L (3.5-5.1); Protein, Total 7.1 g/dL (6.4-8.2); Sodium Level 140 mmol/L (136-145)
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
--- NOTE | 2021-05-01 23:56 | EDPHYS ---
Physician Documentation [facility] Name: Mary Drake Age: 35 yrs Sex: Female : 1985 Arrival Date: 05/01/2021 Time: 17:43 Bed 17 Private MD: Teodora De La Rosa C ED Physician Adria Lala HPI: 05/01 23:47 This 35 yrs old Black Female presents to ER via Ambulatory with complaints of Numbness tawana - legs, Can't walk, Leg Pain. 23:47 The patient's problem is reported as weakness, that is generalized. Onset: The tawana symptoms/episode began/occurred 1 day(s) ago. Duration: The episode is continuous. 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 - Social history:: Smoking status: Patient reports the use of cigarette tobacco products, Patient denies any tobacco usage or history of. Patient uses. ROS: 23:47 Constitutional: Negative for fever, chills, and weight loss, Eyes: Negative for injury, tawana pain, redness, and discharge, ENT: Negative for injury, pain, and discharge, Neck: Negative for injury, pain, and swelling, Cardiovascular: Negative for chest pain, palpitations, and edema, Respiratory: Negative for shortness of breath, cough, wheezing, and pleuritic chest pain, Abdomen/GI: Negative for abdominal pain, nausea, vomiting, diarrhea, and constipation, Back: Negative for injury and pain, : Negative for injury, bleeding, discharge, and swelling, Skin: Negative for injury, rash, and discoloration, Neuro: Negative for headache, weakness, numbness, tingling, and seizure, Psych: Negative for depression, anxiety, suicide ideation, homicidal ideation, and hallucinations, Allergy/Immunology: Negative for hives, rash, and allergies, Endocrine: Negative for neck swelling, polydipsia, polyuria, polyphagia, and marked weight changes, Hematologic/Lymphatic: Negative for swollen nodes, abnormal bleeding, and unusual bruising. 23:47 MS/extremity: Positive for decreased range of motion, pain, swelling, of the right ankle and anterior aspect of right ankle. Exam: 23:47 Constitutional: This is a well developed, well nourished patient who is awake, alert, tawana and in no acute distress. Head/Face: Normocephalic, atraumatic. Eyes: Pupils equal round and reactive to light, extra-ocular motions intact. Lids and lashes normal. Conjunctiva and sclera are non-icteric and not injected. Cornea within normal limits. Periorbital areas with no swelling, redness, or edema. ENT: Nares patent. No nasal discharge, no septal abnormalities noted. Tympanic membranes are normal and external auditory canals are clear. Oropharynx with no redness, swelling, or masses, exudates, or evidence of obstruction, uvula midline. Mucous membranes moist. Neck: Trachea midline, no thyromegaly or masses palpated, and no cervical lymphadenopathy. Supple, full range of motion without nuchal rigidity, or vertebral point tenderness. No Meningismus. Chest/axilla: Normal chest wall appearance and motion. Nontender with no deformity. No lesions are appreciated. Cardiovascular: Regular rate and rhythm with a normal S1 and S2. No gallops, murmurs, or rubs. Normal PMI, no JVD. No pulse deficits. Respiratory: Lungs have equal breath sounds bilaterally, clear to auscultation and percussion. No rales, rhonchi or wheezes noted. No increased work of breathing, no retractions or nasal flaring. Abdomen/GI: Soft, non-tender, with normal bowel sounds. No distension or tympany. No guarding or rebound. No evidence of tenderness throughout. Back: No spinal tenderness. No costovertebral tenderness. Full range of motion. Skin: Warm, dry with normal turgor. Normal color with no rashes, no lesions, and no evidence of cellulitis. Neuro: Awake and alert, GCS 15, oriented to person, place, time, and situation. Cranial nerves II-XII grossly intact. Motor strength 5/5 in all extremities. Sensory grossly intact. Cerebellar exam normal. Normal gait. Psych: Awake, alert, with orientation to person, place and time. Behavior, mood, and affect are within normal limits. 23:47 Musculoskeletal/extremity: Extremities: noted in the right leg and left leg: pain, ROM: full active range of motion, full passive range of motion, Circulation is intact in all extremities. Sensation intact. Compartment Syndrome exam of affected extremity: is normal. Weight bearing: able to fully bear weight, DVT Exam: no swelling, no tenderness, negative Homans' sign noted on exam, no appreciated bluish discoloration, no erythema, no increased warmth, pain. 23:53 CT study not indicated or reported. Reason for not performing CT: not ordered [facility] 23:56 Musculoskeletal/extremity: Joints: All joints appear normal with full range of motion. [facility] Tendon exam: specific tendon testing normal through active and passive range of motion Calves: are non-tender, have equal circumference. 23:58 ECG was reviewed by the Attending Physician. [facility] Vital Signs: 17:47 BP 123 / 82; Pulse 72; Resp 18; Temp 98.6; Pulse Ox 99% ; Weight 54.43 kg; Height 5 ft. jh5 4 in. (162.56 cm); Pain 10/10; 19:43 BP 133 / 81; Pulse 77; Resp 18; Temp 98.4; Pulse Ox 100% on R/A; Pain 10/10; humberto 21:00 BP 146 / 92; Pulse 76; Resp 18; Temp 98.4; Pulse Ox 99% ; humberto 22:00 BP 130 / 94; Pulse 92; Resp 18; Pulse Ox 99% on R/A; humberto 23:00 BP 103 / 85; Pulse 87; Resp 18; Pulse Ox 99% on R/A; humberto 05/02 00:00 BP 124 / 93; Pulse 77; Resp 18; Pulse Ox 99% on R/A; Pain 3/10; humberto 01:55 BP 126 / 87; Pulse 77; Resp 18; Temp 98.5; Pulse Ox 99% on R/A; humberto 05/01 17:47 Body Mass Index 20.60 (54.43 kg, 162.56 cm) [facility] MDM: 05/01 19:58 Patient medically screened. [facility] 23:50 Data reviewed: vital signs, nurses notes, lab test result(s), EKG, radiologic studies. 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 Test interpretation: by ED physician or midlevel provider: ECG, plain radiologic studies. Counseling: I had a detailed discussion with the patient and/or guardian regarding: the historical points, exam findings, and any diagnostic results supporting the discharge/admit diagnosis, lab results, radiology results, the need for outpatient follow up, for definitive care, a family practitioner. 23:53 Differential diagnosis: contusion, tendonitis. [facility] 05/01 20:14 Order name: Basic Metabolic Panel [facility] 05/01 20:14 Order name: CBC with Diff [facility] 05/01 20:14 Order name: LFT's; Complete Time: 23:46 [facility] 05/01 20:14 Order name: Magnesium; Complete Time: 23:46 [facility] 05/01 20:14 Order name: NT PRO-BNP; Complete Time: 23:46 [facility] 05/01 20:14 Order name: Troponin HS; Complete Time: 23:46 [facility] 05/01 20:15 Order name: Basic Metabolic Panel; Complete Time: 23:46 [facility] 05/01 20:15 Order name: CBC with Automated Diff; Complete Time: 23:46 [facility] 05/01 22:18 Order name: Urine Dipstick-Ancillary; Complete Time: 22:25 [facility] 05/01 22:26 Order name: Urine Culture [facility] 05/01 22:27 Order name: Urine --Ancillary (enter results); Complete Time: 23:46 ds4 05/01 22:31 Order name: Urine Microscopic Only; Complete Time: 23:46 ds4 05/01 23:10 Order name: CBC Smear Scan; Complete Time: 23:46 [facility] 05/01 20:14 Order name: XRAY Chest (1 view); Complete Time: 22:25 [facility] 05/01 20:14 Order name: EKG; Complete Time: 20:15 [facility] 05/01 20:14 Order name: Cardiac monitoring; Complete Time: 22:20 [facility] 05/01 20:14 Order name: EKG - Nurse/Tech; Complete Time: 22:20 [facility] 05/01 20:14 Order name: IV Saline Lock; Complete Time: 22:26 [facility] 05/01 20:15 Order name: Labs collected and sent; Complete Time: 22:26 [facility] 05/01 20:15 Order name: O2 Per Protocol; Complete Time: 22:26 [facility] 05/01 20:15 Order name: O2 Sat Monitoring; Complete Time: 22:26 [facility] 05/01 20:15 Order name: Urine Dipstick-Ancillary (obtain specimen); Complete Time: 22:20 [facility] 05/01 20:15 Order name: Urine Test (obtain specimen); Complete Time: 22:20 [facility] EC:58 Rate is 81 beats/min. Rhythm is regular. QRS [place] is Normal. [place] interval is normal. QRS tawana interval is normal. QT interval is normal. No Q waves. T waves are Normal. No ST changes noted. Clinical impression: Normal ECG and No evidence of ischemia. Interpreted by me. Reviewed by me. Administered Medications: 20:20 Drug: NS 0.9% 500 ml Route: IV; Rate: bolus; Site: right forearm; humberto 23:34 Follow up: IV Status: Completed infusion; IV Intake: 500ml humberto 23:20 Drug: Rocephin (cefTRIAXone) 1 grams Route: IV; Rate: per protocol; Site: right forearm;humberto 23:20 Drug: morphine 4 mg Route: IVP; Site: right forearm; humberto 23:35 Follow up: Response: No adverse reaction; Pain is decreased humberto 23:20 Drug: Zofran (Ondansetron) 4 mg Route: IVP; Site: right forearm; humberto 23:35 Follow up: Response: No adverse reaction humberto 05/02 00:40 Drug: Ketorolac 30 mg Route: IVP; Site: right forearm; humberto 00:40 Drug: Valium (diazepam) 5 mg Route: PO; humberto Disposition Summary: 05/01/21 23:55 Discharge Ordered Location: Home tawana Problem: new tawana Symptoms: have improved tawana Condition: Stable tawana Diagnosis - Pain in left leg tawana - Pain in right leg tawana - Schizophrenia, unspecified tawana - UTI/ Urinary tract infection, site not specified tawana Followup: tawana - With: Private Physician - When: 2 - 3 days - Reason: Recheck today's complaints, Continuance of care, Re-evaluation by your physician Discharge Instructions: - Discharge Summary Sheet tawana - Musculoskeletal Pain tawana - Urinary Tract Infection, Adult tawana - Schizophrenia tawana Forms: - Medication Reconciliation Form tawana - Thank You Letter tawana - Antibiotic Education tawana - Prescription Opioid Use tawana Prescriptions: - gabapentin 300 mg Oral capsule - take 1 capsule by ORAL route 2 times per day; 30 capsule; Refills: 0, Product tawana Selection Permitted - Diclofenac Sodium 75 mg Oral tablet,delayed release (DR/EC) - take 1 tablet by ORAL route 2 times per day; 20 tablet; Refills: 0, Product tawana Selection Permitted - Bactrim DS 800-160 mg Oral Tablet - take 1 tablet by ORAL route every 12 hours for 7 days; 14 tablet; Refills: 0, tawana Product Selection Permitted Signatures: Dispatcher [employer] Adria Coles MD MD cha Rees, Jessica, RN RN jh5 Ella Pham RN RN humberto
[2021-05-02] MEDS ORDERED: KETOROLAC 30 MG/ML INJ ONE (00:37)
[2021-05-02] MEDS ORDERED: DIAZEPAM 5 MG TABLET ONE (00:37)
[2021-05-02 02:17] VITALS: TEMP 98.4
[2021-05-02 02:23] VITALS: O2SAT 99
[2021-05-02 02:27] VITALS: BP 124/93
== END 2021-05-02 01:54 | disposition home or self-care (01) ==
LOC: ER 17:42
DX: N39.0 Urinary tract infection, site not specified (principal); M79.605 Pain in left leg; M79.604 Pain in right leg; F20.9 Schizophrenia, unspecified; Z72.0 Tobacco use
CPT/HCPCS: 96361; 93005; 87088; 85025; 87086; 80048; 36415; 83735; 81025; 80076; 87077; 87186; 84484; 83880; 71045; 96375; 96374; 99285; J7050; J7040; J2405; 81003; 81015

== ENCOUNTER 2021-05-08 07:23 | Emergency (ER) | payer OTHER ==
--- OUTSIDE RECORDS SUMMARY | 2021-05-08 07:26 | XMS REPORT | Continuity of Care Document ---
:1985 Author Organization [facility] t Address [facility] [address] [place] [address] Care Team Providers Name Role Phone Unavailable [...] THREE TO Memoria FOUR TIMES l DAILY [facility] ent Clinics [facility] Yes Kyle TAKE [address] [facility] Sodium Sodium [place] TABLET BY [facility] - MOUTH [facility]oria EVERY l EVENING [facility] ent Clinics All Day All Day Yes Kyle TAKE [address] [facility] Allergy Allergy [place] TABLET BY Luke s - MOUTH Memoria EVERY DAY [facility] ent [facility] Procedures This patient has no known procedures. Encounters Start End Encounter Admission Attending Care Care Encounter Source Date/Time Date/Time Type Type Clinicians Facility Department ID 2019-10-16 2019-10-16 [facility] [id number] [facility] 15:41:00 15:41:00 [facility] 2018-01-10 2018-01-10 [facility] [id number] [facility] 09:00:00 09:00:00 [facility] 2017-12-13 2017-12-13 [facility] [id number] [facility] 15:14:00 15:14:00 [facility] 2017-12-06 2017-12-06 [facility] [id number] [facility] 16:21:00 16:21:00 t [facility] 2017-11-29 2017-11-29 [facility] [id number] [facility] 14:07:00 14:07:00 t [facility] 2017 2017 [facility] [id number] [facility] [address] 08:15:00 08:15:00 t [facility] 2017-11-24 2017-11-24 [facility] [id number] [facility] 13:30:00 13:30:00 t [facility] Clinics Results This patient has no known results.
[2021-05-08] MEDS ORDERED: GABAPENTIN 300 MG CAP ONE (08:22)
[2021-05-08] MEDS ORDERED: KETOROLAC 30 MG/ML INJ ONE (08:22)
[2021-05-08] MEDS ORDERED: NA CHLORIDE 0.9% 500 ML ONE (08:22)
[2021-05-08 08:50] LABS: Absolute Lymphocytes (CBC) 2.2 K/uL (0.7-4.9); Hematocrit 32.3 % (36.0-45.0); MPV 8.4 fL (7.6-11.3); RBC Red Blood Cell Count 4.16 M/uL (3.86-4.86)
[2021-05-08 09:10] LABS: Bilirubin Total 0.1 mg/dL (0.2-1.0); Potassium 4.4 mmol/L (3.5-5.1); Protein, Total 7.6 g/dL (6.4-8.2)
[2021-05-08 09:17] LABS: Anisocytosis 1+; Blood Morphology Comment NOTED (NOT SEEN); Ovalocytes 1+; Platelet Estimate ADEQ
[2021-05-08 09:27] LABS: Urine Blood Negative (Negative); Urine Glucose Negative (Negative); Urine Protein Negative (Negative); Urine Specific Gravity >=1.030 (1.005-1.030)
--- NOTE | 2021-05-08 09:34 | EDPHYS ---
Physician Documentation [facility] Name: Mary Drake Age: 35 yrs Sex: Female : 1985 Arrival Date: 05/08/2021 Time: 07:27 Bed 18 Private MD: MARK Physician Adria Lala HPI: 05/08 08:31 This 35 yrs old Black Female presents to ER via Wheelchair with complaints of Neck and tawana Foot Pain. 08:31 The patient presents with decreased range of motion, pain, that is acute. The tawana complaints affect the right foot and left foot. Context: The problem was sustained at an unknown location. Onset: The symptoms/episode began/occurred 1 month(s) ago. Modifying factors: The symptoms are alleviated by elevation of extremity, the symptoms are aggravated by movement. Associated signs and symptoms: The patient has no apparent associated signs or symptoms. Severity of symptoms: At their worst the symptoms were moderate, in the emergency department the symptoms are unchanged. The patient has experienced similar episodes in the past, multiple times. 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 - Social history:: Smoking status: Patient denies any tobacco usage or history of. - Family history:: not pertinent. ROS: 08:31 Constitutional: Negative for fever, chills, and weight loss, Eyes: Negative for injury, tawana pain, redness, and discharge, ENT: Negative for injury, pain, and discharge, Neck: Negative for injury, pain, and swelling, Cardiovascular: Negative for chest pain, palpitations, and edema, Respiratory: Negative for shortness of breath, cough, wheezing, and pleuritic chest pain, Abdomen/GI: Negative for abdominal pain, nausea, vomiting, diarrhea, and constipation, Back: Negative for injury and pain, : Negative for injury, bleeding, discharge, and swelling, Skin: Negative for injury, rash, and discoloration, Neuro: Negative for headache, weakness, numbness, tingling, and seizure, Psych: Negative for depression, anxiety, suicide ideation, homicidal ideation, and hallucinations, Allergy/Immunology: Negative for hives, rash, and allergies, Endocrine: Negative for neck swelling, polydipsia, polyuria, polyphagia, and marked weight changes, Hematologic/Lymphatic: Negative for swollen nodes, abnormal bleeding, and unusual bruising. 08:31 MS/extremity: Positive for tenderness, of the right foot and left foot. Exam: 08:31 Constitutional: This is a well developed, well nourished patient who is awake, alert, tawana and in no acute distress. Head/Face: Normocephalic, atraumatic. Eyes: Pupils equal round and reactive to light, extra-ocular motions intact. Lids and lashes normal. Conjunctiva and sclera are non-icteric and not injected. Cornea within normal limits. Periorbital areas with no swelling, redness, or edema. ENT: Nares patent. No nasal discharge, no septal abnormalities noted. Tympanic membranes are normal and external auditory canals are clear. Oropharynx with no redness, swelling, or masses, exudates, or evidence of obstruction, uvula midline. Mucous membranes moist. Neck: Trachea midline, no thyromegaly or masses palpated, and no cervical lymphadenopathy. Supple, full range of motion without nuchal rigidity, or vertebral point tenderness. No Meningismus. Chest/axilla: Normal chest wall appearance and motion. Nontender with no deformity. No lesions are appreciated. Cardiovascular: Regular rate and rhythm with a normal S1 and S2. No gallops, murmurs, or rubs. Normal PMI, no JVD. No pulse deficits. Respiratory: Lungs have equal breath sounds bilaterally, clear to auscultation and percussion. No rales, rhonchi or wheezes noted. No increased work of breathing, no retractions or nasal flaring. Abdomen/GI: Soft, non-tender, with normal bowel sounds. No distension or tympany. No guarding or rebound. No evidence of tenderness throughout. Back: No spinal tenderness. No costovertebral tenderness. Full range of motion. Skin: Warm, dry with normal turgor. Normal color with no rashes, no lesions, and no evidence of cellulitis. Neuro: Awake and alert, GCS 15, oriented to person, place, time, and situation. Cranial nerves II-XII grossly intact. Motor strength 5/5 in all extremities. Sensory grossly intact. Cerebellar exam normal. Normal gait. Psych: Awake, alert, with orientation to person, place and time. Behavior, mood, and affect are within normal limits. 08:31 Musculoskeletal/extremity: Extremities: noted in the right foot and left foot: decreased ROM, pain, ROM: intact in all extremities, Circulation is intact in all extremities. Sensation intact. Tingling of extremity. Compartment Syndrome exam of affected extremity: is normal. Weight bearing: is unable to bear weight, DVT Exam: no swelling, negative Homans' sign noted on exam, no appreciated bluish discoloration, no erythema, no increased warmth, pain, tenderness. 09:33 Musculoskeletal/extremity: Pulses: noted to be 4+ in the right femoral artery, right tawana popliteal artery, right posterior tibial artery, right dorsalis pedis artery, left femoral artery, left popliteal artery, left posterior tibial artery and left dorsalis pedis artery, Joints: All joints appear normal with full range of motion. Tendon exam: specific tendon testing normal through active and passive range of motion Vital Signs: 07:36 Weight 54.43 kg; Height 5 ft. 4 in. (162.56 cm); Pain 10/10; ll1 08:17 BP 124 / 75; Pulse 120; Resp 16; Temp 98.7; Pulse Ox 100% on R/A; ll1 08:30 BP 134 / 84; Pulse 95; Resp 17; Pulse Ox 100% ; Pain 10/10; eo2 09:30 BP 121 / 87; Pulse 90; Resp 17; Pulse Ox 100% ; eo2 09:37 Pain 8/10; eo2 10:00 BP 164 / 98; Pulse 90; Resp 17; Pulse Ox 100% ; Pain 6/10; eo2 07:36 Body Mass Index 20.60 (54.43 kg, 162.56 cm) ll1 MDM: 07:33 Patient medically screened. [facility] 08:34 Data reviewed: vital signs, nurses notes, lab test result(s), radiologic studies, plain tawana films. Data interpreted: monitor technician: not applicable for this patient encounter. Pulse oximetry: on room air is 100 %. Test interpretation: by ED physician or midlevel provider: plain radiologic studies. Counseling: I had a detailed discussion with the patient and/or guardian regarding: the historical points, exam findings, and any diagnostic results supporting the discharge/admit diagnosis, lab results, radiology results, the need for outpatient follow up, for definitive care, a family practitioner, a accountant budget. 05/08 08:17 Order name: CBC with Diff; Complete Time: 09:32 [facility] 05/08 08:17 Order name: Comprehensive Metabolic Panel; Complete Time: 09:12 tawana 05/08 08:17 Order name: Sed Rate; Complete Time: 09:32 [facility] 05/08 09:16 Order name: Manual Differential; Complete Time: 09:32 EDMS 05/08 09:27 Order name: Urine Dipstick-Ancillary; Complete Time: 09:32 EDCA 05/08 09:30 Order name: Urine --Ancillary (enter results) 05/08 08:17 Order name: Foot Left 2 View XRAY [facility] 05/08 08:17 Order name: Foot Right 2 View XRAY [facility] 05/08 08:18 Order name: Urine Dipstick-Ancillary (obtain specimen); Complete Time: 09:37 [facility] 05/08 08:18 Order name: Urine Test (obtain specimen); Complete Time: 09:37 [facility] Administered Medications: 08:36 Drug: NS 0.9% 500 ml Route: IV; Rate: bolus; Site: right upper arm; eo2 09:00 Follow up: Response: No adverse reaction; IV Status: Completed infusion; IV Intake: eo2 500ml 08:37 Drug: Ketorolac 30 mg Route: IVP; Site: right upper arm; eo2 09:37 Follow up: Pain 8/10 Adult; Response: No adverse reaction; Pain is decreased eo2 08:37 Drug: Gabapentin 300 mg Route: PO; eo2 09:35 Follow up: Response: No adverse reaction eo2 09:47 Drug: Thiamine 100 mg Route: IV; Rate: bolus; Site: right antecubital; eo2 10:16 Follow up: Response: No adverse reaction; IV Status: Completed infusion; IV Intake: [id number] 09:47 Drug: foLIC Acid 2 mg Route: PO; eo2 10:15 Follow up: Response: No adverse reaction eo2 10:30 Follow up: Response: No adverse reaction eo2 10:16 Drug: Amitriptyline 25 mg Route: PO; eo2 10:30 Follow up: Response: No adverse reaction eo2 Disposition Summary: 05/08/21 09:33 Discharge Ordered Location: Home [facility] Problem: new tawana Symptoms: have improved tawana Condition: Stable tawana Diagnosis - Pain in foot and toes tawana - Pain in left foot tawana - Pain in right foot tawana - Idiopathic progressive neuropathy tawana - Iron deficiency anemia, unspecified tawana Followup: tawana - With: Private Physician - When: 2 - 3 days - Reason: Recheck today's complaints, Continuance of care, Re-evaluation by your physician Followup: tawana - With: - When: 2 - 3 days - Reason: Recheck today's complaints, Re-evaluation by your physician Discharge Instructions: - Discharge Summary Sheet tawana - Iron Deficiency Anemia, Adult tawana - Musculoskeletal Pain tawana - Pain Without a Known Cause tawana - Peripheral Neuropathy tawana - Iron-Rich Diet tawana - Foot Pain tawana - Iron Deficiency Anemia, Adult, Tlex-tw-Gwuw tawana - Preventing Iron Deficiency Anemia, Adult tawana Forms: - Medication Reconciliation Form tawana - Thank You Letter tawana - Antibiotic Education tawana - Prescription Opioid Use [facility] Prescriptions: - amitriptyline 25 mg Oral tablet - take 1 tablet by ORAL route once daily at bedtime; 20 tablet; Refills: 0, [facility] Product Selection Permitted - gabapentin 300 mg Oral capsule - take 1 capsule by ORAL route 2 times per day; 40 capsule; Refills: 0, Product tawana Selection Permitted - multivitamin - take 1 tablet by ORAL route once daily; 30 tablet; Refills: 0, Product [facility] Selection Permitted - Ferrous Sulfate 325 mg (65 mg Iron) Oral Tablet - take 1 tablet by ORAL route every 8 hours; 90 tablet; Refills: 0, Product [facility] Selection Permitted - Folic Acid 1 mg Oral Tablet - take 1 tablet by ORAL route once daily; 30 tablet; Refills: 0, Product [facility] Selection Permitted - Motrin IB 200 mg Oral Tablet - take 2 tablet by ORAL route every 6 hours As needed as needed with food; 30 tawana tablet; Refills: 0, Product Selection Permitted Signatures: Dispatcher [employer] Adria Coles MD MD cha Lewis, Lynsay, RN RN ll1 Barb Enriquez RN RN eo2
--- NOTE | 2021-05-08 09:34 | ER ---
Nurse's Notes [facility] Name: Mary Drake Age: 35 yrs Sex: Female : 1985 Arrival Date: 05/08/2021 Time: 07:27 Bed 18 Private MD: Diagnosis: Pain in foot and toes;Pain in left foot;Pain in right foot;Idiopathic progressive neuropathy;Iron deficiency anemia, unspecified Presentation: 05/08 07:36 Chief complaint: Patient states: Bilateral feet pains continues since visit here last ll1 week. Neck pain for 4 days now. No trauma or falls. Coronavirus screen: Vaccine status: Patient reports being unvaccinated. Client denies travel out of the [place] in the last 14 days. At this time, the client does not indicate any symptoms associated with coronavirus-19. Ebola Screen: Patient denies travel to an Ebola-affected area in the 21 days before illness onset. Initial Sepsis Screen: Does the patient meet any 2 criteria? No. Patient's initial sepsis screen is negative. Does the patient have a suspected source of infection? No. Patient's initial sepsis screen is negative. Risk Assessment: Do you want to hurt yourself or someone else? Patient reports no desire to harm self or others. Onset of symptoms was April 28, 2021. 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 - Social history:: Smoking status: Patient denies any tobacco usage or history of. - Family history:: not pertinent. Screenin:45 Abuse screen: Denies threats or abuse. Denies injuries from another. Nutritional eo2 screening: No deficits noted. Tuberculosis screening: No symptoms or risk factors identified. Fall Risk None identified. Assessment: 08:06 Reassessment: Dr. Lala at bedside, aware of pt crying due to pain. eo2 08:45 General: Appears uncomfortable, Behavior is cooperative, anxious, crying. Pain: eo2 Complains of pain in left foot and right foot Quality of pain is described as tingling, Is continuous. Neuro: Level of Consciousness is awake, alert, obeys commands, Oriented to person, place, time, situation, Reports tingling in b/l feet. Cardiovascular: Denies chest pain, shortness of breath. Respiratory: Denies cough, shortness of breath. : Reports incontinence, due to not being able to ambulate to restroom. Musculoskeletal: Capillary refill < 3 seconds, Range of motion: limited in Bb/l LE due to pain Reports weakness in left foot and right foot pain in left foot and right foot Pain is 10 out of 10 on a pain scale. Vital Signs: 07:36 Weight 54.43 kg; Height 5 ft. 4 in. (162.56 cm); Pain 10/10; ll1 08:17 BP 124 / 75; Pulse 120; Resp 16; Temp 98.7; Pulse Ox 100% on R/A; ll1 08:30 BP 134 / 84; Pulse 95; Resp 17; Pulse Ox 100% ; Pain 10/10; eo2 09:30 BP 121 / 87; Pulse 90; Resp 17; Pulse Ox 100% ; eo2 09:37 Pain 8/10; eo2 10:00 BP 164 / 98; Pulse 90; Resp 17; Pulse Ox 100% ; Pain 6/10; eo2 07:36 Body Mass Index 20.60 (54.43 kg, 162.56 cm) ll1 ED Course: 07:27 Patient arrived in ED. ds1 07:32 Adria Lala MD is Attending Physician. tawana 07:36 Arm band placed on Patient placed in an exam room, on a stretcher. ll1 07:38 Triage completed. ll1 07:51 Barb Enriquez, DAYDAY is Primary Nurse. eo2 08:35 Inserted saline lock: 20 gauge in right upper arm, using aseptic technique. Blood eo2 collected. 08:45 Patient has correct armband on for positive identification. Pulse ox on. NIBP on. Door eo2 closed. Noise minimized. 08:45 CBC with Diff Sent. eo2 08:45 Comprehensive Metabolic Panel Sent. eo2 08:45 Sed Rate Sent. eo2 08:45 No provider procedures requiring assistance completed. eo2 09:33 Selbst, Tapan, DPM is Referral Physician. tawana 09:35 Foot Left 2 View XRAY In Process Unspecified. EDMS 09:35 Foot Right 2 View XRAY In Process Unspecified. EDMS 10:40 IV discontinued, intact. eo2 Administered Medications: 08:36 Drug: NS 0.9% 500 ml Route: IV; Rate: bolus; Site: right upper arm; eo2 09:00 Follow up: Response: No adverse reaction; IV Status: Completed infusion; IV Intake: eo2 500ml 08:37 Drug: Ketorolac 30 mg Route: IVP; Site: right upper arm; eo2 09:37 Follow up: Pain 8/10 Adult; Response: No adverse reaction; Pain is decreased eo2 08:37 Drug: Gabapentin 300 mg Route: PO; eo2 09:35 Follow up: Response: No adverse reaction eo2 09:47 Drug: Thiamine 100 mg Route: IV; Rate: bolus; Site: right antecubital; eo2 10:16 Follow up: Response: No adverse reaction; IV Status: Completed infusion; IV Intake: [id number] 09:47 Drug: foLIC Acid 2 mg Route: PO; eo2 10:15 Follow up: Response: No adverse reaction eo2 10:30 Follow up: Response: No adverse reaction eo2 10:16 Drug: Amitriptyline 25 mg Route: PO; eo2 10:30 Follow up: Response: No adverse reaction eo2 Intake: 09:00 IV: 500ml; Total: 500ml. eo2 10:16 IV: 10ml; Total: 510ml. eo2 Outcome: 09:33 Discharge ordered by . tawana 10:40 Discharged to home via wheelchair. eo2 10:40 Condition: stable 10:40 Discharge instructions given to patient, Instructed on discharge instructions, follow up and referral plans. medication usage, Demonstrated understanding of instructions, follow-up care, medications, Prescriptions given X x6 10:41 Patient left the ED. eo2 Signatures: Dispatcher [employer] Adria Coles MD MD cha Sanford, Yolis ds1 Kerri Contreras RN RN ll1 Barb Enrqiuez RN RN eo2
[2021-05-08] MEDS ORDERED: THIAMINE 200 MG/2 ML INJ ONE (09:44)
[2021-05-08] MEDS ORDERED: FOLIC ACID 1 MG TABLET ONE (09:44)
--- NOTE | 2021-05-08 09:44 | RAD REPORT ---
EXAM DESCRIPTION: RAD - Foot Right 2 View - 05/08/2021 9:34 am CLINICAL HISTORY: PAIN COMPARISON: Foot Right 2 View dated 10/08/2014; Foot Right 3 View dated 09/05/2014 FINDINGS: No acute fracture. No malalignment. No significant focal degenerative changes. IMPRESSION: No acute osseous abnormality involving the right foot.
--- NOTE | 2021-05-08 09:45 | RAD REPORT ---
EXAM DESCRIPTION: RAD - Foot Left 2 View - 05/08/2021 9:34 am CLINICAL HISTORY: PAIN COMPARISON: No comparisons FINDINGS: No acute fracture. No malalignment. No significant focal degenerative changes. IMPRESSION: No acute osseous abnormality involving the left foot.
[2021-05-08 09:58] LABS: Urine Specific Gravity/Preg >1.030 (1.005-1.030)
[2021-05-08] MEDS ORDERED: AMITRIPTYLINE 25 MG TAB PO ONE (10:00)
[2021-05-08 11:07] VITALS: TEMP 98.7; O2SAT 100
[2021-05-08 11:12] VITALS: BP 164/98
== END 2021-05-08 10:41 | disposition home or self-care (01) ==
LOC: ER 07:23
DX: G60.3 Idiopathic progressive neuropathy (principal); D50.9 Iron deficiency anemia, unspecified; M79.671 Pain in right foot; M79.675 Pain in left toe(s); M79.674 Pain in right toe(s); Z88.5 Allergy status to narcotic agent
CPT/HCPCS: 96365; 85025; 36415; 81025; 85652; 81003; 80053; 73620 ×2; 96375; 99284; J3411; J7040

== ENCOUNTER 2021-09-30 04:30 | Emergency (ER) | payer OTHER ==
--- OUTSIDE RECORDS SUMMARY | 2021-09-30 04:33 | XMS REPORT | Continuity of Care Document ---
:1985 Author Organization [facility] t Address [address] [place] [address] Care Team Providers Name Role Phone Millender Attending Clinician Unavailable Problems Condition Condition Condition Status Onset Resolution Last Treating Co mments Source Name Details Category Date Date Treatment Clinician Date Locking of Locking of Problem Active C ommon right knee right knee Sp iesha [facility] Acute pain Acute pain Problem Active C ommon of right of right Spirit knee knee - [facility] Intramural Intramural Problem Active C ommon leiomyoma leiomyoma Spir it of uterus of uterus - [facility] Anemia, Anemia, Problem Active Common unspecifie unspecifie Sp iesha d type d type - [facility] Anxiety Anxiety Problem Active Common [facility] Pica Pica Problem Active Common [facility] Non-season Non-season Problem Active C ommon al al Spirit allergic allergic - [facility] rhinitis, rhinitis, St unspecifie unspecifie Josefina kes d trigger d trigger [facility] Allergies, Adverse Reactions, Alerts This patient has no known allergies or adverse reactions. Medications Ordered Filled Start Stop Current Ordering Indication Dosage Frequency Signature Comments Components Source Medication Medication Date Date Medication? Clinician (SIG) Name Name Tramadol Tramadol 2018-0 Yes Kyle 1 tablet Common HCl HCl 8-13 [facility] as needed Spirit 00:00: - [facility] Alprazolam Alprazolam Yes Kyle (Schedule Common [facility] IV Drug) Jc TAKE 1 - [facility] TABLET BY [facility] PredniSONE PredniSONE Yes Kyle TAKE 1 Common [place] TABLET BY Spirit MOUTH - [facility] TWICE A [facility] DAY FOR 7 [facility] DA[facility] [place] Lidocaine Lidocaine Yes Kyle TAKE 5ML Common Viscous Viscous [place] BY MOUTH Spiri t THREE TO - [facility] FOUR TIMES [facility] DAILY [facility] Montelukast Montelukast Yes Kyle TAKE 1 Common Sodium Sodium [place] TABLET BY Spirit MOUTH - [facility] EVERY [facility] All Day All Day Yes Kyle TAKE 1 Comm on Allergy Allergy [place] TABLET BY Spir it MOUTH - [facility] EVERY DAY [facility] Procedures This patient has no known procedures. Encounters Start End Encounter Admission Attending Care Care Encounter Source Date/Time Date/Time Type Type Clinicians Facility Department ID 2021-05-14 Outpatient ANDREINA Mancini [facility] [id number] Common 13:46:16 [place] [id number] [facility] 2021-05-14 [id number] Common 11:28:56 Lakeisha [id number] [facility] 2019-10-16 2019-10-16 [place] [facility] [id number] Common 15:41:00 15:41:00 [facility] 2018-01-10 2018-01-10 [facility] [id number] Common 09:00:00 09:00:00 t [facility] 2017-12-13 2017-12-13 [facility] [id number] Common 15:14:00 15:14:00 t [facility] Sp[facility] t and Joint [facility] 2017-12-06 2017-12-06 [facility] [id number] Common 16:21:00 16:21:00 t [facility] Spiri t and Joint [facility] - [facility] 2017-11-29 2017-11-29 [facility] [id number] Common 14:07:00 14:07:00 t [facility] Sp[facility] t and Joint [facility] - [facility] 2017 2017 [facility] [id number] Common 08:15:00 08:15:00 t [facility] Spiri t and Joint [facility] - [facility] 2017-11-24 2017-11-24 [facility] [id number] Common 13:30:00 13:30:00 t [facility] Sp[facility] t and Joint [facility] Results This patient has no known results.
--- NOTE | 2021-09-30 05:39 | ER ---
Nurse's Notes [facility] Name: Mary Drake Age: 35 yrs Sex: Female : 1985 Arrival Date: 09/30/2021 Time: 04:42 Bed 15 Private MD: Diagnosis: Pain in foot and toes;Pain in left toe(s);Pain in right toe(s) Presentation: 09/30 04:54 Chief complaint: Patient states: she was told by Sofi De La Rosa that she has broken bb toes on each foot and needs to see a specialist but she has not been able to and her feet are painful. Coronavirus screen: At this time, the client does not indicate any symptoms associated with coronavirus-19. Ebola Screen: No symptoms or risks identified at this time. Initial Sepsis Screen: Does the patient meet any 2 criteria? No. Patient's initial sepsis screen is negative. Does the patient have a suspected source of infection? No. Patient's initial sepsis screen is negative. Risk Assessment: Do you want to hurt yourself or someone else? Patient reports no desire to harm self or others. Onset of symptoms was September 2021. 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 - Social history:: Smoking status: Patient denies any tobacco usage or history of. Screenin:01 Abuse screen: Denies threats or abuse. Nutritional screening: No deficits noted. bb Tuberculosis screening: No symptoms or risk factors identified. Fall Risk None identified. Assessment: 05:01 General: Appears in no apparent distress. uncomfortable, slender, Behavior is calm, bb cooperative. Pain: Complains of pain in right foot and left foot. Neuro: Level of Consciousness is awake, alert, obeys commands, Oriented to person, place, time, situation. Cardiovascular: Capillary refill < 3 seconds Patient's skin is warm and dry. Respiratory: Airway is patent Respiratory effort is even, unlabored. GI: No signs and/or symptoms were reported involving the gastrointestinal system. Musculoskeletal: Circulation, motion, and sensation intact. Reports pain in right foot and left foot. 05:56 Reassessment: Patient is alert, oriented x 3, equal unlabored respirations, skin bb warm/dry/pink. pt verbalized understanding of and agrees to plan of care discharge instructions given pt ambulated with uneven gait to exit. Vital Signs: 04:54 BP 115 / 73; Pulse 89; Resp 16 S; Temp 98.5(TE); Pulse Ox 100% on R/A; Weight 47.17 kg bb (R); Height 5 ft. 4 in. (162.56 cm) (R); Pain 6/10; 04:54 Body Mass Index 17.85 (47.17 kg, 162.56 cm) bb ED Course: 04:42 Patient arrived in ED. [facility] 04:56 Triage completed. bb 04:56 Arm band placed on. bb 05:01 Ella Reid RN is Primary Nurse. bb 05:01 Adria Lala MD is Attending Physician. [facility] 05:01 Patient has correct armband on for positive identification. Bed in low position. Call bb light in reach. 05:30 Foot Right 3 View XRAY In Process Unspecified. EDMS 05:30 Foot Left 3 View XRAY In Process Unspecified. EDMS 05:38 Tapan Bolton DPM is Referral Physician. [facility] 05:57 No provider procedures requiring assistance completed. Patient did not have IV access bb during this emergency room visit. Administered Medications: No medications were administered Outcome: 05:38 Discharge ordered by . [facility] 05:57 Discharged to home ambulatory. bb 05:57 Condition: stable 05:57 Discharge instructions given to patient, Instructed on discharge instructions, follow up and referral plans. medication usage, Demonstrated understanding of instructions, follow-up care, medications, Prescriptions given X 1. 05:58 Patient left the ED. bb Signatures: Dispatcher [employer] Adria Coles MD MD cha Ballard, Brenda, RN RN Andree Ni
--- NOTE | 2021-09-30 05:39 | EDPHYS ---
Physician Documentation [facility] Name: Mary Drake Age: 35 yrs Sex: Female : 1985 Arrival Date: 09/30/2021 Time: 04:42 Bed 15 Private MD: MARK Physician Adria Lala HPI: 09/30 05:15 This 35 yrs old Black Female presents to ER via Wheelchair with complaints of Foot tawana Injury. 05:15 The patient presents with decreased range of motion, pain, that is chronic. The tawana complaints affect the right foot and left foot. Context: The problem was sustained at home, resulted from a heavy object falling, furniture or furniture accessory, Mechanism of Injury: DROPPED TABLE ON TOES the patient can fully bear weight. Onset: The symptoms/episode began/occurred 3 week(s) ago. Modifying factors: The symptoms are alleviated by elevation of extremity, the symptoms are aggravated by heat, movement. Associated signs and symptoms: The patient has no apparent associated signs or symptoms. Severity of symptoms: At their worst the symptoms were mild, in the emergency department the symptoms are unchanged. The patient has not experienced similar symptoms in the past. 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 - Social history:: Smoking status: Patient denies any tobacco usage or history of. ROS: 05:15 Constitutional: Negative for fever, chills, and weight loss, Eyes: Negative for injury, tawana pain, redness, and discharge, ENT: Negative for injury, pain, and discharge, Neck: Negative for injury, pain, and swelling, Cardiovascular: Negative for chest pain, palpitations, and edema, Respiratory: Negative for shortness of breath, cough, wheezing, and pleuritic chest pain, Abdomen/GI: Negative for abdominal pain, nausea, vomiting, diarrhea, and constipation, Back: Negative for injury and pain, : Negative for injury, bleeding, discharge, and swelling, Skin: Negative for injury, rash, and discoloration, Neuro: Negative for headache, weakness, numbness, tingling, and seizure, Psych: Negative for depression, anxiety, suicide ideation, homicidal ideation, and hallucinations, Allergy/Immunology: Negative for hives, rash, and allergies, Endocrine: Negative for neck swelling, polydipsia, polyuria, polyphagia, and marked weight changes, Hematologic/Lymphatic: Negative for swollen nodes, abnormal bleeding, and unusual bruising. 05:15 MS/extremity: Positive for decreased range of motion, pain, tenderness, of the lateral aspect of right toes, right first toe, right second toe, right third toe, right fourth toe, right fifth toe and left foot. Exam: 05:15 Constitutional: This is a well developed, well nourished patient who is awake, alert, tawana and in no acute distress. Head/Face: Normocephalic, atraumatic. Eyes: Pupils equal round and reactive to light, extra-ocular motions intact. Lids and lashes normal. Conjunctiva and sclera are non-icteric and not injected. Cornea within normal limits. Periorbital areas with no swelling, redness, or edema. ENT: Nares patent. No nasal discharge, no septal abnormalities noted. Tympanic membranes are normal and external auditory canals are clear. Oropharynx with no redness, swelling, or masses, exudates, or evidence of obstruction, uvula midline. Mucous membranes moist. Neck: Trachea midline, no thyromegaly or masses palpated, and no cervical lymphadenopathy. Supple, full range of motion without nuchal rigidity, or vertebral point tenderness. No Meningismus. Chest/axilla: Normal chest wall appearance and motion. Nontender with no deformity. No lesions are appreciated. Cardiovascular: Regular rate and rhythm with a normal S1 and S2. No gallops, murmurs, or rubs. Normal PMI, no JVD. No pulse deficits. Respiratory: Lungs have equal breath sounds bilaterally, clear to auscultation and percussion. No rales, rhonchi or wheezes noted. No increased work of breathing, no retractions or nasal flaring. Abdomen/GI: Soft, non-tender, with normal bowel sounds. No distension or tympany. No guarding or rebound. No evidence of tenderness throughout. Back: No spinal tenderness. No costovertebral tenderness. Full range of motion. Skin: Warm, dry with normal turgor. Normal color with no rashes, no lesions, and no evidence of cellulitis. Neuro: Awake and alert, GCS 15, oriented to person, place, time, and situation. Cranial nerves II-XII grossly intact. Motor strength 5/5 in all extremities. Sensory grossly intact. Cerebellar exam normal. Normal gait. Psych: Awake, alert, with orientation to person, place and time. Behavior, mood, and affect are within normal limits. 05:15 Musculoskeletal/extremity: ROM: full active range of motion, full passive range of motion, Circulation is intact in all extremities. Sensation intact. Compartment Syndrome exam of affected extremity: is normal. Weight bearing: able to fully bear weight, DVT Exam: no swelling, negative Homans' sign noted on exam, no appreciated bluish discoloration, no erythema, no increased warmth, pain, tenderness. Vital Signs: 04:54 BP 115 / 73; Pulse 89; Resp 16 S; Temp 98.5(TE); Pulse Ox 100% on R/A; Weight 47.17 kg bb (R); Height 5 ft. 4 in. (162.56 cm) (R); Pain 6/10; 04:54 Body Mass Index 17.85 (47.17 kg, 162.56 cm) bb MDM: 05:01 Patient medically screened. tawana 05:18 Differential diagnosis: fracture, arthritis, gout, cellulitis. Data reviewed: vital tawana signs, nurses notes, radiologic studies, plain films. Data interpreted: campus monitor: not applicable for this patient encounter. rate is 89 beats/min, rhythm is regular, Pulse oximetry: on room air is 100 %. Counseling: I had a detailed discussion with the patient and/or guardian regarding: the historical points, exam findings, and any diagnostic results supporting the discharge/admit diagnosis, radiology results, the need for outpatient follow up, for definitive care, a family practitioner, a what job titles mean. 09/30 05:02 Order name: Foot Right 3 View XRAY tawana 09/30 05:02 Order name: Foot Left 3 View XRAY tawana Administered Medications: No medications were administered Disposition Summary: 09/30/21 05:38 Discharge Ordered Location: Home tawana Problem: new tawana Symptoms: have improved tawana Condition: Stable tawana Diagnosis - Pain in foot and toes tawana - Pain in left toe(s) tawana - Pain in right toe(s) tawana Followup: tawana - With: Private Physician - When: 2 - 3 days - Reason: Recheck today's complaints, Continuance of care, Re-evaluation by your physician Followup: tawana - With: - When: 2 - 3 days - Reason: Recheck today's complaints, Continuance of care, Re-evaluation by your physician Discharge Instructions: - Discharge Summary Sheet tawana - Musculoskeletal Pain tawana - Foot Pain tawana Forms: - Medication Reconciliation Form tawana - Thank You Letter tawana - Antibiotic Education tawana - Prescription Opioid Use tawana Prescriptions: - Ibuprofen 600 mg Oral Tablet - take 1 tablet by ORAL route every 6 hours As needed take with food; 21 tablet; tawana Refills: 0, Product Selection Permitted Signatures: Dispatcher [employer] Adria Coles MD MD cha Ballard, Brenda RN RN bb
[2021-09-30 06:02] VITALS: BP 115/73; TEMP 98.5; O2SAT 100
--- NOTE | 2021-09-30 11:43 | RAD REPORT ---
EXAM DESCRIPTION: XR Left Foot Complete, 3 or More Views CLINICAL HISTORY: The patient is 35 years old and is Female; PAIN TECHNIQUE: Three views of the left foot. COMPARISON: No relevant prior studies available. FINDINGS: Bones/joints: Unremarkable. No acute fracture. No dislocation. Soft tissues: Unremarkable. No radiopaque foreign body. IMPRESSION: No acute osseous findings. Electronically signed by: Sofi Doty MD 09/30/2021 6:07 AM CDT Due to temporary technical issues with the PACS/Fluency reporting system, reports are being signed by the in house radiologists without review as a courtesy to insure prompt reporting. The interpreting radiologist is fully responsible for the content of the report.
--- NOTE | 2021-09-30 12:02 | RAD REPORT ---
EXAM DESCRIPTION: XR Right Foot Complete, 3 or More Views CLINICAL HISTORY: The patient is 35 years old and is Female; PAIN TECHNIQUE: Three views of the right foot. COMPARISON: No relevant prior studies available. FINDINGS: Bones/joints: Unremarkable. No acute fracture. No dislocation. Soft tissues: Unremarkable. No radiopaque foreign body. IMPRESSION: No acute findings. Electronically signed by: Sofi Doty MD 09/30/2021 6:09 AM CDT Due to temporary technical issues with the PACS/Fluency reporting system, reports are being signed by the in house radiologists without review as a courtesy to insure prompt reporting. The interpreting radiologist is fully responsible for the content of the report.
== END 2021-09-30 05:58 | disposition home or self-care (01) ==
LOC: ER 04:30
DX: M79.675 Pain in left toe(s) (principal); M79.674 Pain in right toe(s); Z88.5 Allergy status to narcotic agent
CPT/HCPCS: 99283

== ENCOUNTER 2023-01-25 19:00 | Emergency (ER) | payer OTHER ==
--- OUTSIDE RECORDS SUMMARY | 2023-01-25 19:04 | XMS REPORT | Continuity of Care Document ---
:1985 Author Organization [facility] t Address [address] [facility]. [address] [place] [id number] Care Team Providers Name Role Phone Lakeisha Mancini Attending Clinician Unavailable Problems Condition Condition Condition Status Onset Resolution Last Treating Co mments Source Name Details Category Date Date Treatment Clinician Date Locking of Locking of Problem Active C ommon right knee right knee Sp iesha [facility] Acute pain Acute pain Problem Active C ommon of right of right Spirit knee knee - [facility] Intramural Intramural Problem Active C ommon leiomyoma leiomyoma Spir it of uterus of uterus - [facility] Anemia, Anemia, Problem Active Common unspecifie unspecifie Sp iesha d type d type - [facility] Anxiety Anxiety Problem Active Common [facility] Pica Pica Problem Active Common [facility] Non-season Non-season Problem Active C ommon al al Spirit allergic allergic - [facility] rhinitis, rhinitis, St unspecifie unspecifie Josefina kes d trigger d trigger [facility] Allergies, Adverse Reactions, Alerts This patient has no known allergies or adverse reactions. Medications Ordered Filled Start Stop Current Ordering Indication Dosage Frequency Signature Comments Components Source Medication Medication Date Date Medication? Clinician (SIG) Name Name Tramadol Tramadol 2017- Yes Klye 1 tablet Common HCl HCl 8-13 [facility] as needed Spirit 00:00: - [facility] 00 [facility] Alprazolam Alprazolam Yes Kyle (Schedule Common [facility] IV Drug) Jc TAKE 1 - [facility] TABLET BY [facility] 3 [facility] PredniSONE PredniSONE Yes Kyle TAKE 1 Common [facility] TABLET BY Spirit MOUTH - [facility] TWICE A [facility] DAY FOR 7 [facility] DA[facility] Lidocaine Lidocaine Yes Kyle TAKE 5ML Common Viscous Viscous [place] BY MOUTH Spiri t THREE TO - [facility] FOUR TIMES [facility] DAILY [facility] Montelukast Montelukast Yes Kyle TAKE 1 Common Sodium Sodium [facility] TABLET BY Spirit MOUTH - [facility] EVERY [facility] All Day All Day Yes Kyle TAKE 1 Comm on Allergy Allergy [place] TABLET BY Spir it MOUTH - [facility] EVERY DAY [facility] Procedures This patient has no known procedures. Encounters Start End Encounter Admission Attending Care Care Encounter Source Date/Time Date/Time Type Type Clinicians Facility Department ID 2021-05-[address] [facility] [id number] Common 13:46:16 Lakeisha [id number] [facility] 2021-05-14 [facility] [id number] 11:28:56 Lakeisha [id number] [facility] 2019-10-16 2019-10-16 Out[facility] [id number] Common 15:41:00 15:41:00 [facility] 2018-01-10 2018-01-10 Outpatient [facility] [id number] Common 09:00:00 09:00:00 t [facility] Spiri t and Joint Joint - [facility] 2017-12-13 2017-12-13 Outpatient [facility] [id number] Common 15:14:00 15:14:00 t Bone Bone and Spiri t and Joint Joint - [facility] 2017-12-06 2017-12-06 Outpatient [facility] [id number] Common 16:21:00 16:21:00 t Bone Bone and Spiri t and Joint Joint - [facility] 2017-11-29 2017-11-29 Outpatient [facility] [id number] Common 14:07:00 14:07:00 t [facility] Bone and Spiri t and Joint Joint - [facility] 2017 2017 Outpatient [facility] [id number] Common 08:15:00 08:15:00 t [facility] Bone and Spiri t and Joint Joint - [facility] 2017-11-24 2017-11-24 Outpatient [facility] [id number] Common 13:30:00 13:30:00 t Bone Bone and Spiri t and Joint [facility] - [facility] Results This patient has no known results.
[2023-01-25] MEDS ORDERED: ONDANSETRON 4 MG/2 ML VIAL ONE (20:59)
[2023-01-25] MEDS ORDERED: FAMOTIDINE 20 MG/2 ML VIAL IV ONE (20:59)
[2023-01-25] MEDS ORDERED: KETOROLAC 30 MG/ML INJ ONE (20:59)
[2023-01-25] MEDS ORDERED: NA CHLORIDE 0.9% 1,000 ML ONE (20:59)
[2023-01-25 21:21] LABS: Absolute Lymphocytes (CBC) 3.3 K/uL (0.7-4.9); Hematocrit 29.3 % (36.0-45.0); Lymphocytes % 48.3 % (15.3-44.8); MCV 77.5 fL (80-100); MPV 8.2 fL (7.6-11.3); Platelets 375 thou/uL (152-406); RBC Red Blood Cell Count 3.79 M/uL (3.86-4.86)
[2023-01-25 21:38] LABS: Potassium 3.5 mEq/L (3.5-5.1)
[2023-01-25 21:39] LABS: Albumin 3.1 g/dL (3.4-5.0); Bilirubin Total 0.2 mg/dL (0.2-1.0); Protein, Total 7.5 g/dL (6.4-8.2)
[2023-01-25 21:53] LABS: Blood Morphology Comment NOTED (NOT SEEN); Hypochromasia 2+; Platelet Estimate ADEQ
[2023-01-25 23:00] LABS: Specific Gravity 1.015 (1.005-1.030)
[2023-01-25 23:02] LABS: Specific Gravity 1.015 (1.005-1.030); Urine Bacteria <20 /HPF (<20); Urine Bilirubin NEGATIVE (Negative); Urine Blood Negative (Negative); Urine Clarity Turbid (Clear); Urine Color Colorless (Yellow); Urine Crystals Unidentified Few /HPF (None Seen); Urine Glucose NEGATIVE (Negative); Urine Protein NEGATIVE (Negative); Urine RBC <5 /HPF (None Seen); Urine Urobilinogen Normal (Normal)
--- NOTE | 2023-01-25 23:37 | EDPHYS ---
Physician Documentation [facility] Name: Mary Drake Age: 37 yrs Sex: Female : 1985 Arrival Date: 01/25/2023 Time: 19:00 Bed 18 Private MD: ED Physician Donaldo Noel HPI: 01/25 23:51 This 37 yrs old Black Female presents to ER via Ambulatory with complaints of Diarrhea, kb Abdominal Pain, Fever. 23:51 The patient presents with abdominal pain that is diffuse. Onset: The symptoms/episode kb began/occurred 4 day(s) ago. The symptoms do not radiate. Associated signs and symptoms: Pertinent positives: diarrhea, Pertinent negatives: nausea and vomiting. The symptoms are described as constant. Modifying factors: The symptoms are alleviated by nothing, the symptoms are aggravated by nothing. Severity of pain: At its worst the pain was moderate in the emergency department the pain is unchanged. The patient has not experienced similar symptoms in the past. The patient has not recently seen a physician. Pt reports abd pain and diarrhea for 4 days. Mother states pt has a low grade fever 2 days ago. 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 - Social history:: Smoking status: Patient denies any tobacco usage or history of. ROS: 23:50 Constitutional: Negative for fever, chills, and weight loss, kb 23:50 Abdomen/GI: Positive for abdominal pain, diarrhea, Negative for nausea and vomiting, 23:50 All other systems are negative, Exam: 23:50 Constitutional: This is a well developed, well nourished patient who is awake, alert, kb and in no acute distress. Head/Face: Normocephalic, atraumatic. ENT: Moist Mucous membranes Cardiovascular: Regular rate Respiratory: Respirations even and unlabored. No increased work of breathing. Talking in full sentences Skin: Warm, dry with normal turgor. Normal color. MS/ Extremity: Pulses equal, no cyanosis. Neurovascular intact. Full, normal range of motion. Neuro: Awake and alert, GCS 15, oriented to person, place, time, and situation. Moves all extremities. Normal gait. 23:50 Abdomen/GI: Inspection: abdomen appears normal, Bowel sounds: normal, Palpation: soft, in all quadrants, moderate abdominal tenderness, in all quadrants, Vital Signs: 19:19 BP 125 / 89; Pulse 88; Resp 18; Temp 99; Pulse Ox 100% on R/A; Weight 52.16 kg; Height mb9 5 ft. 4 in. ; Pain 10/10; 20:50 BP 115 / 77; Pulse 80; Resp 16; Pulse Ox 100% on R/A; Pain 6/10; km8 22:00 BP 107 / 67; Pulse 87; Resp 16; Pulse Ox 100% on R/A; km8 23:00 BP 108 / 72; Pulse 77; Resp 16; Pulse Ox 100% on R/A; km8 23:45 BP 114 / 72; Pulse 80; Resp 16; Pulse Ox 100% on R/A; Pain 2/10; km8 19:19 Body Mass Index 19.74 (52.16 kg, 162.56 cm) mb9 19:19 Pain Scale: Adult mb9 20:50 Pain Scale: Adult km8 23:45 Pain Scale: Adult km8 MDM: 19:10 Patient medically screened. kb 23:50 Differential diagnosis: bowel obstruction, diverticulitis, non-specific abd pain, kb colitis, gastroenteritis. Data reviewed: vital signs, nurses notes. Historians other than the Patient: Parent: mother. Counseling: I had a detailed discussion with the patient and/or guardian regarding the historical points, exam findings, and any diagnostic results supporting the discharge/admit diagnosis, lab results, radiology results, the need for outpatient follow up, a family practitioner, to return to the emergency department if symptoms worsen or persist or if there are any questions or concerns that arise at home. 01/25 19: Order name: CBC with Diff; Complete Time: 21:54 kb 01/25 19: Order name: CMP; Complete Time: 21:42 kb 01/25 19: Order name: Lipase; Complete Time: 21:42 kb 01/25 19: Order name: Test, Urine; Complete Time: 23:11 kb 10/09 19:22 Order name: Urinalysis w/ reflexes; Complete Time: 23:05 kb 01/25 19:22 Order name: Retic Count; Complete Time: 21:54 kb 01/25 21:24 Order name: Manual Differential; Complete Time: 21:54 EDMS 01/25 19:22 Order name: CT Abd/Pelvis - IV Contrast Only kb 01/25 19:22 Order name: IV Saline Lock; Complete Time: 21:04 kb 01/25 19:22 Order name: Labs collected and sent; Complete Time: 21:04 kb Administered Medications: 21:03 Drug: NS 0.9% IV 1000 ml IV at 1 bolus Per protocol; 1000 mL bolus Route: IV; Rate: 1 km8 bolus; Site: right antecubital; 22:05 Follow up: Response: No adverse reaction; IV Status: Completed infusion; IV Intake: km8 1000ml 21:03 Drug: Famotidine IVP 20 mg IVP once; dilute with 10 mL 0.9% NaCl; give over 2 minutes km8 Route: IVP; Site: right antecubital; 21:35 Follow up: Response: No adverse reaction km8 21:03 Drug: TORadol - Ketorolac IVP 15 mg IVP once Route: IVP; Site: right antecubital; km8 21:35 Follow up: Response: No adverse reaction; Pain is decreased km8 21:03 Drug: Ondansetron IVP 4 mg IVP once; over 2 minutes Route: IVP; Site: right antecubital;km8 21:35 Follow up: Response: No adverse reaction; Marked relief of symptoms; Nausea is decreasedkm8 Disposition: 01/26 10:37 Co-signature as Attending Physician, Donaldo Noel MD I reviewed the patient's care rt provided by the Advanced Practice Provider and agree with the diagnosis and treatment plan. Disposition Summary: 01/25/23 23:37 Discharge Ordered Notes: Location: Home kb Condition: Stable kb Diagnosis - Colitis kb Followup: kb - With: Emergency Department - When: As needed - Reason: Worsening of condition Followup: kb - With: Private Physician - When: 2 - 3 days - Reason: Recheck today's complaints, Continuance of care, Re-evaluation by your physician Discharge Instructions: - Discharge Summary Sheet kb - Colitis kb Forms: - Medication Reconciliation Form kb - Thank You Letter kb - Antibiotic Education kb - Prescription Opioid Use kb - Patient Portal Instructions kb - Leadership Thank You Letter kb Prescriptions: - Flagyl 500 mg Oral Tablet - take 1 tablet ORAL route every 8 hours for 10 days; 30 tablet; Refills: 0, kb Product Selection Permitted - Cipro 500 mg Oral Tablet - take 1 tablet ORAL route every 12 hours for 7 days; 14 tablet; Refills: 0, kb Product Selection Permitted Signatures: Dispatcher [employer] Yolis Mendez FNP-C FNP-Ckb Breneman, Mary Beth RN RN mb9 Donaldo Noel MD MD rt Lissett Rincon RN RN km8
--- NOTE | 2023-01-25 23:37 | ER ---
Nurse's Notes [facility] Name: Mary Drake Age: 37 yrs Sex: Female : 1985 Arrival Date: 01/25/2023 Time: 19:00 Bed 18 Private MD: Diagnosis: Colitis Presentation: 01/25 19:19 Chief complaint: Patient states: "For the last 4 days, I've had diarrhea and stomach mb9 pain. My mom said I had a low grade fever 2 days ago.". Coronavirus screen: Vaccine status: Patient reports receiving the 2nd dose of the covid vaccine. Ebola Screen: No symptoms or risks identified at this time. Initial Sepsis Screen: Does the patient meet any 2 criteria? No. Patient's initial sepsis screen is negative. Does the patient have a suspected source of infection? No. Patient's initial sepsis screen is negative. Risk Assessment: Do you want to hurt yourself or someone else? Patient reports no desire to harm self or others. Onset of symptoms was January 25, 2023. 19:19 Method Of Arrival: Ambulatory mb9 19:19 Acuity: CED 3 mb9 Triage Assessment: 19:22 General: Appears in no apparent distress. Behavior is calm, cooperative. Pain: mb9 Complains of pain in abdomen Pain does not radiate. Pain currently is 100 out of 10 on a pain scale. Quality of pain is described as throbbing, Pain began 2-3 days ago. Is continuous. Neuro: Carmona Agitation-Sedation Scale (RASS): 0 - Alert and Calm Level of Consciousness is awake, alert, obeys commands, Oriented to person, place, time, situation, Appropriate for age. Cardiovascular: Patient's skin is warm and dry. Respiratory: Airway is patent Respiratory effort is even, unlabored, Respiratory pattern is regular, symmetrical. GI: Reports lower abdominal pain, upper abdominal pain, diarrhea. : No signs and/or symptoms were reported regarding the genitourinary system. Derm: Skin is pink, warm \\T\\ dry. Musculoskeletal: Range of motion: intact in all extremities. 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 - Social history:: Smoking status: Patient denies any tobacco usage or history of. Screenin:[address] [facility] ED Fall Risk Assessment (Adult) History of falling in the last 3 months, km8 including since admission No falls in past 3 months (0 pts) Confusion or Disorientation No (0 pts) Intoxicated or Sedated No (0 pts) Impaired Gait No (0 pts) Mobility Assist Device Used No (0 pt) Altered Elimination No (0 pt) Score/Fall Risk Level 0 - 2 = Low Risk. Abuse screen: Denies threats or abuse. Denies injuries from another. Nutritional screening: No deficits noted. Tuberculosis screening: No symptoms or risk factors identified. Assessment: 20:55 General: Appears in no apparent distress. comfortable, Behavior is calm, cooperative, km8 appropriate for age, Reports feeling ill for. Pain: Complains of pain in right lower quadrant and left lower quadrant Pain does not radiate. Pain currently is 6 out of 10 on a pain scale. Quality of pain is described as pressure, Pain began 4-5 days. 20:55 Neuro: No deficits noted. Carmona Agitation-Sedation Scale (RASS): 0 - Alert and Calm. km8 Cardiovascular: No deficits noted. Denies chest pain, shortness of breath, Capillary refill < 3 seconds Patient's skin is warm and dry. Respiratory: No deficits noted. Airway is patent Respiratory effort is even, unlabored, Respiratory pattern is regular, symmetrical. GI: Abdomen is distended, Bowel sounds hyperactive in right lower quadrant and left lower quadrant Abd is soft and non tender X 4 quads. Reports lower abdominal pain, bloating, diarrhea, Pain is 6 out of 10 on a pain scale. tolerance of fluids, tolerance of food. : No deficits noted. No signs and/or symptoms were reported regarding the genitourinary system. Denies burning with urination. EENT: No deficits noted. No signs and/or symptoms were reported regarding the EENT system. Derm: No deficits noted. No signs and/or symptoms reported regarding the dermatologic system. Skin is intact, is healthy with good turgor, Skin is dry, Skin is normal, Skin temperature is warm. Musculoskeletal: No deficits noted. No signs and/or symptoms reported regarding the musculoskeletal system. 22:25 General: pt educated on need for urine sample in order to proceed with the CT; pt rommel acknowledges understanding, but states she is unable to got to the bathroom at this time and will call out when ready.. Vital Signs: 19:19 BP 125 / 89; Pulse 88; Resp 18; Temp 99; Pulse Ox 100% on R/A; Weight 52.16 kg; Height mb9 5 ft. 4 in. ; Pain 10/10; 20:50 BP 115 / 77; Pulse 80; Resp 16; Pulse Ox 100% on R/A; Pain 6/10; km8 22:00 BP 107 / 67; Pulse 87; Resp 16; Pulse Ox 100% on R/A; km8 23:00 BP 108 / 72; Pulse 77; Resp 16; Pulse Ox 100% on R/A; km8 23:45 BP 114 / 72; Pulse 80; Resp 16; Pulse Ox 100% on R/A; Pain 2/10; km8 19:19 Body Mass Index 19.74 (52.16 kg, 162.56 cm) mb9 19:19 Pain Scale: Adult mb9 20:50 Pain Scale: Adult km8 23:45 Pain Scale: Adult km8 ED Course: 19:04 Patient arrived in ED. ag3 19:10 Yolis Herrera FNP-C [facility] kb 19:10 Donaldo Noel MD is Attending Physician. kb 19:21 Triage completed. mb9 19:21 Arm band placed on. mb9 20:55 Patient has correct armband on for positive identification. Placed in gown. Bed in low km8 position. Call light in reach. Side rails up X 1. Client placed on continuous cardiac and pulse oximetry monitoring. NIBP monitoring applied. Door closed. Noise minimized. Warm blanket given. 20:56 Inserted saline lock: 20 gauge in right antecubital area, using aseptic technique. km8 Blood collected. 20:56 Patient maintains SpO2 saturation greater than 95% on room air. km8 21:04 CBC with Diff Sent. km8 21:04 CMP Sent. km8 21:04 Lipase Sent. km8 22:45 CT Abd/Pelvis - IV Contrast Only In Process Unspecified. EDMS 22:54 Test, Urine Sent. lg3 22:54 Urinalysis w/ reflexes Sent. lg3 23:46 No provider procedures requiring assistance completed. Patient did not have IV access km8 during this emergency room visit. intact, bleeding controlled, No redness/swelling at site. Pressure dressing applied. Administered Medications: 21:03 Drug: NS 0.9% IV 1000 ml IV at 1 bolus Per protocol; 1000 mL bolus Route: IV; Rate: 1 km8 bolus; Site: right antecubital; 22:05 Follow up: Response: No adverse reaction; IV Status: Completed infusion; IV Intake: km8 1000ml 21:03 Drug: Famotidine IVP 20 mg IVP once; dilute with 10 mL 0.9% NaCl; give over 2 minutes km8 Route: IVP; Site: right antecubital; 21:35 Follow up: Response: No adverse reaction km8 21:03 Drug: TORadol - Ketorolac IVP 15 mg IVP once Route: IVP; Site: right antecubital; km8 21:35 Follow up: Response: No adverse reaction; Pain is decreased km8 21:03 Drug: Ondansetron IVP 4 mg IVP once; over 2 minutes Route: IVP; Site: right antecubital;km8 21:35 Follow up: Response: No adverse reaction; Marked relief of symptoms; Nausea is decreasedkm8 Medication: 23:46 VIS not applicable for this client. km8 Intake: 22:05 IV: 1000ml; Total: 1000ml. km8 Outcome: 23:37 Discharge ordered by . lashell 23:46 Discharged to home ambulatory, km8 23:46 Condition: improved 23:46 Discharge instructions given to patient, Instructed on discharge instructions, follow up and referral plans. medication usage, Demonstrated understanding of instructions, follow-up care, medications, Prescriptions given X 2, 23:47 Patient left the ED. km8 Signatures: Dispatcher [employer] EDMS Yolis Herrera, PAT POTTER-Lorie Mata Lacie, DAYDAY RN lg3 Bernadine Borrego, RN RN mb9 Lissett Rincon RN RN km8
[2023-01-26 02:00] VITALS: TEMP 99; O2SAT 100
[2023-01-26 02:14] VITALS: BP 114/72
--- NOTE | 2023-01-26 13:16 | RAD REPORT ---
EXAM DESCRIPTION: CT - Abdomen Pelvis W Contrast - 01/26/2023 6:56 am CLINICAL HISTORY: ABD PAIN. COMPARISON: CT of the abdomen and pelvis from February 04, 2020. TECHNIQUE: CT of the abdomen and pelvis was performed following intravenous administration of iodina genna contrast. Oral contrast was not administered. Axial, coronal, and sagittal soft tissue window rec onstructions were created and sent to PACS. This exam was performed according to our departmental dose-optimization program, which includes autom ated exposure control, adjustment of the mA and/or kV according to patient size and/or use of iterati ve reconstruction technique. FINDINGS: Thoracic: No significant abnormality. Hepatobiliary: No concerning hepatic lesion identified. The portal veins are patent. The gallbladder is unremarkable. No biliary ductal dilatation. Pancreas: Unremarkable. Spleen: Unremarkable. Gastrointestinal: No evidence of bowel obstruction or perienteric inflammation. The appendix is surgi sandee absent. Small amount of gas and liquid stool in the right colon and transverse colon. Mostly de compressed left colon and rectum. Adrenals: No abnormality identified in either adrenal gland. Renal: No concerning parenchymal abnormality in either kidney. No hydronephrosis or urolithiasis. Bladder/Reproductive: Unremarkable appearance of the urinary bladder by CT technique. Involuting righ t ovarian corpus luteum cyst (no follow-up imaging is recommended). Vascular/Lymphatics: No lymphadenopathy identified by CT size criteria. Abdominal aorta is normal in caliber. Musculoskeletal: No concerning osseous lesion identified. Fluid / peritoneum: Trace pelvic free fluid. No free intraperitoneal air identified. IMPRESSION 1. Small amount of gas and liquid stool in the right colon and transverse colon. Correl ate for potential colitis or diarrheal illness. 2. No additional potential acute abnormality is identified. Electronically signed by: Cyndee Hernández MD 01/25/2023 10:56 PM CDT Due to temporary technical issues with the PACS/Fluency reporting system, reports are being signed by the in house radiologists without review as a courtesy to insure prompt reporting. The interpreting radiologist is fully responsible for the content of the report.
== END 2023-01-25 23:47 | disposition home or self-care (01) ==
LOC: ER 19:00
DX: K52.9 Noninfective gastroenteritis and colitis, unspecified (principal); Z88.5 Allergy status to narcotic agent
CPT/HCPCS: 96361; 85025; 81001; 36415; 81025; 85044; 83690; 80053; 74177; 96375; 96374; 99285; Q9967; J2405; J7030